=== PATIENT | male | born 1945 | race Caucasian/White ===

== ENCOUNTER 2016-07-21 21:36 | Emergency (ER) | payer MEDICARE, OTHER ==
[2016-07-21 21:46] VITALS: RESP 18; TEMP 97
[2016-07-21] MEDS ORDERED: HYDROmorphone 1 MG/ML 1 ML SYRINGE IVP STA (22:16)
[2016-07-21] MEDS ORDERED: SODIUM CHLORIDE 0.9% 1,000 ML IV STA (22:16)
--- NOTE | 2016-07-21 22:20 | ED ---
General Adult HPI - General Chief complaint: Extremity Problem,Nontraumatic Stated complaint: right foot & calf pain Time Seen by Provider: 07/21/16 22:01 Source: patient, family, RN notes reviewed Mode of arrival: wheelchair Limitations: no limitations - History of Present Illness Initial comments: Patient is a pleasant 70-year-old male presenting to the emergency Department with right leg pain. Patient did have angiogram done today with cleanout of his right leg. Patient has had increased discomfort since that time. No stent was placed. Patient and family state they were able to find a pulse following the procedure. Patient complains that his foot and lower leg feel cold. Patient has discomfort from the mid thigh downward. Patient does have a history of vascular disease in the past. Patient is currently on Plavix. No abdominal or back discomfort. - Related Data Home Medications Medication Instructions Recorded Confirmed Aspirin EC [Ecotrin Low Dose] 81 mg PO DAILY 07/21/16 07/21/16 Atorvastatin [Lipitor] 40 mg PO DAILY 07/21/16 07/21/16 Baclofen [Lioresal] 10 mg PO BID 07/21/16 07/21/16 Citalopram Hydrobromide [CeleXA] 20 mg PO DAILY 07/21/16 07/21/16 Clopidogrel [Plavix] 75 mg PO DAILY 07/21/16 07/21/16 Gabapentin [Neurontin] 300 mg PO HS 07/21/16 07/21/16 Insulin Aspart [NovoLOG Flexpen] See Protocol SQ TID 07/21/16 07/21/16 Insulin Detemir [Levemir Flextouch] See Protocol SQ AC-BID 07/21/16 07/21/16 Lisinopril [Zestril] 5 mg PO DAILY 07/21/16 07/21/16 Metoprolol Succinate (ER) [Toprol 50 mg PO DAILY 07/21/16 07/21/16 Xl] Midodrine [ProAmatine] 5 mg PO BID 07/21/16 07/21/16 Nitroglycerin Sl Tabs [Nitrostat] 0.4 mg SUBLINGUAL Q5M PRN 07/21/16 07/21/16 glipiZIDE XL [Glucotrol Xl] 10 mg PO BID 07/21/16 07/21/16 metFORMIN HCL ER [Glucophage Xr] 500 mg PO DAILY 07/21/16 07/21/16 oxyCODONE-APAP 5-325MG [Percocet 1 tab PO DAILY PRN 07/21/16 07/21/16 5-325 mg] Allergies Allergy/AdvReac Type Severity Reaction Status Date / Time No Known Allergies Allergy Verified 07/21/16 22:10 Review of Systems ROS Statement: Those systems with pertinent positive or pertinent negative responses have been documented in the HPI. ROS Other: All systems not noted in ROS Statement are negative. Constitutional: Denies: fever Eyes: Denies: eye pain ENT: Denies: ear pain Respiratory: Denies: cough Cardiovascular: Denies: chest pain Endocrine: Denies: fatigue Gastrointestinal: Denies: abdominal pain Genitourinary: Denies: dysuria Musculoskeletal: Denies: back pain Skin: Denies: rash Neurological: Denies: weakness Past Medical History Past Medical History: Diabetes Mellitus Additional Past Medical History / Comment(s): cataracts History of Any Multi-Drug Resistant Organisms: None Reported Past Surgical History: Orthopedic Surgery Additional Past Surgical History / Comment(s): right femoral bypass, knee surgery, toe amputations Past Psychological History: No Psychological Hx Reported Smoking Status: Current every day smoker Past Alcohol Use History: Occasional Past Drug Use History: None Reported, Unable to Obtain General Exam Limitations: no limitations General appearance: alert, in no apparent distress Head exam: Present: atraumatic Eye exam: Present: normal appearance, PERRL ENT exam: Present: normal oropharynx Neck exam: Present: normal inspection Respiratory exam: Present: normal lung sounds bilaterally Cardiovascular Exam: Present: regular rate, normal rhythm Expanded Peripheral pulses: 0: Posterior Tibialis (R), Dorsalis Pedis (R), 1+: Posterior Tibialis (L), 2+: Femoral (R), Femoral (L), Dorsalis Pedis (L) GI/Abdominal exam: Present: soft. Absent: distended, tenderness Extremities exam: Present: tenderness (Diffuse right leg tenderness without swelling.), other (No leg swelling. Cap refill 4-5 seconds. Unable to palpate pedal pulses on the right. Pallor is present.) Neurological exam: Present: alert. Absent: motor sensory deficit Psychiatric exam: Present: normal affect, normal mood Skin exam: Present: pallor (Right leg) Course Vital Signs 07/21/16 21:43 Temperature 97.0 F L Pulse Rate 84 Respiratory 18 Rate Blood Pressure 154/68 O2 Sat by Pulse 99 Oximetry - Reevaluation(s) Reevaluation #1: 07/21/16 22:17 Patient and family requests we do not consult the on-call vascular surgeon here , Dr. Young. Page has been placed for patient's surgeon Dr. Gregory Cottrell. 07/21/16 22:40 Case was discussed in detail with Dr. Cottrell who does recommend 5000 units of heparin and transferred to [facility]. Case was then discussed with Dr. Jaspreet Navarrete, who will accept transfer. Patient and family updated. Disposition Clinical Impression: Arterial occlusion Disposition: OTHER INSTITUTION NOT DEFINED Condition: Serious - Out of Hospital Transfer - Req. Specs Out of Hospital Transfer - Requested Specifics: Other Emergency Center
[2016-07-21] MEDS ORDERED: HEPARIN SODIUM,PORCINE 5,000 UNIT/ML 1 ML VIAL IV STA (22:39)
[2016-07-21 22:44] LABS: Anisocytosis Slight; Aty Lym Flag Slight; CH 28.8; CHCM 32.8; HCT 31.8 % (39.0-53.0); HDW 2.84; HGB 10.3 gm/dL (13.0-17.5); MCH 28.4 pg (25.0-35.0); MCHC 32.3 g/dL (31.0-37.0); Mean Platelet Volume 8.4; RBC 3.62 m/uL (4.30-5.90); RDW 17.6 % (11.5-15.5); WBC 4.9 k/uL (3.8-10.6); WBC (Perox) 5.24
[2016-07-21 22:48] VITALS: BP 172/77; PULSE 89
[2016-07-21 22:53] LABS: Calcium 8.9 mg/dL (8.4-10.2); Potassium 4.1 mmol/L (3.5-5.1); Total Bilirubin 0.8 mg/dL (0.2-1.3); Total Protein 6.7 g/dL (6.3-8.2)
[2016-07-21 23:04] LABS: INR 0.9 (<1.1); Prothrombin Time 9.5 sec (9.0-12.0)
[2016-07-21 23:37] LABS: Partial Thromboplastin Time 18.5 sec (22.0-30.0)
[2016-07-21 23:57] LABS: Add Differential Manual Differential
[2016-07-22 00:01] LABS: Nucleated Red Blood Cells 0 /100 WBC (0-0); Polychromasia Present; Total Cells Counted 100
[2016-07-22 00:03] LABS: Large Platelets Present; Manual Review Performed
== END 2016-07-21 23:20 | disposition other institution (70) ==
LOC: EC 21:36
DX: I74.3 Embolism and thrombosis of arteries of the lower extremities (principal); Z98.62 Peripheral vascular angioplasty status; I99.9 Unspecified disorder of circulatory system; Z95.828 Presence of other vascular implants and grafts; E11.9 Type 2 diabetes mellitus without complications; Z79.899 Other long term (current) drug therapy; Z79.02 Long term (current) use of antithrombotics/antiplatelets; Z79.82 Long term (current) use of aspirin; Z79.4 Long term (current) use of insulin; Z79.84 Long term (current) use of oral hypoglycemic drugs; F17.200 Nicotine dependence, unspecified, uncomplicated
CPT/HCPCS: 99284; 96374; 96375; 96361; 36415; 80053; 85025; 85610; 85730; J1644; J1170

== ENCOUNTER → 2016-09-16 | Outpatient (CLI) | payer MEDICARE ==
[2016-09-16 12:39] LABS: Anisocytosis Slight; Appearance,Urine Clear (Clear); Bilirubin,Urine Negative (Negative); CH 28.7; CHCM 32.1; Glucose,Urine (UA) Trace (Negative); HCT 29.2 % (39.0-53.0); HDW 2.75; HGB 9.4 gm/dL (13.0-17.5); Hypochromasia Slight; Ketones,Urine Negative (Negative); Leukocyte Esterase,Urine Negative (Negative); MCH 28.9 pg (25.0-35.0); MCHC 32.2 g/dL (31.0-37.0); MCV 89.6 fL (80.0-100.0); Mean Platelet Volume 8.8; Nitrite,Urine Negative (Negative); Particle Count 749; Protein,Urine Trace (Negative); RBC 3.25 m/uL (4.30-5.90); RBC,Urine 1 /hpf (0-5); UA Billing (MACRO vs. MICRO) MICRO; Urobilinogen,Urine <2.0 mg/dL (<2.0); WBC 4.8 k/uL (3.8-10.6)
[2016-09-16 12:50] LABS: Calcium 9.5 mg/dL (8.4-10.2); Phosphorous 4.2 mg/dL (2.5-4.5); Potassium 4.5 mmol/L (3.5-5.1); Total Bilirubin 0.5 mg/dL (0.2-1.3); Total Protein 7.7 g/dL (6.3-8.2)
== END ==
LOC: LABWHC1 11:55
PROVIDERS: ATTEND Internal Medicine
DX: N18.3 Chronic kidney disease, stage 3 (moderate) (principal)
CPT/HCPCS: 36415; 80053; 81001; 84100; 85027

== ENCOUNTER → 2016-09-23 | Outpatient (CLI) | payer MEDICARE ==
[2016-09-23 17:24] LABS: Bilirubin, Delta 0.3 mg/dL (0.0-0.2); Total Bilirubin 0.4 mg/dL (0.2-1.3); Total Protein 7.1 g/dL (6.3-8.2)
== END ==
LOC: LABWHC1 16:43
PROVIDERS: ATTEND Anesthesiology Pain Medicine
DX: Z79.891 Long term (current) use of opiate analgesic (principal)
CPT/HCPCS: 36415; 80076

== ENCOUNTER → 2016-09-23 | Outpatient (CLI) | payer MEDICARE ==
--- NOTE | 2016-09-24 08:15 | US ---
EXAMINATION TYPE: US kidneys/renal and bladder DATE OF EXAM: 09/23/2016 4:36 PM COMPARISON: on PACS CLINICAL HISTORY: N18.9 CKD Stage 3. Hx of bladder cancer x 2 years ago. Hx of renal cysts. Hx of ph en phen EXAM MEASUREMENTS: Right Kidney: 10.6 x 5.4 x 4.8 cm Left Kidney: 10.0 x 4.8 x 5.0 cm TECHNOLOGIST IMPRESSION: Right Kidney: lateral mid cyst in cortical region= 1.9 x 1.2 x 1.1 cm. Medial anterior mid cyst = 2. 1 x 2.0 x 1.7 cm. Left Kidney: lateral lower pole cyst in cortical region = 1.0 x 1.3 x 1.2 cm Bladder: distended, wnl as visualized Bilateral Jets seen There is no evidence for hydronephrosis at this point in time. No nephrolithiasis is seen. No larissa s are identified. The urinary bladder is anechoic. Bilateral ureteral jets are seen. IMPRESSION: Cystic foci within the right and left kidney have grown slightly in the interval.
== END ==
LOC: RADUSMAIN 16:05
PROVIDERS: ATTEND Internal Medicine
DX: Q61.01 Congenital single renal cyst (principal); N18.3 Chronic kidney disease, stage 3 (moderate)
CPT/HCPCS: 76770

== ENCOUNTER 2016-09-24 22:52 | Emergency (ER) | payer MEDICARE ==
[2016-09-24 23:04] VITALS: BP 122/57; PULSE 80; RESP 18; TEMP 97.6
[2016-09-25 00:33] LABS: Glucose,Whole Blood 126 mg/dL (75-99)
--- NOTE | 2016-09-25 00:37 | ED ---
Recheck HPI - General Chief Complaint: Recheck/Abnormal Lab/Rx Stated Complaint: low blood sugar Time Seen by Provider: 09/24/16 23:59 Source: patient, RN notes reviewed Mode of arrival: ambulatory Limitations: no limitations - History of Present Illness Initial Comments: Patient is a 70-year-old male presents to the emergency room for evaluation of low blood sugar. Patient has a history of type 2 diabetes. Patient states he' s been taking his glucose levels all day and they are a lot lower than usual. Patient states his glucose levels are usually 140-150. Patient states today they have been below 120. Patient states he takes metformin and Glucophage every day. Patient states he ate a few pieces of chocolate with no relief of symptoms. Patient denies feeling shaky. Patient denies headache or dizziness. Patient denies nausea or vomiting. Patient states usually he feels shaky with nausea whenever his sugars are too low. Patient states he doesn't want his sugars to get any lower. Patient denies fevers, chills, chest pain, shortness of breath, abdominal pain. - Related Data Home Medications Medication Instructions Recorded Confirmed Aspirin EC [Ecotrin Low Dose] 81 mg PO DAILY 07/21/16 09/24/16 Atorvastatin [Lipitor] 40 mg PO DAILY 07/21/16 09/24/16 Baclofen [Lioresal] 10 mg PO BID 07/21/16 09/24/16 Citalopram Hydrobromide [CeleXA] 20 mg PO DAILY 07/21/16 09/24/16 Clopidogrel [Plavix] 75 mg PO DAILY 07/21/16 09/24/16 Insulin Aspart [NovoLOG Flexpen] See Protocol SQ TID 07/21/16 09/24/16 Insulin Detemir [Levemir Flextouch] See Protocol SQ AC-BID 07/21/16 09/24/16 Lisinopril [Zestril] 5 mg PO DAILY 07/21/16 09/24/16 Metoprolol Succinate (ER) [Toprol 50 mg PO DAILY 07/21/16 09/24/16 Xl] Midodrine [ProAmatine] 5 mg PO BID 07/21/16 09/24/16 Nitroglycerin Sl Tabs [Nitrostat] 0.4 mg SUBLINGUAL Q5M PRN 07/21/16 09/24/16 glipiZIDE XL [Glucotrol Xl] 10 mg PO BID 07/21/16 09/24/16 oxyCODONE-APAP 5-325MG [Percocet 1 tab PO DAILY PRN 07/21/16 09/24/16 5-325 mg] Pregabalin [Lyrica] 75 mg PO BID 09/24/16 09/24/16 metFORMIN HCL [Glucophage] 500 mg PO DAILY 09/24/16 09/24/16 Allergies Allergy/AdvReac Type Severity Reaction Status Date / Time No Known Allergies Allergy Verified 09/24/16 23:46 Review of Systems ROS Statement: Those systems with pertinent positive or pertinent negative responses have been documented in the HPI. ROS Other: All systems not noted in ROS Statement are negative. Past Medical History Past Medical History: Diabetes Mellitus Additional Past Medical History / Comment(s): cataracts History of Any Multi-Drug Resistant Organisms: None Reported Past Surgical History: Orthopedic Surgery Additional Past Surgical History / Comment(s): right femoral bypass, knee surgery, toe amputations Past Psychological History: No Psychological Hx Reported Smoking Status: Current every day smoker Past Alcohol Use History: Occasional Past Drug Use History: None Reported, Unable to Obtain General Exam - General Exam Comments Initial Comments: Sitting in exam room in no acute distress. Limitations: no limitations General appearance: alert, in no apparent distress Head exam: Present: atraumatic, normocephalic, normal inspection Eye exam: Present: normal appearance ENT exam: Present: normal exam Neck exam: Present: normal inspection Respiratory exam: Present: normal lung sounds bilaterally. Absent: respiratory distress Cardiovascular Exam: Present: regular rate, normal rhythm, normal heart sounds GI/Abdominal exam: Present: soft, normal bowel sounds. Absent: distended, tenderness, guarding, rebound, rigid Extremities exam: Present: normal inspection Back exam: Present: normal inspection Neurological exam: Present: alert, oriented X3, CN II-XII intact, normal gait Psychiatric exam: Present: normal affect, normal mood Skin exam: Present: warm, dry, intact, normal color. Absent: rash Course Vital Signs 09/24/16 23:01 Temperature 97.6 F Pulse Rate 80 Respiratory 18 Rate Blood Pressure 122/57 O2 Sat by Pulse 98 Oximetry Medical Decision Making - Medical Decision Making Patient is a 70-year-old male presents emergency room for evaluation of low blood sugar. Patient's Accu-Chek was 120 arrival. Patient's repeat Accu-Chek was 126. Patient was given orange juice. Advised patient to go home and eat a large peanut butter sandwich before bed. Advised patient discontinue Glucophage tomorrow but to continue metformin. Advised patient to follow-up with his primary care provider for possible adjustment in medications for his diabetes. Advised patient to return for any worsening symptoms. Patient states he understands everything that was discussed with him. Case discussed with Dr. Bower. - Lab Data Lab Results 09/25/16 Range/Units 00:29 POC Glucose (mg/dL) 126 H (75-99) mg/dL POC Glu Missionary Coordinator ID Suzy Lange A Disposition Clinical Impression: Normal blood glucose level Disposition: HOME SELF-CARE Condition: Good Instructions: How to Check Your Blood Sugar (ED), Hypoglycemia in a Person with Diabetes (ED) Additional Instructions: Discontinue Glucophage tomorrow and follow up with primary care provider. Continue taking metformin as directed. If any new symptom arises or symptoms worsen, return to ER as soon as possible. Referrals: Solange Diaz MD [Primary Care Provider] - 1-2 days Time of Disposition: 00:36
[2016-09-25 03:14] LABS: Glucose,Whole Blood 120 mg/dL (75-99)
== END 2016-09-25 00:44 | disposition home or self-care (01) ==
LOC: EC 22:52
DX: E11.9 Type 2 diabetes mellitus without complications (principal); F17.200 Nicotine dependence, unspecified, uncomplicated; Z79.82 Long term (current) use of aspirin; Z79.899 Other long term (current) drug therapy; Z79.4 Long term (current) use of insulin; Z79.02 Long term (current) use of antithrombotics/antiplatelets; Z79.84 Long term (current) use of oral hypoglycemic drugs; Z89.429 Acquired absence of other toe(s), unspecified side
CPT/HCPCS: 36415; 99283

== ENCOUNTER → 2016-10-17 | Outpatient (CLI) | payer MEDICARE ==
[2016-10-17 07:21] LABS: Calcium 9.2 mg/dL (8.4-10.2); Total Bilirubin 0.3 mg/dL (0.2-1.3); Total Protein 7.6 g/dL (6.3-8.2)
[2016-10-17 07:40] LABS: Potassium 5.2 mmol/L (3.5-5.1)
--- NOTE | 2016-10-17 10:14 | MR ---
EXAMINATION TYPE: MR cervical spine wo/w con DATE OF EXAM: 10/17/2016 8:10 AM COMPARISON: NONE HISTORY: Neck pain TECHNIQUE: Multiplanar, multisequence images of the cervical spine were acquired utilizing 15 mL intravenous Mul tiHance gadolinium contrast. Diffusion weighted imaging was performed. C2-C3: There is a tiny left paracentral disc bulge with anterior thecal sac compression. No AP spinal canal stenosis or neural foraminal stenosis present. C3-C4: Mild disc bulge has anterior thecal sac contact. No AP spinal canal stenosis present. Neural f oramen are patent. C4-C5: Disc bulge is present with mild anterior thecal sac compression. This comes in close approxima tion with spinal cord. AP spinal canal stenosis is not present. Mild right foraminal stenosis is pre sent. C5-C6: Central protrusion is present with mild anterior thecal sac compression. No AP spinal canal st enosis present. Neural foramen appear patent C6-C7: Broad-based disc bulge is present with moderate anterior thecal sac compression. This may has subtle greater bulging in the left paracentral canal. Cord contact is evident. Subtle cord deformity is present. An AP spinal canal stenosis is not present, and the AP diameter is 1 cm at this level. Th ere is moderate bilateral foraminal stenosis due to uncovertebral joint and disc bulge. C7-T1: No evidence for degenerative disc disease. No disc bulge/herniation or protrusion. No Canal stenosis. Foramina are patent bilaterally. Cervical segments are intact. There is normal alignment. Cervical spinal cord is of normal signal. Craniovertebral junction relationships are within normal limits. No abnormal enhancement is evident. Anterior fusion C5-C7 is present. IMPRESSION: Disc bulging C6-7 with moderate anterior thecal sac compression. Some left paracentral anterior cord flattening is present from contact. No cysts stenosis is present. 2. Additional disc bulges and mild anterior thecal sac compression without cord contact or deformity. 3. Foraminal stenosis greatest at C6-7 bilaterally.
--- NOTE | 2016-10-17 10:22 | MR ---
EXAMINATION TYPE: MR lumbar spine wo con DATE OF EXAM: 10/17/2016 8:10 AM COMPARISON: NONE HISTORY: Low back pain CONTRAST: 0 mL intravenous MultiHance. TECHNIQUE: Multiplanar, multisequence images of the lumbar spine were acquired. FINDINGS: L5-S1: Mild disc bulge is present with epidural space impingement. No thecal sac contact or exiting n erve root contact is evident. No spinal canal stenosis present. There is disc desiccation and narrowi ng of the disc height. No spinal canal stenosis. No foraminal stenosis. . L4-L5: Broad-based disc bulge is present with anterior thecal sac flattening. Left paracentral disc h erniation is present with posterior displacement of the exiting L5 nerve root. Correlate with radicul ar symptoms. No spinal canal stenosis. Mild left foraminal narrowing is present. Mild right foramin al narrowing may be present from disc bulging. . L3-L4: No significant disc bulge or disc herniation. No spinal canal stenosis. No foraminal stenosi s. . L2-L3: No significant disc bulge or disc herniation. No spinal canal stenosis. No foraminal stenosi s. . L1-L2: No significant disc bulge or disc herniation. No spinal canal stenosis. No foraminal stenosi s. . T12-L1: No significant disc bulge or disc herniation. No spinal canal stenosis. No foraminal stenos is. . IMPRESSION: 1. Disc bulge L4-5. Some more focal bulge into the left paracentral region likely has posterior L5 ne rve root displacement. Correlate with left L5 radicular symptoms. 2. Minimal degenerative disc changes L5-S1 without spinal canal stenosis or nerve root impingement.
== END | disposition home or self-care (01) ==
LOC: RADMRIMAIN 06:55
PROVIDERS: ATTEND Anesthesiology Pain Medicine
DX: M48.02 Spinal stenosis, cervical region (principal); M50.223 Other cervical disc displacement at C6-C7 level; M47.22 Other spondylosis with radiculopathy, cervical region; M51.26 Other intervertebral disc displacement, lumbar region; M47.26 Other spondylosis with radiculopathy, lumbar region; M96.1 Postlaminectomy syndrome, not elsewhere classified
CPT/HCPCS: 80053; 72148; 72156; 36415; A9577

== ENCOUNTER → 2018-07-01 | Outpatient (CLI) | payer MEDICARE ==
--- NOTE | 2018-07-01 10:10 | CT ---
EXAMINATION TYPE: CT lumbar spine wo con DATE OF EXAM: 07/01/2018 COMPARISON: Correlation CT abdomen 11/25/2013 and MRI lumbar spine 10/17/2016 HISTORY: 72-year-old male Chronic back pain TECHNIQUE: Contiguous axial scanning of the lumbar spine without IV contrast. Coronal and sagittal re constructions performed. CT DLP: 497.7 mGycm Automated exposure control for dose reduction was used. FINDINGS: 1.3 cm in slightly high density lesion posterior right kidney. Referring to patient's 10/17/2016 MRI w hich showed a T2 dark and T1 bright lesion here, findings suggest a hemorrhagic cyst. Ectatic infrarenal abdominal aorta 2.8 cm. Stent in the proximal left external iliac artery. Ectatic left common iliac artery measuring up to 1.6 cm. No prevertebral or paravertebral soft tissue swelling seen. There is left L5 hemisacralization with the lateral sacroiliac. Degenerative disc disease at the level above at L4-L5 with disc bulge. Mild superior endplate deformity/sclerosis noted of T11 appears chronic. Facet arthropathy lower lumbar spine. Vertebral body heights otherwise preserved alignment is maintained. Diffuse osteopenia. Scattered mild degenerative disc disease with disc bulging. At T12-L1, no spinal canal or neuroforaminal stenosis. L1-L2, minimal bulging disc without canal or foraminal stenosis. At L2-L3, mild diffuse disc bulge impressing on the ventral thecal sac. No significant spinal canal o r foraminal stenosis. At L3-L4, there is diffuse disc bulge and facet degenerative change. Changes result in mild bilateral neuroforaminal stenosis. No significant spinal canal stenosis. At L4-L5, there is a broad-based diffuse disc protrusion posteriorly. This causes mild spinal canal s tenosis and may abut the bilateral traversing L5 nerve roots. Along with facet arthropathy, there is moderate right greater than left neuroforaminal stenosis. At L5-S1, no spinal canal or foraminal stenosis. IMPRESSION: 1. LEFT L5 HEMISACRALIZATION AND PROBABLE BERTOLOTTI'S SYNDROME CAUSING DEGENERATIVE DISC DISEASE AT THE LEVEL ABOVE (L4-L5) DUE TO ABNORMAL STRESSES. 2. THERE IS BROAD-BASED POSTERIOR DISC PROTRUSION HERE WHICH MAY ABUT THE BILATERAL TRAVERSING L5 NER VE ROOTS. ALONG WITH FACET ARTHROPATHY, THERE IS MODERATE RIGHT GREATER THAN LEFT NEURAL FORAMINAL ST ENOSIS HERE AND MILD OVERALL SPINAL CANAL STENOSIS. A POSTERIOR ANNULAR FISSURE WAS NOTED ON THE [facility]'S 10/17/2016 MRI. 3. ADDITIONAL LEVELS OF MILD DEGENERATIVE DISC DISEASE WITH MILD DISC BULGING. 4. FUSIFORM ECTASIA INFRARENAL ABDOMINAL AORTA AT 2.8 CM AND ECTASIA OF THE LEFT COMMON ILIAC ARTERY AT 1.6 CM.
== END ==
LOC: RADCTMAIN 09:26
PROVIDERS: ATTEND Family Medicine
DX: M48.061 Spinal stenosis, lumbar region without neurogenic claudication (principal); M99.73 Connective tissue and disc stenosis of intervertebral foramina of lumbar region; M51.26 Other intervertebral disc displacement, lumbar region; M51.36 Other intervertebral disc degeneration, lumbar region; M46.96 Unspecified inflammatory spondylopathy, lumbar region
CPT/HCPCS: 72131

== ENCOUNTER → 2019-05-23 | Outpatient (CLI) | payer MEDICARE ==
--- NOTE | 2019-05-25 14:00 | P.ARTDOP ---
Arterial Doppler LOWER EXTREMITY ARTERIAL DOPPLER: DATE OF SERVICE: 05/23/2019 Reason for study: Leg pain with ambulation. Doppler waveforms: Multiphasic at both femorals and below on the left. Atypical on the right below. Pulse volume recording: []. Pressure gradients: Across the knee on the right and less but still across the knee on the left. Ankle-brachial indices: 0.53 on the right and 0.8 on the left. Toe pressures: [] on the right, [] on the left Impression: Moderate right fem-pop disease. Mild left SFA disease..
== END | disposition home or self-care (01) ==
LOC: RADUSWWP 14:21
PROVIDERS: ATTEND Family Medicine
DX: I77.89 Other specified disorders of arteries and arterioles (principal)
CPT/HCPCS: 93923

== ENCOUNTER → 2019-09-19 | Outpatient (CLI) | payer MEDICARE | END | disposition home or self-care (01) | CPT/HCPCS: 80051; 82565; 84520; 85027 ==

== ENCOUNTER 2019-09-21 07:23 | Day surgery (SDC) | payer MEDICARE ==
[2019-09-19 13:02] VITALS: BMI 22.4
[~2019-09-21 07:23] MED LIST: ALPRAZolam 0.25 MG TAB PO PRN; ASPIRIN 325 MG TAB PO STA
[2019-09-21] MEDS ORDERED: SODIUM CHLORIDE 0.9% 1,000 ML in EMPTY BAG 1 BAG IV ONE (07:30)
[2019-09-21 07:47] VITALS: RESP 16
[2019-09-21 07:53] LABS: Glucose,Whole Blood 170 mg/dL (75-99)
[2019-09-21] MEDS ORDERED: MIDAZOLAM 2 MG/2 ML VIAL IVP ONE (10:46)
[2019-09-21] MEDS ORDERED: LIDOCAINE 1% INJ 10MG/ML (20 ML MDV) SQ ONE (11:02)
[2019-09-21] MEDS ORDERED: SODIUM CHLORIDE 0.9% 500 ML 500 ML with niCARdipine 6.25 MG, NITROGLYCERIN-D5W PMX 0.05... IV ONE ×4 (11:02)
[2019-09-21] MEDS: fentaNYL (PF) 50 MCG/ML 2 ML AMP IV ONE ×2 (11:04→11:39)
[2019-09-21] MEDS ORDERED: HEPARIN SODIUM 1,000 UN/ML (10ML VL) IV ONE (11:08)
[2019-09-21] MEDS ORDERED: CLOPIDOGREL 75 MG TAB PO ONE (11:23)
[2019-09-21] MEDS ORDERED: NITROGLYCERIN 1000MCG/10ML SYRINGE INTRAARTER ONE (11:41)
[2019-09-21] MEDS ORDERED: IOPAMIDOL-250 100ML BTL INTRAARTER ONE (11:41)
[2019-09-21] MEDS ORDERED: traMADol 50 MG TAB PO PRN (11:49)
[2019-09-21] MEDS ORDERED: HYDROcodone/APAP 7.5-325MG 1 EACH TAB PO PRN (11:49)
[2019-09-21] MEDS ORDERED: NITROGLYCERIN SL TABS 0.4 MG TAB SUBLINGUAL PRN (11:49)
[2019-09-21] MEDS ORDERED: SODIUM CHLORIDE 0.9% 1,000 ML in EMPTY BAG 1 BAG IV SCH (12:00)
--- NOTE | 2019-09-21 12:16 | P.PCN ---
Operative Findings: PERCUTANEOUS PERIPHERAL INTERVENTION Performing physician Dank Rosales M.D. Procedure performed 1. Selective left anterior tibial, popliteal, and SFA angiogram 2. An atherectomy of the left SFA using the Turbo Hawk device 3. Successful balloon angioplasty of the left SFA using 6.0 x 60 mm DCB with excellent results Indication This is a 73-year-old gentleman with PAD and prior left to right fem-fem bypass was experiencing bilateral lower extremities intermittent claudication when he underwent an angiogram which revealed patent [id number] fem-fem bypass with severe bilateral SFA disease. The patient was brought today to undergo a BOILER BLOWER of the left SFA Approach Left anterior tibial artery Complication None Level of sedation Moderate with a sedation length of 43 minutes Procedure description After obtaining an informed consent the patient was brought to the cardiac catholic priest. The left anterior tibial artery was cannulated using micropuncture technique under ultrasound guidance, the micropuncture wire passed easily then I place 5/6 slender sheath in the left anterior tibial artery. Subsequently continuous IV infusion through the sheath was started using a combination of heparin, verapamil, and nitroglycerin. Beside that they give the patient a total of 6000 of heparin IV. I did selective left anterior tibial artery angiogram as well as selective left popliteal and left SFA angiogram. That revealed severe disease involving the mid left SFA. I did wire the left SFA using hydro-ST wire. After that I did atherectomy using the turbo hawk device with extraction of significant plaque. After that I did balloon angioplasty using 6 x 60 mm drug-coated balloon with the following angiogram showing edge dissection and at that point I did balloon angioplasty again using this time 5 mm x 80 mm chocolate balloon with the following angiogram showing good angiographic results. The procedure was completed without any complication Postprocedure management Dual antiplatelet therapy Risk factors modification Follow-up with the patient
[2019-09-21 12:21] LABS: Glucose,Whole Blood 128 mg/dL (75-99)
--- NOTE | 2019-09-21 13:31 | IR ---
EXAMINATION TYPE: IR ferry captain femoral popliteal DATE OF EXAM: 09/21/2019 CLINICAL HISTORY: Left lower extremity peripheral vascular disease. TECHNIQUE: Fluoroscopy. COMPARISON: None. FINDINGS: Fluoroscopic guidance was provided during lower extremity arterial angiogram and angioplas ty procedure performed by Dr. Rosales. A total of 5.6 minutes of fluoroscopic time was utilized during the procedure and 5 cine runs are acquired. Please refer to procedure note for further details as I w as not present nor performed procedure. IMPRESSION: As Above.
[2019-09-21 16:54] LABS: Glucose,Whole Blood 236 mg/dL (75-99)
[2019-09-21] MEDS: INSULIN ASPART (NovoLOG) 100 UNIT/ML VIAL SQ SCH ×2 (18:14→21:18)
[2019-09-21] MEDS: glipiZIDE 5 MG TAB PO SCH (18:14)
--- NOTE | 2019-09-21 19:29 | CONS ---
CONSULTATION [id number]-old white male who had an atherectomy of the left SFA today and left SFA balloon stent for medical management consult. The patient is sleepy, lethargic post surgery. The patient does say overnight. Home medicines will be reordered. He has a history of, as mentioned, diabetes mellitus, coronary artery disease with stents, dyslipidemia, chronic lumbar pain syndrome, COPD. Home medicines have been reordered. Vital signs stable. Blood pressure 130s to 140s over 60s, oxygen 99% to 100% on room air, temperature 98. Fourteen-point review of systems negative except for mentioned in HPI. Sugars in the mid 100s. CARDIOVASCULAR: S1, S2. LUNGS: Clear. GI: Soft. HEMATOLOGY: Negative Homans. ASSESSMENT: 1. Status post PTCA of the lower PAD arteries, left superficial femoral. 2. Diabetes. 3. Hypertension. 4. Chronic obstructive pulmonary disease. Continue home medications. Medically stable at this time. Thanks for the consult, Dr. Rosales. JOSEF / ARNALDO: [id number] /
[2019-09-21] MEDS ORDERED: ATORVASTATIN 20 MG TAB PO SCH (21:00)
[2019-09-21 21:15] LABS: Glucose,Whole Blood 183 mg/dL (75-99)
[2019-09-21] MEDS: GABAPENTIN 100 MG CAP PO SCH (21:18)
[2019-09-22 06:18] LABS: Glucose,Whole Blood 121 mg/dL (75-99)
[2019-09-22 06:57] LABS: Anisocytosis Slight; HGB 9.3 gm/dL (13.0-17.5); Hypochromasia Moderate; MCH 26.8 pg (25.0-35.0); MCHC 32.2 g/dL (31.0-37.0); MCV 83.3 fL (80.0-100.0); Mean Platelet Volume 8.5; Platelet Count 237 k/uL (150-450); RBC 3.49 m/uL (4.30-5.90); RDW 18.2 % (11.5-15.5); WBC 5.1 k/uL (3.8-10.6)
[2019-09-22 07:05] LABS: Calcium 9.1 mg/dL (8.4-10.2); Potassium 4.4 mmol/L (3.5-5.1)
[2019-09-22] MEDS: glipiZIDE 5 MG TAB PO SCH (07:17)
[2019-09-22] MEDS: INSULIN ASPART (NovoLOG) 100 UNIT/ML VIAL SQ SCH (07:17)
[2019-09-22] MEDS: GABAPENTIN 100 MG CAP PO SCH (08:40)
[2019-09-22 08:49] VITALS: BP 158/80; PULSE 77; TEMP 98
[2019-09-22] MEDS ORDERED: ASPIRIN 81 MG PO SCH (09:00)
[2019-09-22] MEDS ORDERED: MONTELUKAST 10 MG TAB PO SCH (09:00)
[2019-09-22] MEDS ORDERED: CLOPIDOGREL 75 MG TAB PO SCH (09:00)
--- NOTE | 2019-09-22 11:55 | P.DS ---
Providers Date of admission: September 20 2. Attending physician: Dank Rosales Consults: 09/21/19 14:01 Consult Physician Routine Consulting Provider: James Wilson Reason/Comments: anemia, pt known to you Do you want consulting provider notified?: Yes [facility] Course: This is a pleasant 73-year-old gentleman who underwent yesterday successful atherectomy and balloon angioplasty of the left SFA with an excellent angiographic results and without any complications The patient was seen today. Overall he is asymptomatic from a cardiovascular standpoint of view. The procedure was performed from the left anterior tibial artery. The patient is going to be discharged home and I'll follow-up with the patient next week in the office Health Concerns: NEW PLAVIX Plan - Discharge Summary Discharge Rx Participant: Yes New Discharge Prescriptions: New Atorvastatin [Lipitor] 20 mg PO HS #90 tab Clopidogrel [Plavix] 75 mg PO DAILY #90 tab Continue Aspirin EC [Ecotrin Low Dose] 81 mg PO DAILY glipiZIDE XL [Glucotrol XL] 5 mg PO BID Nitroglycerin Sl Tabs [Nitrostat] 0.4 mg SUBLINGUAL Q5M PRN PRN Reason: Chest Pain Gabapentin [Neurontin] 100 mg PO BID HYDROcodone/APAP 7.5-325MG [[place] 7.5-325] 1 tab PO BID PRN PRN Reason: Pain Montelukast [Singulair] 10 mg PO DAILY traMADol HCL [Ultram] 50 mg PO BID PRN PRN Reason: Pain Discharge Medication List Aspirin EC [Ecotrin Low Dose] 81 mg PO DAILY 07/21/16 [History] Nitroglycerin Sl Tabs [Nitrostat] 0.4 mg SUBLINGUAL Q5M PRN 07/21/16 [History] glipiZIDE XL [Glucotrol XL] 5 mg PO BID 07/21/16 [History] Gabapentin [Neurontin] 100 mg PO BID 09/19/19 [History] HYDROcodone/APAP 7.5-325MG [[place] 7.5-325] 1 tab PO BID PRN 09/19/19 [History] Montelukast [Singulair] 10 mg PO DAILY 09/19/19 [History] traMADol HCL [Ultram] 50 mg PO BID PRN 09/19/19 [History] Atorvastatin [Lipitor] 20 mg PO HS #90 tab 09/22/19 [Rx] Clopidogrel [Plavix] 75 mg PO DAILY #90 tab 09/22/19 [Rx] Follow up Appointment(s)/Referral(s): Dank Rosales MD [STAFF PHYSICIAN] - 09/27/19 3:45 pm James Wilson MD [Primary Care Provider] - 09/27/19 1:00 pm Ambulatory/Diagnostic Orders: Basic Metabolic Panel [LAB.AMB] Time Frame: 1 Week, Location: None Selected Patient Instructions/Handouts: How to Stop Smoking (DC), Heart Healthy Diet (DC), Peripheral Vascular Angioplasty (DC) Activity/Diet/Wound Care/Special Instructions: Peripheral vascular angioplasty: 1. Watch for any excessive bruising, active bleeding, a firm knot forming under your skin, extreme tenderness and signs of infection (redness, swelling, fever). 2. Shower daily, do not soak puncture in a tub bath, jacuzzi, pool, arellano etc. for 1 week. This is to prevent risk of infection. 3. Drink plenty of fluids the day of and day after your procedure to flush contrast dye out of your kidneys. 4. Take all medications as directed. Never stop any new medication without your physicians OK. 5. No driving for 2 days after procedure. 6. 10- pound weight lifting restriction for 1 week. 7. Low sodium/low fat diet. 8. Activity limited until follow up appointment with your machine repair person. In case of any problems, please call [facility] [place] @ [phone]. Diet: Consistent carb Discharge Disposition: HOME SELF-CARE
== END 2019-09-22 10:55 | disposition home or self-care (01) ==
LOC: CATHCVL 07:23 → 3SCARD 12:11 → CATHCVL 09-22 10:55
PROVIDERS: ATTEND Internal Medicine Interventional Cardiology
DX: E11.51 Type 2 diabetes mellitus with diabetic peripheral angiopathy without gangrene (principal); I70.212 Atherosclerosis of native arteries of extremities with intermittent claudication, left leg; I10 Essential (primary) hypertension; J44.9 Chronic obstructive pulmonary disease, unspecified; E78.5 Hyperlipidemia, unspecified; F17.210 Nicotine dependence, cigarettes, uncomplicated; Z79.82 Long term (current) use of aspirin; Z79.899 Other long term (current) drug therapy; Z79.84 Long term (current) use of oral hypoglycemic drugs
CPT/HCPCS: 37225; 85347; 80048; 85027; C1894; C1769 ×3; C1714; C2623; C1725; J2250; J1644 ×2; J2001; J3010; Q9966

== ENCOUNTER → 2019-10-12 | Day surgery (SDC) | payer MEDICARE ==
[2019-10-11 08:47] VITALS: BMI 23.0
[~2019-10-12] MED LIST changes: +ALPRAZolam 0.5 MG TAB PO PRN; +ASPIRIN 81 MG PO SCH; +ATORVASTATIN 20 MG TAB PO SCH; +CLOPIDOGREL 75 MG TAB ONE; +CLOPIDOGREL 75 MG TAB PO ONE; +CLOPIDOGREL 75 MG TAB PO SCH; +GABAPENTIN 100 MG CAP PO SCH; +HEPARIN SODIUM 1,000 UN/ML (10ML VL) IV ONE; +HYDROcodone/APAP 7.5-325MG 1 EACH TAB PO PRN; +IOPAMIDOL-250 100ML BTL INTRAARTER ONE; +LIDOCAINE 1% INJ 10MG/ML (20 ML MDV) SQ ONE; +MIDAZOLAM 2 MG/2 ML VIAL IV ONE; +MONTELUKAST 10 MG TAB PO SCH; +NITROGLYCERIN 1000MCG/10ML SYRINGE INTRAARTER ONE; +NITROGLYCERIN SL TABS 0.4 MG TAB SUBLINGUAL PRN; +NON FORMULARY DRUG (Glipizide Xl 5 MG) PO SCH; +SODIUM CHLORIDE 0.9% 1,000 ML IV ONE; +SODIUM CHLORIDE 0.9% 1,000 ML IV SCH; +SODIUM CHLORIDE 0.9% 1,000 ML in EMPTY BAG 1 BAG IV ONE; +SODIUM CHLORIDE 0.9% 1,000 ML in EMPTY BAG 1 BAG IV SCH; +SODIUM CHLORIDE 0.9% 500 ML 500 ML with niCARdipine 6.25 MG, NITROGLYCERIN-D5W PMX 0.05... IV ONE; +niCARdipine Syringe (1,000 mcg/10 mL) INTRAARTER ONE; +traMADol 50 MG TAB PO PRN
[2019-10-12 07:47] LABS: Glucose,Whole Blood 152 mg/dL (75-99)
[2019-10-12 07:48] VITALS: RESP 8; TEMP 97.8
--- NOTE | 2019-10-12 11:02 | P.PCN ---
Date of Procedure: 10/12/19 Operative Findings: PERCUTANEOUS PERIPHERAL ARTERIAL INTERVENTION Performing physician Dank Rosales MD., RPVI Procedure performed 1. Successful atherectomy of the right superficial femoral artery (SFA) using the Turbo Hawk atherectomy device 2. Successful balloon angioplasty of the right SFA using 5.0 x 18 mm Chocolate balloon with an excellent angiographic results 3. Selective right SFA angiogram 4. Selective right anterior tibial artery angiogram Indication This is a 73-year-old gentleman was no peripheral arterial disease and prior lawm-cs-miqtr fem-fem bypass who was experiencing bilateral lower extremities intermittent claudication and underwent an angiogram which revealed severe bilateral SFA disease. He underwent a BROWN STOCK WASHER of the left SFA and was brought today to undergo a BROWN STOCK WASHER of the right SFA Approach Right anterior tibial artery Complication None Level of sedation Moderate with a sedation length of 38 minus Procedure description After obtaining an informed consent the patient was brought to the cardiac laborer tan house. The right anterior tibial artery was cannulated using micropuncture technique under ultrasound guidance, subsequently I placed a 5/6 slender sheath in the right anterior tibial artery. The sheath was flushed and subsequently connected into a cocktail includes heparin, verapamil, and nitroglycerin. Anticoagulation was initiated using heparin and the patient was given a total of 5000 use of heparin IV. Subsequently I did advanced an 014 hydro-ST wire to the right SFA. I advanced over the wire and 035 CXR catheter. I injected contrast through the CXR I were identified tight lesion involving the distal right SFA. At that point I left the hydro-ST wire and and pulled the catheter out. Subsequently I did atherectomy of the right SFA using the dissection atherectomy device, Turbo Hawk, where I was able to extract significant amount of plaque. Subsequently I did balloon angioplasty using 5.0 x 18 mm chocolate balloon were the balloon was inflated slowly up to 6 afsaneh and left inflated for 1 minute. Subsequently the balloon was pulled out. The following angiogram showed an excellent angiographic results without any evidence of flow-limiting dissection. The procedure was completed without any complications Subsequently I pulled the pedal sheath out and replaced manual pressure for about 5-10 minutes before reapplied the TR band. Postprocedure management 1. Dual antiplatelet therapy to be continued 2. Statin to be continued 3. Possible discharge in the next 12 hours
--- NOTE | 2019-10-12 11:09 | IR ---
EXAMINATION TYPE: IR airplane captain femoral popliteal DATE OF EXAM: 10/12/2019 COMPARISON: NONE HISTORY: Fluoroscopy time. Fluoroscopy was provided to the referring clinician.
[2019-10-12 15:26] VITALS: BP 145/67; PULSE 68
== END ==
LOC: CATHCVL 07:20
PROVIDERS: ATTEND Internal Medicine Interventional Cardiology
DX: E11.51 Type 2 diabetes mellitus with diabetic peripheral angiopathy without gangrene (principal); I70.213 Atherosclerosis of native arteries of extremities with intermittent claudication, bilateral legs; I10 Essential (primary) hypertension; E78.5 Hyperlipidemia, unspecified; F17.210 Nicotine dependence, cigarettes, uncomplicated; Z95.820 Peripheral vascular angioplasty status with implants and grafts; Z79.02 Long term (current) use of antithrombotics/antiplatelets; Z79.82 Long term (current) use of aspirin; Z79.84 Long term (current) use of oral hypoglycemic drugs; Z79.899 Other long term (current) drug therapy
CPT/HCPCS: 37225; C1894; C1769 ×3; C1887; C1714; C1725; J2250; J1644 ×2; J2001; Q9966

== ENCOUNTER → 2020-01-16 | Outpatient (CLI) | payer MEDICARE ==
--- NOTE | 2020-01-16 14:17 | XR ---
EXAMINATION TYPE: XR chest 2V DATE OF EXAM: 01/16/2020 COMPARISON: NONE HISTORY: Shortness of breath TECHNIQUE: Frontal and lateral views of the chest are obtained. FINDINGS: Scattered senescent parenchymal changes noted. Hyperinflation compatible with COPD. No evidence for infiltrate. No evidence for atelectasis. Heart size is stable. Mediastinal structures are stable and grossly unremarkable. No evidence for hilar prominence. Degenerative changes dorsal spine. IMPRESSION: 1. No evidence for acute pulmonary disease.
--- NOTE | 2020-01-18 10:20 | P.ARTDOP ---
Arterial Doppler LOWER EXTREMITY ARTERIAL DOPPLER: DATE OF SERVICE: 01/16/2020 Reason for study: Bilateral leg pain. Previous stent left leg. Doppler waveforms: Multiphasic bilaterally throughout. Pulse volume recording: Mild blunting of waveforms. Aberrant reading left thigh. Pressure gradients: Mild gradient above the low low thigh on the right and above the ankle on the left. Ankle-brachial indices: 0.88 on the right and 0.9 on the left. Toe brachial indices: 0.63 on the right on the right, toe absent on the left Impression: Suspect mild bilateral fem-pop disease. Unlikely the right to symptoms. Clinical correlation recommended..
== END | disposition home or self-care (01) ==
LOC: RADUSWWP 13:20
PROVIDERS: ATTEND Family Medicine
DX: I73.9 Peripheral vascular disease, unspecified (principal); J44.9 Chronic obstructive pulmonary disease, unspecified
CPT/HCPCS: 71046; 93923

== ENCOUNTER → 2020-09-27 | Outpatient (CLI) | payer MEDICARE ==
--- NOTE | 2020-09-27 17:33 | CTL ---
EXAMINATION TYPE: CT Low Dose Lung DATE OF EXAM ORDERED: 09/27/2020 HISTORY: Personal history of tobacco use. Lung cancer screening CT DLP: [address] CTDI: 1.76 mGy Automated exposure control for dose reduction was used. SCREENING VISIT: Initial COMPARISON: None TECHNIQUE: Low dose computed tomography scan was performed through the chest at 1 mm thick sections a nd reconstructed images in the coronal plane at [address] DIAGNOSTIC QUALITY: Limited, but interpretable FINDINGS: LUNG NODULES: None. LUNGS: COPD: Severity: None Fibrosis: Severity: None Lymph nodes: None Other findings: None RIGHT PLEURAL SPACE: Effusion: None Calcification: None Thickening: None Pneumothorax: None LEFT PLEURAL SPACE: Effusion: None Calcification: None Thickening: None Pneumothorax: None HEART: Heart Size: Normal Coronary calcification: Minimal Pericardial effusion: None OTHER FINDINGS: Upper abdomen: Normal Bony thorax: Normal Supraclavicular region: Normal Other: Ascending thoracic aorta at the level the main pulmonary artery measures 3.3 cm. The main pul monary artery at the bifurcation measures 2.2 cm. IMPRESSION: No suspicious changes to suggest neoplasm. FOLLOW UP CT CHEST RECOMMENDATION: Follow-up low-dose CT chest one year CT LUNG RAD: 1
== END | disposition home or self-care (01) ==
LOC: RADCTMAIN 11:22
PROVIDERS: ATTEND Family Medicine
DX: Z12.2 Encounter for screening for malignant neoplasm of respiratory organs (principal); Z87.891 Personal history of nicotine dependence
CPT/HCPCS: 71271

== ENCOUNTER 2020-11-17 09:36 | Emergency (ER) | payer MEDICARE ==
[2020-11-17 09:41] VITALS: BP 144/68; PULSE 90; RESP 18; TEMP 98.1
[2020-11-17] MEDS ORDERED: MORPHINE SULFATE 4 MG/ML SYRINGE IM STA (09:50)
--- NOTE | 2020-11-17 09:59 | ED ---
General Adult HPI - General Chief complaint: Extremity Problem,Nontraumatic Stated complaint: rt leg injury Time Seen by Provider: 11/17/20 09:42 Source: patient, RN notes reviewed Mode of arrival: ambulatory Limitations: no limitations - History of Present Illness Initial comments: 74-year-old male with a history of bladder cancer, diabetes mellitus, presents to the emergency room for a chief complaint of right leg pain. Patient states he fell yesterday because he missed his chair when he was sitting down. States he fell on his buttock and his right leg. He did not hit his head. Patient states the only pain he is having today is right lower leg. States it is painful to walk on. Patient is concerned it could be broken.Patient has no other complaints at this time including shortness of breath, chest pain, abdominal pain, nausea or vomiting, headache, or visual changes. - Related Data Home Medications Medication Instructions Recorded Confirmed Aspirin EC [Ecotrin Low Dose] 81 mg PO DAILY 07/21/16 10/12/19 Nitroglycerin Sl Tabs [Nitrostat] 0.4 mg SUBLINGUAL Q5M PRN 07/21/16 10/12/19 glipiZIDE XL [Glucotrol XL] 5 mg PO BID 07/21/16 10/12/19 Gabapentin [Neurontin] 100 mg PO BID 09/19/19 10/12/19 HYDROcodone/APAP 7.5-325MG [[place] 1 tab PO BID PRN 09/19/19 10/12/19 7.5-325] Montelukast [Singulair] 10 mg PO DAILY 09/19/19 10/12/19 traMADol HCL [Ultram] 50 mg PO BID PRN 09/19/19 10/12/19 Previous Rx's Medication Instructions Recorded Atorvastatin [Lipitor] 20 mg PO HS #90 tab 09/22/19 Clopidogrel [Plavix] 75 mg PO DAILY #90 tab 09/22/19 Allergies Allergy/AdvReac Type Severity Reaction Status Date / Time No Known Allergies Allergy Verified 11/17/20 09:40 Review of Systems ROS Statement: Those systems with pertinent positive or pertinent negative responses have been documented in the HPI. ROS Other: All systems not noted in ROS Statement are negative. Past Medical History Past Medical History: Cancer, Diabetes Mellitus, Myocardial Infarction ([place]), Osteoarthritis (OA), Renal Disease, Vascular Disorder Additional Past Medical History / Comment(s): [place] x2. Hx bladder [place] 2015. Neuropathy feet. PAD, pain & numbness in BLE. Last Myocardial Infarction Date:: 2002 History of Any Multi-Drug Resistant Organisms: None Reported Past Surgical History: Heart Catheterization With Stent, Orthopedic Surgery Additional Past Surgical History / Comment(s): Right femoral bypass, Rt knee surgery, Lt foot toe amputations. Cervical surgery, has "cagein neck." Bladder tumor exc. lt ptca 09/20/19 Past Anesthesia/Blood Transfusion Reactions: No Reported Reaction Date of Last Stent Placement:: 09/20/19 Past Psychological History: No Psychological Hx Reported Smoking Status: Current every day smoker Past Alcohol Use History: Rare Past Drug Use History: Marijuana - Past Family History Mother Family Medical History: Cancer General Exam Limitations: no limitations General appearance: alert, in no apparent distress Head exam: Present: atraumatic, normocephalic, normal inspection Eye exam: Present: normal appearance, PERRL, EOMI. Absent: scleral icterus, conjunctival injection, periorbital swelling ENT exam: Present: normal exam, mucous membranes moist Neck exam: Present: normal inspection, full ROM. Absent: tenderness, meningismus, lymphadenopathy Respiratory exam: Present: normal lung sounds bilaterally. Absent: respiratory distress, wheezes Cardiovascular Exam: Present: regular rate, normal rhythm, normal heart sounds. Absent: systolic murmur, diastolic murmur, rubs, gallop, clicks GI/Abdominal exam: Present: soft, normal bowel sounds. Absent: distended, tenderness, guarding, rebound, rigid Extremities exam: Present: full ROM (Patient has full range motion of the right hip however decreased range motion of the knee to 90 secondary to pain), tenderness (Tenderness to the knee joint as well as the proximal tib-fib. No tenderness to the hip or femur), normal capillary refill (Capillary refill less than 2 seconds RLE), other (Sensation intact right lower extremity) Course Vital Signs 11/17/20 09:38 Temperature 98.1 F Pulse Rate 90 Respiratory 18 Rate Blood Pressure 144/68 O2 Sat by Pulse 99 Oximetry Medical Decision Making - Medical Decision Making X-ray of the right tib-fib shows no acute osseous abnormality. X-ray of the right knee shows mild osteoarthritis a small fluid in the suprapatellar bursa. On exam and only minimal edema. At this time patient was placed in a knee immobilizer and referred to orthopedics. Take Tylenol at home for pain. He'll return here for any worsening symptoms. Disposition Clinical Impression: Knee pain, right, Leg pain, Fall Disposition: HOME SELF-CARE Condition: Good Instructions (If sedation given, give patient instructions): Knee Pain (ED) Additional Instructions: Take Tylenol for pain. Wear knee immobilizer. Follow-up with her doctor. Return to the emergency room for any worsening symptoms. Is patient prescribed a controlled substance at d/c from ED?: No Referrals: James Wilson MD [Primary Care Provider] - 1-2 days Ford Kelly DO [Doctor of Osteopathic Medicine] - 1-2 days Time of Disposition: 10:32
--- NOTE | 2020-11-17 10:09 | XR ---
EXAMINATION TYPE: XR knee complete RT DATE OF EXAM: 11/17/2020 COMPARISON: NONE HISTORY: Pain TECHNIQUE: 3 views submitted FINDINGS: Mild narrowing of the medial compartment of the knee joint. No erosive change. No acute fra cture or dislocation. Small amount of fluid in the suprapatellar bursa. IMPRESSION: Mild osteoarthritis with small amount of fluid in the suprapatellar bursa.
--- NOTE | 2020-11-17 10:10 | XR ---
EXAMINATION TYPE: XR tibia fibula RT DATE OF EXAM: 11/17/2020 COMPARISON: NONE HISTORY: Pain TECHNIQUE: Two views are submitted. FINDINGS: The osseous structures are intact. Mild narrowing medial compartment knee joint with diffuse osteopen ia. Mild arthropathy. Small plantar calcaneal spur.. IMPRESSION: 1. No acute osseous abnormality.
== END 2020-11-17 10:49 | disposition home or self-care (01) ==
LOC: EC 09:36
DX: M79.604 Pain in right leg (principal); M25.561 Pain in right knee; E11.40 Type 2 diabetes mellitus with diabetic neuropathy, unspecified; F17.200 Nicotine dependence, unspecified, uncomplicated; I25.2 Old myocardial infarction; F12.90 Cannabis use, unspecified, uncomplicated; M19.90 Unspecified osteoarthritis, unspecified site; Z85.51 Personal history of malignant neoplasm of bladder; Z79.82 Long term (current) use of aspirin; Z79.02 Long term (current) use of antithrombotics/antiplatelets; Z79.84 Long term (current) use of oral hypoglycemic drugs; Z95.5 Presence of coronary angioplasty implant and graft; W19.XXXA Unspecified fall, initial encounter
CPT/HCPCS: 73590; 73562; 99283; 96372; L1830 ×2; J2270

== ENCOUNTER → 2020-11-30 | Outpatient (CLI) | payer MEDICARE ==
--- NOTE | 2020-11-30 13:38 | XR ---
EXAMINATION TYPE: XR lumbar spine 2 or 3V DATE OF EXAM: 11/30/2020 CLINICAL HISTORY: Low back pain, bilateral leg pain TECHNIQUE: Frontal, lateral, and oblique images of the lumbar spine are obtained. COMPARISON: 07/01/2018 CT lumbar spine FINDINGS: The L1 vertebral body is not entirely visualized on the PA view. Repeat technical callback is recommended. The remainder of the vertebral bodies appear within normal limits. There is no significant loss of ve rtebral body height on the lateral view. There is straightening of the normal lumbar lordosis likely due to positioning or muscle spasm. Degenerative changes of the facets. No spondylolisthesis. There is narrowing of the intervertebral disc space at T12-L1. Atherosclerotic aorta. IMPRESSION: 1.The L1 vertebral body is not entirely visualized on the PA view. Repeat technical callback is recom mended. 2. Multilevel degenerative changes of the facet and narrowing of the T12-L1 intervertebral disc space on lateral view.
== END | disposition home or self-care (01) ==
LOC: RADXRMAIN 13:11
PROVIDERS: ATTEND Family Medicine
DX: M47.816 Spondylosis without myelopathy or radiculopathy, lumbar region (principal); M51.35 Other intervertebral disc degeneration, thoracolumbar region
CPT/HCPCS: 72100

== ENCOUNTER → 2021-02-08 | Outpatient (CLI) | payer MEDICARE ==
--- NOTE | 2021-02-10 17:21 | CT ---
EXAMINATION TYPE: CT lumbar spine wo con DATE OF EXAM: 02/08/2021 COMPARISON: 07/01/2018 HISTORY: 75-year-old male chronic low back pain, no injury TECHNIQUE: Contiguous axial scanning of the lumbar spine without IV contrast. Coronal and sagittal re constructions performed. CT DLP: 1006 mGycm Automated exposure control for dose reduction was used. FINDINGS: Redemonstrated. Mild fusiform aneurysm infrarenal abdominal aorta 3.0 cm versus 2.9 cm, previously. 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 Vascular stent within the proximal left ext ernal iliac artery noted. There is also a transitional lumbosacral segment with a left L5 hemisacralization redemonstrated. Vertebral body heights are preserved and alignment is maintained. Degenerative disc disease with bulging discs again noted at L3-L4 and L4-L5. There is some ligamentum flavum thickening also in the lower lumbar spine. Impression 12 the ventral thecal sac at L3-L4 and L4-L5 appears slightly smaller compared to 07/01/2018. No significant spinal canal stenosis. However, at L4-L5, there is a right paracentral component which appears to asymmetrically extend into the right lateral recess, possibly impinging the traversing right L5 nerve root, axial image 58. Facet arthropathy lower lumbar spine. On the left, changes result in mild to moderate neural foramina l narrowing at L4-L5 and mild at L3-L4. On the right, changes of resulting in moderate neuroforaminal narrowing at L4-L5 and mild at L3-L4. No prevertebral paravertebral soft tissue abnormality. IMPRESSION: 1. REDEMONSTRATED LEFT L5 HEMISACRALIZATION. 2. REDEMONSTRATED DEGENERATIVE DISC BULGING AT L3-L4 AND L4-L5. THE OVERALL DEGREE OF BULGING AT L4-L 5 APPEARS SLIGHTLY DECREASED BUT THERE IS A PROMINENT RIGHT PARACENTRAL COMPONENT EXTENDING INTO THE LATERAL RECESS, POSSIBLY IMPINGING THE TRAVERSING RIGHT L5 NERVE ROOT. 3. VARIABLE MILD TO MODERATE NEURAL FORAMINAL STENOSES L3-4 AND L4-5 IS SIMILAR. 4. FUSIFORM INFRARENAL AAA AT 3.0 CM VERSUS 2.9 CM, PREVIOUSLY. STABLE FUSIFORM ANEURYSM PROXIMAL LEF T COMMON ILIAC ARTERY AT 2.1 CM.
== END | disposition home or self-care (01) ==
LOC: RADCTMAIN 13:13
PROVIDERS: ATTEND Family Medicine
DX: M51.26 Other intervertebral disc displacement, lumbar region (principal); M99.73 Connective tissue and disc stenosis of intervertebral foramina of lumbar region; Q76.49 Other congenital malformations of spine, not associated with scoliosis
CPT/HCPCS: 72131

== ENCOUNTER → 2021-08-29 | Outpatient (CLI) | payer MEDICARE ==
--- NOTE | 2021-08-29 16:49 | MR ---
EXAMINATION TYPE: MR lumbar spine wo/w con DATE OF EXAM: 08/29/2021 COMPARISON: CT lumbar spine 02/08/2021 HISTORY: M48.062 spinal stenosis, Chronic low back pain into both legs TECHNIQUE: Multiplanar, multisequence images of the lumbar spine were acquired without and with 7.5 mL intraveno us Gadavist gadolinium contrast. L1-L2: Normal disc appearance without desiccation. No herniation, protrusion or disc bulging. No ca nal stenosis is present. Foramina are patent bilaterally. L2-L3: Normal disc appearance without desiccation. No herniation, protrusion or disc bulging. No ca nal stenosis is present. Foramina are patent bilaterally. L3-L4: Circumferential extension of endplate disc complex encroaches on the inferior aspect of the fo ramina greater on the right, posterior disc bulge effaces the anterior thecal sac. No significant spi nal stenosis. L4-L5: Circumferential extension endplate disc complex encroaches on the inferior neural foramen bila terally. There is some enhancement along the posterior aspect of the disc, increased signal on T2 [place] ghted sequences, possible annular tear. Circumferential posterior broad-based disc bulge effaces the anterior thecal sac. Posterior extension endplate disc complex encroaches on the lateral recess on th e left, axial image #7, correlate for left L5 radiculopathy. Hypertrophy ligamentum flavum causes talia e mass effect posterior lateral aspect on the left. L5-S1: Loss of disc height but likely to be congenital. There is facet arthropathy. No evident forami nal encroachment. No disc herniation. Lumbar segments are intact. No paraspinal masses are identified. Conus medullaris has a normal appe arance. Lumbar vertebral bodies show preserved height and alignment. There is multilevel spondylosis with endplate discogenic marrow signal change. Partial sacralization of L5 is noted. Aortic ectasia a gain seen. No abnormal enhancement following contrast administration. Probable cyst associated with t he posterior cortex of the right kidney is incompletely evaluated and may be proteinaceous, increased signal on T1, low lung T2. Comments of the common bile duct is also noted incidentally, correlate fo r possible postcholecystectomy change IMPRESSION: Degenerative disc disease, facet arthropathy as described. Additional incidental findings described a manuel.
== END | disposition home or self-care (01) ==
LOC: RADMRIMAIN 06:43
PROVIDERS: ATTEND Physical Medicine & Rehabilitation
DX: M47.817 Spondylosis without myelopathy or radiculopathy, lumbosacral region (principal); M51.36 Other intervertebral disc degeneration, lumbar region
CPT/HCPCS: 72158; A9585

== ENCOUNTER → 2021-08-29 | Outpatient (CLI) | payer MEDICARE ==
--- NOTE | 2021-08-29 23:30 | CTL ---
EXAMINATION TYPE: CT Low Dose Lung DATE OF EXAM ORDERED: 08/29/2021 HISTORY: Personal history of tobacco use. Lung cancer screening CT DLP: 97.[address] CTDI: 2.5 mGy Automated exposure control for dose reduction was used. SCREENING VISIT: Follow-up COMPARISON: CT dated 09/27/2020 TECHNIQUE: Low dose computed tomography scan was performed through the chest at 1 mm thick sections a nd reconstructed images in multiple planes at 1 mm and [address] DIAGNOSTIC QUALITY: Satisfactory FINDINGS: LUNG NODULES: Right lung apex solid [address] image 57. This nodule is stable. Right middle lobe solid [address] image 167. This nodule is stable. Right upper lobe faint [address] image #15, stable. Left lower lobe superior segment solid [address] image #142, new. LUNGS: COPD: Severity: Moderate Fibrosis: Severity: Stable thick bilateral apical scarring and mild calcification. Lymph nodes: None Other findings: On RIGHT PLEURAL SPACE: Effusion: None Calcification: None Thickening: None Pneumothorax: None LEFT PLEURAL SPACE: Effusion: None Calcification: None Thickening: None Pneumothorax: None HEART: Heart Size: Normal Coronary Calcification: Mild Pericardial Effusion: None OTHER FINDINGS: Upper abdomen: None Bony thorax: Old healed fractures of the axillary portions of the left third, fourth, sixth and seven th ribs. Supraclavicular region: None Other: Scattered arterial atherosclerotic calcifications. IMPRESSION: Stable right pulmonary nodules measuring up to 6 mm with newly seen 3 mm nodule in the le ft lower lobe as described above. CT LUNG RAD AND CT CHEST RECOMMENDATION: Category 2, benign appearance or behavior, for continuing an nual screening in 12 months S Modifier (other clinically significant findings): None
== END | disposition home or self-care (01) ==
LOC: RADCTMAIN 06:41
PROVIDERS: ATTEND Family Medicine
DX: Z12.2 Encounter for screening for malignant neoplasm of respiratory organs (principal); R91.8 Other nonspecific abnormal finding of lung field; Z87.891 Personal history of nicotine dependence
CPT/HCPCS: 71271

== ENCOUNTER 2021-11-05 14:09 | Inpatient (IN) | payer MEDICARE ==
[2021-11-05] MEDS ORDERED: MORPHINE SULFATE 4 MG/ML SYRINGE IV STA (15:37)
[2021-11-05] MEDS ORDERED: SODIUM CHLORIDE 0.9% 500 ML 500 ML IV STA (15:37)
[2021-11-05] MEDS ORDERED: SODIUM CHLORIDE 0.9% 1,000 ML IV STA ×2 (15:37→17:01)
[2021-11-05 16:16] LABS: Partial Thromboplastin Time 25.4 sec (22.0-30.0); Prothrombin Time 10.6 sec (9.0-12.0)
[2021-11-05 16:23] LABS: Anisocytosis Slight; HCT 25.4 % (39.0-53.0); HGB 7.7 gm/dL (13.0-17.5); Hypochromasia Marked; MCH 25.7 pg (25.0-35.0); MCHC 30.2 g/dL (31.0-37.0); MCV 85.3 fL (80.0-100.0); Mean Platelet Volume 9.5; Platelet Count 420 k/uL (150-450); RBC 2.98 m/uL (4.30-5.90); RDW 18.7 % (11.5-15.5); WBC 8.6 k/uL (3.8-10.6)
[2021-11-05 16:30] LABS: Albumin 3.7 g/dL (3.5-5.0); Calcium 8.9 mg/dL (8.4-10.2); Magnesium 1.9 mg/dL (1.6-2.3); Phosphorus 3.7 mg/dL (2.5-4.5); Potassium 5.3 mmol/L (3.5-5.1); Total Bilirubin 0.9 mg/dL (0.2-1.3)
[2021-11-05 16:42] LABS: C Reactive Protein 16.8 mg/dL (<1.0)
[2021-11-05 16:56] LABS: Band Neutrophils % 1 %; Eosinophils # (M) 0.09 k/uL (0-0.7); Monocytes # (M) 0.26 k/uL (0-1.0); Neutrophils % (M) 88 %; Nucleated Red Blood Cells 0 /100 WBC (0-0); Total Cells Counted 100
[2021-11-05 16:58] LABS: Poikilocytosis (M) Present
[2021-11-05] MEDS ORDERED: INSULIN REGULAR 100 UNIT/ML VIAL (IV) SQ STA (17:00)
--- NOTE | 2021-11-05 17:02 | ED ---
General Adult HPI - General Chief complaint: Wound/Laceration Stated complaint: Cellulitis Left Foot, Open Wound Time Seen by Provider: 11/05/21 15:30 Source: patient Mode of arrival: wheelchair Limitations: no limitations - History of Present Illness Initial comments: This 75-year-old male presents with a complaint of a left foot infection. He relates that he initially cut his left third toenail and thinks that he may have irritated his toe. He then developed redness to his toes and foot. He does relate a history of previous amputation of the left large toe as well as the left fourth toe. He states that this was related to traumatic incident when he was a teenager. He denies any recent trauma. He denies any fevers or chills. He does complain of some moderate pain to his left foot. He has a diabetic and does have diabetic neuropathy as well. No other complaints or modifying factors. The patient denies any blood in his stool or black tarry stools. - Related Data Home Medications Medication Instructions Recorded Confirmed Aspirin EC [Ecotrin Low Dose] 81 mg PO DAILY 07/21/16 10/12/19 Nitroglycerin Sl Tabs [Nitrostat] 0.4 mg SUBLINGUAL Q5M PRN 07/21/16 10/12/19 glipiZIDE XL [Glucotrol XL] 5 mg PO BID 07/21/16 10/12/19 Gabapentin [Neurontin] 100 mg PO BID 09/19/19 10/12/19 HYDROcodone/APAP 7.5-325MG [[place] 1 tab PO BID PRN 09/19/19 10/12/19 7.5-325] Montelukast [Singulair] 10 mg PO DAILY 09/19/19 10/12/19 traMADol HCL [Ultram] 50 mg PO BID PRN 09/19/19 10/12/19 Previous Rx's Medication Instructions Recorded Atorvastatin [Lipitor] 20 mg PO HS #90 tab 09/22/19 Clopidogrel [Plavix] 75 mg PO DAILY #90 tab 09/22/19 Allergies Allergy/AdvReac Type Severity Reaction Status Date / Time No Known Allergies Allergy Verified 11/05/21 14:58 Review of Systems ROS Statement: Those systems with pertinent positive or pertinent negative responses have been documented in the HPI. ROS Other: All systems not noted in ROS Statement are negative. Past Medical History Past Medical History: Cancer, Diabetes Mellitus, Myocardial Infarction (ME), Osteoarthritis (OA), Renal Disease, Vascular Disorder Additional Past Medical History / Comment(s): [place] x2. Hx bladder CA 2015. Neur opathy feet. PAD, pain & numbness in BLE. Last Myocardial Infarction Date:: 2002 History of Any Multi-Drug Resistant Organisms: None Reported Past Surgical History: Heart Catheterization With Stent, Orthopedic Surgery Additional Past Surgical History / Comment(s): Right femoral bypass, Rt knee surgery, Lt foot toe amputations. Cervical surgery, has "cagein neck." Bladder tumor exc. lt ptca 09/20/19 Past Anesthesia/Blood Transfusion Reactions: No Reported Reaction Date of Last Stent Placement:: 09/20/19 Past Psychological History: No Psychological Hx Reported Smoking Status: Current every day smoker Past Alcohol Use History: Rare Past Drug Use History: Marijuana - Past Family History Mother Family Medical History: Cancer General Exam - General Exam Comments Initial Comments: GENERAL: The patient is well nourished and well hydrated. VITAL SIGNS: Heart rate, blood pressure, respiratory rate reviewed as recorded in nurse's notes. EYES: Pupils are round and reactive. Extraocular movements are intact. No conjunctival / lid redness or swelling. ENT: No external evidence of injury, swelling, or ecchymosis. Airway is patent. Throat is clear. NECK: Nontender. No swelling or evidence of injury. No subcutaneous emphysema. Trachea is midline. No thyroid mass. HEART: Regular rate and rhythm. Good peripheral pulses. LUNGS/CHEST: Breath sounds clear and equal bilaterally. No rales, rhonchi, or wheezes. No ecchymosis, subcutaneous emphysema, or tenderness. ABDOMEN: Abdomen soft without tenderness. No palpable masses or organomegaly. No peritoneal signs. No abdominal wall swelling or ecchymosis. EXTREMITIES: No extremity tenderness. Normal muscle tone and function. No thoracolumbar tenderness. NEUROLOGIC: Sensation is grossly intact. Cranial nerve exam reveals face is symmetrical, tongue is midline, speech is clear. SKIN: There is significant diffuse erythema noted to the left foot and toes with associated swelling. There is some necrotic tissue noted near the base of the left large toe medially. There is an open wound noted at the distal aspect of the stump where the left large toe would normally be. There is no current drainage identified. PSYCHIATRIC: Alert and oriented. Appropriate behavior and judgment. Limitations: no limitations Course Vital Signs 11/05/21 11/05/21 14:55 16:03 Temperature 97.5 F L Pulse Rate 85 74 Respiratory 14 18 Rate Blood Pressure 127/73 160/77 O2 Sat by Pulse 100 99 Oximetry Medical Decision Making - Medical Decision Making The patient was seen and examined. All diagnostics are reviewed. EKG shows a normal sinus rhythm at a rate of 73. Is no acute ST-T wave changes noted. The FL intervals 187, QS duration is 106, and the QTC intervals 435. The patient also had an x-ray done of his left foot. This shows sinus suspected osteomyelitis and left foot swelling. The patient also had a laboratory naz sis done which does show evidence of acute kidney injury, anemia, hyponatremia, mild hyperkalemia, and elevation of his CRP. An IV is established and he is hydrated. He also receives insulin as his blood sugar was 492. Unasyn and vancomycin are initiated as well. He receives 4 mg of morphine for pain with significant relief on recheck. It is felt as though he would require admission to the hospital for further treatment. Case is discussed with Dr. Wilson who is agreeable with admission and would like Dr. diaz from internal medicine to consult. The patient is not aware previous anemia. Upon evaluation of laboratory, his last lab draw was in 2017 and his hemoglobin was approxi mately 10 at that time. Hemoccult stools ordered. Patient will be admitted to general medical floor under internal medicine with infectious disease to consult. He likely will need surgical evaluation as well but Dr. Wilson will be seeing patient this evening. - Lab Data Result diagrams: 11/05/21 15:55 11/05/21 15:55 Lab Results 11/05/21 11/05/21 11/05/21 Range/Units 15:55 15:55 15:55 WBC 8.6 (3.8-10.6) k/uL RBC 2.98 L (4.30-5.90) m/uL Hgb 7.7 L (13.0-17.5) gm/dL Hct 25.4 L (39.0-53.0) % MCV 85.3 (80.0-100.0) fL MCH 25.7 (25.0-35.0) pg MCHC 30.2 L (31.0-37.0) g/dL RDW 18.7 H (11.5-15.5) % Plt Count 420 (150-450) k/uL MPV 9.5 Neutrophils % (Manual) 88 % Band Neuts % (Manual) 1 % Lymphocytes % (Manual) 7 % Monocytes % (Manual) 3 % Eosinophils % (Manual) 1 % Neutrophils # (Manual) 7.60 (1.3-7.7) k/uL Lymphocytes # (Manual) 0.60 L (1.0-4.8) k/uL Monocytes # (Manual) 0.26 (0-1.0) k/uL Eosinophils # (Manual) 0.09 (0-0.7) k/uL Nucleated RBCs 0 (0-0) /100 WBC Manual Slide Review Performed Hypochromasia Marked Poikilocytosis (manual Present Anisocytosis Slight PT 10.6 (9.0-12.0) sec INR 1.0 (<1.2) APTT 25.4 (22.0-30.0) sec Sodium 129 L (137-145) mmol/L Potassium 5.3 H (3.5-5.1) mmol/L Chloride 104 (98-107) mmol/L Carbon Dioxide 15 L (22-30) mmol/L Anion Gap 10 mmol/L BUN 60 H (9-20) mg/dL Creatinine 2.74 H (0.66-1.25) mg/dL Est GFR (CKD-EPI)AfAm 25 (>60 ml/min/1.73 sqM) Est GFR (CKD-EPI)NonAf 22 (>60 ml/min/1.73 sqM) Glucose 492 H (74-99) mg/dL Plasma Lactic Acid Tito (0.7-2.0) mmol/L Calcium 8.9 (8.4-10.2) mg/dL Phosphorus 3.7 (2.5-4.5) mg/dL Magnesium 1.9 (1.6-2.3) mg/dL Total Bilirubin 0.9 (0.2-1.3) mg/dL AST 90 H (17-59) U/L ALT 93 H (4-49) U/L Alkaline Phosphatase 144 H (38-126) U/L C-Reactive Protein 16.8 H (<1.0) mg/dL Total Protein 8.0 (6.3-8.2) g/dL Albumin 3.7 (3.5-5.0) g/dL 11/05/21 Range/Units 15:55 WBC (3.8-10.6) k/uL RBC (4.30-5.90) m/uL Hgb (13.0-17.5) gm/dL Hct (39.0-53.0) % MCV (80.0-100.0) fL MCH (25.0-35.0) pg MCHC (31.0-37.0) g/dL RDW (11.5-15.5) % Plt Count (150-450) k/uL MPV Neutrophils % (Manual) % Band Neuts % (Manual) % Lymphocytes % (Manual) % Monocytes % (Manual) % Eosinophils % (Manual) % Neutrophils # (Manual) (1.3-7.7) k/uL Lymphocytes # (Manual) (1.0-4.8) k/uL Monocytes # (Manual) (0-1.0) k/uL Eosinophils # (Manual) (0-0.7) k/uL Nucleated RBCs (0-0) /100 WBC Manual Slide Review Hypochromasia Poikilocytosis (manual Anisocytosis PT (9.0-12.0) sec INR (<1.2) APTT (22.0-30.0) sec Sodium (137-145) mmol/L Potassium (3.5-5.1) mmol/L Chloride (98-107) mmol/L Carbon Dioxide (22-30) mmol/L Anion Gap mmol/L BUN (9-20) mg/dL Creatinine (0.66-1.25) mg/dL Est GFR (CKD-EPI)AfAm (>60 ml/min/1.73 sqM) Est GFR (CKD-EPI)NonAf (>60 ml/min/1.73 sqM) Glucose (74-99) mg/dL Plasma Lactic Acid Tito 1.6 (0.7-2.0) mmol/L Calcium (8.4-10.2) mg/dL Phosphorus (2.5-4.5) mg/dL Magnesium (1.6-2.3) mg/dL Total Bilirubin (0.2-1.3) mg/dL AST (17-59) U/L ALT (4-49) U/L Alkaline Phosphatase (38-126) U/L C-Reactive Protein (<1.0) mg/dL Total Protein (6.3-8.2) g/dL Albumin (3.5-5.0) g/dL Disposition Clinical Impression: Cellulitis of foot, Anemia, Hyperglycemia, Diabetes, Osteomyelitis, MARGY (acute kidney injury), Hyponatremia, Hyperkalemia, Hypertension Disposition: ADMITTED IP TO THIS [facility] Condition: Fair Time of Disposition: 17:30 Decision Date: 11/05/21 Decision Time: 17:30
--- NOTE | 2021-11-05 17:03 | XR ---
EXAMINATION TYPE: XR foot complete LT DATE OF EXAM: 11/05/2021 4:41 PM INDICATION: Patient age:Male; 75 years old; Reason for study: osteomyelitis; . COMPARISON: None TECHNIQUE: The left foot was examined in the AP, oblique, and lateral projections. FINDINGS: There is amputation of the first digit distal and proximal phalanx as well as the fourth digit distal middle and portions of the proximal phalanx. Erosive changes are seen along the first metatarsal hea d. Subcutaneous lucencies are scattered around the first metatarsal. There is no evidence for fractur e. No radiopaque foreign body. IMPRESSION: Osseous erosions of the first metatarsal head suspicious for underlying osteomyelitis with surroundin g soft tissue swelling/likely cellulitis changes.
[2021-11-05] MEDS ORDERED: VANCOMYCIN 1,500 MG in SODIUM CHLORIDE 0.9% 250 ML IVPB STA (17:11)
[2021-11-05] MEDS ORDERED: VANCOMYCIN IV PER PHARMACY 1 EACH MISC MISCELLANE PRN (17:11)
[2021-11-05] MEDS ORDERED: AMPICILLIN-SULBACTAM 3 GM in SODIUM CHLORIDE 0.9% 100 ML IVPB STA (17:12)
[2021-11-05] MEDS ORDERED: ACETAMINOPHEN TAB 325 MG TAB PO PRN (17:13)
[2021-11-05] MEDS ORDERED: ONDANSETRON 4 MG/2 ML VIAL IVP PRN (17:13)
[2021-11-05] MEDS ORDERED: NALOXONE 0.4 MG/ML 1 ML VIAL IV PRN (17:13)
[2021-11-05] MEDS ORDERED: AMPICILLIN-SULBACTAM 3 GM in SODIUM CHLORIDE 0.9% 100 ML IVPB SCH (17:30)
[2021-11-05 17:31] LABS: Erythrocyte Sedimentation Rate >140 mm/hr (0-15)
[2021-11-05 17:32] LABS: Glucose,Whole Blood 452 mg/dL (75-99)
[2021-11-05] MEDS: PANTOPRAZOLE 40 MG/10 ML VIAL IV SCH (17:52)
[2021-11-05] MEDS ORDERED: ENOXAPARIN 40 MG/0.4 ML SYRINGE SQ SCH (18:00)
[2021-11-05] MEDS ORDERED: ENOXAPARIN 30 MG/0.3 ML SYRINGE SQ SCH (18:00)
[2021-11-05] MEDS ORDERED: NITROGLYCERIN SL TABS 0.4 MG TAB SUBLINGUAL PRN (18:07)
[2021-11-05] MEDS: INSULIN ASPART (NovoLOG) 100 UNIT/ML VIAL SQ SCH ×2 (19:01→22:25)
--- NOTE | 2021-11-05 19:32 | HP ---
HISTORY AND PHYSICAL This 75-year-old white male is complaining of left foot infection. He cut his left third toenail and thinks he irritated his toe; redness and hot. Previous amputation of the left large toe as well as the fourth toe. He has severe purulent drainage from this. He has a history of diabetic neuropathy also. Home medicines: See list. ALLERGIES NEGATIVE. Fourteen-point review of systems otherwise negative. PAST MEDICAL HISTORY: Diabetes mellitus, myocardial infarction, osteoarthritis, renal disease, disorder, COPD. PAST SURGICAL HISTORY: Catheterization with stent, orthopedic surgeries. He has in his neck. Current everyday smoker. Rare marijuana. Temperature 97.5, pulse 74 to 85, respiratory rate 14 to 18, blood pressure 120s to 160s over 70s. Cardiovascular S1-S2. Lungs with wheeze x4. GI soft, nontender. Extremities show erythema to the left foot and toes associated with swelling and necrotic tissue in the base of the left large toe medially. ASSESSMENT: 1. Osteomyelitis. 2. Cellulitis of the foot. 3. Uncontrolled diabetes mellitus. 4. Possible alcoholism. 5. Hyponatremia. 6. Hyperkalemia. 7. Possible dehydration. Prognosis extremely guarded. Broad-spectrum antibiotics. Fluids. Accu-Chek protocol. Please see further orders. MMODL / IJN: [id number] /
[2021-11-05 20:43] LABS: Glucose,Whole Blood 234 mg/dL (75-99)
[2021-11-05 22:26] LABS: Glucose,Whole Blood 135 mg/dL (75-99)
[2021-11-05] MEDS: GABAPENTIN 100 MG CAP PO SCH (22:27)
[2021-11-06] MEDS ORDERED: AMPICILLIN-SULBACTAM 3 GM in SODIUM CHLORIDE 0.9% 100 ML IVPB SCH ×2 (02:00→06:00)
[2021-11-06] MEDS: MORPHINE SULFATE 4 MG/ML SYRINGE IV PRN ×3 (05:18→22:36)
[2021-11-06 07:04] LABS: Glucose,Whole Blood 178 mg/dL (75-99)
[2021-11-06] MEDS: PANTOPRAZOLE 40 MG/10 ML VIAL IV SCH (07:54)
[2021-11-06] MEDS: ASPIRIN 81 MG PO SCH (07:55)
[2021-11-06] MEDS: GABAPENTIN 100 MG CAP PO SCH ×2 (07:55→21:15)
[2021-11-06] MEDS: LOSARTAN 25 MG TAB PO SCH (07:55)
[2021-11-06] MEDS: INSULIN ASPART (NovoLOG) 100 UNIT/ML VIAL SQ SCH ×4 (07:55→21:15)
[2021-11-06] MEDS ORDERED: CLOPIDOGREL 75 MG TAB PO SCH (09:00)
[2021-11-06 10:46] LABS: African American GFR (CKD) 33.2 (60.0-200.0); Albumin 3.1 g/dL (3.8-4.9); Albumin/Globulin Ratio 0.91 (1.60-3.17); Anion Gap 13.1 mmol/L (10.00-18.00); BUN/Creat Ratio 20.68 Ratio (12.00-20.00); Blood Urea Nitrogen 45.5 mg/dL (9.0-27.0); Calcium 8.2 mg/dL (8.7-10.3); Carbon Dioxide 12.9 mmol/L (20.0-27.5); Globulin 3.4 g/dL (1.6-3.3); Non-African American GFR(CKD) 28.7 (60.0-200.0); Potassium 4.8 mmol/L (3.5-5.5); Total Bilirubin 0.4 mg/dL (0.30-1.20); Total Protein 6.5 g/dL (6.2-8.2)
[2021-11-06 11:27] LABS: Glucose,Whole Blood 196 mg/dL (75-99)
[2021-11-06 11:28] LABS: MCH 24.6 pg (27.0-32.0); MCHC 29.1 g/dL (32.0-37.0); MCV 84.6 fL (80.0-97.0); Mean Platelet Volume 11.3 fL (9.5-12.2); NRBC Per 100 WBC 0 /100 WBCS (0.0-0.0); Platelet Count 354 X 10*3/uL (140-440); RBC 2.72 X 10*6/uL (4.40-5.60); RDW 19.7 % (11.5-14.5); WBC 5.69 X 10*3/uL (4.50-10.00)
[2021-11-06 11:40] LABS: Basophils # (A) 0 X 10*3/uL (0.00-0.10); Basophils % (A) 0 %; Eosinophils # (A) 0.01 X 10*3/uL (0.04-0.35); Eosinophils % (A) 0.2 %; Immature Grans, Automated 1.1 %; Lymphocytes # (A) 1.15 X 10*3/uL (0.90-5.00); Lymphocytes % (A) 20.2 %; Monocytes # (A) 0.91 X 10*3/uL (0.20-1.00); Neutrophils # (A) 3.56 X 10*3/uL (1.80-7.70); Neutrophils % (A) 62.5 %
[2021-11-06 11:41] LABS: Acanthocytes 2+; Rouleaux PRESENT
[2021-11-06] MEDS ORDERED: LIDOCAINE 1% INJ 10MG/ML (20 ML MDV) SQ ONE (12:12)
[2021-11-06] MEDS: AMPICILLIN-SULBACTAM 3 GM in SODIUM CHLORIDE 0.9% 100 ML IVPB SCH ×2 (12:58→22:52)
[2021-11-06 15:01] VITALS: BMI 23.0
[2021-11-06 15:28] LABS: HGB 6.7 g/dL (13.0-17.0)
--- NOTE | 2021-11-06 15:41 | P.CONS ---
History of Present Illness - Reason for Consult Consult date: 11/06/21 drop in Hgb Requesting physician: James Wilson - Chief Complaint wound, cellulitis of lt toe - History of Present Illness Mr. Bird is a pleasant man we have been asked to evaluate for drop in Hgb. Pt denies Hx of anemia or being told he was anemic, he is on asa and was recently resumed on plavix, he denies cardiac stents, reports he is on for his heart. He denies bleeding, unusual bruising or other hematological disorders. He has a history of bladder cancer in 2014/2015 treated with surgery alone. He states that this infection in his toe started in the last week and has progressively worsened which is why he came in for medical care. He denies history of heavy ETOH, stomach surgery. Review of Systems 10 point ROS is neg except as stated in HPI Past Medical History Past Medical History: Cancer, Diabetes Mellitus, Myocardial Infarction ([place]), Osteoarthritis (OA), Renal Disease, Vascular Disorder Additional Past Medical History / Comment(s): [place] x2. Hx bladder CA 2014. Neuropathy feet. PAD, pain & numbness in BLE. Last Myocardial Infarction Date:: 2002 History of Any Multi-Drug Resistant Organisms: None Reported Past Surgical History: Heart Catheterization With Stent, Orthopedic Surgery Additional Past Surgical History / Comment(s): Right femoral bypass, Rt knee surgery, Lt foot toe amputations. Cervical surgery, has "cagein neck." Bladder tumor exc. lt ptca 09/20/19 Past Anesthesia/Blood Transfusion Reactions: No Reported Reaction Date of Last Stent Placement:: 09/20/19 Past Psychological History: No Psychological Hx Reported Smoking Status: Current every day smoker Past Alcohol Use History: Rare Additional Past Alcohol Use History / Comment(s): Smoking since 1959, up to 1 ppd, now 1/2 ppd Past Drug Use History: Marijuana Additional Drug Use History / Comment(s): occ use - Past Family History Mother Family Medical History: Cancer Medications and Allergies Home Medications Medication Instructions Recorded Confirmed Type Aspirin EC [Ecotrin Low Dose] 81 mg PO DAILY 07/21/16 11/05/21 History Nitroglycerin Sl Tabs [Nitrostat] 0.4 mg SUBLINGUAL Q5M PRN 07/21/16 11/05/21 History Gabapentin [Neurontin] 100 mg PO BID 09/19/19 11/05/21 History HYDROcodone/APAP 7.5-325MG [[place] 1 tab PO BID PRN 09/19/19 11/05/21 History 7.5-325] Clopidogrel [Plavix] 75 mg PO DAILY #90 tab 09/22/19 11/05/21 Rx Losartan [Cozaar] 25 mg PO DAILY 11/05/21 11/05/21 History Sildenafil Citrate [Viagra] 100 mg PO DAILY PRN 11/05/21 11/05/21 History glipiZIDE [Glucotrol] 10 mg PO BID 11/05/21 11/05/21 History Allergies Allergy/AdvReac Type Severity Reaction Status Date / Time No Known Allergies Allergy Verified 11/05/21 17:47 Physical Exam Vitals: Vital Signs Temp Pulse Pulse Resp BP BP Pulse Ox 11/06/21 05:00 98.2 F 83 16 128/63 99 11/05/21 22:16 97.5 F L 83 16 132/66 100 11/05/21 21:24 80 18 134/54 99 11/05/21 17:43 66 18 155/73 99 11/05/21 16:03 74 18 160/77 99 11/05/21 14:55 97.5 F L 85 14 127/73 100 Intake and Output 11/05/21 11/06/21 11/06/21 22:59 06:59 14:59 Intake Total 1230 Output Total 700 Balance 530 Intake: Intake, IV Titration 100 Amount Ampicillin-Sulbactam 3 gm 100 In Sodium Chloride 0.9% 100 ml @ 200 mls/hr IVPB Q8H [facility] Rx#:[id number] Oral 1130 Output: Urine 700 Other: Voiding Method Urinal # Voids 2 Weight 77.111 kg - Constitutional General appearance: average body habitus, cooperative, no acute distress - EENT Eyes: anicteric sclerae, EOMI ENT: hearing grossly normal, normal oropharynx - Neck Neck: no lymphadenopathy - Respiratory Respiratory: bilateral: CTA - Cardiovascular Rhythm: regular Heart sounds: normal: S1, S2 Abnormal Heart Sounds: no systolic murmur, no diastolic murmur, no rub, no S3 Gallop, no S4 Gallop, no click, no other leg Peripheral Edema: bilateral: None - Gastrointestinal General gastrointestinal: no absent bowel sounds, no decreased bowel sounds, no distended, no hepatomegaly, no hyperactive bowel sounds, normal bowel sounds, no organomegaly, no rigid, no scaphoid, soft, no splenomegaly, no tenderness, no umbilical hernia, no ventral hernia - Integumentary lt great toe if bandaged, in a sock, there is blood on the sock, sheets - Neurologic Neurologic: CNII-XII intact - Musculoskeletal Musculoskeletal: strength equal bilaterally - Psychiatric Psychiatric: A&O x's 3, appropriate affect, intact judgment & insight Results CBC & Chem 7: 11/06/21 06:54 11/06/21 06:54 Labs: Abnormal Lab Results - Last 24 Hours (Table) 11/05/21 11/05/21 11/05/21 Range/Units 15:55 15:55 17:31 RBC 2.98 L (4.30-5.90) m/uL Hgb 7.7 L (13.0-17.5) gm/dL Hct 25.4 L (39.0-53.0) % MCH (27.0-32.0) pg MCHC 30.2 L (31.0-37.0) g/dL RDW 18.7 H (11.5-15.5) % Immature Gran # (0.00-0.04) X 10*3/uL Lymphocytes # (Manual) 0.60 L (1.0-4.8) k/uL Eosinophils # (0.04-0.35) X 10*3/uL ESR >140 H (0-15) mm/hr Sodium 129 L (137-145) mmol/L Potassium 5.3 H (3.5-5.1) mmol/L Chloride (96-109) mmol/L Carbon Dioxide 15 L (22-30) mmol/L BUN 60 H (9-20) mg/dL Creatinine 2.74 H (0.66-1.25) mg/dL Est GFR (CKD-EPI)AfAm (60.0-200.0) Est GFR (CKD-EPI)NonAf (60.0-200.0) BUN/Creatinine Ratio (12.00-20.00) Ratio Glucose 492 H (74-99) mg/dL POC Glucose (mg/dL) 452 H (75-99) mg/dL Calcium (8.7-10.3) mg/dL AST 90 H (17-59) U/L ALT 93 H (4-49) U/L Alkaline Phosphatase 144 H (38-126) U/L C-Reactive Protein 16.8 H (<1.0) mg/dL Albumin (3.8-4.9) g/dL Globulin (1.6-3.3) g/dL Albumin/Globulin Ratio (1.60-3.17) g/dL 11/05/21 11/05/21 11/06/21 Range/Units 20:41 22:24 06:54 RBC 2.72 L (4.30-5.90) m/uL Hgb 6.7 L* (13.0-17.5) gm/dL Hct 23.0 L (39.0-53.0) % MCH 24.6 L (27.0-32.0) pg MCHC 29.1 L (31.0-37.0) g/dL RDW 19.7 H (11.5-15.5) % Immature Gran # 0.06 H (0.00-0.04) X 10*3/uL Lymphocytes # (Manual) (1.0-4.8) k/uL Eosinophils # 0.01 L (0.04-0.35) X 10*3/uL ESR (0-15) mm/hr Sodium (137-145) mmol/L Potassium (3.5-5.1) mmol/L Chloride (96-109) mmol/L Carbon Dioxide (22-30) mmol/L BUN (9-20) mg/dL Creatinine (0.66-1.25) mg/dL Est GFR (CKD-EPI)AfAm (60.0-200.0) Est GFR (CKD-EPI)NonAf (60.0-200.0) BUN/Creatinine Ratio (12.00-20.00) Ratio Glucose (74-99) mg/dL POC Glucose (mg/dL) 234 H 135 H (75-99) mg/dL Calcium (8.7-10.3) mg/dL AST (17-59) U/L ALT (4-49) U/L Alkaline Phosphatase (38-126) U/L C-Reactive Protein (<1.0) mg/dL Albumin (3.8-4.9) g/dL Globulin (1.6-3.3) g/dL Albumin/Globulin Ratio (1.60-3.17) g/dL 11/06/21 11/06/21 11/06/21 Range/Units 06:54 07:02 11:25 RBC (4.30-5.90) m/uL Hgb (13.0-17.5) gm/dL Hct (39.0-53.0) % MCH (27.0-32.0) pg MCHC (31.0-37.0) g/dL RDW (11.5-15.5) % Immature Gran # (0.00-0.04) X 10*3/uL Lymphocytes # (Manual) (1.0-4.8) k/uL Eosinophils # (0.04-0.35) X 10*3/uL ESR (0-15) mm/hr Sodium (137-145) mmol/L Potassium (3.5-5.1) mmol/L Chloride 110 H (96-109) mmol/L Carbon Dioxide 12.9 L (22-30) mmol/L BUN 45.5 H (9-20) mg/dL Creatinine 2.2 H (0.66-1.25) mg/dL Est GFR (CKD-EPI)AfAm 33.2 L (60.0-200.0) Est GFR (CKD-EPI)NonAf 28.7 L (60.0-200.0) BUN/Creatinine Ratio 20.68 H (12.00-20.00) Ratio Glucose 158 H (74-99) mg/dL POC Glucose (mg/dL) 178 H 196 H (75-99) mg/dL Calcium 8.2 L (8.7-10.3) mg/dL AST 55 H (17-59) U/L ALT 74 H (4-49) U/L Alkaline Phosphatase (38-126) U/L C-Reactive Protein (<1.0) mg/dL Albumin 3.1 L (3.8-4.9) g/dL Globulin 3.4 H (1.6-3.3) g/dL Albumin/Globulin Ratio 0.91 L (1.60-3.17) g/dL Comments: foot xray report reviewed-osteomylitis and cellulitis Assessment and Plan (1) Anemia Current Visit: Yes Status: Chronic Priority: High Code(s): D64.9 - ANEMIA, UNSPECIFIED SNOMED Code(s): 207540186 Plan: Chart review shows anemia since 2017. Pt is noted to have elevated creatinine for several years as well. He is on asa and plavix chronically (resumed plavix recently after being off for some time. Reports never having endoscopy. Plan at this time is lab work up ordered for nutritional deficiencies, inflammatory labs and iron studies. Transfuse for Hgb <7 Further recommendations to follow.
[2021-11-06] MEDS: VANCOMYCIN 1,500 MG in SODIUM CHLORIDE 0.9% 250 ML IVPB SCH (15:56)
--- NOTE | 2021-11-06 16:02 | PN ---
PROGRESS NOTE This 75-year-old white male was admitted with significant osteomyelitis and cellulitis of the foot with open wounds. We are waiting for Infectious Disease and Vascular to see him again. We are going to have to hold his Plavix, as he probably needs debridement, has significant drainage and redness to his lower extremities. Hemoglobin is down to 6.7. Will have to give him a unit of blood and transfusion and consult Hematology. BUN is 45, creatinine is 2.2. His white count is 5.69. Sugars are mid 100s to 200s. Cardiovascular S1, S2. Lungs clear. Temperature 98.4. Blood pressure 131/62. O2 99 on room air, pulse 75, respiratory rate 18. Integument: Significant redness, swelling and open wound to the distal foot. He has two toes missing already. The biggest wound is at the base of his big toe has been removed prior. It is an open wound, about an inch by an inch by half inch. ASSESSMENT: 1. Osteomyelitis, cellulitis, peripheral arterial disease, all of the right foot, significant. Have to hold his Plavix, as he probably needs debridement. Wait for Infectious Disease and Vascular Surgery to see him. Prognosis extremely guarded. 2. Severe anemia. Will get Hematology involved and give him a pack unit of blood today. Will try to find out where he is losing blood from, etc. MMODL / IJN: [id number] /
--- NOTE | 2021-11-06 16:10 | P.GSCN ---
History of Present Illness History of present illness: 75-year-old diabetic male patient is known to me from the past this gentleman had a left foot big toe and fourth toe amputation amputation in the past he was discharged in satisfactory condition. Patient came with the following order wound on the left foot plantar aspect base of the big toe with necrotic and some drainage noted. This necrotic wound he has about for the last 10 days there is also a open wound on the dorsum was aspect of the left foot some redness noted patient also has history of coronary artery disease post coronary artery stent and also has a history of bladder cancer in the past Neck examination neck is supple no bruit appreciated Chest is clear first and second sound normal good entry both lungs Abdomen is soft nontender Vascular femorals are 1+ bilateral left foot necrotic on the plantar aspect of the left foot ulcer noted to have some abscess formation with drainage of pus Plan is debridement of the wound and deep culture and patient is an IV anti biotic under care of infectious disease Past Medical History Past Medical History: Cancer, Diabetes Mellitus, Myocardial Infarction ([place]), Osteoarthritis ([place]), Renal Disease, Vascular Disorder Additional Past Medical History / Comment(s): [place] x2. Hx bladder [place] 2015. Neuropathy feet. PAD, pain & numbness in BLE. Last Myocardial Infarction Date:: 2002 History of Any Multi-Drug Resistant Organisms: None Reported Past Surgical History: Heart Catheterization With Stent, Orthopedic Surgery Additional Past Surgical History / Comment(s): Right femoral bypass, Rt knee surgery, Lt foot toe amputations. Cervical surgery, has "cagein neck." Bladder tumor exc. lt ptca 09/20/19 Past Anesthesia/Blood Transfusion Reactions: No Reported Reaction Date of Last Stent Placement:: 09/20/19 Past Psychological History: No Psychological Hx Reported Smoking Status: Current every day smoker Past Alcohol Use History: Rare Additional Past Alcohol Use History / Comment(s): Smoking since 1959, up to 1 ppd, now 1/2 ppd Past Drug Use History: Marijuana Additional Drug Use History / Comment(s): occ use - Past Family History Mother Family Medical History: Cancer Medications and Allergies Home Medications Medication Instructions Recorded Confirmed Type Aspirin EC [Ecotrin Low Dose] 81 mg PO DAILY 07/21/16 11/05/21 History Nitroglycerin Sl Tabs [Nitrostat] 0.4 mg SUBLINGUAL Q5M PRN 07/21/16 11/05/21 History Gabapentin [Neurontin] 100 mg PO BID 09/19/19 11/05/21 History HYDROcodone/APAP 7.5-325MG [[place] 1 tab PO BID PRN 09/19/19 11/05/21 History 7.5-325] Clopidogrel [Plavix] 75 mg PO DAILY #90 tab 09/22/19 11/05/21 Rx Losartan [Cozaar] 25 mg PO DAILY 11/05/21 11/05/21 History Sildenafil Citrate [Viagra] 100 mg PO DAILY PRN 11/05/21 11/05/21 History glipiZIDE [Glucotrol] 10 mg PO BID 11/05/21 11/05/21 History Allergies Allergy/AdvReac Type Severity Reaction Status Date / Time No Known Allergies Allergy Verified 11/05/21 17:47 Surgical - Exam Vital Signs Temp Pulse Resp BP Pulse Ox 97.5 F L 85 14 127/73 100 11/05/21 14:55 11/05/21 14:55 11/05/21 14:55 11/05/21 14:55 11/05/21 14:55 Results - Labs 11/06/21 06:54 11/06/21 06:54 Abnormal Lab Results - Last 24 Hours (Table) 11/05/21 11/05/21 11/05/21 Range/Units 15:55 15:55 17:31 RBC 2.98 L (4.30-5.90) m/uL Hgb 7.7 L (13.0-17.5) gm/dL Hct 25.4 L (39.0-53.0) % MCH (27.0-32.0) pg MCHC 30.2 L (31.0-37.0) g/dL RDW 18.7 H (11.5-15.5) % Immature Gran # (0.00-0.04) X 10*3/uL Lymphocytes # (Manual) 0.60 L (1.0-4.8) k/uL Eosinophils # (0.04-0.35) X 10*3/uL ESR >140 H (0-15) mm/hr Sodium 129 L (137-145) mmol/L Potassium 5.3 H (3.5-5.1) mmol/L Chloride (96-109) mmol/L Carbon Dioxide 15 L (22-30) mmol/L BUN 60 H (9-20) mg/dL Creatinine 2.74 H (0.66-1.25) mg/dL Est GFR (CKD-EPI)AfAm (60.0-200.0) Est GFR (CKD-EPI)NonAf (60.0-200.0) BUN/Creatinine Ratio (12.00-20.00) Ratio Glucose 492 H (74-99) mg/dL POC Glucose (mg/dL) 452 H (75-99) mg/dL Calcium (8.7-10.3) mg/dL AST 90 H (17-59) U/L ALT 93 H (4-49) U/L Alkaline Phosphatase 144 H (38-126) U/L C-Reactive Protein 16.8 H (<1.0) mg/dL Albumin (3.8-4.9) g/dL Globulin (1.6-3.3) g/dL Albumin/Globulin Ratio (1.60-3.17) g/dL Crossmatch 11/05/21 11/05/21 11/06/21 Range/Units 20:41 22:24 06:54 RBC 2.72 L (4.30-5.90) m/uL Hgb 6.7 L* (13.0-17.5) gm/dL Hct 23.0 L (39.0-53.0) % MCH 24.6 L (27.0-32.0) pg MCHC 29.1 L (31.0-37.0) g/dL RDW 19.7 H (11.5-15.5) % Immature Gran # 0.06 H (0.00-0.04) X 10*3/uL Lymphocytes # (Manual) (1.0-4.8) k/uL Eosinophils # 0.01 L (0.04-0.35) X 10*3/uL ESR (0-15) mm/hr Sodium (137-145) mmol/L Potassium (3.5-5.1) mmol/L Chloride (96-109) mmol/L Carbon Dioxide (22-30) mmol/L BUN (9-20) mg/dL Creatinine (0.66-1.25) mg/dL Est GFR (CKD-EPI)AfAm (60.0-200.0) Est GFR (CKD-EPI)NonAf (60.0-200.0) BUN/Creatinine Ratio (12.00-20.00) Ratio Glucose (74-99) mg/dL POC Glucose (mg/dL) 234 H 135 H (75-99) mg/dL Calcium (8.7-10.3) mg/dL AST (17-59) U/L ALT (4-49) U/L Alkaline Phosphatase (38-126) U/L C-Reactive Protein (<1.0) mg/dL Albumin (3.8-4.9) g/dL Globulin (1.6-3.3) g/dL Albumin/Globulin Ratio (1.60-3.17) g/dL Crossmatch 11/06/21 11/06/21 11/06/21 Range/Units 06:54 07:02 11:25 RBC (4.30-5.90) m/uL Hgb (13.0-17.5) gm/dL Hct (39.0-53.0) % MCH (27.0-32.0) pg MCHC (31.0-37.0) g/dL RDW (11.5-15.5) % Immature Gran # (0.00-0.04) X 10*3/uL Lymphocytes # (Manual) (1.0-4.8) k/uL Eosinophils # (0.04-0.35) X 10*3/uL ESR (0-15) mm/hr Sodium (137-145) mmol/L Potassium (3.5-5.1) mmol/L Chloride 110 H (96-109) mmol/L Carbon Dioxide 12.9 L (22-30) mmol/L BUN 45.5 H (9-20) mg/dL Creatinine 2.2 H (0.66-1.25) mg/dL Est GFR (CKD-EPI)AfAm 33.2 L (60.0-200.0) Est GFR (CKD-EPI)NonAf 28.7 L (60.0-200.0) BUN/Creatinine Ratio 20.68 H (12.00-20.00) Ratio Glucose 158 H (74-99) mg/dL POC Glucose (mg/dL) 178 H 196 H (75-99) mg/dL Calcium 8.2 L (8.7-10.3) mg/dL AST 55 H (17-59) U/L ALT 74 H (4-49) U/L Alkaline Phosphatase (38-126) U/L C-Reactive Protein (<1.0) mg/dL Albumin 3.1 L (3.8-4.9) g/dL Globulin 3.4 H (1.6-3.3) g/dL Albumin/Globulin Ratio 0.91 L (1.60-3.17) g/dL Crossmatch 11/06/21 Range/Units 12:51 RBC (4.30-5.90) m/uL Hgb (13.0-17.5) gm/dL Hct (39.0-53.0) % MCH (27.0-32.0) pg MCHC (31.0-37.0) g/dL RDW (11.5-15.5) % Immature Gran # (0.00-0.04) X 10*3/uL Lymphocytes # (Manual) (1.0-4.8) k/uL Eosinophils # (0.04-0.35) X 10*3/uL ESR (0-15) mm/hr Sodium (137-145) mmol/L Potassium (3.5-5.1) mmol/L Chloride (96-109) mmol/L Carbon Dioxide (22-30) mmol/L BUN (9-20) mg/dL Creatinine (0.66-1.25) mg/dL Est GFR (CKD-EPI)AfAm (60.0-200.0) Est GFR (CKD-EPI)NonAf (60.0-200.0) BUN/Creatinine Ratio (12.00-20.00) Ratio Glucose (74-99) mg/dL POC Glucose (mg/dL) (75-99) mg/dL Calcium (8.7-10.3) mg/dL AST (17-59) U/L ALT (4-49) U/L Alkaline Phosphatase (38-126) U/L C-Reactive Protein (<1.0) mg/dL Albumin (3.8-4.9) g/dL Globulin (1.6-3.3) g/dL Albumin/Globulin Ratio (1.60-3.17) g/dL Crossmatch See Detail Diabetes panel 11/05/21 11/06/21 Range/Units 15:55 06:54 Sodium 129 L 136 (137-145) mmol/L Potassium 5.3 H 4.8 (3.5-5.1) mmol/L Chloride 104 110 H (98-107) mmol/L Carbon Dioxide 15 L 12.9 L (22-30) mmol/L BUN 60 H 45.5 H (9-20) mg/dL Creatinine 2.74 H 2.2 H (0.66-1.25) mg/dL Glucose 492 H 158 H (74-99) mg/dL Calcium 8.9 8.2 L (8.4-10.2) mg/dL AST 90 H 55 H (17-59) U/L ALT 93 H 74 H (4-49) U/L Alkaline Phosphatase 144 H 103 (38-126) U/L Total Protein 8.0 6.5 (6.3-8.2) g/dL Albumin 3.7 3.1 L (3.5-5.0) g/dL Calcium panel 11/05/21 11/06/21 Range/Units 15:55 06:54 Calcium 8.9 8.2 L (8.4-10.2) mg/dL Phosphorus 3.7 (2.5-4.5) mg/dL Albumin 3.7 3.1 L (3.5-5.0) g/dL Pituitary panel 11/05/21 11/06/21 Range/Units 15:55 06:54 Sodium 129 L 136 (137-145) mmol/L Potassium 5.3 H 4.8 (3.5-5.1) mmol/L Chloride 104 110 H (98-107) mmol/L Carbon Dioxide 15 L 12.9 L (22-30) mmol/L BUN 60 H 45.5 H (9-20) mg/dL Creatinine 2.74 H 2.2 H (0.66-1.25) mg/dL Glucose 492 H 158 H (74-99) mg/dL Calcium 8.9 8.2 L (8.4-10.2) mg/dL Adrenal panel 11/05/21 11/06/21 Range/Units 15:55 06:54 Sodium 129 L 136 (137-145) mmol/L Potassium 5.3 H 4.8 (3.5-5.1) mmol/L Chloride 104 110 H (98-107) mmol/L Carbon Dioxide 15 L 12.9 L (22-30) mmol/L BUN 60 H 45.5 H (9-20) mg/dL Creatinine 2.74 H 2.2 H (0.66-1.25) mg/dL Glucose 492 H 158 H (74-99) mg/dL Calcium 8.9 8.2 L (8.4-10.2) mg/dL Total Bilirubin 0.9 0.40 (0.2-1.3) mg/dL AST 90 H 55 H (17-59) U/L ALT 93 H 74 H (4-49) U/L Alkaline Phosphatase 144 H 103 (38-126) U/L Total Protein 8.0 6.5 (6.3-8.2) g/dL Albumin 3.7 3.1 L (3.5-5.0) g/dL
[2021-11-06 17:31] LABS: Glucose,Whole Blood 305 mg/dL (75-99)
[2021-11-06] MEDS: ENOXAPARIN 40 MG/0.4 ML SYRINGE SQ SCH (18:15)
[2021-11-06 20:02] LABS: Glucose,Whole Blood 219 mg/dL (75-99)
--- NOTE | 2021-11-06 20:20 | OP ---
OPERATIVE REPORT PREOPERATIVE DIAGNOSIS: Infected wound, left foot plantar aspect. Measurement is 5 x 3 cm. POSTOPERATIVE DIAGNOSIS: Infected wound, left foot plantar aspect. Measurement is 5 x 3 cm. OPERATION: Incision and drainage and debridement of the necrotic wound down to subcutaneous tissue and the bone. This patient has a history of left big toe amputation in the past. The patient has had this necrotic wound for the last 10 days. PROCEDURE DESCRIPTION: The left foot was prepped and drapes were applied in the usual sterile manner; 1% lidocaine was infiltrated. Using a sharp knife, we did the debridement down to the first metatarsal bone, which was exposed. All the devitalized tissue was excised, which was sent for deep culture. No active bleeding was noted. Wound was irrigated with saline and Aquacel Silver was packed into the wound. Patient also has a superficial wound on the dorsal aspect of the foot, which was also irrigated. We placed Aquacel Silver. Pressure dressing was applied. Will reevaluate the wound tomorrow. Prognosis is guarded. Pressure dressing was applied. Patient tolerated the procedure well. MMODL / IJN: [id number] /
[2021-11-06 21:56] LABS: Iron 11 ug/dL (65-175); Rheumatoid Factor, Qnt <10 IU/mL (0-15)
[2021-11-07 04:24] LABS: Free Kappa Lt Chain Qnt, Serum 13.26 mg/dL (0.33-1.94); Free Lambda Lt Chain Qnt, Seru 8.71 mg/dL (0.57-2.63)
[2021-11-07] MEDS: AMPICILLIN-SULBACTAM 3 GM in SODIUM CHLORIDE 0.9% 100 ML IVPB SCH ×3 (05:18→20:36)
[2021-11-07 07:18] LABS: Glucose,Whole Blood 182 mg/dL (75-99)
--- NOTE | 2021-11-07 08:00 | P.CONS ---
History of Present Illness - Reason for Consult Consult date: 11/06/21 Osteomyelitis Requesting physician: James Wilson - Chief Complaint left foot infection x days - History of Present Illness Patient is a 75-year-old male with a past medical history significant for diabetes mellitus in this patient who did have a history of left big toe amputation from a diabetic foot infection many years ago patient presenting to the [facility] ER last evening for evaluation of left foot infection patient did complain to the ER physician and may have started with a third toenail rubbing against his toe leading to redness of his toes and some discoloration patient been complaining of pain to the left foot to be throbbing almost 7-8 out of 10 and no radiation did have associated swelling redness some discoloration and foul-smelling drainage with the symptom the patient was evaluated by the ER physician on arrival to the ER patient was afebrile no fever have been recorded subsequently patient did have normal white count. Was mildly elevated liver enzymes are elevated patient did have blood cultures drawn which are currently pending patient did have x-ray of the foot or she has erosion of the fourth metatarsal head suspicious for underlying osteomyelitis patient was started on vancomycin and Unasyn has been admitted to the hospital infectious disease was consulted for further management of antibiotic therapy vascular surgery has been consulted Review of Systems Positive point has been mentioned in the HPI rest of the systems are negative Past Medical History Past Medical History: Cancer, Diabetes Mellitus, Myocardial Infarction ([place]), Osteoarthritis (OA), Renal Disease, Vascular Disorder Additional Past Medical History / Comment(s): [place] x2. Hx bladder [place] 2015. Neuropathy feet. PAD, pain & numbness in BLE. Last Myocardial Infarction Date:: 2002 History of Any Multi-Drug Resistant Organisms: None Reported Past Surgical History: Heart Catheterization With Stent, Orthopedic Surgery Additional Past Surgical History / Comment(s): Right femoral bypass, Rt knee surgery, Lt foot toe amputations. Cervical surgery, has "cagein neck." Bladder tumor exc. lt ptca 09/20/19 Past Anesthesia/Blood Transfusion Reactions: No Reported Reaction Date of Last Stent Placement:: 09/20/19 Past Psychological History: No Psychological Hx Reported Smoking Status: Current every day smoker Past Alcohol Use History: Rare Additional Past Alcohol Use History / Comment(s): Smoking since 1959, up to 1 ppd, now 1/2 ppd Past Drug Use History: Marijuana Additional Drug Use History / Comment(s): occ use - Past Family History Mother Family Medical History: Cancer Medications and Allergies Home Medications Medication Instructions Recorded Confirmed Type Aspirin EC [Ecotrin Low Dose] 81 mg PO DAILY 07/21/16 11/05/21 History Nitroglycerin Sl Tabs [Nitrostat] 0.4 mg SUBLINGUAL Q5M PRN 07/21/16 11/05/21 History Gabapentin [Neurontin] 100 mg PO BID 09/19/19 11/05/21 History HYDROcodone/APAP 7.5-325MG [[place] 1 tab PO BID PRN 09/19/19 11/05/21 History 7.5-325] Clopidogrel [Plavix] 75 mg PO DAILY #90 tab 09/22/19 11/05/21 Rx Losartan [Cozaar] 25 mg PO DAILY 11/05/21 11/05/21 History Sildenafil Citrate [Viagra] 100 mg PO DAILY PRN 11/05/21 11/05/21 History glipiZIDE [Glucotrol] 10 mg PO BID 11/05/21 11/05/21 History Allergies Allergy/AdvReac Type Severity Reaction Status Date / Time No Known Allergies Allergy Verified 11/05/21 17:47 Physical Exam Vitals: Vital Signs Temp Pulse Pulse Resp BP BP Pulse Ox 11/06/21 05:00 98.2 F 83 16 128/63 99 11/05/21 22:16 97.5 F L 83 16 132/66 100 11/05/21 21:24 80 18 134/54 99 11/05/21 17:43 66 18 155/73 99 11/05/21 16:03 74 18 160/77 99 11/05/21 14:55 97.5 F L 85 14 127/73 100 Intake and Output 11/05/21 11/06/21 11/06/21 22:59 06:59 14:59 Intake Total 1230 Output Total 700 Balance 530 Intake: Intake, IV Titration 100 Amount Ampicillin-Sulbactam 3 gm 100 In Sodium Chloride 0.9% 100 ml @ 200 mls/hr IVPB Q8H [facility] Rx#:[id number] Oral 1130 Output: Urine 700 Other: Voiding Method Urinal # Voids 2 Weight 77.111 kg GENERAL DESCRIPTION: An elderly male lying in bed, no distress. No tachypnea or accessory muscle of respiration use. HEENT: Shows Pallor , no scleral icterus. Oral mucous membrane is dry. No pharyngeal erythema or thrush NECK: Trachea central, no thyromegaly. LUNGS: Unlabored breathing. Clear to auscultation anteriorly. No wheeze or crackle. HEART: S1, S2, regular rate and rhythm. No loud murmur ABDOMEN: Soft, no tenderness , guarding or rigidity, no organomegaly EXTREMITIES: Left foot medial border did have a necrotic tissue. There is fluctuant and some foul-smelling drainage. SKIN: No rash, no masses palpable. NEUROLOGICAL: The patient is awake, alert, oriented x3, mood and affect normal. Results CBC & Chem 7: 11/06/21 06:54 11/06/21 06:54 Labs: Abnormal Lab Results - Last 24 Hours (Table) 11/05/21 11/05/21 11/05/21 Range/Units 15:55 15:55 17:31 RBC 2.98 L (4.30-5.90) m/uL Hgb 7.7 L (13.0-17.5) gm/dL Hct 25.4 L (39.0-53.0) % MCHC 30.2 L (31.0-37.0) g/dL RDW 18.7 H (11.5-15.5) % Lymphocytes # (Manual) 0.60 L (1.0-4.8) k/uL ESR >140 H (0-15) mm/hr Sodium 129 L (137-145) mmol/L Potassium 5.3 H (3.5-5.1) mmol/L Carbon Dioxide 15 L (22-30) mmol/L BUN 60 H (9-20) mg/dL Creatinine 2.74 H (0.66-1.25) mg/dL Glucose 492 H (74-99) mg/dL POC Glucose (mg/dL) 452 H (75-99) mg/dL AST 90 H (17-59) U/L ALT 93 H (4-49) U/L Alkaline Phosphatase 144 H (38-126) U/L C-Reactive Protein 16.8 H (<1.0) mg/dL 11/05/21 11/05/21 11/06/21 Range/Units 20:41 22:24 07:02 RBC (4.30-5.90) m/uL Hgb (13.0-17.5) gm/dL Hct (39.0-53.0) % MCHC (31.0-37.0) g/dL RDW (11.5-15.5) % Lymphocytes # (Manual) (1.0-4.8) k/uL ESR (0-15) mm/hr Sodium (137-145) mmol/L Potassium (3.5-5.1) mmol/L Carbon Dioxide (22-30) mmol/L BUN (9-20) mg/dL Creatinine (0.66-1.25) mg/dL Glucose (74-99) mg/dL POC Glucose (mg/dL) 234 H 135 H 178 H (75-99) mg/dL AST (17-59) U/L ALT (4-49) U/L Alkaline Phosphatase (38-126) U/L C-Reactive Protein (<1.0) mg/dL Assessment and Plan (1) Cellulitis of foot Current Visit: Yes Status: Acute Code(s): L03.119 - CELLULITIS OF UNSPECIFIED PART OF LIMB SNOMED Code(s): 410690117 (2) Osteomyelitis Current Visit: Yes Status: Acute Code(s): M86.9 - OSTEOMYELITIS, UNSPECIFIED SNOMED Code(s): 37624021 Plan: 1patient presented to hospital with extensive left diabetic foot infection in this patient who did have a area of fluctuance and gangrene to the left big toe amputation site, will need to cover for the polymicrobial darinel usually associated with diabetic foot infection. 2patient with renal insufficiency and high risk of nephrotoxicity kidney function will need to be monitored closely. 3waiting for the vascular surgery evaluation for surgical debridement and deep cultures. 3vancomycin pharmacy to dose target trough of 15 while watching kidney function and vancomycin trough closely and Unasyn should provide adequate em piric antibiotic coverage. We will follow on clinical condition and cultures to further adjust medication if needed Thank you for this consultation will follow this patient along with you Time with Patient: Less than 30
[2021-11-07] MEDS: PANTOPRAZOLE 40 MG TABLET PO SCH (08:12)
[2021-11-07] MEDS: LOSARTAN 25 MG TAB PO SCH (08:12)
[2021-11-07] MEDS: INSULIN ASPART (NovoLOG) 100 UNIT/ML VIAL SQ SCH ×4 (08:12→20:36)
[2021-11-07] MEDS: GABAPENTIN 100 MG CAP PO SCH ×2 (08:12→20:35)
[2021-11-07] MEDS: ASPIRIN 81 MG PO SCH (08:12)
[2021-11-07] MEDS ORDERED: VANCOMYCIN 1,500 MG in SODIUM CHLORIDE 0.9% 250 ML IVPB SCH (09:00)
[2021-11-07 09:30] LABS: Basophils # (A) 0 X 10*3/uL (0.00-0.10); Basophils % (A) 0 %; Eosinophils # (A) 0 X 10*3/uL (0.04-0.35); Eosinophils % (A) 0 %; HCT 24.7 % (39.6-50.0); HGB 7.3 g/dL (13.0-17.0); Immature Grans, Automated 1.1 %; MCH 25.4 pg (27.0-32.0); MCHC 29.6 g/dL (32.0-37.0); MCV 86.1 fL (80.0-97.0); Mean Platelet Volume 11.3 fL (9.5-12.2); Monocytes # (A) 1.22 X 10*3/uL (0.20-1.00); Monocytes % (A) 22.3 %; NRBC Per 100 WBC 0 /100 WBCS (0.0-0.0); Neutrophils % (A) 45.6 %; Platelet Count 317 X 10*3/uL (140-440); RBC 2.87 X 10*6/uL (4.40-5.60); RDW 19.2 % (11.5-14.5); WBC 5.48 X 10*3/uL (4.50-10.00)
[2021-11-07 10:01] LABS: African American GFR (CKD) 45.4 (60.0-200.0); Albumin 3.1 g/dL (3.8-4.9); Albumin/Globulin Ratio 0.91 (1.60-3.17); Anion Gap 10.5 mmol/L (10.00-18.00); BUN/Creat Ratio 18.94 Ratio (12.00-20.00); Blood Urea Nitrogen 32.2 mg/dL (9.0-27.0); Calcium 8.2 mg/dL (8.7-10.3); Carbon Dioxide 14.5 mmol/L (20.0-27.5); Globulin 3.4 g/dL (1.6-3.3); Non-African American GFR(CKD) 39.1 (60.0-200.0); Potassium 4.8 mmol/L (3.5-5.5); Total Bilirubin 0.7 mg/dL (0.30-1.20); Total Protein 6.5 g/dL (6.2-8.2)
[2021-11-07 10:14] LABS: Protein, Total 6.6 g/dL (6.2-8.2)
[2021-11-07] MEDS: MORPHINE SULFATE 4 MG/ML SYRINGE IV PRN ×3 (11:13→20:41)
[2021-11-07 11:52] LABS: Glucose,Whole Blood 177 mg/dL (75-99)
--- NOTE | 2021-11-07 15:16 | PN ---
PROGRESS NOTE This is a 75-year-old white male with severe cellulitis and gangrene to his foot, diabetic wound infection. He says his sugars were running just fine until just recently, when his foot got infected; unclear etiology. He had some toes cut off 20 years ago. His sugar has been under great control until just recently. He has degenerative disk disease with neuropathy history. Dr. Young did debridement yesterday. Today his hemoglobin is 7.3, white count 5.48, platelets 317, BUN 32, creatinine 1.7, sodium 134. Sugars have been mid 100s up to 300s. ASSESSMENT: Diabetic wound infection, status post debridement. Will wait for further recommendations on this patient on blood thinners. Plavix is on hold until further debridements are done. Continue with broad-spectrum antibiotics. Wait for Dr. Bower's recommendations. MMODL / IJN: [id number] /
[2021-11-07 15:21] LABS: Albumin 2.98 g/dL (3.80-4.90); Gamma Globulin 1.43 g/dL (0.70-1.50)
[2021-11-07] MEDS: VANCOMYCIN 1,500 MG in SODIUM CHLORIDE 0.9% 250 ML IVPB SCH (15:59)
--- NOTE | 2021-11-07 16:34 | PN ---
PROGRESS NOTE This 75-year-old gentleman who was admitted with infected abscess with necrotic tissue on the left foot plantar aspect. The patient had extensive debridement. We took the deep culture. The culture is pending. Patient under care of Infectious Disease for IV antibiotic. Today we have changed the dressing. We packed the wound with the Aquacel silver. The left foot metatarsal bone is exposed. Prognosis is guarded. We will continue with IV antibiotic. The patient may need a major amputation. The dressing will be changed on Thursday. MMODL / IJN: [id number] /
[2021-11-07 17:17] LABS: Glucose,Whole Blood 302 mg/dL (75-99)
[2021-11-07] MEDS: ENOXAPARIN 40 MG/0.4 ML SYRINGE SQ SCH (17:23)
--- NOTE | 2021-11-07 17:39 | P.PN ---
Subjective Progress Note Date: 11/07/21 Principal diagnosis: anemia In f/u today pt had his lt foot wound debrided. No new c/o. Objective - Vital Signs Vital signs: Vital Signs Temp 98.3 F 11/07/21 11:51 Pulse 79 11/07/21 11:51 Resp 18 11/07/21 11:51 BP 147/51 11/07/21 11:51 Pulse Ox 100 11/07/21 11:51 Intake & Output 11/06/21 11/07/21 11/07/21 18:59 06:59 18:59 Intake Total 350 681 Output Total 350 Balance 350 681 -350 Weight 77.111 kg Intake: Intake, IV Titration 350 Amount Ampicillin-Sulbactam 3 gm 100 In Sodium Chloride 0.9% 100 ml @ 200 mls/hr IVPB Q8H [facility] Rx#:[id number] Vancomycin 1,500 mg In 250 Sodium Chloride 0.9% 250 ml @ 125 mls/hr IVPB Q24H [facility] Rx#:[id number] Oral 400 Blood Product 281 Rc Pheresis 2 As3 Unit 281 [id number] Output: Urine 350 Other: Voiding Method Toilet Toilet Urinal Urinal # Voids 1 - Constitutional General appearance: Present: average body habitus, cooperative, no acute dist ress - EENT Eyes: Present: anicteric sclerae, EOMI ENT: Present: hearing grossly normal - Respiratory Details: resp even and unlabored - Neurologic Neurologic: Present: CNII-XII intact - Musculoskeletal Musculoskeletal: Present: strength equal bilaterally - Psychiatric Psychiatric: Present: A&O x's 3, appropriate affect, intact judgment & insight - Labs CBC & Chem 7: 11/07/21 05:35 11/07/21 05:35 Labs: Abnormal Lab Results - Last 24 Hours (Table) 11/06/21 11/06/21 11/06/21 Range/Units 12:51 12:51 12:51 RBC (4.40-5.60) X 10*6/uL Hgb (13.0-17.0) g/dL Hct (39.6-50.0) % MCH (27.0-32.0) pg MCHC (32.0-37.0) g/dL RDW (11.5-14.5) % Immature Gran # (0.00-0.04) X 10*3/uL Monocytes # (0.20-1.00) X 10*3/uL Eosinophils # (0.04-0.35) X 10*3/uL Sodium (135-145) mmol/L Carbon Dioxide (20.0-27.5) mmol/L BUN (9.0-27.0) mg/dL Creatinine (0.6-1.5) mg/dL Est GFR (CKD-EPI)AfAm (60.0-200.0) Est GFR (CKD-EPI)NonAf (60.0-200.0) Glucose (70-110) mg/dL POC Glucose (mg/dL) (75-99) mg/dL Calcium (8.7-10.3) mg/dL Iron 11 L (65-175) ug/dL Transferrin 180.0 L (204.0-354.0) mg/dL AST (14-35) U/L ALT (10-49) U/L Albumin (3.8-4.9) g/dL Albumin (PEP) 2.98 L (3.80-4.90) g/dL Globulin (1.6-3.3) g/dL Albumin/Globulin Ratio (1.60-3.17) g/dL Abnhv-9-Faoskmzfl 0.51 H (0.10-0.40) g/dL Vitamin B12 1087.0 H (200.0-944.0) pg/mL Free Celada LC, Quant 13.26 H (0.33-1.94) mg/dL Free Lambda LC, Quant 8.71 H (0.57-2.63) mg/dL Crossmatch See Detail 11/06/21 11/06/21 11/07/21 Range/Units 17:29 19:51 05:35 RBC 2.87 L (4.40-5.60) X 10*6/uL Hgb 7.3 L (13.0-17.0) g/dL Hct 24.7 L (39.6-50.0) % MCH 25.4 L (27.0-32.0) pg MCHC 29.6 L (32.0-37.0) g/dL RDW 19.2 H (11.5-14.5) % Immature Gran # 0.06 H (0.00-0.04) X 10*3/uL Monocytes # 1.22 H (0.20-1.00) X 10*3/uL Eosinophils # 0 L (0.04-0.35) X 10*3/uL Sodium (135-145) mmol/L Carbon Dioxide (20.0-27.5) mmol/L BUN (9.0-27.0) mg/dL Creatinine (0.6-1.5) mg/dL Est GFR (CKD-EPI)AfAm (60.0-200.0) Est GFR (CKD-EPI)NonAf (60.0-200.0) Glucose (70-110) mg/dL POC Glucose (mg/dL) 305 H 219 H (75-99) mg/dL Calcium (8.7-10.3) mg/dL Iron (65-175) ug/dL Transferrin (204.0-354.0) mg/dL AST (14-35) U/L ALT (10-49) U/L Albumin (3.8-4.9) g/dL Albumin (PEP) (3.80-4.90) g/dL Globulin (1.6-3.3) g/dL Albumin/Globulin Ratio (1.60-3.17) g/dL Wxvqm-1-Cmwqrumfu (0.10-0.40) g/dL Vitamin B12 (200.0-944.0) pg/mL Free Celada LC, Quant (0.33-1.94) mg/dL Free Lambda LC, Quant (0.57-2.63) mg/dL Crossmatch 11/07/21 11/07/21 11/07/21 Range/Units 05:35 07:16 11:51 RBC (4.40-5.60) X 10*6/uL Hgb (13.0-17.0) g/dL Hct (39.6-50.0) % MCH (27.0-32.0) pg MCHC (32.0-37.0) g/dL RDW (11.5-14.5) % Immature Gran # (0.00-0.04) X 10*3/uL Monocytes # (0.20-1.00) X 10*3/uL Eosinophils # (0.04-0.35) X 10*3/uL Sodium 134 L (135-145) mmol/L Carbon Dioxide 14.5 L (20.0-27.5) mmol/L BUN 32.2 H (9.0-27.0) mg/dL Creatinine 1.7 H (0.6-1.5) mg/dL Est GFR (CKD-EPI)AfAm 45.4 L (60.0-200.0) Est GFR (CKD-EPI)NonAf 39.1 L (60.0-200.0) Glucose 150 H (70-110) mg/dL POC Glucose (mg/dL) 182 H 177 H (75-99) mg/dL Calcium 8.2 L (8.7-10.3) mg/dL Iron (65-175) ug/dL Transferrin (204.0-354.0) mg/dL AST 47 H (14-35) U/L ALT 63 H (10-49) U/L Albumin 3.1 L (3.8-4.9) g/dL Albumin (PEP) (3.80-4.90) g/dL Globulin 3.4 H (1.6-3.3) g/dL Albumin/Globulin Ratio 0.91 L (1.60-3.17) g/dL Tokav-7-Ntafxqxzn (0.10-0.40) g/dL Vitamin B12 (200.0-944.0) pg/mL Free Celada LC, Quant (0.33-1.94) mg/dL Free Lambda LC, Quant (0.57-2.63) mg/dL Crossmatch 11/07/21 Range/Units 17:16 RBC (4.40-5.60) X 10*6/uL Hgb (13.0-17.0) g/dL Hct (39.6-50.0) % MCH (27.0-32.0) pg MCHC (32.0-37.0) g/dL RDW (11.5-14.5) % Immature Gran # (0.00-0.04) X 10*3/uL Monocytes # (0.20-1.00) X 10*3/uL Eosinophils # (0.04-0.35) X 10*3/uL Sodium (135-145) mmol/L Carbon Dioxide (20.0-27.5) mmol/L BUN (9.0-27.0) mg/dL Creatinine (0.6-1.5) mg/dL Est GFR (CKD-EPI)AfAm (60.0-200.0) Est GFR (CKD-EPI)NonAf (60.0-200.0) Glucose (70-110) mg/dL POC Glucose (mg/dL) 302 H (75-99) mg/dL Calcium (8.7-10.3) mg/dL Iron (65-175) ug/dL Transferrin (204.0-354.0) mg/dL AST (14-35) U/L ALT (10-49) U/L Albumin (3.8-4.9) g/dL Albumin (PEP) (3.80-4.90) g/dL Globulin (1.6-3.3) g/dL Albumin/Globulin Ratio (1.60-3.17) g/dL Pqsfv-6-Qxqjkbvld (0.10-0.40) g/dL Vitamin B12 (200.0-944.0) pg/mL Free Celada LC, Quant (0.33-1.94) mg/dL Free Lambda LC, Quant (0.57-2.63) mg/dL Crossmatch Microbiology - Last 24 Hours (Table) 11/06/21 16:00 Gram Stain - Preliminary Foot - Left Tissue Culture - Preliminary 11/06/21 16:00 Anaerobic Culture - Preliminary Foot - Left 11/05/21 15:55 Blood Culture - Preliminary Blood No Growth after 24 hours 11/05/21 15:55 Blood Culture - Preliminary Blood No Growth after 24 hours Assessment and Plan (1) Anemia Current Visit: Yes Status: Chronic Priority: High Code(s): D64.9 - ANEMIA, UNSPECIFIED SNOMED Code(s): 570325581 Plan: Chart review shows anemia since 2017. Pt is noted to have elevated creatinine for several years as well. He is on asa and plavix chronically (resumed plavix recently after being off for some time.) Reports never having endoscopy. Inflammatory labs are all elevated. Epo increased. TIBC and iron% unable to be assessed-due to low transferrin? Elevated kappa and lambda light chains, ratio favoring kappa. With all the inflammation K/L and AMAN can be falsely positive. Consult Nephrology who will assess for possible epo supplementation. Transfuse for Hgb <7 Will need to repeat AMAN and K/L once pt recovering from current situation. Attests:I have seen and examined pt, performed H&P, developed impression and plan of care. Discussed with dictator. Agree with dictation, documented as a scribe.
[2021-11-07] MEDS ORDERED: SODIUM BICARB 8.4% 50 ML SYR (1 MEQ/ML) IV STA (20:13)
[2021-11-07 20:22] LABS: Glucose,Whole Blood 266 mg/dL (75-99)
[2021-11-07] MEDS: SODIUM BICARBONATE TAB 650 MG TAB PO SCH (20:35)
--- NOTE | 2021-11-07 22:13 | P.PN ---
Subjective Progress Note Date: 11/07/21 Principal diagnosis: Left diabetic foot infection Patient is a 75-year-old male with a past medical history significant for diabetes mellitus status post left big toe amputation presented to hospital with infected wound to the left foot. This patient who is status post I&D and debridement of necrotic wound to the subcutaneous tissue and bone with the cultures currently pending. On today's evaluation that is 11/07/2021, the patient denies having any fever or chills, the patient is breathing comfortably denies any chest pain shortness of breath or cough no abdominal pain to the left foot is currently controlled Objective - Vital Signs Vital signs: Vital Signs Temp 98.4 F 11/07/21 05:00 Pulse 76 11/07/21 05:00 Resp 18 11/07/21 05:00 BP 144/67 11/07/21 05:00 Pulse Ox 99 11/07/21 05:00 Intake & Output 11/06/21 11/07/21 11/07/21 18:59 06:59 18:59 Intake Total 350 681 Output Total 350 Balance 350 681 -350 Weight 77.111 kg Intake: Intake, IV Titration 350 Amount Ampicillin-Sulbactam 3 gm 100 In Sodium Chloride 0.9% 100 ml @ 200 mls/hr IVPB Q8H [facility] Rx#:[id number] Vancomycin 1,500 mg In 250 Sodium Chloride 0.9% 250 ml @ 125 mls/hr IVPB Q24H [facility] Rx#:[id number] Oral 400 Blood Product 281 Rc Pheresis 2 As3 Unit 281 [id number] Output: Urine 350 Other: Voiding Method Toilet Toilet Urinal Urinal # Voids 1 - Exam GENERAL DESCRIPTION: An elderly male lying in bed in no distress RESPIRATORY SYSTEM: Unlabored breathing , decreased breath sounds at bases HEART: S1 S2 regular rate and rhythm , ABDOMEN: Soft , no tenderness EXTREMITIES: Left foot is currently dressed no drainage on the dressing - Labs CBC & Chem 7: 11/07/21 05:35 11/07/21 05:35 Labs: Abnormal Lab Results - Last 24 Hours (Table) 11/06/21 11/06/21 11/06/21 Range/Units 06:54 12:51 12:51 RBC (4.40-5.60) X 10*6/uL Hgb 6.7 L* (13.0-17.0) g/dL Hct (39.6-50.0) % MCH (27.0-32.0) pg MCHC (32.0-37.0) g/dL RDW (11.5-14.5) % Immature Gran # (0.00-0.04) X 10*3/uL Monocytes # (0.20-1.00) X 10*3/uL Eosinophils # (0.04-0.35) X 10*3/uL Sodium (135-145) mmol/L Carbon Dioxide (20.0-27.5) mmol/L BUN (9.0-27.0) mg/dL Creatinine (0.6-1.5) mg/dL Est GFR (CKD-EPI)AfAm (60.0-200.0) Est GFR (CKD-EPI)NonAf (60.0-200.0) Glucose (70-110) mg/dL POC Glucose (mg/dL) (75-99) mg/dL Calcium (8.7-10.3) mg/dL Iron 11 L (65-175) ug/dL Transferrin 180.0 L (204.0-354.0) mg/dL AST (14-35) U/L ALT (10-49) U/L Albumin (3.8-4.9) g/dL Globulin (1.6-3.3) g/dL Albumin/Globulin Ratio (1.60-3.17) g/dL Vitamin B12 1087.0 H (200.0-944.0) pg/mL Free Rifle LC, Quant (0.33-1.94) mg/dL Free Lambda LC, Quant (0.57-2.63) mg/dL Crossmatch See Detail 11/06/21 11/06/21 11/06/21 Range/Units 12:51 17:29 19:51 RBC (4.40-5.60) X 10*6/uL Hgb (13.0-17.0) g/dL Hct (39.6-50.0) % MCH (27.0-32.0) pg MCHC (32.0-37.0) g/dL RDW (11.5-14.5) % Immature Gran # (0.00-0.04) X 10*3/uL Monocytes # (0.20-1.00) X 10*3/uL Eosinophils # (0.04-0.35) X 10*3/uL Sodium (135-145) mmol/L Carbon Dioxide (20.0-27.5) mmol/L BUN (9.0-27.0) mg/dL Creatinine (0.6-1.5) mg/dL Est GFR (CKD-EPI)AfAm (60.0-200.0) Est GFR (CKD-EPI)NonAf (60.0-200.0) Glucose (70-110) mg/dL POC Glucose (mg/dL) 305 H 219 H (75-99) mg/dL Calcium (8.7-10.3) mg/dL Iron (65-175) ug/dL Transferrin (204.0-354.0) mg/dL AST (14-35) U/L ALT (10-49) U/L Albumin (3.8-4.9) g/dL Globulin (1.6-3.3) g/dL Albumin/Globulin Ratio (1.60-3.17) g/dL Vitamin B12 (200.0-944.0) pg/mL Free Rifle LC, Quant 13.26 H (0.33-1.94) mg/dL Free Lambda LC, Quant 8.71 H (0.57-2.63) mg/dL Crossmatch 11/07/21 11/07/21 11/07/21 Range/Units 05:35 05:35 07:16 RBC 2.87 L (4.40-5.60) X 10*6/uL Hgb 7.3 L (13.0-17.0) g/dL Hct 24.7 L (39.6-50.0) % MCH 25.4 L (27.0-32.0) pg MCHC 29.6 L (32.0-37.0) g/dL RDW 19.2 H (11.5-14.5) % Immature Gran # 0.06 H (0.00-0.04) X 10*3/uL Monocytes # 1.22 H (0.20-1.00) X 10*3/uL Eosinophils # 0 L (0.04-0.35) X 10*3/uL Sodium 134 L (135-145) mmol/L Carbon Dioxide 14.5 L (20.0-27.5) mmol/L BUN 32.2 H (9.0-27.0) mg/dL Creatinine 1.7 H (0.6-1.5) mg/dL Est GFR (CKD-EPI)AfAm 45.4 L (60.0-200.0) Est GFR (CKD-EPI)NonAf 39.1 L (60.0-200.0) Glucose 150 H (70-110) mg/dL POC Glucose (mg/dL) 182 H (75-99) mg/dL Calcium 8.2 L (8.7-10.3) mg/dL Iron (65-175) ug/dL Transferrin (204.0-354.0) mg/dL AST 47 H (14-35) U/L ALT 63 H (10-49) U/L Albumin 3.1 L (3.8-4.9) g/dL Globulin 3.4 H (1.6-3.3) g/dL Albumin/Globulin Ratio 0.91 L (1.60-3.17) g/dL Vitamin B12 (200.0-944.0) pg/mL Free Rifle LC, Quant (0.33-1.94) mg/dL Free Lambda LC, Quant (0.57-2.63) mg/dL Crossmatch 11/07/21 Range/Units 11:51 RBC (4.40-5.60) X 10*6/uL Hgb (13.0-17.0) g/dL Hct (39.6-50.0) % MCH (27.0-32.0) pg MCHC (32.0-37.0) g/dL RDW (11.5-14.5) % Immature Gran # (0.00-0.04) X 10*3/uL Monocytes # (0.20-1.00) X 10*3/uL Eosinophils # (0.04-0.35) X 10*3/uL Sodium (135-145) mmol/L Carbon Dioxide (20.0-27.5) mmol/L BUN (9.0-27.0) mg/dL Creatinine (0.6-1.5) mg/dL Est GFR (CKD-EPI)AfAm (60.0-200.0) Est GFR (CKD-EPI)NonAf (60.0-200.0) Glucose (70-110) mg/dL POC Glucose (mg/dL) 177 H (75-99) mg/dL Calcium (8.7-10.3) mg/dL Iron (65-175) ug/dL Transferrin (204.0-354.0) mg/dL AST (14-35) U/L ALT (10-49) U/L Albumin (3.8-4.9) g/dL Globulin (1.6-3.3) g/dL Albumin/Globulin Ratio (1.60-3.17) g/dL Vitamin B12 (200.0-944.0) pg/mL Free Rifle LC, Quant (0.33-1.94) mg/dL Free Lambda LC, Quant (0.57-2.63) mg/dL Crossmatch Microbiology - Last 24 Hours (Table) 11/06/21 16:00 Gram Stain - Preliminary Foot - Left Tissue Culture - Preliminary 11/06/21 16:00 Anaerobic Culture - Preliminary Foot - Left 11/05/21 15:55 Blood Culture - Preliminary Blood No Growth after 24 hours 11/05/21 15:55 Blood Culture - Preliminary Blood No Growth after 24 hours Assessment and Plan (1) Cellulitis of foot Current Visit: Yes Status: Acute Code(s): L03.119 - CELLULITIS OF UNSPECIFIED PART OF LIMB SNOMED Code(s): 456496871 (2) Osteomyelitis Current Visit: Yes Status: Acute Code(s): M86.9 - OSTEOMYELITIS, UNSPECIFIED SNOMED Code(s): 06849013 Plan: 1patient presented to hospital with extensive left diabetic foot infection in this patient who did have a area of fluctuance and gangrene to the left big toe amputation site, will need to cover for the polymicrobial darinel usually associated with diabetic foot infection. 2patient with renal insufficiency and high risk of nephrotoxicity kidney function will need to be monitored closely and actually had shown improvement. 3patient is status post vascular surgery evaluation and surgical debridement and deep cultures which are currently pending. 4patient to continue with vancomycin pharmacy to dose target trough of 15 while watching kidney function and vancomycin trough closely and Unasyn while waiting for the cultures to finalize Time with Patient: Less than 30
[2021-11-08] MEDS: AMPICILLIN-SULBACTAM 3 GM in SODIUM CHLORIDE 0.9% 100 ML IVPB SCH ×3 (06:20→22:08)
[2021-11-08 07:13] LABS: Glucose,Whole Blood 191 mg/dL (75-99)
[2021-11-08] MEDS: INSULIN ASPART (NovoLOG) 100 UNIT/ML VIAL SQ SCH ×4 (07:19→22:07)
[2021-11-08] MEDS: ASPIRIN 81 MG PO SCH (07:20)
[2021-11-08] MEDS: LOSARTAN 25 MG TAB PO SCH (07:20)
[2021-11-08] MEDS: SODIUM BICARBONATE TAB 650 MG TAB PO SCH ×3 (07:20→22:08)
[2021-11-08] MEDS: GABAPENTIN 100 MG CAP PO SCH ×2 (07:20→22:07)
[2021-11-08] MEDS: HYDROcodone/APAP 7.5-325MG 1 EACH TAB PO PRN ×2 (07:20→22:08)
[2021-11-08] MEDS: PANTOPRAZOLE 40 MG TABLET PO SCH (07:20)
[2021-11-08 07:48] LABS: Methylmalonic Acid 0.5 umol/L (<0.40)
--- NOTE | 2021-11-08 09:25 | P.NPCON ---
History of Present Illness - Reason for Consult acute renal failure, chronic renal failure - History of Present Illness Reason for consultation: Acute kidney injury on chronic kidney disease History of present illness: Patient is a 75-year-old male seen in consultation for acute kidney injury on chronic kidney disease. Patient has chronic kidney disease stage IIIB with baseline creatinine in the range of 1.7-1.8 secondary to diabetic kidney disease. Patient presented to the hospital on 11/05/2021 due to left foot infection. He developed redness on the left foot and was concerned about infection. He does have history of left large fourth toe amputation. He was noted to have ostial myelitis of the left foot and underwent debridement by vascular surgery. He is also on IV antibiotics by infectious disease. Patient states he has long standing history of diabetes. He does not follow the [facility] hrologist outpatient. Denies chest pain or shortness of breath. Denies edema. Oral intake has been good. Denies vomiting or diarrhea. Denies chest pain or shortness of breath. Denies use of nonsteroidals. He did receive blood transfusion this admission. He denies any active bleeding. Creatinine was 2.74 on admission and was down to 1.7 yesterday. Vital signs are stable. General: Awake and alert. No acute distress. HEENT: Head exam is unremarkable. LUNGS: Breath sounds decreased. HEART: Rate and Rhythm are regular. ABDOMEN: Soft, no distention. EXTREMITITES: No edema. Left foot wrapped. Past Medical History Past Medical History: Cancer, Diabetes Mellitus, Myocardial Infarction ([place]), Osteoarthritis (OA), Renal Disease, Vascular Disorder Additional Past Medical History / Comment(s): [place] x2. Hx bladder CA 2014. Ne uropathy feet. PAD, pain & numbness in BLE. Last Myocardial Infarction Date:: 2002 History of Any Multi-Drug Resistant Organisms: None Reported Past Surgical History: Heart Catheterization With Stent, Orthopedic Surgery Additional Past Surgical History / Comment(s): Right femoral bypass, Rt knee pavon rgery, Lt foot toe amputations. Cervical surgery, has "cagein neck." Bladder tumor exc. lt ptca 09/20/19 Past Anesthesia/Blood Transfusion Reactions: No Reported Reaction Date of Last Stent Placement:: 09/20/19 Past Psychological History: No Psychological Hx Reported Smoking Status: Current every day smoker Past Alcohol Use History: Rare Additional Past Alcohol Use History / Comment(s): Smoking since 1959, up to 1 ppd, now 1/2 ppd Past Drug Use History: Marijuana Additional Drug Use History / Comment(s): occ use - Past Family History Mother Family Medical History: Cancer Medications and Allergies Home Medications Medication Instructions Recorded Confirmed Type Aspirin EC [Ecotrin Low Dose] 81 mg PO DAILY 07/21/16 11/05/21 History Nitroglycerin Sl Tabs [Nitrostat] 0.4 mg SUBLINGUAL Q5M PRN 07/21/16 11/05/21 History Gabapentin [Neurontin] 100 mg PO BID 09/19/19 11/05/21 History HYDROcodone/APAP 7.5-325MG [[place] 1 tab PO BID PRN 09/19/19 11/05/21 History 7.5-325] Clopidogrel [Plavix] 75 mg PO DAILY #90 tab 09/22/19 11/05/21 Rx Losartan [Cozaar] 25 mg PO DAILY 11/05/21 11/05/21 History Sildenafil Citrate [Viagra] 100 mg PO DAILY PRN 11/05/21 11/05/21 History glipiZIDE [Glucotrol] 10 mg PO BID 11/05/21 11/05/21 History Allergies Allergy/AdvReac Type Severity Reaction Status Date / Time No Known Allergies Allergy Verified 11/05/21 17:47 Physical Exam Vitals: Vital Signs Temp Pulse Resp BP Pulse Ox 11/08/21 05:00 98.2 F 79 16 152/62 98 11/07/21 20:51 98.0 F 89 16 153/63 100 11/07/21 11:51 98.3 F 79 18 147/51 100 Intake and Output 11/07/21 11/08/21 11/08/21 22:59 06:59 14:59 Intake Total 240 Balance 240 Intake: Oral 240 Other: Voiding Method Toilet Urinal # Voids 2 Results - Lab Results Most recent lab results Calcium 8.2 mg/dL (8.7-10.3) L 11/07/21 05:35 Phosphorus 3.7 mg/dL (2.5-4.5) 11/05/21 15:55 Magnesium 1.9 mg/dL (1.6-2.3) 11/05/21 15:55 11/07/21 05:35 11/07/21 05:35 Assessment and Plan Plan: Assessment: 1. Acute kidney injury mostly prerenal secondary to anemia and infection. Creatinine was 2.7 on admission and was on the 1.7 yesterday. 2. Chronic kidney disease stage IIIB secondary to diabetic kidney disease with baseline creatinine 1.7-1.8 in September 2019. 3. Left foot osteomyelitis status post debridement. On IV antibiotics. 4. Anemia of chronic kidney disease with component of acute blood loss anemia. Received a unit of blood. Iron deficiency noted. 5. Diabetes mellitus. 6. Hypertension with chronic kidney disease. 7. Metabolic acidosis secondary to acute kidney injury. Plan: Encouraged oral intake. Not on any IV fluids or diuretics at this time. Maintain oral bicarb. Check renal ultrasound. Check UA. Monitor vancomycin levels. Dose to be adjusted for renal function. Add IV iron. Add Aranesp after iron replete. Continue to monitor renal function and urine output. Patient advised to follow up outpatient to establish CKD care. Thank you for the consultation. I will continue to follow the patient with you during his hospital stay.
[2021-11-08 09:33] LABS: African American GFR (CKD) 48.8 (60.0-200.0); Albumin/Globulin Ratio 0.89 (1.60-3.17); Anion Gap 10.5 mmol/L (10.00-18.00); BUN/Creat Ratio 14.56 Ratio (12.00-20.00); Blood Urea Nitrogen 23.3 mg/dL (9.0-27.0); Calcium 8.1 mg/dL (8.7-10.3); Carbon Dioxide 19.4 mmol/L (20.0-27.5); Globulin 3.4 g/dL (1.6-3.3); Non-African American GFR(CKD) 42.1 (60.0-200.0); Potassium 4.4 mmol/L (3.5-5.5); Total Bilirubin 0.5 mg/dL (0.30-1.20); Total Protein 6.3 g/dL (6.2-8.2)
[2021-11-08 10:20] LABS: Basophils # (A) 0.01 X 10*3/uL (0.00-0.10); Basophils % (A) 0.2 %; Eosinophils # (A) 0 X 10*3/uL (0.04-0.35); Eosinophils % (A) 0 %; HCT 22.6 % (39.6-50.0); HGB 6.8 g/dL (13.0-17.0); Lymphocytes # (A) 1.63 X 10*3/uL (0.90-5.00); Lymphocytes % (A) 31.2 %; MCH 24.8 pg (27.0-32.0); MCHC 30.1 g/dL (32.0-37.0); MCV 82.5 fL (80.0-97.0); Mean Platelet Volume 10.8 fL (9.5-12.2); Monocytes # (A) 0.87 X 10*3/uL (0.20-1.00); Monocytes % (A) 16.7 %; NRBC Per 100 WBC 0 /100 WBCS (0.0-0.0); Neutrophils # (A) 2.66 X 10*3/uL (1.80-7.70); Neutrophils % (A) 50.9 %; Platelet Count 279 X 10*3/uL (140-440); RBC 2.74 X 10*6/uL (4.40-5.60); RDW 19.5 % (11.5-14.5); WBC 5.22 X 10*3/uL (4.50-10.00)
[2021-11-08] MEDS: SODIUM FERRIC GLUCONAT-SUCROSE 125 MG in SODIUM CHLORIDE 0.9% 100 ML IVPB SCH (10:40)
--- NOTE | 2021-11-08 11:36 | US ---
EXAMINATION TYPE: US kidneys/renal and bladder DATE OF EXAM: 11/08/2021 COMPARISON: 09/23/2016 CLINICAL HISTORY: [email or web address]. MARGY EXAM MEASUREMENTS: Right Kidney: 10.9 x 5.3 x 4.2 cm Left Kidney: 11.1 x 5.3 x 4.9 cm Right Kidney: cystic areas noted, largest = 2.0 x 1.5 x 1.9cm. mixed area mid = 1.5 x 1.3 x 1.5cm Left Kidney: cystic areas noted, largest = 1.5 x 1.2 x 1.6cm Bladder: not fully distended Bilateral Jets seen: no There is no evidence for hydronephrosis at this point in time. No nephrolithiasis is seen. No solid masses are identified. The urinary bladder is anechoic. Bilateral ureteral jets are seen. IMPRESSION: Stable cystic renal lesions.
[2021-11-08 12:32] LABS: Glucose,Whole Blood 186 mg/dL (75-99)
[2021-11-08] MEDS ORDERED: VANCOMYCIN TROUGH DUE 1 EACH MISC MISCELLANE ONE (14:00)
[2021-11-08] MEDS: VANCOMYCIN 1,500 MG in SODIUM CHLORIDE 0.9% 250 ML IVPB SCH (16:04)
--- NOTE | 2021-11-08 16:20 | P.PN ---
Subjective Progress Note Date: 11/08/21 Principal diagnosis: Left diabetic foot infection Patient is a 75-year-old male with a past medical history significant for diabetes mellitus status post left big toe amputation presented to hospital with infected wound to the left foot. This patient who is status post I&D and debridement of necrotic wound to the subcutaneous tissue and bone with the cultures currently pending. On today's evaluation that is 11/08/2021, the patient remains to be afebrile, the patient is breathing comfortably on room air, the patient denies any chest pain shortness of breath or cough no abdominal pain to the left foot is currently controlled Objective - Vital Signs Vital signs: Vital Signs Temp 98 F 11/08/21 12:19 Pulse 67 11/08/21 12:29 Resp 18 11/08/21 12:29 BP 157/67 11/08/21 12:29 Pulse Ox 99 11/08/21 12:29 Intake & Output 11/07/21 11/08/21 11/08/21 18:59 06:59 18:59 Intake Total 240 0 Output Total 350 450 Balance -350 240 -450 Intake: Oral 240 Blood Product 0 Rc As-1 Unit 0 [id number] Output: Urine 350 450 Other: Voiding Method Toilet Toilet Toilet Urinal Urinal Urinal # Voids 2 - Exam GENERAL DESCRIPTION: An elderly male lying in bed in no distress RESPIRATORY SYSTEM: Unlabored breathing , decreased breath sounds at bases HEART: S1 S2 regular rate and rhythm , ABDOMEN: Soft , no tenderness EXTREMITIES: Left foot is currently dressed no drainage on the dressing - Labs CBC & Chem 7: 11/08/21 05:59 11/08/21 05:59 Labs: Abnormal Lab Results - Last 24 Hours (Table) 11/06/21 11/06/21 11/06/21 Range/Units 12:51 12:51 12:51 RBC (4.40-5.60) X 10*6/uL Hgb (13.0-17.0) g/dL Hct (39.6-50.0) % MCH (27.0-32.0) pg MCHC (32.0-37.0) g/dL RDW (11.5-14.5) % Immature Gran # (0.00-0.04) X 10*3/uL Eosinophils # (0.04-0.35) X 10*3/uL Carbon Dioxide (20.0-27.5) mmol/L Creatinine (0.6-1.5) mg/dL Est GFR (CKD-EPI)AfAm (60.0-200.0) Est GFR (CKD-EPI)NonAf (60.0-200.0) Glucose (70-110) mg/dL POC Glucose (mg/dL) (75-99) mg/dL Calcium (8.7-10.3) mg/dL AST (14-35) U/L ALT (10-49) U/L Albumin (3.8-4.9) g/dL Albumin (PEP) 2.98 L (3.80-4.90) g/dL Globulin (1.6-3.3) g/dL Albumin/Globulin Ratio (1.60-3.17) g/dL Yykvt-2-Yxxzjswrd 0.51 H (0.10-0.40) g/dL Methylmalonic Acid 0.50 H (<0.40) umol/L Crossmatch See Detail 11/07/21 11/07/21 11/08/21 Range/Units 17:16 20:20 05:59 RBC 2.74 L (4.40-5.60) X 10*6/uL Hgb 6.8 L* (13.0-17.0) g/dL Hct 22.6 L (39.6-50.0) % MCH 24.8 L (27.0-32.0) pg MCHC 30.1 L (32.0-37.0) g/dL RDW 19.5 H (11.5-14.5) % Immature Gran # 0.05 H (0.00-0.04) X 10*3/uL Eosinophils # 0 L (0.04-0.35) X 10*3/uL Carbon Dioxide (20.0-27.5) mmol/L Creatinine (0.6-1.5) mg/dL Est GFR (CKD-EPI)AfAm (60.0-200.0) Est GFR (CKD-EPI)NonAf (60.0-200.0) Glucose (70-110) mg/dL POC Glucose (mg/dL) 302 H 266 H (75-99) mg/dL Calcium (8.7-10.3) mg/dL AST (14-35) U/L ALT (10-49) U/L Albumin (3.8-4.9) g/dL Albumin (PEP) (3.80-4.90) g/dL Globulin (1.6-3.3) g/dL Albumin/Globulin Ratio (1.60-3.17) g/dL Vwvhn-5-Qzktczdgr (0.10-0.40) g/dL Methylmalonic Acid (<0.40) umol/L Crossmatch 11/08/21 11/08/21 11/08/21 Range/Units 05:59 07:12 12:31 RBC (4.40-5.60) X 10*6/uL Hgb (13.0-17.0) g/dL Hct (39.6-50.0) % MCH (27.0-32.0) pg MCHC (32.0-37.0) g/dL RDW (11.5-14.5) % Immature Gran # (0.00-0.04) X 10*3/uL Eosinophils # (0.04-0.35) X 10*3/uL Carbon Dioxide 19.4 L (20.0-27.5) mmol/L Creatinine 1.6 H (0.6-1.5) mg/dL Est GFR (CKD-EPI)AfAm 48.8 L (60.0-200.0) Est GFR (CKD-EPI)NonAf 42.1 L (60.0-200.0) Glucose 184 H (70-110) mg/dL POC Glucose (mg/dL) 191 H 186 H (75-99) mg/dL Calcium 8.1 L (8.7-10.3) mg/dL AST 41 H (14-35) U/L ALT 51 H (10-49) U/L Albumin 3.0 L (3.8-4.9) g/dL Albumin (PEP) (3.80-4.90) g/dL Globulin 3.4 H (1.6-3.3) g/dL Albumin/Globulin Ratio 0.89 L (1.60-3.17) g/dL Ygjdn-5-Yejoigvix (0.10-0.40) g/dL Methylmalonic Acid (<0.40) umol/L Crossmatch Microbiology - Last 24 Hours (Table) 11/05/21 15:55 Blood Culture - Preliminary Blood No Growth after 48 hours 11/05/21 15:55 Blood Culture - Preliminary Blood No Growth after 48 hours Assessment and Plan (1) Cellulitis of foot Current Visit: Yes Status: Acute Code(s): L03.119 - CELLULITIS OF UNSPECIFIED PART OF LIMB SNOMED Code(s): 695638624 (2) Osteomyelitis Current Visit: Yes Status: Acute Code(s): M86.9 - OSTEOMYELITIS, UNSPECIFIED SNOMED Code(s): 25934090 Plan: 1patient presented to hospital with extensive left diabetic foot infection in this patient who did have a area of fluctuance and gangrene to the left big toe amputation site, will need to cover for the polymicrobial darinel usually associated with diabetic foot infection. 2patient with renal insufficiency and high risk of nephrotoxicity kidney function will need to be monitored closely and actually had shown improvement. 3patient is status post vascular surgery evaluation and surgical debridement and deep cultures which are currently pending. 4patient has show some clinical improvement and the patient will continue with vancomycin pharmacy to dose target trough of 15 while watching kidney function and vancomycin trough closely and Unasyn while waiting for the cultures to fin inez. Time with Patient: Less than 30
[2021-11-08 17:17] LABS: Appearance,Urine Clear (Clear); Bilirubin,Urine Negative (Negative); Blood,Urine Moderate (Negative); Color,Urine Yellow; Glucose,Urine (UA) 1+ (Negative); Ketones,Urine Negative (Negative); Leukocyte Esterase,Urine Negative (Negative); Mucus,Urine Rare /hpf; Nitrite,Urine Negative (Negative); PH, Urine 5.5 (5.0-8.0); Protein,Urine 1+ (Negative); RBC,Urine 3 /hpf (0-5); Specific Gravity,Urine 1.014 (1.001-1.035); Squamous Epithelial Cell,Urine <1 /hpf (0-4); Urobilinogen,Urine <2.0 mg/dL (<2.0); WBC,Urine 1 /hpf (0-5)
[2021-11-08 17:27] LABS: Glucose,Whole Blood 106 mg/dL (75-99)
[2021-11-08] MEDS: ENOXAPARIN 40 MG/0.4 ML SYRINGE SQ SCH (18:10)
--- NOTE | 2021-11-08 19:10 | P.PN ---
Progress Note - Text Progress Note Date: 11/08/21 Hospital course: I'm rounding for Dr. James Wilson. Admitted with infected wound to the left foot. Status post I&D and debridement of necrotic wound to the subcu and his tissue by Dr. Wright. November 08: Laying in bed. Getting dialysis. Appetite good. No nausea vomiting. Pain control. Has not had a BM for last 4 days. Declines any laxative. Active Medications Acetaminophen (Acetaminophen Tab 325 Mg Tab) 650 mg PO Q6HR PRN PRN Reason: Mild Pain or Fever > 100.5 Hydrocodone Bitart/Acetaminophen (Hydrocodone/Apap 7.5-325mg 1 Each Tab) 1 each PO BID PRN PRN Reason: Pain Last Admin: 11/08/21 07:20 Dose: 1 each Documented by: Aspirin (Aspirin 81 Mg) 81 mg PO DAILY [facility] Last Admin: 11/08/21 07:20 Dose: 81 mg Documented by: Enoxaparin Sodium (Enoxaparin 40 Mg/0.4 Ml Syringe) 40 mg SQ DAILY@1800 [facility] Last Admin: 11/08/21 18:10 Dose: 40 mg Documented by: Gabapentin (Gabapentin 100 Mg Cap) 100 mg PO BID [facility] Last Admin: 11/08/21 07:20 Dose: 100 mg Documented by: Ampicillin Sodium/Sulbactam (Sodium 3 gm/ Sodium Chloride) 100 mls @ 200 mls/hr IVPB Q8H [facility]; Protocol Last Admin: 11/08/21 15:03 Dose: 200 mls/hr Documented by: Vancomycin HCl 1,500 mg/ (Sodium Chloride) 250 mls @ 125 mls/hr IVPB Q24H [facility]; Protocol Last Admin: 11/08/21 16:04 Dose: 125 mls/hr Documented by: Ferric Sodium Gluconate 125 mg (/ Sodium Chloride) 110 mls @ 100 mls/hr IVPB DAILY [facility] Stop: 11/11/21 10:05 Last Admin: 11/08/21 10:40 Dose: 100 mls/hr Documented by: Insulin Aspart (Insulin Aspart (Novolog) 100 Unit/Ml Vial) 0 unit SQ ACHS [facility]; Protocol Last Admin: 11/08/21 17:30 Dose: Not Given Documented by: Losartan Potassium (Losartan 25 Mg Tab) 25 mg PO DAILY [facility] Last Admin: 11/08/21 07:20 Dose: 25 mg Documented by: Morphine Sulfate (Morphine Sulfate 4 Mg/Ml Syringe) 4 mg IV Q4HR PRN PRN Reason: Severe Pain Last Admin: 11/07/21 20:41 Dose: 4 mg Documented by: Naloxone HCl (Naloxone 0.4 Mg/Ml 1 Ml Vial) 0.2 mg IV Q2M PRN PRN Reason: Opioid Reversal Nitroglycerin (Nitroglycerin Sl Tabs 0.4 Mg Tab) 0.4 mg SUBLINGUAL Q5M PRN PRN Reason: Chest Pain Ondansetron HCl (Ondansetron 4 Mg/2 Ml Vial) 4 mg IVP Q8HR PRN PRN Reason: Nausea And Vomiting Pantoprazole Sodium (Pantoprazole 40 Mg Tablet) 40 mg PO AC-BRKFST [facility] Last Admin: 11/08/21 07:20 Dose: 40 mg Documented by: Sodium Bicarbonate (Sodium Bicarbonate Tab 650 Mg Tab) 650 mg PO TID [facility] Last Admin: 11/08/21 15:03 Dose: 650 mg Documented by: On examination: VITAL SIGNS: [98, 64, 18, 164/65, 99% room air] GENERAL APPEARANCE: . Lying in bed, not in distress. HEENT: Normal external appearance of nose and ear. Oral cavity normal EYES: Pupils equal. Conjunctiva normal. NECK: JVD not raised. Mass not palpable. RESPIRATORY: Respiratory effort normal. Decreased breath sounds. CARDIOVASCULAR: First and second sounds normal. No edema. ABDOMEN: Soft. Liver and spleen not palpable. No tenderness. No mass palpable. EXTREMITIES: Left foot and a dressing PSYCHIATRY: Alert and oriented x3. Mood and affect normal. INVESTIGATIONS, reviewed in the clinical context: White count 5.2 hemoglobin 6.8 platelets 279 potassium 4.4 BUN 23.3 creatinine 1.6 Left foot wound cultures: Pending Assessment and plan: -Severe left foot diabetic infection, with acute osteomyelitis status post I&D.: Slow to respond Cultures pending. IV vancomycin. IV Unasyn. -Acute kidney injury possibly ATN/prerenal secondary to anemia and infection. Creatinine 2.7 on admission currently 1.7 -Chronic kidney disease stage III be secondary to diabetic kidney disease and baseline creatinine of 1.7. -Left foot osteomyelitis acute Status post debridement. Antibiotics -Anemia of chronic kidney disease/iron deficiency noted Received 1 unit of blood. -Metabolic acidosis secondary to kidney injury Oral sodium bicarbonate -Diabetes mellitus type 2, chronically on oral hypoglycemic Start Levemir 10 units at night. 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 -Peripheral arterial disease with prior intervention Aspirin. Add Lipitor. 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 IV vancomycin and IV Unasyn. Cultures pending. Add Lipitor. Check lipid profile. Nicotine patch. Add Levemir 10 units at night. Discussed with patient. -
[2021-11-08 20:09] LABS: Glucose,Whole Blood 139 mg/dL (75-99)
--- NOTE | 2021-11-08 20:50 | P.PN ---
Subjective Progress Note Date: 11/08/21 Hemoglobin 6.8 today, PRBC ordered Objective - Vital Signs Vital signs: Vital Signs Temp 98 F 11/08/21 12:19 Pulse 64 11/08/21 12:59 Resp 16 11/08/21 12:59 BP 164/65 11/08/21 12:59 Pulse Ox 99 11/08/21 12:29 Intake & Output 11/07/21 11/08/21 11/08/21 18:59 06:59 18:59 Intake Total 240 0 Output Total 350 450 Balance -350 240 -450 Intake: Oral 240 Blood Product 0 Rc As-1 Unit 0 [id number] Output: Urine 350 450 Other: Voiding Method Toilet Toilet Toilet Urinal Urinal Urinal # Voids 2 - Exam - Constitutional General appearance: Present: average body habitus, cooperative, no acute distress - EENT Eyes: Present: anicteric sclerae, EOMI ENT: Present: hearing grossly normal - Respiratory Details: resp even and unlabored - Neurologic Neurologic: Present: CNII-XII intact - Musculoskeletal Musculoskeletal: Present: strength equal bilaterally - Psychiatric Psychiatric: Present: A&O x's 3, appropriate affect, intact judgment & insight - Labs CBC & Chem 7: 11/08/21 05:59 11/08/21 05:59 Labs: Abnormal Lab Results - Last 24 Hours (Table) 11/06/21 11/06/21 11/06/21 Range/Units 12:51 12:51 12:51 RBC (4.40-5.60) X 10*6/uL Hgb (13.0-17.0) g/dL Hct (39.6-50.0) % MCH (27.0-32.0) pg MCHC (32.0-37.0) g/dL RDW (11.5-14.5) % Immature Gran # (0.00-0.04) X 10*3/uL Eosinophils # (0.04-0.35) X 10*3/uL Carbon Dioxide (20.0-27.5) mmol/L Creatinine (0.6-1.5) mg/dL Est GFR (CKD-EPI)AfAm (60.0-200.0) Est GFR (CKD-EPI)NonAf (60.0-200.0) Glucose (70-110) mg/dL POC Glucose (mg/dL) (75-99) mg/dL Calcium (8.7-10.3) mg/dL AST (14-35) U/L ALT (10-49) U/L Albumin (3.8-4.9) g/dL Albumin (PEP) 2.98 L (3.80-4.90) g/dL Globulin (1.6-3.3) g/dL Albumin/Globulin Ratio (1.60-3.17) g/dL Cqjwl-6-Lvnixqdby 0.51 H (0.10-0.40) g/dL Methylmalonic Acid 0.50 H (<0.40) umol/L Crossmatch See Detail 11/07/21 11/07/21 11/08/21 Range/Units 17:16 20:20 05:59 RBC 2.74 L (4.40-5.60) X 10*6/uL Hgb 6.8 L* (13.0-17.0) g/dL Hct 22.6 L (39.6-50.0) % MCH 24.8 L (27.0-32.0) pg MCHC 30.1 L (32.0-37.0) g/dL RDW 19.5 H (11.5-14.5) % Immature Gran # 0.05 H (0.00-0.04) X 10*3/uL Eosinophils # 0 L (0.04-0.35) X 10*3/uL Carbon Dioxide (20.0-27.5) mmol/L Creatinine (0.6-1.5) mg/dL Est GFR (CKD-EPI)AfAm (60.0-200.0) Est GFR (CKD-EPI)NonAf (60.0-200.0) Glucose (70-110) mg/dL POC Glucose (mg/dL) 302 H 266 H (75-99) mg/dL Calcium (8.7-10.3) mg/dL AST (14-35) U/L ALT (10-49) U/L Albumin (3.8-4.9) g/dL Albumin (PEP) (3.80-4.90) g/dL Globulin (1.6-3.3) g/dL Albumin/Globulin Ratio (1.60-3.17) g/dL Htmmh-5-Cqqxmaiop (0.10-0.40) g/dL Methylmalonic Acid (<0.40) umol/L Crossmatch 11/08/21 11/08/21 11/08/21 Range/Units 05:59 07:12 12:31 RBC (4.40-5.60) X 10*6/uL Hgb (13.0-17.0) g/dL Hct (39.6-50.0) % MCH (27.0-32.0) pg MCHC (32.0-37.0) g/dL RDW (11.5-14.5) % Immature Gran # (0.00-0.04) X 10*3/uL Eosinophils # (0.04-0.35) X 10*3/uL Carbon Dioxide 19.4 L (20.0-27.5) mmol/L Creatinine 1.6 H (0.6-1.5) mg/dL Est GFR (CKD-EPI)AfAm 48.8 L (60.0-200.0) Est GFR (CKD-EPI)NonAf 42.1 L (60.0-200.0) Glucose 184 H (70-110) mg/dL POC Glucose (mg/dL) 191 H 186 H (75-99) mg/dL Calcium 8.1 L (8.7-10.3) mg/dL AST 41 H (14-35) U/L ALT 51 H (10-49) U/L Albumin 3.0 L (3.8-4.9) g/dL Albumin (PEP) (3.80-4.90) g/dL Globulin 3.4 H (1.6-3.3) g/dL Albumin/Globulin Ratio 0.89 L (1.60-3.17) g/dL Kdbje-3-Licbudper (0.10-0.40) g/dL Methylmalonic Acid (<0.40) umol/L Crossmatch Microbiology - Last 24 Hours (Table) 11/05/21 15:55 Blood Culture - Preliminary Blood No Growth after 48 hours 11/05/21 15:55 Blood Culture - Preliminary Blood No Growth after 48 hours Assessment and Plan Plan: Assessment and Plan (1) Anemia Current Visit: Yes Status: Chronic Priority: High Code(s): D64.9 - ANEMIA, UNSPECIFIED SNOMED Code(s): 741960080 Plan: Endoscopy resonable Inflammatory labs are all elevated. Epo Continued Repeat Elevated kappa and lambda light chains, ratio favoring kappa. With all the inflammation K/L and AMAN can be falsely positive. Consult Nephrology who will assess for possible epo supplementation. Transfuse for Hgb <7 Transfuse today hg 6.8 CBC daily please COnsult placed for nphrology Attests:I have seen and examined pt, performed H&P, developed impression and plan of care. Discussed with dictator. Agree with dictation, documented as a scribe.
[2021-11-08] MEDS: NICOTINE 14MG/24HR PATCH TRANSDERM SCH (22:07)
[2021-11-08] MEDS: INSULIN DETEMIR (LEVEMIR) 100 UNIT/ML SYR SQ SCH (22:07)
[2021-11-08] MEDS: ATORVASTATIN 40 MG TAB PO SCH (22:07)
[2021-11-09] MEDS: AMPICILLIN-SULBACTAM 3 GM in SODIUM CHLORIDE 0.9% 100 ML IVPB SCH ×2 (05:40→12:53)
[2021-11-09] MEDS: MORPHINE SULFATE 4 MG/ML SYRINGE IV PRN ×4 (05:41→21:56)
[2021-11-09 07:23] LABS: Glucose,Whole Blood 142 mg/dL (75-99)
[2021-11-09 07:37] LABS: African American GFR (CKD) 53 (>60 ml/min/1.73 sqM); Anion Gap 6 mmol/L; Blood Urea Nitrogen 18 mg/dL (9-20); Carbon Dioxide 22 mmol/L (22-30); Chloride 110 mmol/L (98-107); Glucose 108 mg/dL (74-99); Magnesium 1.5 mg/dL (1.6-2.3); Non-African American GFR(CKD) 46 (>60 ml/min/1.73 sqM); Potassium 4.4 mmol/L (3.5-5.1); Sodium 138 mmol/L (137-145)
[2021-11-09] MEDS: SODIUM BICARBONATE TAB 650 MG TAB PO SCH ×3 (09:15→21:56)
[2021-11-09] MEDS: PANTOPRAZOLE 40 MG TABLET PO SCH (09:15)
[2021-11-09] MEDS: INSULIN ASPART (NovoLOG) 100 UNIT/ML VIAL SQ SCH ×4 (09:15→21:55)
[2021-11-09] MEDS: NICOTINE 14MG/24HR PATCH TRANSDERM SCH ×2 (09:15→21:56)
[2021-11-09] MEDS: LOSARTAN 25 MG TAB PO SCH (09:15)
[2021-11-09] MEDS: ASPIRIN 81 MG PO SCH (09:15)
[2021-11-09] MEDS: GABAPENTIN 100 MG CAP PO SCH ×2 (09:15→21:55)
[2021-11-09] MEDS: SODIUM FERRIC GLUCONAT-SUCROSE 125 MG in SODIUM CHLORIDE 0.9% 100 ML IVPB SCH (10:41)
[2021-11-09 11:39] LABS: Chol/HDL Ratio 6.04 Ratio; LDL Cholesterol,Calculated 75.9 mg/dL (0.0-131.0)
--- NOTE | 2021-11-09 12:20 | P.PN ---
Progress Note - Text Progress Note Date: 11/09/21 Hospital course: I'm rounding for Dr. James Wilson. Admitted with infected wound to the left foot. Status post I&D and debridement of necrotic wound to the subcu and his tissue by Dr. Wright. November 08: Laying in bed. Getting dialysis. Appetite good. No nausea vomiting. Pain control. Has not had a BM for last 4 days. Declines any laxative. November 09: No BM. Patient does not want any laxative right now. Eating well. Getting antibiotics. IV Unasyn, IV vancomycin. Pain controlled Active Medications Acetaminophen (Acetaminophen Tab 325 Mg Tab) 650 mg PO Q6HR PRN PRN Reason: Mild Pain or Fever > 100.5 Hydrocodone Bitart/Acetaminophen (Hydrocodone/Apap 7.5-325mg 1 Each Tab) 1 each PO BID PRN PRN Reason: Pain Last Admin: 11/08/21 22:08 Dose: 1 each Documented by: Aspirin (Aspirin 81 Mg) 81 mg PO DAILY [facility] Last Admin: 11/09/21 09:15 Dose: 81 mg Documented by: Atorvastatin Calcium (Atorvastatin 40 Mg Tab) 40 mg PO HS [facility] Last Admin: 11/08/21 22:07 Dose: 40 mg Documented by: Enoxaparin Sodium (Enoxaparin 40 Mg/0.4 Ml Syringe) 40 mg SQ DAILY@1800 [facility] Last Admin: 11/08/21 18:10 Dose: 40 mg Documented by: Gabapentin (Gabapentin 100 Mg Cap) 100 mg PO BID [facility] Last Admin: 11/09/21 09:15 Dose: 100 mg Documented by: Ampicillin Sodium/Sulbactam (Sodium 3 gm/ Sodium Chloride) 100 mls @ 200 mls/hr IVPB Q8H [facility]; Protocol Last Admin: 11/09/21 05:40 Dose: 200 mls/hr Documented by: Vancomycin HCl 1,500 mg/ (Sodium Chloride) 250 mls @ 125 mls/hr IVPB Q24H [facility]; Protocol Last Admin: 11/08/21 16:04 Dose: 125 mls/hr Documented by: Ferric Sodium Gluconate 125 mg (/ Sodium Chloride) 110 mls @ 100 mls/hr IVPB DAILY [facility] Stop: 11/11/21 10:05 Last Admin: 11/09/21 10:41 Dose: 100 mls/hr Documented by: Insulin Aspart (Insulin Aspart (Novolog) 100 Unit/Ml Vial) 0 unit SQ [facility]; Protocol Last Admin: 11/09/21 09:15 Dose: 1 unit Documented by: Insulin Detemir (Insulin Detemir (Levemir) 100 Unit/Ml Syr) 10 unit SQ HS [facility] Last Admin: 11/08/21 22:07 Dose: 10 unit Documented by: Losartan Potassium (Losartan 25 Mg Tab) 25 mg PO DAILY [facility] Last Admin: 11/09/21 09:15 Dose: 25 mg Documented by: Morphine Sulfate (Morphine Sulfate 4 Mg/Ml Syringe) 4 mg IV Q4HR PRN PRN Reason: Severe Pain Last Admin: 11/09/21 10:41 Dose: 4 mg Documented by: Naloxone HCl (Naloxone 0.4 Mg/Ml 1 Ml Vial) 0.2 mg IV Q2M PRN PRN Reason: Opioid Reversal Nicotine (Nicotine 14mg/24hr Patch) 1 patch TRANSDERM DAILY [facility] Last Admin: 11/09/21 09:15 Dose: 1 patch Documented by: Nitroglycerin (Nitroglycerin Sl Tabs 0.4 Mg Tab) 0.4 mg SUBLINGUAL Q5M PRN PRN Reason: Chest Pain Ondansetron HCl (Ondansetron 4 Mg/2 Ml Vial) 4 mg IVP Q8HR PRN PRN Reason: Nausea And Vomiting Pantoprazole Sodium (Pantoprazole 40 Mg Tablet) 40 mg PO AC-BRKFST [facility] Last Admin: 11/09/21 09:15 Dose: 40 mg Documented by: Sodium Bicarbonate (Sodium Bicarbonate Tab 650 Mg Tab) 650 mg PO TID [facility] Last Admin: 11/09/21 09:15 Dose: 650 mg Documented by: On examination: VITAL SIGNS: 98.5, 64, 18, 133/70, 98% room air GENERAL APPEARANCE: . Lying in bed, comfortable HEENT: Normal external appearance of nose and ear. Oral cavity normal EYES: Pupils equal. Conjunctiva normal. NECK: JVD not raised. Mass not palpable. RESPIRATORY: Respiratory effort normal. Decreased breath sounds. CARDIOVASCULAR: First and second sounds normal. No edema. ABDOMEN: Soft. Liver and spleen not palpable. No tenderness. No mass palpable. EXTREMITIES: Left foot with a dressing PSYCHIATRY: Alert and oriented x3. Mood and affect normal. INVESTIGATIONS, reviewed in the clinical context: November 09: Potassium 4.4 creatinine 1.5. LDL 75 White count 5.2 hemoglobin 6.8 platelets 279 potassium 4.4 BUN 23.3 creatinine 1.6 Left foot wound cultures: Pending Assessment and plan: -Severe left foot diabetic infection, with acute osteomyelitis status post I&D.: Slow to respond Cultures pending. IV vancomycin. IV Unasyn. -Acute kidney injury possibly ATN/prerenal secondary to anemia and infection. Creatinine 2.7 on admission currently 1.7 -Chronic kidney disease stage III be secondary to diabetic kidney disease and baseline creatinine of 1.7. -Left foot osteomyelitis acute Status post debridement. Antibiotics -Anemia of chronic kidney disease/iron deficiency noted Received 1 unit of blood. -Metabolic acidosis secondary to kidney injury Oral sodium bicarbonate -Diabetes mellitus type 2, chronically on oral hypoglycemic Start Levemir 10 units at night. 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 Lipitor 40 mg daily at bedtime -Peripheral arterial disease with prior intervention Aspirin. Lipitor. 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 IV vancomycin and IV Unasyn. Cultures pending. Patient has declined laxative. -
[2021-11-09 12:26] LABS: Glucose,Whole Blood 215 mg/dL (75-99)
--- NOTE | 2021-11-09 12:32 | P.PN ---
Subjective Progress Note Date: 11/09/21 Principal diagnosis: This is a 75-year-old male seen in consultation because of acute kidney injury and chronic kidney disease he has diabetic nephropathy creatinine off 1.7 as andrea srivastava. Came in because of infected left fourth toe, had surgery and debridement and is currently on IV antibiotics. Creatinine is down from 2.74-1.5 this morning. Ultrasound shows 10.9 and 11.1 cm kidneys. No hydronephrosis He feels fine and denies any complaints no fevers chills cough shortness of breath nausea vomiting dizziness good appetite. No dysuria frequency Vital signs are stable blood pressure somewhat high in the 133-180 range. Heart rate and while signs otherwise unremarkable afebrile 24-hour intake is documented at 15 75 mL Objective - Vital Signs Vital signs: Vital Signs Temp 98.5 F 11/09/21 05:00 Pulse 64 11/09/21 05:00 Resp 18 11/09/21 05:00 BP 133/70 11/09/21 05:00 Pulse Ox 98 11/09/21 05:00 Intake & Output 11/08/21 11/09/21 11/09/21 18:59 06:59 18:59 Intake Total 310 200 Output Total 1275 300 Balance -965 -100 Intake: Intake, IV Titration 200 Amount Ampicillin-Sulbactam 3 gm 200 In Sodium Chloride 0.9% 100 ml @ 200 mls/hr IVPB Q8H [facility] Rx#:[id number] Blood Product 310 Rc As-1 Unit 310 [id number] Output: Urine 1275 300 Other: Voiding Method Toilet Toilet Toilet Urinal Urinal Urinal On examination awake alert oriented comfortable No JVP neck is supple no facial asymmetry Lungs clear to auscultation good air entry bilaterally Heart sounds unremarkable no murmur rub gallop Abdomen soft nontender Extremity exam was no edema Left foot is dressed Neurologically awake alert oriented - Labs CBC & Chem 7: 11/08/21 05:59 11/09/21 06:41 Labs: Abnormal Lab Results - Last 24 Hours (Table) 11/06/21 11/08/21 11/08/21 Range/Units 12:51 12:31 16:51 Chloride (98-107) mmol/L Creatinine (0.66-1.25) mg/dL Glucose (74-99) mg/dL POC Glucose (mg/dL) 186 H (75-99) mg/dL Calcium (8.4-10.2) mg/dL Magnesium (1.6-2.3) mg/dL HDL Cholesterol (40.00-60.00) mg/dL Urine Protein 1+ H (Negative) Urine Glucose (UA) 1+ H (Negative) Urine Blood Moderate H (Negative) Urine Mucus Rare H (None) /hpf Crossmatch See Detail 11/08/21 11/08/21 11/09/21 Range/Units 17:11 20:08 06:41 Chloride 110 H (98-107) mmol/L Creatinine 1.50 H (0.66-1.25) mg/dL Glucose 108 H (74-99) mg/dL POC Glucose (mg/dL) 106 H 139 H (75-99) mg/dL Calcium 8.0 L (8.4-10.2) mg/dL Magnesium 1.5 L (1.6-2.3) mg/dL HDL Cholesterol 19.70 L (40.00-60.00) mg/dL Urine Protein (Negative) Urine Glucose (UA) (Negative) Urine Blood (Negative) Urine Mucus (None) /hpf Crossmatch 11/09/21 11/09/21 Range/Units 07:21 12:21 Chloride (98-107) mmol/L Creatinine (0.66-1.25) mg/dL Glucose (74-99) mg/dL POC Glucose (mg/dL) 142 H 215 H (75-99) mg/dL Calcium (8.4-10.2) mg/dL Magnesium (1.6-2.3) mg/dL HDL Cholesterol (40.00-60.00) mg/dL Urine Protein (Negative) Urine Glucose (UA) (Negative) Urine Blood (Negative) Urine Mucus (None) /hpf Crossmatch Microbiology - Last 24 Hours (Table) 11/06/21 16:00 Gram Stain - Preliminary Foot - Left Tissue Culture - Preliminary Gram Neg Bacilli Non Hemolytic Strep Diphtheroid species 11/05/21 15:55 Blood Culture - Preliminary Blood No Growth after 72 hours 11/05/21 15:55 Blood Culture - Preliminary Blood No Growth after 72 hours Assessment and Plan Assessment: Impression 1 acute kidney injury secondary to infection osteomyelitis of the left foot. Creatinine improved to 1.5, from a peak of 2.74. 2. Chronic kidney disease stage III disease diabetic nephropathy, possibly. Urinalysis shows 1+ proteinuria not quantified. 3. Metabolic acidosis from chronic kidney disease and acute kidney injury 4. Anemia with iron deficiency currently on IV Ferrlecit. I and level is 11 mcg/dL TIBC not available percent saturation not available transferrin is 180 ferritin is 242 5. Blood pressure slightly higher than target Recommendation 1. Maintain current medications. We'll continue to watch. Patient can be discharged home from a nephrological perspective
[2021-11-09] MEDS: HYDROcodone/APAP 7.5-325MG 1 EACH TAB PO PRN (12:52)
[2021-11-09] MEDS: PIPERACILLIN-TAZOBACTAM 3.375 GM in SODIUM CHLORIDE 0.9% 100 ML IVPB SCH ×2 (16:35→23:06)
[2021-11-09 17:03] LABS: Glucose,Whole Blood 107 mg/dL (75-99)
[2021-11-09] MEDS: ENOXAPARIN 40 MG/0.4 ML SYRINGE SQ SCH (18:35)
[2021-11-09 20:38] LABS: Glucose,Whole Blood 210 mg/dL (75-99)
[2021-11-09] MEDS: INSULIN DETEMIR (LEVEMIR) 100 UNIT/ML SYR SQ SCH (21:55)
[2021-11-09] MEDS: ATORVASTATIN 40 MG TAB PO SCH (21:55)
--- NOTE | 2021-11-10 00:33 | P.PN ---
Subjective Progress Note Date: 11/09/21 Principal diagnosis: Left diabetic foot infection Patient is a 75-year-old male with a past medical history significant for diabetes mellitus status post left big toe amputation presented to hospital with infected wound to the left foot. This patient who is status post I&D and debridement of necrotic wound to the subcutaneous tissue and bone with the cultures currently pending. On today's evaluation that is 11/09/2021, the patient denies any fever or chills, the patient is breathing comfortably on room air, the patient denies any chest pain shortness of breath or cough , the patient denies abdominal pain to the left foot is currently controlled Objective - Vital Signs Vital signs: Vital Signs Temp 98.2 F 11/09/21 13:13 Pulse 74 11/09/21 13:13 Resp 19 11/09/21 13:13 BP 164/75 11/09/21 13:13 Pulse Ox 92 L 11/09/21 13:13 Intake & Output 11/08/21 11/09/21 11/09/21 18:59 06:59 18:59 Intake Total 310 200 Output Total 1275 300 Balance -965 -100 Intake: Intake, IV Titration 200 Amount Ampicillin-Sulbactam 3 gm 200 In Sodium Chloride 0.9% 100 ml @ 200 mls/hr IVPB Q8H [facility] Rx#:[id number] Blood Product 310 Rc As-1 Unit 310 [id number] Output: Urine 1275 300 Other: Voiding Method Toilet Toilet Toilet Urinal Urinal Urinal - Exam GENERAL DESCRIPTION: An elderly male lying in bed in no distress RESPIRATORY SYSTEM: Unlabored breathing , decreased breath sounds at bases HEART: S1 S2 regular rate and rhythm , ABDOMEN: Soft , no tenderness EXTREMITIES: Left foot medial border still has significant amount of necrotic tissue and foul-smelling drainage - Labs CBC & Chem 7: 11/08/21 05:59 11/09/21 06:41 Labs: Abnormal Lab Results - Last 24 Hours (Table) 11/08/21 11/08/21 11/08/21 Range/Units 16:51 17:11 20:08 Chloride (98-107) mmol/L Creatinine (0.66-1.25) mg/dL Glucose (74-99) mg/dL POC Glucose (mg/dL) 106 H 139 H (75-99) mg/dL Calcium (8.4-10.2) mg/dL Magnesium (1.6-2.3) mg/dL HDL Cholesterol (40.00-60.00) mg/dL Urine Protein 1+ H (Negative) Urine Glucose (UA) 1+ H (Negative) Urine Blood Moderate H (Negative) Urine Mucus Rare H (None) /hpf 11/09/21 11/09/21 11/09/21 Range/Units 06:41 07:21 12:21 Chloride 110 H (98-107) mmol/L Creatinine 1.50 H (0.66-1.25) mg/dL Glucose 108 H (74-99) mg/dL POC Glucose (mg/dL) 142 H 215 H (75-99) mg/dL Calcium 8.0 L (8.4-10.2) mg/dL Magnesium 1.5 L (1.6-2.3) mg/dL HDL Cholesterol 19.70 L (40.00-60.00) mg/dL Urine Protein (Negative) Urine Glucose (UA) (Negative) Urine Blood (Negative) Urine Mucus (None) /hpf Microbiology - Last 24 Hours (Table) 11/06/21 16:00 Gram Stain - Preliminary Foot - Left Tissue Culture - Preliminary Gram Neg Bacilli Non Hemolytic Strep Diphtheroid species 11/05/21 15:55 Blood Culture - Preliminary Blood No Growth after 72 hours 11/05/21 15:55 Blood Culture - Preliminary Blood No Growth after 72 hours Assessment and Plan (1) Cellulitis of foot Current Visit: Yes Status: Acute Code(s): L03.119 - CELLULITIS OF UNSPECIFIED PART OF LIMB SNOMED Code(s): 324742584 (2) Osteomyelitis Current Visit: Yes Status: Acute Code(s): M86.9 - OSTEOMYELITIS, UNSPECIFIED SNOMED Code(s): 21507659 Plan: 1patient presented to hospital with extensive left diabetic foot infection in this patient who did have a area of fluctuance and gangrene to the left big toe amputation site, will need to cover for the polymicrobial darinel usually associated with diabetic foot infection. 2patient with renal insufficiency and high risk of nephrotoxicity kidney function will need to be monitored closely and actually had shown improvement. 3patient is status post vascular surgery evaluation and surgical debridement and deep cultures which are growing a strep gram-negative and anaerobes 4patient will need further surgical debridement daily, with his cultures res ults, antibiotic was switched over to Zosyn and discontinue vancomycin Time with Patient: Less than 30
[2021-11-10] MEDS: HYDROcodone/APAP 7.5-325MG 1 EACH TAB PO PRN (01:11)
[2021-11-10 07:24] LABS: Glucose,Whole Blood 88 mg/dL (75-99)
[2021-11-10] MEDS: INSULIN ASPART (NovoLOG) 100 UNIT/ML VIAL SQ SCH ×4 (08:51→20:30)
[2021-11-10] MEDS: SODIUM BICARBONATE TAB 650 MG TAB PO SCH ×3 (08:52→20:30)
[2021-11-10] MEDS: PANTOPRAZOLE 40 MG TABLET PO SCH (08:52)
[2021-11-10] MEDS: GABAPENTIN 100 MG CAP PO SCH ×2 (08:52→20:30)
[2021-11-10] MEDS: ASPIRIN 81 MG PO SCH (08:52)
[2021-11-10] MEDS: LOSARTAN 25 MG TAB PO SCH (08:52)
[2021-11-10] MEDS: SODIUM FERRIC GLUCONAT-SUCROSE 125 MG in SODIUM CHLORIDE 0.9% 100 ML IVPB SCH (08:53)
[2021-11-10] MEDS: PIPERACILLIN-TAZOBACTAM 3.375 GM in SODIUM CHLORIDE 0.9% 100 ML IVPB SCH ×2 (11:23→17:40)
--- NOTE | 2021-11-10 12:03 | P.PN ---
Subjective Principal diagnosis: This is a 75-year-old male seen in consultation because of acute kidney injury secondary to osteomyelitis and chronic kidney disease he has diabetic nephropathy creatinine off 1.7 as baseline. Came in because of infected left fourth toe, had surgery and debridement and is currently on IV antibiotics. Creatinine is down from 2.74-1.5 this morning. Ultrasound shows 10.9 and 11.1 cm kidneys. No hydronephrosis He feels fine and denies any complaints no fevers chills cough shortness of breath nausea vomiting dizziness good appetite. No dysuria frequency Vital signs are stable blood pressure somewhat high in the 133-160 range, but then yesterday. Heart rate and while signs otherwise unremarkable afebrile 24-hour intake is documented at 750 mL Creatinine is improved from 2.2, 1.7, 1.6, 1.5 Objective - Vital Signs Vital signs: Vital Signs Temp 97.8 F 11/10/21 05:00 Pulse 100 11/10/21 08:59 Resp 16 11/10/21 05:00 BP 173/75 11/10/21 08:59 Pulse Ox 99 11/10/21 05:00 Intake & Output 11/09/21 11/10/21 11/10/21 18:59 06:59 18:59 Intake Total 200 Output Total 500 250 Balance -500 -50 Intake: Intake, IV Titration 200 Amount Ampicillin-Sulbactam 3 gm 100 In Sodium Chloride 0.9% 100 ml @ 200 mls/hr IVPB Q8H [facility] Rx#:[id number] Piperacillin-Tazobactam 3 100 .375 gm In Sodium Chloride 0.9% 100 ml @ 25 mls/hr IVPB Q8HR [facility] Rx# :[id number] Output: Urine 500 250 Other: Voiding Method Toilet Toilet Urinal Urinal # Voids 3 On examination awake alert oriented comfortable HEENT exam no JVP neck is supple no facial asymmetry Lungs clear to auscultation good air entry bilaterally Heart sounds unremarkable for any murmur rub gallop. Abdomen soft nontender Extremity exam was no edema Neurologically awake alert oriented - Labs CBC & Chem 7: 11/08/21 05:59 11/09/21 06:41 Labs: Abnormal Lab Results - Last 24 Hours (Table) 11/09/21 11/09/21 11/09/21 Range/Units 12:21 17:02 20:37 POC Glucose (mg/dL) 215 H 107 H 210 H (75-99) mg/dL Microbiology - Last 24 Hours (Table) 11/05/21 15:55 Blood Culture - Preliminary Blood No Growth after 96 hours 11/05/21 15:55 Blood Culture - Preliminary Blood No Growth after 96 hours 11/06/21 16:00 Anaerobic Culture - Final Foot - Left Anaerobic Gm Negative Bacilli Assessment and Plan Assessment: Impression 1. acute kidney injury secondary to infection osteomyelitis of the left foot. Creatinine improved to 1.5, from a peak of 2.74. Today's labs are 2. Chronic kidney disease stage III disease diabetic nephropathy, possibly. Urinalysis shows 1+ proteinuria not quantified. 3. Metabolic acidosis from chronic kidney disease and acute kidney injury, bicarb is 22 4. Anemia with iron deficiency currently on IV Ferrlecit. iron level is 11 mcg/dL TIBC not available percent saturation not available transferrin is 180 ferritin is 242 5. Blood pressure slightly higher than target Recommendation 1. Maintain current medications. We'll continue to watch. Patient can be discharged home from a nephrological perspective
[2021-11-10 12:07] LABS: Glucose,Whole Blood 136 mg/dL (75-99)
[2021-11-10] MEDS: ENOXAPARIN 40 MG/0.4 ML SYRINGE SQ SCH (17:40)
[2021-11-10 17:53] LABS: Glucose,Whole Blood 124 mg/dL (75-99)
--- NOTE | 2021-11-10 19:46 | P.PN ---
Progress Note - Text Progress Note Date: 11/10/21 Hospital course: I'm rounding for Dr. James Wilson. Admitted with infected wound to the left foot. Status post I&D and debridement of necrotic wound to the subcu and his tissue by Dr. Wright. November 08: Laying in bed. Getting dialysis. Appetite good. No nausea vomiting. Pain control. Has not had a BM for last 4 days. Declines any laxative. November 09: No BM. Patient does not want any laxative right now. Eating well. Getting antibiotics. IV Unasyn, IV vancomycin. Pain controlled November 10: No new issues. Getting antibiotics. Oral intake fair. Vancomycin discontinued. Active Medications Acetaminophen (Acetaminophen Tab 325 Mg Tab) 650 mg PO Q6HR PRN PRN Reason: Mild Pain or Fever > 100.5 Hydrocodone Bitart/Acetaminophen (Hydrocodone/Apap 7.5-325mg 1 Each Tab) 1 each PO BID PRN PRN Reason: Pain Last Admin: 11/10/21 01:11 Dose: 1 each Documented by: Aspirin (Aspirin 81 Mg) 81 mg PO DAILY [facility] Last Admin: 11/10/21 08:52 Dose: 81 mg Documented by: Atorvastatin Calcium (Atorvastatin 40 Mg Tab) 40 mg PO HS [facility] Last Admin: 11/09/21 21:55 Dose: 40 mg Documented by: Enoxaparin Sodium (Enoxaparin 40 Mg/0.4 Ml Syringe) 40 mg SQ DAILY@1800 [facility] Last Admin: 11/10/21 17:40 Dose: 40 mg Documented by: Gabapentin (Gabapentin 100 Mg Cap) 100 mg PO BID [facility] Last Admin: 11/10/21 08:52 Dose: 100 mg Documented by: Ferric Sodium Gluconate 125 mg (/ Sodium Chloride) 110 mls @ 100 mls/hr IVPB DAILY [facility] Stop: 11/11/21 10:05 Last Admin: 11/10/21 08:53 Dose: 100 mls/hr Documented by: Piperacillin Sod/Tazobactam (Sod 3.375 gm/ Sodium Chloride) 100 mls @ 25 mls/hr IVPB Q8HR [facility]; Protocol Last Admin: 11/10/21 17:40 Dose: 25 mls/hr Documented by: Insulin Aspart (Insulin Aspart (Novolog) 100 Unit/Ml Vial) 0 unit SQ ACHS [facility]; Protocol Last Admin: 11/10/21 18:12 Dose: Not Given Documented by: Insulin Detemir (Insulin Detemir (Levemir) 100 Unit/Ml Syr) 10 unit SQ HS [facility] Last Admin: 11/09/21 21:55 Dose: 10 unit Documented by: Losartan Potassium (Losartan 25 Mg Tab) 25 mg PO DAILY [facility] Last Admin: 11/10/21 08:52 Dose: 25 mg Documented by: Morphine Sulfate (Morphine Sulfate 4 Mg/Ml Syringe) 4 mg IV Q4HR PRN PRN Reason: Severe Pain Last Admin: 11/09/21 21:56 Dose: 4 mg Documented by: Naloxone HCl (Naloxone 0.4 Mg/Ml 1 Ml Vial) 0.2 mg IV Q2M PRN PRN Reason: Opioid Reversal Nicotine (Nicotine 14mg/24hr Patch) 1 patch TRANSDERM DAILY [facility] Last Admin: 11/09/21 21:56 Dose: 1 patch Documented by: Nitroglycerin (Nitroglycerin Sl Tabs 0.4 Mg Tab) 0.4 mg SUBLINGUAL Q5M PRN PRN Reason: Chest Pain Ondansetron HCl (Ondansetron 4 Mg/2 Ml Vial) 4 mg IVP Q8HR PRN PRN Reason: Nausea And Vomiting Pantoprazole Sodium (Pantoprazole 40 Mg Tablet) 40 mg PO AC-BRKFST [facility] Last Admin: 11/10/21 08:52 Dose: 40 mg Documented by: Sodium Bicarbonate (Sodium Bicarbonate Tab 650 Mg Tab) 650 mg PO TID [facility] Last Admin: 11/10/21 17:40 Dose: 650 mg Documented by: On examination: VITAL SIGNS: 98.5, 71, 18, 169 T 54, 99% room air GENERAL APPEARANCE: . Lying in bed, comfortable HEENT: Normal external appearance of nose and ear. Oral cavity normal EYES: Pupils equal. Conjunctiva normal. NECK: JVD not raised. Mass not palpable. RESPIRATORY: Respiratory effort normal. Decreased breath sounds. CARDIOVASCULAR: First and second sounds normal. No edema. ABDOMEN: Soft. Liver and spleen not palpable. No tenderness. No mass palpable. EXTREMITIES: Left foot with a dressing PSYCHIATRY: Alert and oriented x3. Mood and affect normal. INVESTIGATIONS, reviewed in the clinical context: November 09: Potassium 4.4 creatinine 1.5. LDL 75 White count 5.2 hemoglobin 6.8 platelets 279 potassium 4.4 BUN 23.3 creatinine 1.6 Left foot wound cultures: Pending Assessment and plan: -Severe left foot diabetic infection, with acute osteomyelitis status post I&D.: Slow to respond Cultures pending. IV vancomycin. IV Unasyn. -Acute kidney injury possibly ATN/prerenal secondary to anemia and infection. Creatinine 2.7 on admission currently 1.7 -Chronic kidney disease stage III be secondary to diabetic kidney disease and baseline creatinine of 1.7. -Left foot osteomyelitis acute Status post debridement. Antibiotics -Anemia of chronic kidney disease/iron deficiency noted Received 1 unit of blood. -Metabolic acidosis secondary to kidney injury Oral sodium bicarbonate -Diabetes mellitus type 2, chronically on oral hypoglycemic Start Levemir 10 units at night. 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 Lipitor 40 mg daily at bedtime -Peripheral arterial disease with prior intervention Aspirin. Lipitor. 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 Per ID patient need further debr idement. Other medications to continue -
[2021-11-10 20:04] LABS: Glucose,Whole Blood 201 mg/dL (75-99)
[2021-11-10] MEDS: INSULIN DETEMIR (LEVEMIR) 100 UNIT/ML SYR SQ SCH (20:30)
[2021-11-10] MEDS: ATORVASTATIN 40 MG TAB PO SCH (20:30)
[2021-11-11] MEDS: PIPERACILLIN-TAZOBACTAM 3.375 GM in SODIUM CHLORIDE 0.9% 100 ML IVPB SCH ×3 (00:08→17:37)
[2021-11-11] MEDS: HYDROcodone/APAP 7.5-325MG 1 EACH TAB PO PRN (05:09)
[2021-11-11 06:59] LABS: Glucose,Whole Blood 136 mg/dL (75-99)
--- NOTE | 2021-11-11 07:31 | P.PN ---
Subjective Progress Note Date: 11/10/21 Principal diagnosis: Left diabetic foot infection Patient is a 75-year-old male with a past medical history significant for diabetes mellitus status post left big toe amputation presented to hospital with infected wound to the left foot. This patient who is status post I&D and debridement of necrotic wound to the subcutaneous tissue and bone with the cultures currently pending. On today's evaluation that is 11/10/2021, the patient remains to be afebrile, the patient is breathing comfortably on room air, the patient denies chest pain shortness of breath or cough , the patient denies abdominal pain and no diarrhea, the patient pain to the left foot is currently controlled Objective - Vital Signs Vital signs: Vital Signs Temp 97.8 F 11/10/21 05:00 Pulse 100 11/10/21 08:59 Resp 16 11/10/21 05:00 BP 173/75 11/10/21 08:59 Pulse Ox 99 11/10/21 05:00 Intake & Output 11/09/21 11/10/21 11/10/21 18:59 06:59 18:59 Intake Total 200 Output Total 500 250 Balance -500 -50 Intake: Intake, IV Titration 200 Amount Ampicillin-Sulbactam 3 gm 100 In Sodium Chloride 0.9% 100 ml @ 200 mls/hr IVPB Q8H [facility] Rx#:[id number] Piperacillin-Tazobactam 3 100 .375 gm In Sodium Chloride 0.9% 100 ml @ 25 mls/hr IVPB Q8HR [facility] Rx# :[id number] Output: Urine 500 250 Other: Voiding Method Toilet Toilet Urinal Urinal # Voids 3 - Exam GENERAL DESCRIPTION: An elderly male lying in bed in no distress RESPIRATORY SYSTEM: Unlabored breathing , decreased breath sounds at bases HEART: S1 S2 regular rate and rhythm , ABDOMEN: Soft , no tenderness EXTREMITIES: Left foot medial border still has significant amount of necrotic tissue and foul-smelling drainage - Labs CBC & Chem 7: 11/08/21 05:59 11/09/21 06:41 Labs: Abnormal Lab Results - Last 24 Hours (Table) 11/09/21 11/09/21 11/10/21 Range/Units 17:02 20:37 12:06 POC Glucose (mg/dL) 107 H 210 H 136 H (75-99) mg/dL Microbiology - Last 24 Hours (Table) 11/05/21 15:55 Blood Culture - Preliminary Blood No Growth after 96 hours 11/05/21 15:55 Blood Culture - Preliminary Blood No Growth after 96 hours 11/06/21 16:00 Anaerobic Culture - Final Foot - Left Anaerobic Gm Negative Bacilli Assessment and Plan (1) Cellulitis of foot Current Visit: Yes Status: Acute Code(s): L03.119 - CELLULITIS OF UNSPECIFIED PART OF LIMB SNOMED Code(s): 323915713 (2) Osteomyelitis Current Visit: Yes Status: Acute Code(s): M86.9 - OSTEOMYELITIS, UNSPECIFIED SNOMED Code(s): 18991335 Plan: 1patient presented to hospital with extensive left diabetic foot infection in this patient who did have a area of fluctuance and gangrene to the left big toe amputation site, will need to cover for the polymicrobial darinel usually associated with diabetic foot infection. 2patient with renal insufficiency and high risk of nephrotoxicity kidney function will need to be monitored closely and actually had shown improvement. 3patient is status post vascular surgery evaluation and surgical debridement and deep cultures which are growing a strep gram-negative and anaerobes 4patient will need further surgical debridement for removal of the necrotic tissue possibly this admission, cultures have been predominantly gram-negative and the patient is covered with Zosyn continue supportive care
[2021-11-11] MEDS: ASPIRIN 81 MG PO SCH (08:29)
[2021-11-11] MEDS: PANTOPRAZOLE 40 MG TABLET PO SCH (08:29)
[2021-11-11] MEDS: INSULIN ASPART (NovoLOG) 100 UNIT/ML VIAL SQ SCH ×5 (08:29→20:15)
[2021-11-11] MEDS: SODIUM FERRIC GLUCONAT-SUCROSE 125 MG in SODIUM CHLORIDE 0.9% 100 ML IVPB SCH (08:29)
[2021-11-11] MEDS: SODIUM BICARBONATE TAB 650 MG TAB PO SCH ×3 (08:29→20:15)
[2021-11-11] MEDS: NICOTINE 14MG/24HR PATCH TRANSDERM SCH (08:29)
[2021-11-11] MEDS: LOSARTAN 25 MG TAB PO SCH (08:29)
[2021-11-11] MEDS: GABAPENTIN 100 MG CAP PO SCH ×2 (08:29→20:15)
--- NOTE | 2021-11-11 08:32 | P.PN ---
Subjective Patient is seen in follow-up for acute kidney injury on chronic kidney disease. Oral intake is good. No vomiting or diarrhea. Has been voiding. No active complaints. Vital signs are stable. General: The patient appeared well nourished and normally developed. HEENT: Head exam is unremarkable. LUNGS: Breath sounds decreased. HEART: Rate and Rhythm are regular. ABDOMEN: Soft, no distention. EXTREMITITES: No edema. Left foot wrapped. No drainage noted. Objective - Vital Signs Vital signs: Vital Signs Temp 97.9 F 11/11/21 05:00 Pulse 62 11/11/21 05:00 Resp 16 11/11/21 05:00 BP 150/72 11/11/21 05:00 Pulse Ox 99 11/11/21 05:00 Intake & Output 11/10/21 11/11/21 11/11/21 18:59 06:59 18:59 Intake Total 200 340 Output Total 400 Balance 200 -60 Intake: Intake, IV Titration 200 100 Amount Piperacillin-Tazobactam 3 100 100 .375 gm In Sodium Chloride 0.9% 100 ml @ 25 mls/hr IVPB Q8HR [facility] Rx# :[id number] Sodium Ferric Gluconat- 100 Sucrose 125 mg In Sodium Chloride 0.9% 100 ml @ 100 mls/hr IVPB DAILY [facility] Rx#:[id number] Oral 240 Output: Urine 400 Other: Voiding Method Toilet Urinal # Voids 3 - Labs CBC & Chem 7: 11/08/21 05:59 11/09/21 06:41 Labs: Abnormal Lab Results - Last 24 Hours (Table) 11/10/21 11/10/21 11/10/21 Range/Units 12:06 17:43 20:02 POC Glucose (mg/dL) 136 H 124 H 201 H (75-99) mg/dL 11/11/21 Range/Units 06:57 POC Glucose (mg/dL) 136 H (75-99) mg/dL Microbiology - Last 24 Hours (Table) 11/06/21 16:00 Gram Stain - Final Foot - Left Tissue Culture - Final Klebsiella pneumoniae Non Hemolytic Strep Diphtheroid species Alcaligen. faecalis 11/05/21 15:55 Blood Culture - Preliminary Blood No Growth after 120 hours 11/05/21 15:55 Blood Culture - Preliminary Blood No Growth after 120 hours Assessment and Plan Plan: Assessment: 1. Acute kidney injury mostly prerenal secondary to anemia and infection. Creatinine was 2.7 on admission - 1.5 on 11/09/2021. No hydronephrosis noted on kidney ultrasound. 2. Chronic kidney disease stage IIIB secondary to diabetic kidney disease with baseline creatinine 1.7-1.8 in September 2019. 3. Left foot osteomyelitis status post debridement. On IV antibiotics. 4. Anemia of chronic kidney disease with component of acute blood loss anemia. Received a unit of blood. Iron deficiency noted. 5. Diabetes mellitus. 6. Hypertension with chronic kidney disease. 7. Metabolic acidosis secondary to acute kidney injury. On oral bicarb. Better. Plan: Encouraged oral intake. Not on any IV fluids or diuretics at this time. Maintain IV iron. Add Aranesp. Increase losartan to 50 mg daily. Continue to monitor renal function and urine output. Patient advised to follow up outpatient to establish CKD care.
[2021-11-11] MEDS ORDERED: LOSARTAN 25 MG TAB PO ONE (08:45)
[2021-11-11] MEDS ORDERED: DARBEPOETIN ALFA 40 MCG/0.4 ML SYRINGE SQ SCH (12:00)
[2021-11-11 12:09] LABS: Glucose,Whole Blood 135 mg/dL (75-99)
[2021-11-11 14:37] LABS: HCT 27.7 % (39.6-50.0); HGB 8.3 g/dL (13.0-17.0); MCH 25.7 pg (27.0-32.0); MCV 85.8 fL (80.0-97.0); Mean Platelet Volume 10.9 fL (9.5-12.2); NRBC Per 100 WBC 0 /100 WBCS (0.0-0.0); Platelet Count 200 X 10*3/uL (140-440); RBC 3.23 X 10*6/uL (4.40-5.60); RDW 19.5 % (11.5-14.5); WBC 3.69 X 10*3/uL (4.50-10.00)
[2021-11-11] MEDS: MORPHINE SULFATE 4 MG/ML SYRINGE IV PRN (16:38)
[2021-11-11 17:26] LABS: Glucose,Whole Blood 165 mg/dL (75-99)
[2021-11-11] MEDS: ENOXAPARIN 40 MG/0.4 ML SYRINGE SQ SCH (17:37)
--- NOTE | 2021-11-11 18:13 | PN ---
PROGRESS NOTE This patient is a 75-year-old gentleman, a diabetic who has infected wound, left foot. This patient had left big toe amputation in the past. He developed infection and chronic wound. The patient had debridement done. Today we changed the dressing and metatarsal bone is exposed with more devitalized tissue. The patient is scheduled to have debridement of the wound and excision of the metatarsal bone. Posterior tibial, dorsal pedis by the Doppler. Keep the patient n.p.o. after midnight. JOSEF / JEIMYN: [id number] /
[2021-11-11 20:03] LABS: Glucose,Whole Blood 261 mg/dL (75-99)
[2021-11-11] MEDS: ATORVASTATIN 40 MG TAB PO SCH (20:15)
[2021-11-11] MEDS: INSULIN DETEMIR (LEVEMIR) 100 UNIT/ML SYR SQ SCH (20:16)
--- NOTE | 2021-11-11 20:45 | P.PN ---
Subjective Progress Note Date: 11/11/21 Principal diagnosis: Left diabetic foot infection Patient is a 75-year-old male with a past medical history significant for diabetes mellitus status post left big toe amputation presented to hospital with infected wound to the left foot. This patient who is status post I&D and debridement of necrotic wound to the subcutaneous tissue and bone with the cultures currently pending. On today's evaluation that is 11/11/2021, the patient continues to be afebrile, the patient is breathing comfortably on room air, the patient denies chest pain shortness of breath or cough , the patient denies abdominal pain and no diarrhea, the patient pain to the left foot is currently controlled , no new symptoms Objective - Vital Signs Vital signs: Vital Signs Temp 97.9 F 11/11/21 05:00 Pulse 62 11/11/21 05:00 Resp 16 11/11/21 05:00 BP 150/72 11/11/21 05:00 Pulse Ox 99 11/11/21 05:00 Intake & Output 11/10/21 11/11/21 11/11/21 18:59 06:59 18:59 Intake Total 200 340 Output Total 400 Balance 200 -60 Intake: Intake, IV Titration 200 100 Amount Piperacillin-Tazobactam 3 100 100 .375 gm In Sodium Chloride 0.9% 100 ml @ 25 mls/hr IVPB Q8HR [facility] Rx# :[id number] Sodium Ferric Gluconat- 100 Sucrose 125 mg In Sodium Chloride 0.9% 100 ml @ 100 mls/hr IVPB DAILY [facility] Rx#:[id number] Oral 240 Output: Urine 400 Other: Voiding Method Toilet Urinal # Voids 3 - Exam GENERAL DESCRIPTION: An elderly male lying in bed in no distress RESPIRATORY SYSTEM: Unlabored breathing , decreased breath sounds at bases HEART: S1 S2 regular rate and rhythm , ABDOMEN: Soft , no tenderness EXTREMITIES: Left foot wound is currently dressed no drainage on the dressing - Labs CBC & Chem 7: 11/11/21 10:58 11/09/21 06:41 Labs: Abnormal Lab Results - Last 24 Hours (Table) 11/10/21 11/10/21 11/10/21 Range/Units 12:06 17:43 20:02 POC Glucose (mg/dL) 136 H 124 H 201 H (75-99) mg/dL 11/11/21 Range/Units 06:57 POC Glucose (mg/dL) 136 H (75-99) mg/dL Microbiology - Last 24 Hours (Table) 11/06/21 16:00 Gram Stain - Final Foot - Left Tissue Culture - Final Klebsiella pneumoniae Non Hemolytic Strep Diphtheroid species Alcaligen. faecalis 11/05/21 15:55 Blood Culture - Preliminary Blood No Growth after 120 hours 11/05/21 15:55 Blood Culture - Preliminary Blood No Growth after 120 hours Assessment and Plan (1) Cellulitis of foot Current Visit: Yes Status: Acute Code(s): L03.119 - CELLULITIS OF UNSPECIFIED PART OF LIMB SNOMED Code(s): 362726765 (2) Osteomyelitis Current Visit: Yes Status: Acute Code(s): M86.9 - OSTEOMYELITIS, UNSPECIFIED SNOMED Code(s): 52303081 Plan: 1patient presented to hospital with extensive left diabetic foot infection in this patient who did have a area of fluctuance and gangrene to the left big toe amputation site, will need to cover for the polymicrobial darinel usually associated with diabetic foot infection. 2patient with renal insufficiency and high risk of nephrotoxicity kidney function will need to be monitored closely and actually had shown improvement. 3patient is status post vascular surgery evaluation and surgical debridement and deep cultures which are growing a strep gram-negative and anaerobes 4patient is waiting for further surgical debridement for removal of the necrotic tissue , patient will likely need a PICC line for outpatient IV antibiotics continue with the Zosyn for now Time with Patient: Less than 30
[2021-11-12] MEDS: PIPERACILLIN-TAZOBACTAM 3.375 GM in SODIUM CHLORIDE 0.9% 100 ML IVPB SCH ×4 (00:03→23:54)
[2021-11-12 05:59] LABS: Anisocytosis Slight; HCT 28.5 % (39.0-53.0); HGB 8.9 gm/dL (13.0-17.5); Hypochromasia Slight; MCH 26.8 pg (25.0-35.0); MCHC 31.3 g/dL (31.0-37.0); MCV 85.7 fL (80.0-100.0); Mean Platelet Volume 9.2; Platelet Count 190 k/uL (150-450); RBC 3.32 m/uL (4.30-5.90); RDW 18.3 % (11.5-15.5); WBC 3.4 k/uL (3.8-10.6)
[2021-11-12] MEDS: INSULIN ASPART (NovoLOG) 100 UNIT/ML VIAL SQ SCH ×4 (07:34→22:18)
[2021-11-12 07:37] LABS: Glucose,Whole Blood 151 mg/dL (75-99)
[2021-11-12] MEDS: GABAPENTIN 100 MG CAP PO SCH ×2 (08:20→20:10)
[2021-11-12] MEDS: ASPIRIN 81 MG PO SCH (08:20)
[2021-11-12] MEDS: LOSARTAN 50 MG TAB PO SCH (08:20)
[2021-11-12] MEDS: PANTOPRAZOLE 40 MG TABLET PO SCH (08:20)
[2021-11-12] MEDS: NICOTINE 14MG/24HR PATCH TRANSDERM SCH (08:20)
[2021-11-12] MEDS: SODIUM BICARBONATE TAB 650 MG TAB PO SCH ×3 (08:20→20:11)
--- NOTE | 2021-11-12 08:31 | P.PN ---
Subjective Patient is seen in follow-up for acute kidney injury on chronic kidney disease. Creatinine 1.5 dated 11/09/2021. Oral intake is good. No vomiting or diarrhea. Has been voiding. No active complaints. Vital signs are stable. General: The patient appeared well nourished and normally developed. HEENT: Head exam is unremarkable. LUNGS: Breath sounds decreased. HEART: Rate and Rhythm are regular. ABDOMEN: Soft, no distention. EXTREMITITES: No edema. Left foot wrapped. No drainage noted. Objective - Vital Signs Vital signs: Vital Signs Temp 98.5 F 11/12/21 04:47 Pulse 66 11/12/21 04:47 Resp 16 11/12/21 04:47 BP 138/63 11/12/21 04:47 Pulse Ox 100 11/12/21 04:47 Intake & Output 11/11/21 11/12/21 11/12/21 18:59 06:59 18:59 Intake Total 300 580 Output Total 250 Balance 300 330 Weight 77.111 kg Intake: Intake, IV Titration 300 100 Amount Piperacillin-Tazobactam 3 200 100 .375 gm In Sodium Chloride 0.9% 100 ml @ 25 mls/hr IVPB Q8HR [facility] Rx# :[id number] Sodium Ferric Gluconat- 100 Sucrose 125 mg In Sodium Chloride 0.9% 100 ml @ 100 mls/hr IVPB DAILY [facility] Rx#:[id number] Oral 480 Output: Urine 250 Other: Voiding Method Toilet Urinal - Labs CBC & Chem 7: 11/12/21 05:27 11/09/21 06:41 Labs: Abnormal Lab Results - Last 24 Hours (Table) 11/11/21 11/11/21 11/11/21 Range/Units 10:58 12:07 17:25 WBC 3.69 L (4.50-10.00) X 10*3/uL RBC 3.23 L (4.40-5.60) X 10*6/uL Hgb 8.3 L (13.0-17.0) g/dL Hct 27.7 L (39.6-50.0) % MCH 25.7 L (27.0-32.0) pg MCHC 30.0 L (32.0-37.0) g/dL RDW 19.5 H (11.5-14.5) % POC Glucose (mg/dL) 135 H 165 H (75-99) mg/dL 11/11/21 11/12/21 11/12/21 Range/Units 20:01 05:27 07:36 WBC 3.4 L (4.50-10.00) X 10*3/uL RBC 3.32 L (4.40-5.60) X 10*6/uL Hgb 8.9 L (13.0-17.0) g/dL Hct 28.5 L (39.6-50.0) % MCH (27.0-32.0) pg MCHC (32.0-37.0) g/dL RDW 18.3 H (11.5-14.5) % POC Glucose (mg/dL) 261 H 151 H (75-99) mg/dL Microbiology - Last 24 Hours (Table) 11/05/21 15:55 Blood Culture - Final Blood No Growth after 144 hours 11/05/21 15:55 Blood Culture - Final Blood No Growth after 144 hours Assessment and Plan Plan: Assessment: 1. Acute kidney injury mostly prerenal secondary to anemia and infection. Creatinine was 2.7 on admission - 1.5 on 11/09/2021. No hydronephrosis noted on kidney ultrasound. 2. Chronic kidney disease stage IIIB secondary to diabetic kidney disease with baseline creatinine 1.7-1.8 in September 2019. 3. Left foot osteomyelitis status post debridement. On IV antibiotics. 4. Anemia of chronic kidney disease with component of acute blood loss anemia. Received a unit of blood. Iron deficiency noted - s/p IV iron completed 11/11/21. On Aranesp. 5. Diabetes mellitus. 6. Hypertension with chronic kidney disease. 7. Metabolic acidosis secondary to acute kidney injury. On oral bicarb. Better. Plan: Encouraged oral intake. Not on any IV fluids or diuretics at this time. Scheduled to undergo further debridement today. Continue to monitor renal function and urine output. Patient advised to follow up outpatient to establish CKD care.
[2021-11-12 09:47] LABS: African American GFR (CKD) 39.7 (60.0-200.0); Anion Gap 9.5 mmol/L (10.00-18.00); BUN/Creat Ratio 8.26 Ratio (12.00-20.00); Blood Urea Nitrogen 15.7 mg/dL (9.0-27.0); Carbon Dioxide 22.5 mmol/L (20.0-27.5); Magnesium 1.7 mg/dL (1.5-2.4); Non-African American GFR(CKD) 34.2 (60.0-200.0); Potassium 4.1 mmol/L (3.5-5.5)
[2021-11-12 11:23] LABS: Glucose,Whole Blood 152 mg/dL (75-99)
[2021-11-12] MEDS ORDERED: IV FLUID CONTINUATION 125 ML IV ONE (11:23)
--- NOTE | 2021-11-12 11:39 | P.PN ---
Subjective Progress Note Date: 11/12/21 Principal diagnosis: Left diabetic foot infection Patient is a 75-year-old male with a past medical history significant for diabetes mellitus status post left big toe amputation presented to hospital with infected wound to the left foot. This patient who is status post I&D and debridement of necrotic wound to the subcutaneous tissue and bone with the cultures currently pending. On today's evaluation that is 11/12/2021, the patient denies any fever or chills, the patient is breathing comfortably on room air, the patient denies chest pain shortness of breath or cough , the patient denies abdominal pain and no diarrhea, the patient denies any worsening pain to the left foot , scheduled for further debridement of the left foot this afternoon Objective - Vital Signs Vital signs: Vital Signs Temp 98.8 F 11/12/21 11:12 Pulse 69 11/12/21 11:12 Resp 20 11/12/21 11:12 BP 186/75 11/12/21 11:24 Pulse Ox 100 11/12/21 04:47 Intake & Output 11/11/21 11/12/21 11/12/21 18:59 06:59 18:59 Intake Total 300 580 Output Total 250 350 Balance 300 330 -350 Weight 77.111 kg Intake: Intake, IV Titration 300 100 Amount Piperacillin-Tazobactam 3 200 100 .375 gm In Sodium Chloride 0.9% 100 ml @ 25 mls/hr IVPB Q8HR [facility] Rx# :[id number] Sodium Ferric Gluconat- 100 Sucrose 125 mg In Sodium Chloride 0.9% 100 ml @ 100 mls/hr IVPB DAILY [facility] Rx#:[id number] Oral 480 Output: Urine 250 350 Other: Voiding Method Toilet Urinal - Exam GENERAL DESCRIPTION: An elderly male lying in bed in no distress RESPIRATORY SYSTEM: Unlabored breathing , decreased breath sounds at bases HEART: S1 S2 regular rate and rhythm , ABDOMEN: Soft , no tenderness EXTREMITIES: Left foot wound is currently dressed no drainage on the dressing - Labs CBC & Chem 7: 11/12/21 05:27 11/12/21 05:27 Labs: Abnormal Lab Results - Last 24 Hours (Table) 11/11/21 11/11/21 11/11/21 Range/Units 10:58 12:07 17:25 WBC 3.69 L (4.50-10.00) X 10*3/uL RBC 3.23 L (4.40-5.60) X 10*6/uL Hgb 8.3 L (13.0-17.0) g/dL Hct 27.7 L (39.6-50.0) % MCH 25.7 L (27.0-32.0) pg MCHC 30.0 L (32.0-37.0) g/dL RDW 19.5 H (11.5-14.5) % Anion Gap (10.00-18.00) mmol/L Creatinine (0.6-1.5) mg/dL Est GFR (CKD-EPI)AfAm (60.0-200.0) Est GFR (CKD-EPI)NonAf (60.0-200.0) BUN/Creatinine Ratio (12.00-20.00) Ratio Glucose (70-110) mg/dL POC Glucose (mg/dL) 135 H 165 H (75-99) mg/dL Calcium (8.7-10.3) mg/dL 11/11/21 11/12/21 11/12/21 Range/Units 20:01 05:27 05:27 WBC 3.4 L (4.50-10.00) X 10*3/uL RBC 3.32 L (4.40-5.60) X 10*6/uL Hgb 8.9 L (13.0-17.0) g/dL Hct 28.5 L (39.6-50.0) % MCH (27.0-32.0) pg MCHC (32.0-37.0) g/dL RDW 18.3 H (11.5-14.5) % Anion Gap 9.50 L (10.00-18.00) mmol/L Creatinine 1.9 H (0.6-1.5) mg/dL Est GFR (CKD-EPI)AfAm 39.7 L (60.0-200.0) Est GFR (CKD-EPI)NonAf 34.2 L (60.0-200.0) BUN/Creatinine Ratio 8.26 L (12.00-20.00) Ratio Glucose 158 H (70-110) mg/dL POC Glucose (mg/dL) 261 H (75-99) mg/dL Calcium 8.0 L (8.7-10.3) mg/dL 11/12/21 11/12/21 Range/Units 07:36 11:21 WBC (4.50-10.00) X 10*3/uL RBC (4.40-5.60) X 10*6/uL Hgb (13.0-17.0) g/dL Hct (39.6-50.0) % MCH (27.0-32.0) pg MCHC (32.0-37.0) g/dL RDW (11.5-14.5) % Anion Gap (10.00-18.00) mmol/L Creatinine (0.6-1.5) mg/dL Est GFR (CKD-EPI)AfAm (60.0-200.0) Est GFR (CKD-EPI)NonAf (60.0-200.0) BUN/Creatinine Ratio (12.00-20.00) Ratio Glucose (70-110) mg/dL POC Glucose (mg/dL) 151 H 152 H (75-99) mg/dL Calcium (8.7-10.3) mg/dL Microbiology - Last 24 Hours (Table) 11/05/21 15:55 Blood Culture - Final Blood No Growth after 144 hours 11/05/21 15:55 Blood Culture - Final Blood No Growth after 144 hours Assessment and Plan (1) Cellulitis of foot Current Visit: Yes Status: Acute Code(s): L03.119 - CELLULITIS OF UNSPECIFIED PART OF LIMB SNOMED Code(s): 370222377 (2) Osteomyelitis Current Visit: Yes Status: Acute Code(s): M86.9 - OSTEOMYELITIS, UNSPECIFIED SNOMED Code(s): 47000111 Plan: 1patient presented to hospital with extensive left diabetic foot infection in this patient who did have a area of fluctuance and gangrene to the left big toe amputation site, will need to cover for the polymicrobial darinel usually associated with diabetic foot infection. 2 patient is status post vascular surgery evaluation and surgical debridement and deep cultures which are growing a strep Klebsiella and anaerobes 3patient is waiting for further surgical debridement for removal of the necrotic tissue , patient to continue with the [facility] local wound care per surgery and monitor clinical course closely Time with Patient: Less than 30
[2021-11-12] MEDS ORDERED: fentaNYL (PF) 50 MCG/ML 2 ML AMP ONE (11:56)
[2021-11-12] MEDS ORDERED: PROPOFOL 10 MG/ML 20 ML VIAL IV ONE (11:56)
[2021-11-12] MEDS ORDERED: KETAMINE 10 MG/ML 20 ML VIAL ONE (11:56)
[2021-11-12] MEDS ORDERED: MIDAZOLAM 2 MG/2 ML VIAL ONE (11:56)
[2021-11-12] MEDS ORDERED: BUPIVACAINE (PF) 0.25% 30 ML VIAL SQ ONE ×2 (12:23)
[2021-11-12] MEDS ORDERED: LACTATED RINGERS 1,000 ML IV ONE (12:23)
[2021-11-12] MEDS: MORPHINE SULFATE 4 MG/ML SYRINGE IV PRN ×2 (12:59→20:13)
[2021-11-12] MEDS: HYDROcodone/APAP 7.5-325MG 1 EACH TAB PO PRN (13:56)
[2021-11-12] MEDS ORDERED: MORPHINE SULFATE 4 MG/ML SYRINGE IVP STA (14:15)
--- NOTE | 2021-11-12 14:52 | P.PN ---
Subjective Progress Note Date: 11/12/21 Principal diagnosis: anemia In f/u today pt had his lt foot wound debrided again. He is experiencing some pain. He denies any bleeding. Objective - Vital Signs Vital signs: Vital Signs Temp 97 F L 11/12/21 12:47 Pulse 67 11/12/21 13:16 Resp 16 11/12/21 13:16 BP 135/82 11/12/21 13:16 Pulse Ox 100 11/12/21 13:16 Intake & Output 11/11/21 11/12/21 11/12/21 18:59 06:59 18:59 Intake Total 300 580 505 Output Total 250 450 Balance 300 330 55 Weight 77.111 kg Intake: IV 505 Intake, IV Titration 300 100 Amount Piperacillin-Tazobactam 3 200 100 .375 gm In Sodium Chloride 0.9% 100 ml @ 25 mls/hr IVPB Q8HR [facility] Rx# :[id number] Sodium Ferric Gluconat- 100 Sucrose 125 mg In Sodium Chloride 0.9% 100 ml @ 100 mls/hr IVPB DAILY [facility] Rx#:[id number] Oral 480 Output: Urine 250 350 Estimated Blood Loss 100 Other: Voiding Method Toilet Urinal - Constitutional General appearance: Present: average body habitus, cooperative, no acute distress - EENT Eyes: Present: anicteric sclerae, EOMI ENT: Present: hearing grossly normal - Respiratory Details: Respirations even and unlabored at rest - Neurologic Neurologic: Present: CNII-XII intact - Musculoskeletal Musculoskeletal: Present: strength equal bilaterally - Psychiatric Psychiatric: Present: A&O x's 3, appropriate affect, intact judgment & insight - Labs CBC & Chem 7: 11/12/21 05:27 11/12/21 05:27 Labs: Abnormal Lab Results - Last 24 Hours (Table) 11/11/21 11/11/21 11/12/21 Range/Units 17:25 20:01 05:27 WBC 3.4 L (3.8-10.6) k/uL RBC 3.32 L (4.30-5.90) m/uL Hgb 8.9 L (13.0-17.5) gm/dL Hct 28.5 L (39.0-53.0) % RDW 18.3 H (11.5-15.5) % Anion Gap (10.00-18.00) mmol/L Creatinine (0.6-1.5) mg/dL Est GFR (CKD-EPI)AfAm (60.0-200.0) Est GFR (CKD-EPI)NonAf (60.0-200.0) BUN/Creatinine Ratio (12.00-20.00) Ratio Glucose (70-110) mg/dL POC Glucose (mg/dL) 165 H 261 H (75-99) mg/dL Calcium (8.7-10.3) mg/dL 11/12/21 11/12/21 11/12/21 Range/Units 05:27 07:36 11:21 WBC (3.8-10.6) k/uL RBC (4.30-5.90) m/uL Hgb (13.0-17.5) gm/dL Hct (39.0-53.0) % RDW (11.5-15.5) % Anion Gap 9.50 L (10.00-18.00) mmol/L Creatinine 1.9 H (0.6-1.5) mg/dL Est GFR (CKD-EPI)AfAm 39.7 L (60.0-200.0) Est GFR (CKD-EPI)NonAf 34.2 L (60.0-200.0) BUN/Creatinine Ratio 8.26 L (12.00-20.00) Ratio Glucose 158 H (70-110) mg/dL POC Glucose (mg/dL) 151 H 152 H (75-99) mg/dL Calcium 8.0 L (8.7-10.3) mg/dL Microbiology - Last 24 Hours (Table) 11/05/21 15:55 Blood Culture - Final Blood No Growth after 144 hours 11/05/21 15:55 Blood Culture - Final Blood No Growth after 144 hours Assessment and Plan (1) Anemia Current Visit: Yes Status: Chronic Priority: High Code(s): D64.9 - ANEMIA, UNSPECIFIED SNOMED Code(s): 933785795 Plan: Anemia since 2017. Workup reveals what is felt to be multifactorial including chronic kidney disease and chronic antiplatelet therapy. He has been started on epo and is being followed by Nephrology. Patient states never having endoscopy. It is recommended that patient follow up and had EGD and colonoscopy baseline in the near future. He did verbalize understanding Will need to repeat AMAN and K/L once pt recovering from current situation.
--- NOTE | 2021-11-12 14:56 | OP ---
OPERATIVE REPORT PREOPERATIVE DIAGNOSIS: Chronic wound, left foot. Measurement is 5 x 3 x 0.5. POSTOPERATIVE DIAGNOSIS: Measurement 5 x 3 x 2 cm. PROCEDURE: Wound debridement down to subcutaneous fat and fascia and excision of the mid first metatarsal bone. This patient has a history of chronic wound to the left foot big toe. He had amputation of big toe on left foot in the past. The patient came in with a chronic wound. PROCEDURE DESCRIPTION: The patient was brought to the operating room and foot was prepped. Drapes were applied in a sterile manner. Under IV sedation and local, 1% lidocaine was infiltrated. Using a sharp knife, we did the debridement down to subcutaneous tissue. Fat and fascia was excised with a sharp knife until we reached the metatarsal bone. The periosteum elevator was used to elevate the periosteum from the metatarsal bone and then using an electric saw we divided the metatarsal bone mid foot. There were some bleeding points which were electrocoagulated. The wound was copiously irrigated with saline. Hemostasis was well controlled. Wound was kept open, Aquacel Silver rope was packed into the wound, and pressure dressing was applied. We did send the deep tissue for culture. MMODL / IJN: [id number] /
[2021-11-12 17:17] LABS: Glucose,Whole Blood 210 mg/dL (75-99)
[2021-11-12] MEDS: ENOXAPARIN 40 MG/0.4 ML SYRINGE SQ SCH (17:34)
--- NOTE | 2021-11-12 19:26 | PN ---
PROGRESS NOTE This 75-year-old white male is status post another debridement today by Dr. Young on his left foot diabetic wound infection, severe PAD, smoking history. He had wound debridement down to subcutaneous fat and fascia and excision of the mid first metatarsal bone. He remains on broad-spectrum antibiotics, wound care. His hemoglobin is still 8.9, white count 3.4. Sodium 136, potassium 4.1, BUN is 15.7, creatinine 1.9, GFR 34 to 39, sugar 150s to 200s. Continue with broad-spectrum antibiotics. Wait for Dr. Young's recommendations. Dr. Bower is figuring out his antibiotics for long- term. ASSESSMENT: 1. Acute on chronic anemia, multifactorial. 2. Chronic kidney disease. 3. Chronic antiplatelets. Started on Epogen, being followed by Nephrology. He is supposed to get an EGD and colonoscopy in the near future. Prognosis guarded. MMODL / IJN: [id number] /
[2021-11-12] MEDS: ATORVASTATIN 40 MG TAB PO SCH (20:10)
[2021-11-12 22:01] LABS: Glucose,Whole Blood 99 mg/dL (75-99)
[2021-11-12] MEDS: INSULIN DETEMIR (LEVEMIR) 100 UNIT/ML SYR SQ SCH (22:18)
[2021-11-13 06:58] LABS: Glucose,Whole Blood 187 mg/dL (75-99)
[2021-11-13] MEDS: NICOTINE 14MG/24HR PATCH TRANSDERM SCH (08:32)
[2021-11-13] MEDS: INSULIN ASPART (NovoLOG) 100 UNIT/ML VIAL SQ SCH ×4 (08:33→21:35)
[2021-11-13] MEDS: PIPERACILLIN-TAZOBACTAM 3.375 GM in SODIUM CHLORIDE 0.9% 100 ML IVPB SCH ×2 (08:33→17:06)
[2021-11-13] MEDS: LOSARTAN 50 MG TAB PO SCH (08:34)
[2021-11-13] MEDS: ASPIRIN 81 MG PO SCH (08:34)
[2021-11-13] MEDS: GABAPENTIN 100 MG CAP PO SCH ×2 (08:34→20:26)
[2021-11-13] MEDS: SODIUM BICARBONATE TAB 650 MG TAB PO SCH ×3 (08:34→20:26)
[2021-11-13] MEDS: PANTOPRAZOLE 40 MG TABLET PO SCH (08:34)
[2021-11-13] MEDS: MORPHINE SULFATE 4 MG/ML SYRINGE IV PRN ×2 (08:40→20:26)
--- NOTE | 2021-11-13 09:43 | P.PN ---
Subjective Patient is seen in follow-up for acute kidney injury on chronic kidney disease. Creatinine 1.9 yesterday. Oral intake is good. No vomiting or diarrhea. Has been voiding. Wants to go home. No active complaints. Vital signs are stable. General: The patient appeared well nourished and normally developed. HEENT: Head exam is unremarkable. LUNGS: Breath sounds decreased. HEART: Rate and Rhythm are regular. ABDOMEN: Soft, no distention. EXTREMITITES: No edema. Left foot wrapped. No drainage noted. Objective - Vital Signs Vital signs: Vital Signs Temp 99.8 F H 11/13/21 04:55 Pulse 78 11/13/21 04:55 Resp 18 11/13/21 04:55 BP 147/64 11/13/21 04:55 Pulse Ox 99 11/13/21 04:55 Intake & Output 11/12/21 11/13/21 11/13/21 18:59 06:59 18:59 Intake Total 505 Output Total 450 1100 Balance 55 -1100 Intake: IV 505 Output: Urine 350 1100 Estimated Blood Loss 100 - Labs CBC & Chem 7: 11/12/21 05:27 11/12/21 05:27 Labs: Abnormal Lab Results - Last 24 Hours (Table) 11/12/21 11/12/21 11/12/21 Range/Units 05:27 11:21 17:15 Anion Gap 9.50 L (10.00-18.00) mmol/L Creatinine 1.9 H (0.6-1.5) mg/dL Est GFR (CKD-EPI)AfAm 39.7 L (60.0-200.0) Est GFR (CKD-EPI)NonAf 34.2 L (60.0-200.0) BUN/Creatinine Ratio 8.26 L (12.00-20.00) Ratio Glucose 158 H (70-110) mg/dL POC Glucose (mg/dL) 152 H 210 H (75-99) mg/dL Calcium 8.0 L (8.7-10.3) mg/dL 11/13/21 Range/Units 06:56 Anion Gap (10.00-18.00) mmol/L Creatinine (0.6-1.5) mg/dL Est GFR (CKD-EPI)AfAm (60.0-200.0) Est GFR (CKD-EPI)NonAf (60.0-200.0) BUN/Creatinine Ratio (12.00-20.00) Ratio Glucose (70-110) mg/dL POC Glucose (mg/dL) 187 H (75-99) mg/dL Calcium (8.7-10.3) mg/dL Microbiology - Last 24 Hours (Table) 11/12/21 12:30 Gram Stain - Preliminary Foot - Left Tissue Culture - Preliminary 11/12/21 12:30 Anaerobic Culture - Preliminary Foot - Left Assessment and Plan Plan: Assessment: 1. Acute kidney injury mostly prerenal secondary to anemia and infection. Creatinine was 2.7 on admission - 1.5 on 11/09/2021 - 1.9 yesterday. No hydronephrosis noted on kidney ultrasound. 2. Chronic kidney disease stage IIIB secondary to diabetic kidney disease with baseline creatinine 1.7-1.8 in September 2019. 3. Left foot osteomyelitis status post debridement. On IV antibiotics. Under went further debridement with mid first metatarsal bone excision yesterday. 4. Anemia of chronic kidney disease with component of acute blood loss anemia. Status post blood transfusion this admission. Iron deficiency noted - s/p IV iron completed 11/11/21. On Aranesp. 5. Diabetes mellitus 6. Hypertension with chronic kidney disease. stable. 7. Metabolic acidosis secondary to acute kidney injury. On oral bicarb. Improved. Plan: Encouraged oral intake. Not on any IV fluids or diuretics at this time. Continue to monitor renal function and urine output. Patient advised to follow up outpatient to establish CKD care.
[2021-11-13 12:31] LABS: Glucose,Whole Blood 174 mg/dL (75-99)
[2021-11-13] MEDS: HYDROcodone/APAP 7.5-325MG 1 EACH TAB PO PRN (13:18)
--- NOTE | 2021-11-13 15:25 | PN ---
PROGRESS NOTE Discussed case with Dr. Young and Dr. Bower, Infectious Disease and Vascular. We are going to put a PICC line. Will get IV antibiotics at home set up and possibly discharge home tomorrow. He has had two debridements of his leg. He wants to get out of the hospital. He is saturating 100% on room air. Temperature 98.5, pulse 80, respiratory rate 16 to 18, blood pressure 156/62. Cardiovascular S1, S2. Lungs clear. Left foot is wrapped in dressing. He had metatarsal amputated yesterday of the left great toe. Sugar is in the mid 100s to 200s, greatly improved. PICC line will be placed today and he will be possibly discharged home in the next 24 to 48 hours, as he is greatly improved. Acute on chronic anemia, which is improved. He will follow up as an outpatient. MMHORACIOL / ARNALDO: [id number] /
[2021-11-13] MEDS: ENOXAPARIN 40 MG/0.4 ML SYRINGE SQ SCH (17:09)
[2021-11-13 17:24] LABS: Glucose,Whole Blood 114 mg/dL (75-99)
[2021-11-13 20:19] LABS: Glucose,Whole Blood 139 mg/dL (75-99)
[2021-11-13] MEDS: ATORVASTATIN 40 MG TAB PO SCH (20:26)
[2021-11-13] MEDS: INSULIN DETEMIR (LEVEMIR) 100 UNIT/ML SYR SQ SCH (21:35)
[2021-11-14] MEDS: PIPERACILLIN-TAZOBACTAM 3.375 GM in SODIUM CHLORIDE 0.9% 100 ML IVPB SCH ×2 (00:09→07:57)
[2021-11-14] MEDS: MORPHINE SULFATE 4 MG/ML SYRINGE IV PRN ×2 (05:19→13:05)
--- NOTE | 2021-11-14 06:49 | P.PN ---
Subjective Progress Note Date: 11/13/21 Principal diagnosis: Left diabetic foot infection Patient is a 75-year-old male with a past medical history significant for diabetes mellitus status post left big toe amputation presented to hospital with infected wound to the left foot. This patient who is status post I&D and debridement of necrotic wound to the subcutaneous tissue and bone with the cultures currently pending. On today's evaluation that is 11/13/2021, the patient denies any fever or any chills, the patient is breathing comfortably on room air, the patient denies chest pain shortness of breath or cough , the patient denies abdominal pain and no diarrhea, the patient pain to his left foot wound is currently controlled Objective - Vital Signs Vital signs: Vital Signs Temp 98.5 F 11/13/21 12:35 Pulse 80 11/13/21 12:35 Resp 16 11/13/21 12:35 BP 156/62 11/13/21 12:35 Pulse Ox 100 11/13/21 12:35 Intake & Output 11/12/21 11/13/21 11/13/21 18:59 06:59 18:59 Intake Total 505 Output Total 450 1100 Balance 55 -1100 Intake: IV 505 Output: Urine 350 1100 Estimated Blood Loss 100 - Exam GENERAL DESCRIPTION: An elderly male lying in bed in no distress RESPIRATORY SYSTEM: Unlabored breathing , decreased breath sounds at bases HEART: S1 S2 regular rate and rhythm , ABDOMEN: Soft , no tenderness EXTREMITIES: Left foot wound is currently dressed no drainage on the dressing - Labs CBC & Chem 7: 11/12/21 05:27 11/12/21 05:27 Labs: Abnormal Lab Results - Last 24 Hours (Table) 11/12/21 11/13/21 11/13/21 Range/Units 17:15 06:56 12:29 POC Glucose (mg/dL) 210 H 187 H 174 H (75-99) mg/dL Microbiology - Last 24 Hours (Table) 11/12/21 12:30 Gram Stain - Preliminary Foot - Left Tissue Culture - Preliminary 11/12/21 12:30 Anaerobic Culture - Preliminary Foot - Left Assessment and Plan (1) Cellulitis of foot Current Visit: Yes Status: Acute Code(s): L03.119 - CELLULITIS OF UNSPECIFIED PART OF LIMB SNOMED Code(s): 076661961 (2) Osteomyelitis Current Visit: Yes Status: Acute Code(s): M86.9 - OSTEOMYELITIS, UNSPECIFIED SNOMED Code(s): 81493852 Plan: 1patient presented to hospital with extensive left diabetic foot infection in this patient who did have a area of fluctuance and gangrene to the left big toe amputation site, will need to cover for the polymicrobial darinel usually associated with diabetic foot infection. 2 patient is status post vascular surgery evaluation and surgical debridement and deep cultures which are growing a strep Klebsiella and anaerobes 3patient is status post surgical debridement for removal of the necrotic tissue with extension down to the bone concerning for osteomyelitis, , patient to continue with the [facility] local wound care per surgery and patient will get a PICC line for outpatient IV antibiotic therapy depending upon deep cultures Time with Patient: Less than 30
[2021-11-14 07:04] LABS: Glucose,Whole Blood 139 mg/dL (75-99)
[2021-11-14] MEDS: INSULIN ASPART (NovoLOG) 100 UNIT/ML VIAL SQ SCH ×2 (07:51→12:39)
[2021-11-14] MEDS: HYDROcodone/APAP 7.5-325MG 1 EACH TAB PO PRN (07:56)
[2021-11-14] MEDS: ASPIRIN 81 MG PO SCH (07:57)
[2021-11-14] MEDS: SODIUM BICARBONATE TAB 650 MG TAB PO SCH ×2 (07:58→15:04)
[2021-11-14] MEDS: GABAPENTIN 100 MG CAP PO SCH (07:58)
[2021-11-14] MEDS: PANTOPRAZOLE 40 MG TABLET PO SCH (07:58)
[2021-11-14] MEDS: LOSARTAN 50 MG TAB PO SCH (07:58)
[2021-11-14] MEDS: NICOTINE 14MG/24HR PATCH TRANSDERM SCH (07:58)
[2021-11-14 09:45] LABS: Basophils # (A) 0.01 X 10*3/uL (0.00-0.10); Basophils % (A) 0.3 %; Eosinophils # (A) 0 X 10*3/uL (0.04-0.35); Eosinophils % (A) 0 %; HCT 22.2 % (39.6-50.0); HGB 6.7 g/dL (13.0-17.0); Immature Grans, Automated 0.8 %; Lymphocytes # (A) 1.62 X 10*3/uL (0.90-5.00); Lymphocytes % (A) 41.9 %; MCH 26.1 pg (27.0-32.0); MCHC 30.2 g/dL (32.0-37.0); MCV 86.4 fL (80.0-97.0); Mean Platelet Volume 10.9 fL (9.5-12.2); Monocytes # (A) 0.67 X 10*3/uL (0.20-1.00); Monocytes % (A) 17.3 %; NRBC Per 100 WBC 0 /100 WBCS (0.0-0.0); Neutrophils # (A) 1.54 X 10*3/uL (1.80-7.70); Neutrophils % (A) 39.7 %; Platelet Count 157 X 10*3/uL (140-440); RBC 2.57 X 10*6/uL (4.40-5.60); RDW 19.3 % (11.5-14.5); WBC 3.87 X 10*3/uL (4.50-10.00)
[2021-11-14 09:47] LABS: African American GFR (CKD) 37.3 (60.0-200.0); Albumin 3.1 g/dL (3.8-4.9); Anion Gap 11.5 mmol/L (10.00-18.00); BUN/Creat Ratio 6.8 Ratio (12.00-20.00); Blood Urea Nitrogen 13.6 mg/dL (9.0-27.0); Calcium 8.2 mg/dL (8.7-10.3); Carbon Dioxide 22.5 mmol/L (20.0-27.5); Globulin 3.1 g/dL (1.6-3.3); Magnesium 1.7 mg/dL (1.5-2.4); Non-African American GFR(CKD) 32.2 (60.0-200.0); Total Bilirubin 0.6 mg/dL (0.30-1.20); Total Protein 6.2 g/dL (6.2-8.2)
--- NOTE | 2021-11-14 09:47 | PN ---
PROGRESS NOTE 75-year-old gentleman who had wet gangrene of the left foot big toe. The patient went for wound debridement and removal of first metatarsal bone which was exposed. The patient had a debridement done prior to amputation. The patient is on IV antibiotic under care of Infectious Disease. PLAN: Patient going for PICC line today for IV antibiotic under care of Infectious Disease. The dressing should be changed every 48 hours. Patient will come to my office on Thursday. JOSEF / ARNALDO: [id number] /
[2021-11-14 11:40] LABS: Glucose,Whole Blood 143 mg/dL (75-99)
[2021-11-14] MEDS ORDERED: LIDOCAINE 1% PF 10 MG/ML (5 ML AMP) SQ ONE (13:50)
--- NOTE | 2021-11-14 15:09 | IR ---
PICC LINE PLACEMENT: HISTORY: TPN therapy PROCEDURE: Ultrasound and fluoroscopic guidance of PICC line placement. COMPLICATIONS: None ANESTHESIA: 1. 1% Lidocaine locally. FINDINGS/TECHNIQUE: The procedure was explained to the patient. The risks, complications, benefits and alternatives were discussed and any questions were answered. Informed consent was obtained. The patient was placed supine on the fluoroscopic table and prepped and draped in the usual sterile fas ion. Utilizing a 21 gauge needle and sonographic and fluoroscopic guidance, access in the vein was achieved and there is placement of a 0.018 guidewire. The vein is patent. A 5-Fr sheath was placed over the guidewire. The guidewire and dilator were removed and a 5-F. Double lumen PICC line was pl aced through the sheath with the tip at the level of the SVC. The sheath was removed, the catheter w as flushed and sutured into position. The patient was stable throughout the procedure and remained s table upon discharge from the Department of Radiology. The vein puncture was patent under ultrasound. A ren scale image was obtained to document patency of the vein punctured. All elements of the maximal barrier technique were utilized. FLUOROSCOPY TIME: 0.3 minutes, one image. IMPRESSION: Successful PICC double lumen line placement under ultrasound and fluoroscopic guidance.
[2021-11-14 16:07] VITALS: RESP 16
[2021-11-14 16:09] VITALS: BP 128/70; PULSE 90; TEMP 97.5
--- NOTE | 2021-11-14 16:13 | P.PN ---
Subjective Patient is seen for follow-up for acute kidney injury and top of chronic kidney disease. He is currently doing fairly well. Serum creatinine has been slowly increasing over the last 3 days. It is up to 2.0 today. Patient is currently maintained on Cozaar. He is not on any diuretics. His hemoglobin was low at 6.7. He has had fair urine output with 24 hour urine output documented at about 1.4 L. Patient needs to have a PICC line placed for continued antibiotics. Currently being treated for osteomyelitis with left diabetic foot infection and gangrene status post surgical debridement. Objective - Vital Signs Vital signs: Vital Signs Temp 95.5 F L 11/14/21 14:00 Pulse 82 11/14/21 14:00 Resp 14 11/14/21 14:00 BP 166/69 11/14/21 14:00 Pulse Ox 98 11/14/21 05:00 Intake & Output 11/13/21 11/14/21 11/14/21 18:59 06:59 18:59 Intake Total 200 0 Output Total 1000 Balance 200 -1000 0 Intake: Intake, IV Titration 200 Amount Piperacillin-Tazobactam 3 200 .375 gm In Sodium Chloride 0.9% 100 ml @ 25 mls/hr IVPB Q8HR [facility] Rx# :[id number] Blood Product 0 Rc Pheresis 2 As3 Unit 0 [id number] Output: Urine 1000 - Exam Awake, comfortable, not in any acute distress Examination of the heart S1 and S2 Examination lungs bilateral breath sounds are heard Abdomen is soft nontender Examination lower extremities shows left foot wound currently dressed no significant edema noted PANEL GLUER exam grossly intact - Labs CBC & Chem 7: 11/14/21 06:14 11/14/21 06:14 Labs: Abnormal Lab Results - Last 24 Hours (Table) 11/13/21 11/13/21 11/14/21 Range/Units 17:22 20:17 06:14 WBC 3.87 L (4.50-10.00) X 10*3/uL RBC 2.57 L (4.40-5.60) X 10*6/uL Hgb 6.7 L* (13.0-17.0) g/dL Hct 22.2 L (39.6-50.0) % MCH 26.1 L (27.0-32.0) pg MCHC 30.2 L (32.0-37.0) g/dL RDW 19.3 H (11.5-14.5) % Neutrophils # 1.54 L (1.80-7.70) X 10*3/uL Eosinophils # 0 L (0.04-0.35) X 10*3/uL Creatinine (0.6-1.5) mg/dL Est GFR (CKD-EPI)AfAm (60.0-200.0) Est GFR (CKD-EPI)NonAf (60.0-200.0) BUN/Creatinine Ratio (12.00-20.00) Ratio Glucose (70-110) mg/dL POC Glucose (mg/dL) 114 H 139 H (75-99) mg/dL Calcium (8.7-10.3) mg/dL Albumin (3.8-4.9) g/dL Albumin/Globulin Ratio (1.60-3.17) g/dL Crossmatch 11/14/21 11/14/21 11/14/21 Range/Units 06:14 07:02 10:41 WBC (4.50-10.00) X 10*3/uL RBC (4.40-5.60) X 10*6/uL Hgb (13.0-17.0) g/dL Hct (39.6-50.0) % MCH (27.0-32.0) pg MCHC (32.0-37.0) g/dL RDW (11.5-14.5) % Neutrophils # (1.80-7.70) X 10*3/uL Eosinophils # (0.04-0.35) X 10*3/uL Creatinine 2.0 H (0.6-1.5) mg/dL Est GFR (CKD-EPI)AfAm 37.3 L (60.0-200.0) Est GFR (CKD-EPI)NonAf 32.2 L (60.0-200.0) BUN/Creatinine Ratio 6.80 L (12.00-20.00) Ratio Glucose 121 H (70-110) mg/dL POC Glucose (mg/dL) 139 H (75-99) mg/dL Calcium 8.2 L (8.7-10.3) mg/dL Albumin 3.1 L (3.8-4.9) g/dL Albumin/Globulin Ratio 1.00 L (1.60-3.17) g/dL Crossmatch See Detail 11/14/21 Range/Units 11:38 WBC (4.50-10.00) X 10*3/uL RBC (4.40-5.60) X 10*6/uL Hgb (13.0-17.0) g/dL Hct (39.6-50.0) % MCH (27.0-32.0) pg MCHC (32.0-37.0) g/dL RDW (11.5-14.5) % Neutrophils # (1.80-7.70) X 10*3/uL Eosinophils # (0.04-0.35) X 10*3/uL Creatinine (0.6-1.5) mg/dL Est GFR (CKD-EPI)AfAm (60.0-200.0) Est GFR (CKD-EPI)NonAf (60.0-200.0) BUN/Creatinine Ratio (12.00-20.00) Ratio Glucose (70-110) mg/dL POC Glucose (mg/dL) 143 H (75-99) mg/dL Calcium (8.7-10.3) mg/dL Albumin (3.8-4.9) g/dL Albumin/Globulin Ratio (1.60-3.17) g/dL Crossmatch Assessment and Plan Assessment: 1. Acute kidney injury mostly associated with underlying infection and anemia. Serum creatinine recently increased most likely from significant anemia. Currently maintained on Cozaar. No diuretics on board. No evidence of obstruction on ultrasound. 2. Chronic kidney disease stage IIIB secondary to diabetic kidney disease with baseline creatinine 1.7-1.8 mg/dL 3. Left foot osteomyelitis status post debridement maintained on antibiotics. 4. Anemia of chronic disease with component of acute blood loss and anemia, status post packed RBCs transfusion. Iron deficiency noted, status post IV iron Edis at also maintained on Aranesp 5. Type 2 diabetes 6. Metabolic acidosis associated with acute kidney injury currently maintained on oral sodium bicarb Plan: Continue oral sodium bicarb follow-up as outpatient for CK D May continue with the Cozaar.
--- NOTE | 2021-11-21 08:59 | CDI ---
Documentation Clarification Form Date: 11/20/2021 09:24:00 AM From: Cindy Moralez RN, CCDS Admit Date: 11/05/2021 05:13:00 PM Patient Name: Junior Bird Visit Number: [id number] Discharge Date: 11/14/2021 05:43:00 PM ATTENTION: The Clinical Documentation Specialists (CDI) and [facility] Coding Staff appreciate your assistance in clarifying documentation. Please respond to the clarification below the line at the bottom and electronically sign. The CDI & [facility] Coding staff will review the response and follow-up if needed. Please note: Queries are made part of the Legal Health Record. If you have any questions, please contact the author of this message via ITS. Dr. Yoandy Young There is documentation of debridement down to subcutaneous tissue, fat and fascia was excised with a sharp knife until we reached the metatarsal bone. The periosteum elevator was used to elevate the periosteum from the metatarsal bone and then using an electric saw we divided the metatarsal bone mid foot. Additional clarification is requested to accurate capture the procedure. History/Risk Factors: Diabetes Mellitus, Renal disease, Osteoarthritis, Clinical Indicators: 75- year old male with history of left big toe amputation from a diabetic foot infection many years age per ID. He present to ER for evaluation of left foot infection. 11/05 X-ray of the left foot has erosion of the first metatarsal head suspicious for underlying osteomyelitis with surround soft tissue swelling/likely cellulitis changes. Treatment: Wound Debridement down to subcutaneous fat and fascia and excision of the mid first metatarsal bone. Unasyn 3 GM IVPB Q 8 HRS 11/05-11/09 Zosyn 3.375 GM IVPB Q 8HRS 11/09-11/14 Vancomycin 1,500 MG IVPB (PTD) 11/06-11/08 Rocephin 2 GM IVPB Q 24 HRS 11/14 # 42, Flagyl 500 MG TID # 90 Tab Can you please further clarify procedure? [ ] Incision and drainage and excisional debridement of necrotic wound down to subcutaneous tissue and the bone and excision of the mid first metatarsal bone. [ ] Incision and drainage and excisional debridement of necrotic wound down to subcutaneous tissue and the bone and amputation of the metatarsal bone mid foot [ ] Other, please specify [ ] Unable to determine (Template Last Revised: September 2020) MTDD
--- NOTE | 2021-11-21 20:02 | P.PN ---
Subjective Progress Note Date: 11/14/21 Principal diagnosis: Left diabetic foot infection Patient is a 75-year-old male with a past medical history significant for diabetes mellitus status post left big toe amputation presented to hospital with infected wound to the left foot. This patient who is status post I&D and debridement of necrotic wound to the subcutaneous tissue and bone with the cultures currently pending. On today's evaluation that is 11/14/2021, the patient , remains to be afebrile the patient is breathing comfortably on room air, the patient denies chest pain shortness of breath or cough , the patient denies abdominal pain and no diarrhea, the patient pain to his left foot wound is currently controlled, no new symptoms Objective - Vital Signs Vital signs: Vital Signs Temp 97.9 F 11/14/21 13:34 Pulse 94 11/14/21 13:34 Resp 18 11/14/21 13:34 BP 112/63 11/14/21 13:34 Pulse Ox 98 11/14/21 05:00 Intake & Output 11/13/21 11/14/21 11/14/21 18:59 06:59 18:59 Intake Total 200 0 Output Total 1000 Balance 200 -1000 0 Intake: Intake, IV Titration 200 Amount Piperacillin-Tazobactam 3 200 .375 gm In Sodium Chloride 0.9% 100 ml @ 25 mls/hr IVPB Q8HR [facility] Rx# :[id number] Blood Product 0 Rc Pheresis 2 As3 Unit 0 [id number] Output: Urine 1000 - Exam GENERAL DESCRIPTION: An elderly male lying in bed in no distress RESPIRATORY SYSTEM: Unlabored breathing , decreased breath sounds at bases HEART: S1 S2 regular rate and rhythm , ABDOMEN: Soft , no tenderness EXTREMITIES: Left foot wound is currently dressed no drainage on the dressing - Labs CBC & Chem 7: 11/14/21 06:14 11/14/21 06:14 Labs: Abnormal Lab Results - Last 24 Hours (Table) 11/13/21 11/13/21 11/14/21 Range/Units 17:22 20:17 06:14 WBC 3.87 L (4.50-10.00) X 10*3/uL RBC 2.57 L (4.40-5.60) X 10*6/uL Hgb 6.7 L* (13.0-17.0) g/dL Hct 22.2 L (39.6-50.0) % MCH 26.1 L (27.0-32.0) pg MCHC 30.2 L (32.0-37.0) g/dL RDW 19.3 H (11.5-14.5) % Neutrophils # 1.54 L (1.80-7.70) X 10*3/uL Eosinophils # 0 L (0.04-0.35) X 10*3/uL Creatinine (0.6-1.5) mg/dL Est GFR (CKD-EPI)AfAm (60.0-200.0) Est GFR (CKD-EPI)NonAf (60.0-200.0) BUN/Creatinine Ratio (12.00-20.00) Ratio Glucose (70-110) mg/dL POC Glucose (mg/dL) 114 H 139 H (75-99) mg/dL Calcium (8.7-10.3) mg/dL Albumin (3.8-4.9) g/dL Albumin/Globulin Ratio (1.60-3.17) g/dL Crossmatch 11/14/21 11/14/21 11/14/21 Range/Units 06:14 07:02 10:41 WBC (4.50-10.00) X 10*3/uL RBC (4.40-5.60) X 10*6/uL Hgb (13.0-17.0) g/dL Hct (39.6-50.0) % MCH (27.0-32.0) pg MCHC (32.0-37.0) g/dL RDW (11.5-14.5) % Neutrophils # (1.80-7.70) X 10*3/uL Eosinophils # (0.04-0.35) X 10*3/uL Creatinine 2.0 H (0.6-1.5) mg/dL Est GFR (CKD-EPI)AfAm 37.3 L (60.0-200.0) Est GFR (CKD-EPI)NonAf 32.2 L (60.0-200.0) BUN/Creatinine Ratio 6.80 L (12.00-20.00) Ratio Glucose 121 H (70-110) mg/dL POC Glucose (mg/dL) 139 H (75-99) mg/dL Calcium 8.2 L (8.7-10.3) mg/dL Albumin 3.1 L (3.8-4.9) g/dL Albumin/Globulin Ratio 1.00 L (1.60-3.17) g/dL Crossmatch See Detail 11/14/21 Range/Units 11:38 WBC (4.50-10.00) X 10*3/uL RBC (4.40-5.60) X 10*6/uL Hgb (13.0-17.0) g/dL Hct (39.6-50.0) % MCH (27.0-32.0) pg MCHC (32.0-37.0) g/dL RDW (11.5-14.5) % Neutrophils # (1.80-7.70) X 10*3/uL Eosinophils # (0.04-0.35) X 10*3/uL Creatinine (0.6-1.5) mg/dL Est GFR (CKD-EPI)AfAm (60.0-200.0) Est GFR (CKD-EPI)NonAf (60.0-200.0) BUN/Creatinine Ratio (12.00-20.00) Ratio Glucose (70-110) mg/dL POC Glucose (mg/dL) 143 H (75-99) mg/dL Calcium (8.7-10.3) mg/dL Albumin (3.8-4.9) g/dL Albumin/Globulin Ratio (1.60-3.17) g/dL Crossmatch Assessment and Plan (1) Cellulitis of foot Status: Acute Code(s): L03.119 - CELLULITIS OF UNSPECIFIED PART OF LIMB SNOMED Code(s): 730750663 (2) Osteomyelitis Status: Acute Code(s): M86.9 - OSTEOMYELITIS, UNSPECIFIED SNOMED Code(s): 43196106 Plan: 1patient presented to hospital with extensive left diabetic foot infection in this patient who did have a area of fluctuance and gangrene to the left big toe amputation site, will need to cover for the polymicrobial darinel usually associated with diabetic foot infection. 2 patient is status post vascular surgery evaluation and surgical debridement and deep cultures which are growing a strep Klebsiella and anaerobes 3patient is status post surgical debridement for removal of the necrotic tissue with extension down to the bone concerning for osteomyelitis, , patient cultures have been finalized with Klebsiella alpha hemolytic strep of consciousness species and anaerobes antibiotic switched over to Rocephin 2 g daily along with oral Flagyl 6 weeks along with weekly monitoring of CRP and a sed rate and elli se out Patient follow-up Time with Patient: Less than 30
== END 2021-11-14 17:43 | disposition home health service (06) | DRG 617 ==
LOC: EC 14:09 → 5NMEDONC 17:13
PROVIDERS: ADMIT Family Medicine; ATTEND Family Medicine
DX: E11.69 Type 2 diabetes mellitus with other specified complication (principal); E11.52 Type 2 diabetes mellitus with diabetic peripheral angiopathy with gangrene; D62 Acute posthemorrhagic anemia; E87.1 Hypo-osmolality and hyponatremia; E87.2 Acidosis; L03.116 Cellulitis of left lower limb; M86.172 Other acute osteomyelitis, left ankle and foot; N17.9 Acute kidney failure, unspecified; E11.621 Type 2 diabetes mellitus with foot ulcer; E11.628 Type 2 diabetes mellitus with other skin complications; E11.65 Type 2 diabetes mellitus with hyperglycemia; D50.9 Iron deficiency anemia, unspecified; D63.1 Anemia in chronic kidney disease; E11.22 Type 2 diabetes mellitus with diabetic chronic kidney disease; E11.42 Type 2 diabetes mellitus with diabetic polyneuropathy; E87.5 Hyperkalemia; F17.210 Nicotine dependence, cigarettes, uncomplicated; I12.9 Hypertensive chronic kidney disease with stage 1 through stage 4 chronic kidney disease, or unspecified chronic kidney disease; I25.10 Atherosclerotic heart disease of native coronary artery without angina pectoris; I25.2 Old myocardial infarction; J44.9 Chronic obstructive pulmonary disease, unspecified; L03.032 Cellulitis of left toe; L97.529 Non-pressure chronic ulcer of other part of left foot with unspecified severity; N18.32 Chronic kidney disease, stage 3b; Z79.02 Long term (current) use of antithrombotics/antiplatelets; Z79.4 Long term (current) use of insulin; Z79.82 Long term (current) use of aspirin; Z79.84 Long term (current) use of oral hypoglycemic drugs; Z79.899 Other long term (current) drug therapy; Z85.51 Personal history of malignant neoplasm of bladder; Z89.412 Acquired absence of left great toe; Z89.429 Acquired absence of other toe(s), unspecified side; Z95.5 Presence of coronary angioplasty implant and graft; Z98.890 Other specified postprocedural states; Z28.310 Unvaccinated for COVID-19
CPT/HCPCS: 36415; 36573; 76770; 80048; 80053; 80061; 80202; 81001; 82607; 82668; 82728; 82747; 83540; 83550; 83605; 83735; 83883; 83921; 84100; 84165; 85025; 85027; 85610; 85652; 85730; 86038; 86140; 86334; 86431; 86850; 86900; 86901; 86920; 87040; 87070; 87075; 87077; 87186; 87205; 93005; 96361; 96365; 96368; 96372; 96375; 99285

== ENCOUNTER → 2023-04-10 | Outpatient (CLI) | payer MEDICARE ==
--- NOTE | 2023-04-10 18:19 | CTL ---
EXAMINATION TYPE: CT Low Dose Lung DATE OF EXAM ORDERED: 04/10/2023 HISTORY: 77-year-old male former smoker with 40 pack-year history. Z87.891, F17.210. Lung cancer scre ening CT DLP: 72.[address] CTDI: 1.9 mGy Automated exposure control for dose reduction was used. SCREENING VISIT: Annual follow-up COMPARISON: 08/29/2021 TECHNIQUE: Low dose computed tomography scan was performed through the chest with coronal and sagitta l reconstructions. CT DIAGNOSTIC QUALITY: Satisfactory FINDINGS: The heart is normal size with trace pericardial fluid. Aorta normal caliber with conventional vessel branching anatomy. No thoracic lymphadenopathy by CT size criteria. Mild dependent atelectasis. Moderate upper lung predominant centrilobular emphysema with biapical ple ural-parenchymal scarring. No consolidation or pleural effusion. 4 mm posterior right upper lobe pulmonary nodule is unchanged. 6 mm subpleural pulmonary nodule anterior right upper lobe, axial image 148 is unchanged. There is a new cavitary lesion with some internal soft tissue within the posterior right upper lobe m easuring 2.4 cm. No additional suspicious pulmonary nodule is seen. Visualized upper abdomen shows no gross abnormality. Bones: No osseous destructive process. IMPRESSION: 1. Lung RADS Category 4B (very suspicious, >15% chance of malignancy); a new cavitary 2.4 cm lesion p osterior right upper lobe with prominent internal soft tissue. Neoplasm needs to be excluded. Alterna tive differential consideration includes atypical mycobacterial or fungal infection and associated my cetoma. 2. COPD with moderate emphysema. A couple additional pulmonary nodules remain unchanged. CT LUNG RAD AND CT CHEST RECOMMENDATION: Lung-Rad 4B or 4X Very Suspicious: Follow-up Chest CT with o r without contrast or PET/CT and/or tissue sampling. PET/CT may be used when there is a > 8 mm solid component. S Modifier (other clinically significant findings): None
== END | disposition home or self-care (01) ==
LOC: RADCTMAIN 13:38
PROVIDERS: ATTEND Family Medicine
DX: Z12.2 Encounter for screening for malignant neoplasm of respiratory organs (principal); F17.210 Nicotine dependence, cigarettes, uncomplicated; J43.2 Centrilobular emphysema; R91.8 Other nonspecific abnormal finding of lung field
CPT/HCPCS: 71271

== ENCOUNTER → 2023-06-04 | Outpatient (CLI) | payer MEDICARE ==
--- NOTE | 2023-06-09 14:01 | PE ---
EXAMINATION TYPE: PET CT fusion skull to thigh DATE OF EXAM: 06/04/2023 COMPARISON: None Prior PET/CT: None HISTORY: Solitary pulmonary nodule TECHNIQUE: Following the intravenous administration of 8.9 mCi of F-18 FDG, whole body images are pe rformed from the skull base to the midthigh. Images are reviewed on the computer in the coronal, axi al, and sagittal planes. Reconstructed rotating images are created on independent workstation and re viewed on the computer. A localization and attenuation correction CT is performed in conjunction wi th the PET scan. DLP: 252.00 mGycm SCAN: Initial Blood glucose: 137 mg/dL Average Mediastinum SUV: 1.65 Average Liver SUV: 2.19 FINDINGS: NECK: There is some uptake in the right vocal cord level. This area may be subtly asymmetric. Direct visualization is recommended. THORAX: There is a ring-enhancing lesion within the posterior right upper lung field. This has SUV 3. 69. Example image 82. There is increased signal through the esophagus. Correlate for esophagitis. Thickening is not identif ied. Esophageal cancer however should be excluded. ABDOMEN: No abnormal uptake PELVIS: There is focal uptake lateral to the femoral neck. This is outside the femoral neck osseous s tructures exhibit SUV of 4.25. OSSEOUS STRUCTURES: No abnormal uptake LOCALIZATION CT: No suspicious acute changes. COMPARISON: None IMPRESSION: 1. Abnormal uptake within the cavitary lesion right upper lobe. 2. Diffuse increased uptake through the esophagus. Correlate for esophagitis. Consider direct visuali zation to exclude esophageal neoplasm. 3. Asymmetric focal uptake within the right anterior vocal cord. Direct visualization recommended. 4. There is a focal area of abnormal uptake superior to the right femoral neck within the soft tissue s of uncertain etiology.
== END | disposition home or self-care (01) ==
LOC: RADPETMAIN 11:42
PROVIDERS: ATTEND Family Medicine
DX: J98.4 Other disorders of lung (principal); R93.3 Abnormal findings on diagnostic imaging of other parts of digestive tract; R91.1 Solitary pulmonary nodule
CPT/HCPCS: 78815; A9552

== ENCOUNTER 2023-08-10 15:30 | Inpatient (IN) | payer MEDICARE ==
--- NOTE | 2023-08-10 16:05 | ED ---
General Adult HPI - General Source: patient, family Mode of arrival: wheelchair <Shabnam Francis - Last Filed: 08/10/23 16:03> <Justin Mishra - Last Filed: 08/10/23 19:17> - General Stated complaint: Weakness Time Seen by Provider: 08/10/23 16:03 - History of Present Illness Initial comments: 77-year-old male presenting with chief complaint of weakness. Sent by Dr. Wilson. Admits to black stool and abdominal pain. No blood thinners (Shabnam Francis) This is a 77-year-old male who presents to the emergency department complaining of feeling terribly weak and fatigued over the last 3 weeks. Patient denies any fever chills or cough. Patient denies chest pain or difficulty breathing or shortness of breath. Patient states he has some upper abdominal pain. Patient states he has had some black stools. Patient denies any vomiting or diarrhea. Patient denies any back pain. Patient denies any headache patient denies numbness or focal weakness. (Justin Mishra) - Related Data Home Medications Medication Instructions Recorded Confirmed HYDROcodone/APAP 7.5-325MG [[place] 1 tab PO TID 09/19/19 08/10/23 7.5-325] Sildenafil Citrate [Viagra] 100 mg PO DAILY PRN 11/05/21 08/10/23 glipiZIDE [Glucotrol] 10 mg PO BID 11/05/21 08/10/23 Atorvastatin [Lipitor] 40 mg PO DAILY 08/02/23 08/10/23 Dapagliflozin Propanediol [Farxiga] 5 mg PO DAILY 08/02/23 08/10/23 Ipratropium-Albuterol Nebulize 3 ml INHALATION RT-QID PRN 08/02/23 08/10/23 [Duoneb 0.5 mg-3 mg/3 ml Soln] Losartan [Cozaar] 50 mg PO DAILY 08/02/23 08/10/23 Omeprazole 40 mg PO BID 08/02/23 08/10/23 Allergies Allergy/AdvReac Type Severity Reaction Status Date / Time No Known Allergies Allergy Verified 08/10/23 16:05 Review of Systems ROS Other: All systems not noted in ROS Statement are negative. <Shabnam Francis - Last Filed: 08/10/23 16:03> ROS Other: All systems not noted in ROS Statement are negative. <Justin Mishra - Last Filed: 08/10/23 19:17> ROS Statement: Those systems with pertinent positive or pertinent negative responses have been documented in the HPI. Past Medical History Past Medical History: Cancer, Diabetes Mellitus, Myocardial Infarction (MA), Osteoarthritis (OA), Renal Disease, Vascular Disorder Additional Past Medical History / Comment(s): [place] x2. Hx bladder CA 2015. Neuropathy feet. PAD, pain & numbness in BLE. Last Myocardial Infarction Date:: 2002 History of Any Multi-Drug Resistant Organisms: None Reported Past Surgical History: Heart Catheterization With Stent, Orthopedic Surgery Additional Past Surgical History / Comment(s): Right femoral bypass, Rt knee surgery, Lt foot toe amputations. Cervical surgery, has "cagein neck." Bladder tumor exc. lt ptca 09/20/19 Past Anesthesia/Blood Transfusion Reactions: No Reported Reaction Date of Last Stent Placement:: 09/20/19 Past Psychological History: No Psychological Hx Reported Smoking Status: Current every day smoker Past Alcohol Use History: Rare Past Drug Use History: Marijuana - Past Family History Mother Family Medical History: Cancer <Shabnam Francis - Last Filed: 08/10/23 16:03> General Exam <Shabnam Francis - Last Filed: 08/10/23 16:03> <Justin Mishra - Last Filed: 08/10/23 19:17> - General Exam Comments Initial Comments: Visual Physical Exam Vital signs reviewed General: Appears fatigued and pale Head: Normocephalic, atraumatic Eyes: PERRLA, EOMI ENT: Airway patent Chest: Nonlabored breathing Skin: No visual rash, normal skin tone Neuro: Alert and oriented 3 Musculoskeletal: No gross abnormalities (Shabnam Francis) GENERAL: Patient is well-developed and well-nourished. Patient is nontoxic and well- hydrated and is in mild distress. ENT: Neck is soft and supple. No significant lymphadenopathy is noted. Oropharynx is clear. Moist mucous membranes. Neck has full range of motion without eliciting any pain. EYES: The sclera were anicteric and conjunctiva were pink and moist. Extraocular mov ements were intact and pupils were equal round and reactive to light. Eyelids were unremarkable. PULMONARY: Unlabored respirations. Good breath sounds bilaterally. No audible rales rhonchi or wheezing was noted. CARDIOVASCULAR: There is a regular rate and rhythm without any murmurs gallops or rubs. ABDOMEN: Slight epigastric abdominal pain. SKIN: Skin is clear with no lesions or rashes and otherwise unremarkable. NEUROLOGIC: Patient is alert and oriented x3. Cranial nerves II through XII are grossly intact. Motor and sensory are also intact. Normal speech, volume and content. Symmetrical smile. MUSCULOSKELETAL: Normal extremities with adequate strength and full range of motion. LYMPHATICS: No significant lymphadenopathy is noted PSYCHIATRIC: Normal psychiatric evaluation. (Justin Mishra) Course Vital Signs 08/10/23 08/10/23 08/10/23 16:00 17:03 18:26 Temperature 97.4 F L Pulse Rate 92 81 82 Respiratory 18 18 18 Rate Blood Pressure 98/51 135/82 153/77 O2 Sat by Pulse 100 100 100 Oximetry Medical Decision Making <Shabnam Francis - Last Filed: 08/10/23 16:03> - Lab Data Result diagrams: 08/10/23 16:12 08/10/23 16:12 <Justin Mishra - Last Filed: 08/10/23 19:17> - Medical Decision Making I performed the quick note portion of this visit, electronically signed Shabnam Francis PA-C (Shabnam Francis) EKG shows a sinus rhythm at 94 bpm KS is 168 QRS is 96 QT interval 360 QTc is 412. Patient's EKG shows some ST segment depression in inferior leads. Was pt. sent in by a medical professional or institution ([facility], [facility], urgent care, hospital, or skilled nursing...) When possible be specific @ -Dr. Wilson sent the patient into the emergency department Did you speak to anyone other than the patient for history (EMS, parent, family, police, friend...)? What history was obtained from this source @ -No Did you review nursing and triage notes (agree or disagree)? Why? @ -I reviewed and agree with nursing and triage notes Were old charts reviewed (outside hosp., previous admission, EMS record, old EKG, old radiological studies, urgent care reports/EKG's, skilled nursing records)? Report findings @ -I have reviewed prior charts and prior lab work on this patient Differential Diagnosis (chest pain, altered mental status, abdominal pain women, abdominal pain men, vaginal bleeding, weakness, fever, dyspnea, syncope, headache, dizziness, GI bleed, back pain, seizure, CVA, palpatations, mental hea lth, musculoskeletal)? @ -Differential Abdominal Pain Men: Appendicitis, cholecystitis, diverticulosis, ischemic bowel, pancreatitis, hepatitis, UTI, gastroenteritis, AAA, incarcerated hernia, bowel obstruction, constipation, inflammatory bowel, hepatitis, peptic ulcer disease, splenic infarction, perforated viscus, testicular torsion, this is not meant to be an all-inclusive list EKG interpreted by me (3pts min.). @ -As above X-rays interpreted by me (1pt min.). @ -Chest x-ray shows no acute normality CT interpreted by me (1pt min.). @ -None done U/S interpreted by me (1pt. min.). @ -None done What testing was considered but not performed or refused? (CT, X-rays, U/S, labs)? Why? @ -None What meds were considered but not given or refused? Why? @ -None Did you discuss the management of the patient with other professionals (professionals i.e. , PA, MACHINE LACER, lab, RT, psych nurse, professor of social work, shoe stitcher, teacher, national insurance officer, caser in)? Give summary @ -I spoke with Dr. Wilson he agreed admit the patient to the patient recommending orders Was smoking cessation discussed for >3mins.? @ -No Was critical care preformed (if so, how long)? @ -No Were there social determinants of health that impacted care today? How? (Homelessness, low income, unemployed, alcoholism, drug addiction, transportation, low edu. Level, literacy, decrease access to med. care, halfway, rehab)? @ -No Was there de-escalation of care discussed even if they declined (Discuss DNR or withdrawal of care, Hospice)? DNR status @ -No What co-morbidities impacted this encounter? (DM, HTN, Smoking, COPD, CAD, Canc er, CVA, ARF, Chemo, Hep., AIDS, mental health diagnosis, sleep apnea, morbid obesity)? @ -None Was patient admitted / discharged? Hospital course, mention meds given and route, prescriptions, significant lab abnormalities, going to OR and other pertinent info. @ -Patient's lipase was elevated. The patient had pancreatitis. Patient's hemoglobin was low but has been "low for quite a while I will monitor when I admit the patient. I spoke with Dr. Roberts he agreed admit the patient admit the patient recommending orders Undiagnosed new problem with uncertain prognosis? @ -No Drug Therapy requiring intensive monitoring for toxicity (Heparin, Nitro, Insulin, Cardizem)? @ -No Were any procedures done? @ -No Diagnosis/symptom? @ -Pancreatitis Acute, or Chronic, or Acute on Chronic? @ -Acute Uncomplicated (without systemic symptoms) or Complicated (systemic symptoms)? @ -Complicated Side effects of treatment? @ -No Exacerbation, Progression, or Severe Exacerbation? @ -No Poses a threat to life or bodily function? How? (Chest pain, [place], MA, pneumonia, PE, COPD, DKA, ARF, appy, cholecystitis, CVA, Diverticulitis, Homicidal, Suicidal, threat to staff... and all critical care pts) @ -No Diagnosis/symptom? @ -Anemia Acute, or Chronic, or Acute on Chronic? @ -Chronic Uncomplicated (without systemic symptoms) or Complicated (systemic symptoms)? @ -Uncomplicated Side effects of treatment? @ -None Exacerbation, Progression, or Severe Exacerbation] @ -No Poses a threat to life or bodily function? @ -No (Justin Mishra) - Lab Data Lab Results 08/10/23 08/10/23 08/10/23 Range/Units 16:12 16:12 16:12 WBC 4.0 (3.8-10.6) k/uL RBC 2.88 L (4.30-5.90) m/uL Hgb 7.7 L (13.0-17.5) gm/dL Hct 24.6 L (39.0-53.0) % MCV 85.5 (80.0-100.0) fL MCH 26.9 (25.0-35.0) pg MCHC 31.5 (31.0-37.0) g/dL RDW 18.1 H (11.5-15.5) % Plt Count 125 L (150-450) k/uL MPV 10.3 Neutrophils % (Manual) 57 % Lymphocytes % (Manual) 37 % Monocytes % (Manual) 6 % Neutrophils # (Manual) 2.28 (1.3-7.7) k/uL Lymphocytes # (Manual) 1.48 (1.0-4.8) k/uL Monocytes # (Manual) 0.24 (0-1.0) k/uL Nucleated RBCs 2 H (0-0) /100 WBC Manual Slide Review Performed Hypochromasia Marked Anisocytosis Slight PT 10.7 (10.0-12.5) sec INR 1.0 (<1.2) APTT 25.0 (22.0-30.0) sec Sodium 140 (137-145) mmol/L Potassium 3.2 L (3.5-5.1) mmol/L Chloride 117 H (98-107) mmol/L Carbon Dioxide 10 L (22-30) mmol/L Anion Gap 13 mmol/L BUN 48 H (9-20) mg/dL Creatinine 2.30 H (0.66-1.25) mg/dL Est GFR (CKD-EPI)AfAm 31 (>60 ml/min/1.73 sqM) Est GFR (CKD-EPI)NonAf 27 (>60 ml/min/1.73 sqM) Glucose 225 H (74-99) mg/dL Plasma Lactic Acid Tito (0.7-2.0) mmol/L Calcium 9.4 (8.4-10.2) mg/dL Magnesium 2.2 (1.6-2.3) mg/dL Total Bilirubin 1.0 (0.2-1.3) mg/dL AST 23 (17-59) U/L ALT 19 (4-49) U/L Alkaline Phosphatase 96 (38-126) U/L Troponin I (0.000-0.034) ng/mL Total Protein 8.1 (6.3-8.2) g/dL Albumin 4.2 (3.5-5.0) g/dL Lipase 3619 H (23-300) U/L Stool Occult Blood (Negative) Blood Type Blood Type Recheck Bld Type Recheck Status Antibody Screen Spec Expiration Date 08/10/23 08/10/23 08/10/23 Range/Units 16:12 16:12 16:30 WBC (3.8-10.6) k/uL RBC (4.30-5.90) m/uL Hgb (13.0-17.5) gm/dL Hct (39.0-53.0) % MCV (80.0-100.0) fL MCH (25.0-35.0) pg MCHC (31.0-37.0) g/dL RDW (11.5-15.5) % Plt Count (150-450) k/uL MPV Neutrophils % (Manual) % Lymphocytes % (Manual) % Monocytes % (Manual) % Neutrophils # (Manual) (1.3-7.7) k/uL Lymphocytes # (Manual) (1.0-4.8) k/uL Monocytes # (Manual) (0-1.0) k/uL Nucleated RBCs (0-0) /100 WBC Manual Slide Review Hypochromasia Anisocytosis PT (10.0-12.5) sec INR (<1.2) APTT (22.0-30.0) sec Sodium (137-145) mmol/L Potassium (3.5-5.1) mmol/L Chloride (98-107) mmol/L Carbon Dioxide (22-30) mmol/L Anion Gap mmol/L BUN (9-20) mg/dL Creatinine (0.66-1.25) mg/dL Est GFR (CKD-EPI)AfAm (>60 ml/min/1.73 sqM) Est GFR (CKD-EPI)NonAf (>60 ml/min/1.73 sqM) Glucose (74-99) mg/dL Plasma Lactic Acid Tito 1.2 (0.7-2.0) mmol/L Calcium (8.4-10.2) mg/dL Magnesium (1.6-2.3) mg/dL Total Bilirubin (0.2-1.3) mg/dL AST (17-59) U/L ALT (4-49) U/L Alkaline Phosphatase (38-126) U/L Troponin I 0.030 (0.000-0.034) ng/mL Total Protein (6.3-8.2) g/dL Albumin (3.5-5.0) g/dL Lipase (23-300) U/L Stool Occult Blood (Negative) Blood Type O Positive Blood Type Recheck O Pos Bld Type Recheck Status No Antibody Screen NEGATIVE Spec Expiration Date 08/13/2023 - 232908/10/23 Range/Units 17:55 WBC (3.8-10.6) k/uL RBC (4.30-5.90) m/uL Hgb (13.0-17.5) gm/dL Hct (39.0-53.0) % MCV (80.0-100.0) fL MCH (25.0-35.0) pg MCHC (31.0-37.0) g/dL RDW (11.5-15.5) % Plt Count (150-450) k/uL MPV Neutrophils % (Manual) % Lymphocytes % (Manual) % Monocytes % (Manual) % Neutrophils # (Manual) (1.3-7.7) k/uL Lymphocytes # (Manual) (1.0-4.8) k/uL Monocytes # (Manual) (0-1.0) k/uL Nucleated RBCs (0-0) /100 WBC Manual Slide Review Hypochromasia Anisocytosis PT (10.0-12.5) sec INR (<1.2) APTT (22.0-30.0) sec Sodium (137-145) mmol/L Potassium (3.5-5.1) mmol/L Chloride (98-107) mmol/L Carbon Dioxide (22-30) mmol/L Anion Gap mmol/L BUN (9-20) mg/dL Creatinine (0.66-1.25) mg/dL Est GFR (CKD-EPI)AfAm (>60 ml/min/1.73 sqM) Est GFR (CKD-EPI)NonAf (>60 ml/min/1.73 sqM) Glucose (74-99) mg/dL Plasma Lactic Acid Tito (0.7-2.0) mmol/L Calcium (8.4-10.2) mg/dL Magnesium (1.6-2.3) mg/dL Total Bilirubin (0.2-1.3) mg/dL AST (17-59) U/L ALT (4-49) U/L Alkaline Phosphatase (38-126) U/L Troponin I (0.000-0.034) ng/mL Total Protein (6.3-8.2) g/dL Albumin (3.5-5.0) g/dL Lipase (23-300) U/L Stool Occult Blood Positive (Negative) Blood Type Blood Type Recheck Bld Type Recheck Status Antibody Screen Spec Expiration Date Disposition <Shabnam Francis - Last Filed: 08/10/23 16:03> Time of Disposition: 18:20 <Justin Mishra - Last Filed: 08/10/23 19:17> Clinical Impression: Anemia, Pancreatitis Disposition: ADMITTED IP TO THIS HOSP
[2023-08-10 16:55] LABS: Anisocytosis Slight; HCT 24.6 % (39.0-53.0); HGB 7.7 gm/dL (13.0-17.5); Hypochromasia Marked; MCH 26.9 pg (25.0-35.0); MCHC 31.5 g/dL (31.0-37.0); MCV 85.5 fL (80.0-100.0); Mean Platelet Volume 10.3; Platelet Count 125 k/uL (150-450); RBC 2.88 m/uL (4.30-5.90); RDW 18.1 % (11.5-15.5)
[2023-08-10 17:05] LABS: Prothrombin Time 10.7 sec (10.0-12.5)
[2023-08-10 17:06] LABS: ALT 19 U/L (4-49); AST 23 U/L (17-59); African American GFR (CKD) 31 (>60 ml/min/1.73 sqM); Albumin 4.2 g/dL (3.5-5.0); Alkaline Phosphatase 96 U/L (38-126); Anion Gap 13 mmol/L; Blood Urea Nitrogen 48 mg/dL (9-20); Calcium 9.4 mg/dL (8.4-10.2); Carbon Dioxide 10 mmol/L (22-30); Chloride 117 mmol/L (98-107); Glucose 225 mg/dL (74-99); Magnesium 2.2 mg/dL (1.6-2.3); Non-African American GFR(CKD) 27 (>60 ml/min/1.73 sqM); Potassium 3.2 mmol/L (3.5-5.1); Sodium 140 mmol/L (137-145); Total Protein 8.1 g/dL (6.3-8.2)
[2023-08-10] MEDS: SODIUM CHLORIDE 0.9% 1,000 ML IV ONE ×2 (17:10→18:57)
[2023-08-10 17:11] LABS: Neutrophils % (M) 57 %; Nucleated Red Blood Cells 2 /100 WBC (0-0); Total Cells Counted 100
[2023-08-10 17:12] LABS: Lymphocytes # (M) 1.48 k/uL (1.0-4.8); Monocytes # (M) 0.24 k/uL (0-1.0); Neutrophils # (M) 2.28 k/uL (1.3-7.7)
[2023-08-10 17:44] LABS: Lipase 3619 U/L (23-300)
--- NOTE | 2023-08-10 17:46 | XR ---
EXAMINATION TYPE: XR chest 2V DATE OF EXAM: 08/10/2023 5:21 PM CLINICAL INDICATION:Male, 77 years old with history of pain; COMPARISON: Chest radiographs from 08/02/2023 TECHNIQUE: XR chest 2V Frontal and lateral views of the chest. FINDINGS: Lungs/Pleura: There is flattening of the diaphragm with increased lucency of the lungs. No evidence o f pneumothorax, pleural effusion or focal consolidation. Pulmonary vascularity: Unremarkable. Heart/mediastinum: Cardiomediastinal silhouette is unremarkable. Musculoskeletal: No acute osseous pathology. Remote left-sided rib fractures. IMPRESSION: 1. No acute cardiopulmonary disease process. 2. COPD changes.
[2023-08-10] MEDS: IPRATROPIUM-ALBUTEROL 3 ML NEB INHALATION STA (18:55)
[2023-08-10 22:07] LABS: Anisocytosis Slight; HCT 24.1 % (39.0-53.0); HGB 7.5 gm/dL (13.0-17.5); Hypochromasia Marked; Mean Platelet Volume 10.1; Platelet Count 101 k/uL (150-450); RBC 2.78 m/uL (4.30-5.90); RDW 18.1 % (11.5-15.5)
[2023-08-10 22:41] LABS: Band Neutrophils % 2 %; Lymphocytes # (M) 0.66 k/uL (1.0-4.8); Monocytes # (M) 1.03 k/uL (0-1.0); Neutrophils % (M) 57 %; Nucleated Red Blood Cells 3 /100 WBC (0-0); Total Cells Counted 200; WBC 4.1 k/uL (3.8-10.6)
[2023-08-10] MEDS ORDERED: IPRATROPIUM-ALBUTEROL 3 ML NEB INHALATION PRN (23:08)
[2023-08-10] MEDS: HYDROmorphone 0.5 MG/0.5 ML SYRINGE IVP PRN (23:48)
[2023-08-10] MEDS: glipiZIDE 10 MG TAB PO SCH (23:50)
[2023-08-10] MEDS: ATORVASTATIN 40 MG TAB PO SCH (23:51)
[2023-08-11] MEDS: SODIUM CHLORIDE 0.9% 1,000 ML IV SCH (00:35)
[2023-08-11] MEDS: PANTOPRAZOLE 40 MG TABLET PO SCH (00:36)
[2023-08-11] MEDS: HYDROcodone/APAP 7.5-325MG 1 EACH TAB PO SCH (01:37)
--- NOTE | 2023-08-11 01:57 | HP ---
HISTORY AND PHYSICAL HISTORY OF PRESENT ILLNESS: This is a 77-year-old white male who came to the hospital for black tarry stool, abdominal pain, chief complaint of weakness, severely anemic with a hemoglobin of 7.5. Positive Hemoccult stool. He has been short of breath. Abnormal PET scan and lung CAT scan. Any further workup or biopsy of this may be why he is in the hospital here. This was requested. Consult Pulmonary for possible biopsy or bronchoscopy. HOME MEDICINES: , [place], glucotrol, Lipitor, Farxiga, DuoNeb, Cozaar, omeprazole. He was found to have elevated lipase for pancreatitis. We are going to hold off on Farxiga because of this. ALLERGIES: Negative. REVIEW OF SYSTEMS: A 14-point review of systems as mentioned above. PAST MEDICAL HISTORY: Cancer, diabetes mellitus, myocardial infarction, osteoarthritis, renal disease, vascular disorder, [place] x2, history of bladder cancer , PAD, lower extremity numbness. PAST SURGICAL HISTORY: Heart catheterization with stent, orthopedic surgery, right femoral bypass, right knee surgery, left foot toe amputation, cervical surgery. SOCIAL HISTORY: Current everyday smoker as well as marijuana. FAMILY HISTORY: Mother with cancer. PHYSICAL EXAMINATION: GENERAL: He is thin, cachectic, looks older than the stated age. INTEGUMENT: Dry skin, turgor. Dry mucous membranes. LUNGS: Scattered rhonchi and wheeze. CARDIOVASCULAR: S1, S2. HEMATOLOGY: Negative for Hom[place]. PSYCH: Fair mood and affect. NEUROLOGIC: Alert and oriented x3. VITAL SIGNS: Temp 97.4, pulse 90s, respiratory rate 16 to 18, blood pressure is 98/51 up to 150/77, and O2 sats 100. LABS: . BUN is 48, creatinine 2.3, platelets 225, potassium 3.2, sodium 143. EKG, sinus rhythm, ST depression, lipase is over 2000. Acute on chronic pancreatitis. Start Farxiga. Hemoccult-positive stool. GI bleed with severe anemia, hemoglobin 7.7. Transfuse 1 unit for hemoglobin under 7. , will get Hematology involved with low platelets also, n.p.o., clear liquids, maybe if his pancreatitis enzymes improving in the morning, anemia. Get GI consult, surgery consult for possible endoscopy and lung mass with resultant cancer. We will get biopsies and consult this. Prognosis guarded. MMODL / IJN: [id number] /
[2023-08-11 02:33] LABS: Anisocytosis Slight; HCT 22.9 % (39.0-53.0); HGB 7.2 gm/dL (13.0-17.5); Hypochromasia Marked; MCH 26.9 pg (25.0-35.0); MCHC 31.4 g/dL (31.0-37.0); MCV 85.8 fL (80.0-100.0); Platelet Count 112 k/uL (150-450); RBC 2.67 m/uL (4.30-5.90); RDW 18.1 % (11.5-15.5); WBC 3.7 k/uL (3.8-10.6)
[2023-08-11 02:55] LABS: Lipase 2323 U/L (23-300)
[2023-08-11 04:08] LABS: Lymphocytes # (M) 1.15 k/uL (1.0-4.8); Monocytes # (M) 0.26 k/uL (0-1.0); Neutrophils # (M) 2.29 k/uL (1.3-7.7); Neutrophils % (M) 62 %; Nucleated Red Blood Cells 0 /100 WBC (0-0); Total Cells Counted 100
[2023-08-11 04:10] LABS: Poikilocytosis (M) Present
--- NOTE | 2023-08-11 07:20 | P.CNPUL ---
History of Present Illness Consult date: 08/11/23 Requesting physician: James Wilson Reason for consult: lung mass Chief complaint: Abdominal pain History of present illness: I am seeing this patient in new consultation today 08/11/2023 as the patient has a concerning right upper lobe cavitating pulmonary nodule. Patient was actually admitted yesterday for acute pancreatitis. This is a 77-year-old white male with past medical history significant for hypertension, hyperlipidemia, diabetes mellitus, chronic kidney disease, GERD, and long-term tobacco smoker. He states that he recently quit smoking cigarettes approximately 3 weeks ago. Prior to this, he smoked 0.5 packs/day for most of his life. He is unsure if he has ever been diagnosed with COPD. He uses nebulized breathing treatments at home. Denies any previous serious lung infections. Denies any shortness of breath, fevers, cough, hemoptysis, chest pain. Patient had a low-dose lung CT back on 04/10/2023 which identified a new 2.4 cm cavitary lesion in the posterior right upper lobe concerning for possible neoplasm. A follow-up PET scan done 06/04/2023 showed abnormal uptake within the cavitary lesion of the right upper lobe. SUV 3.69. There was asymmetric uptake within the right anterior vocal cord. There was diffuse increased uptake through the esophagus concerning for possible esophagitis, however, direct visualization was recommended to exclude esophageal neoplasm. He has history of GERD. He does admit some pain with swallowing. Denies dysphagia or choking. He takes omeprazole and Tums as needed outpatient. 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 His primary care provider is Dr. James Wilson. Patient recently had a ER visit back on August 02, however, left AMA. Patient states that he left because he did not want to be in the hospital, and rather be at home. He tells me that this was a "stupid decision". Patient had a follow-up office visit with Dr. Wilson yesterday, and was directed back to the emergency room. Patient is currently lying in bed, on room air, in no acute distress. Endorses abdominal pain for approximately 1 week. It is localized to the epigastric area. Nonradiating. Currently rated 4 out of 10. Denies any nausea and vomiting. Denies any hematemesis. Has had reduced appetite. He has lost approximately 20 pounds over the last 2 weeks. States that he has had dark formed stools. Fecal occult was positive. His lipase level was 3619. Denies any previous history of pancreatitis. Denies any history of alcoholism. States that he does not drink alcohol. Denies history of gallstones. CBC on arrival: WBC count of 4.1, hemoglobin 7.5, hematocrit 24.1, platelets 101. BMP on arrival: Sodium 140, potassium 3.2, chloride 117, serum bicarb 10, BUN 48, creatinine 2.3, glucose 225. LFTs are not elevated. Total bilirubin not elevated. Troponin 0.03. Normal saline is currently infusing at 100 MLS per hour. Vital signs are stable. Review of Systems REVIEW OF SYSTEMS: CONSTITUTIONAL: Admits recent weight loss of approximately 20 pounds over the last 2 weeks. Admits generalized malaise and fatigue. Denies fevers. EYES: Denies change in vision. EARS, NOSE, MOUTH, THROAT: Denies headaches, denies sore throat. CARDIOVASCULAR: Denies chest pain, palpitations or syncopal episodes. RESPIRATORY: Denies shortness of breath, cough, congestion or hemoptysis. GASTROINTESTINAL: See HPI GENITOURINARY: Denies hematuria, denies infections. MUSKULOSKELETAL: Denies pain, denies swelling. INTEGUMENTARY: Denies rash, denies eczema. NEUROLOGICAL: Denies recent memory loss, no recent seizure activity. PSYCHIATRIC: Denies anxiety, denies depression. HEMATOLOGIC/LYMPHATIC: Admits anemia, denies enlarged lymph node Past Medical History Past Medical History: Cancer, Diabetes Mellitus, Myocardial Infarction ([place]), Osteoarthritis (OA), Renal Disease, Vascular Disorder Additional Past Medical History / Comment(s): [place] x2. Hx bladder [place] 2015. Neuropathy feet. PAD, pain & numbness in BLE. Last Myocardial Infarction Date:: 2002 History of Any Multi-Drug Resistant Organisms: None Reported Past Surgical History: Heart Catheterization With Stent, Orthopedic Surgery Additional Past Surgical History / Comment(s): Right femoral bypass, Rt knee surgery, Lt foot toe amputations. Cervical surgery, has "cagein neck." Bladder tumor exc. lt ptca 09/20/19 Past Anesthesia/Blood Transfusion Reactions: No Reported Reaction Date of Last Stent Placement:: 09/20/19 Past Psychological History: No Psychological Hx Reported Smoking Status: Current every day smoker Past Alcohol Use History: Rare Additional Past Alcohol Use History / Comment(s): Smoking since 1959, recently quit - Past Family History Mother Family Medical History: Cancer Medications and Allergies Home Medications Medication Instructions Recorded Confirmed Type HYDROcodone/APAP 7.5-325MG [[place] 1 tab PO TID 09/19/19 08/10/23 History 7.5-325] Sildenafil Citrate [Viagra] 100 mg PO DAILY PRN 11/05/21 08/10/23 History glipiZIDE [Glucotrol] 10 mg PO BID 11/05/21 08/10/23 History Atorvastatin [Lipitor] 40 mg PO DAILY 08/02/23 08/10/23 History Dapagliflozin Propanediol [Farxiga] 5 mg PO DAILY 08/02/23 08/10/23 History Ipratropium-Albuterol Nebulize 3 ml INHALATION RT-QID PRN 08/02/23 08/10/23 History [Duoneb 0.5 mg-3 mg/3 ml Soln] Losartan [Cozaar] 50 mg PO DAILY 08/02/23 08/10/23 History Omeprazole 40 mg PO BID 08/02/23 08/10/23 History Allergies Allergy/AdvReac Type Severity Reaction Status Date / Time No Known Allergies Allergy Verified 08/10/23 16:05 Physical Exam Vitals: Vital Signs Temp Pulse Pulse Resp BP BP Pulse Ox 08/10/23 23:01 96.2 F L 76 18 131/61 99 08/10/23 21:30 64 18 168/72 100 08/10/23 19:27 98.5 F 68 16 148/75 100 08/10/23 18:26 82 18 153/77 100 08/10/23 17:03 81 18 135/82 100 08/10/23 16:00 97.4 F L 92 18 98/51 100 Intake and Output 08/10/23 08/10/23 08/11/23 14:59 22:59 06:59 Other: Weight 68.039 kg GENERAL EXAM: Alert, 77-year-old white male, frail, comfortable in no apparent distress. HEAD: Normocephalic and atraumatic EYES: Normal reaction of pupils, equal size. Nonicteric sclera NOSE: Clear with pink turbinates. THROAT: No erythema or exudates. Dry mucous membranes NECK: No masses, no JVD. CHEST: No chest wall deformity. LUNGS: Equal air entry with no crackles, wheeze, rhonchi or dullness. On room air. No conversational dyspnea or accessory muscle use.. CVS: S1 and S2 normal with no audible murmur, regular rhythm. No extra heart sounds ABDOMEN: No hepatosplenomegaly, active bowel sounds, no guarding or rigidity. No abnormal periumbilical or flank bruising SPINE: No scoliosis or deformity SKIN: No rashes CENTRAL NERVOUS SYSTEM: No focal deficits, tone is normal in all 4 extremities. EXTREMITIES: There is no peripheral edema, clubbing, or cyanosis. Peripheral pulses are intact. 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 Results - Laboratory Findings CBC and BMP: 08/11/23 02:03 08/10/23 16:12 PT/INR, D-dimer PT 10.7 sec (10.0-12.5) 08/10/23 16:12 INR 1.0 (<1.2) 08/10/23 16:12 Abnormal lab findings: Abnormal Labs 08/10/23 08/10/23 08/10/23 16:12 16:12 20:09 RBC 2.88 L 2.78 L Hgb 7.7 L 7.5 L Hct 24.6 L 24.1 L RDW 18.1 H 18.1 H Plt Count 125 L 101 L Lymphocytes # (Manual) 0.66 L Monocytes # (Manual) 1.03 H Nucleated RBCs 2 H 3 H Potassium 3.2 L Chloride 117 H Carbon Dioxide 10 L BUN 48 H Creatinine 2.30 H Glucose 225 H Lipase 3619 H - Diagnostic Findings Chest x-ray: image reviewed Assessment and Plan Assessment: Posterior right upper lobe cavitating lung nodule, measuring 2.4 cm on low-dose CT taken back on 04/10/2023. Follow-up PET scan done 06/04/2023 showed abnormal uptake within the cavitary lesion of the right upper lobe concerning for possible neoplasm. Alternative differentials include atypical mycobacterial infection or fungal infection. There is asymmetric uptake within the right ante rior vocal cord. There was diffuse increased uptake through the esophagus concerning for possible esophagitis, however, direct visualization was recommended to exclude esophageal neoplasm. There is also a focal area of abnormal uptake superior to the right femoral neck within the soft tissue of unc ertain etiology. Lifelong tobacco dependence, with [id number] history, recently quit 3 weeks ago. Acute pancreatitis, lipase 3619. LFTs not elevated. Total bilirubin 1. Denies history of alcoholism. Non-anion gap metabolic acidosis, likely secondary to above Recent unintentional weight loss, approximately 20 pounds over the last 2 weeks Hypertension Hyperlipidemia Coronary artery disease, with history of previous PCI/stent Diabetes mellitus History of diabetic foot ulcers and osteomyelitis History of peripheral arterial disease Chronic kidney disease stage IV Anemia of chronic disease GERD, with possible esophagitis History of bladder cancer Plan: Patient's medications, labs, imaging reviewed. Findings were discussed with the patient at length. Would recommend diagnostic bronchoscopy with biopsies, and this will be discussed with Dr. Mooney later this morning. PET scan findings are concerning for possible malignancy. Alternative differential includes atypical mycobacterial infection or fungal infection. On room air. Not on any anticoagulation. Pancreatitis is being managed by admitting. Patient is currently n.p.o. except for ice chips. Normal saline infusing at 100 MLS per hour. Pain is reportedly well-controlled with current analgesics. CT of the abdomen without contrast is ordered We will continue to follow, and further recommendations are forthcoming. I have personally seen and examined the patient, performed the documentation and the assessment and plan as written. Number of minutes spent on the visit: 20 Time with Patient: Greater than 30
[2023-08-11 07:22] LABS: Glucose,Whole Blood 178 mg/dL (70-110)
--- NOTE | 2023-08-11 07:56 | CT ---
EXAMINATION TYPE: CT abdomen wo con CT DLP: 265 mGycm, Automated exposure control for dose reduction was used. DATE OF EXAM: 08/11/2023 7:27 AM COMPARISON: 06/04/2023 CLINICAL INDICATION:Male, 77 years old with history of pancreatitis; TECHNIQUE: Axial CT abdomen wo con;Sagittal and coronal reformats were created on a separate worksta tion. Contrast used: mL of , (none if empty) Oral contrast used: (none if empty) FINDINGS: LOWER CHEST: Unremarkable ABDOMEN LIVER: Unremarkable GALLBLADDER AND BILE DUCTS: Unremarkable. PANCREAS: No evidence for ductal dilation or adjacent fat stranding suggest pancreatitis. SPLEEN: Unremarkable. ADRENAL GLANDS: Unremarkable. KIDNEYS AND URETERS: No evidence of hydronephrosis or renal calculus. The ureters are unremarkable. Calcifications in the renal sinus is thought to be secondary to vascular calcification. Bilateral chacorta al probable cysts. STOMACH AND BOWEL: No evidence of bowel obstruction. The appendix is normal. PERITONEUM/RETROPERITONEUM: No evidence of pneumoperitoneum or free fluid. VASCULATURE: No evidence of aortic aneurysm. Left and external iliac stent graft. Dilation of the inf rarenal abdominal aorta measuring up to 2.4 cm. MUSCULOSKELETAL: No acute osseous abnormalities. Mild disc degeneration changes are present throughou t the thoracolumbar spine. LYMPH NODES: No gross evidence for lymphadenopathy. SOFT TISSUE/ABDOMINAL WALL: Unremarkable IMPRESSION: 1. No definitive evidence for pancreatitis. 2. Gallbladder wall thickening with dilation of the extrahepatic biliary system similar prior. Corre late for right upper quadrant pain possible in setting of chronic cholecystitis.. Not significantly c hanged from 06/04/2023
[2023-08-11] MEDS: LOSARTAN 50 MG TAB PO SCH (08:44)
[2023-08-11] MEDS ORDERED: DAPAGLIFLOZIN PROPANEDIOL 5 MG TABLET PO SCH (09:00)
--- NOTE | 2023-08-11 10:16 | P.CRDCN ---
History of Present Illness Consult date: 08/11/23 Reason for Consult (text): ABNORMAL EKG History of present illness: History of present illness: This is 77-year-old male patient of Dr. Rosales with H PAD s/p angioplasty of the left leg done out of town, history of diabetes, hypertension, dyslipidemia, chronic kidney disease, gastroesophageal reflux disease, tobacco use and dependence. We have been asked to evaluate the patient for abnormal EKG. Patient states that he presented to the hospital because he does not feel well. He has abdominal pain. No nausea or vomiting. He states he also had some chest pain yesterday only. Chest pain is not worse with activity and not worse with d eep breathing. He states he has a little shortness of breath. No dizziness no palpitations no syncopal episodes. He states he has some lower extremity edema. No cough no fever. No blood in his stool or urine. He denies history of CVA or seizures. Patient does admit to s claudication. Patient is a smoker of half a pack per day and quit 3 weeks ago. He denies any alcohol use and no caffeine use. He also states he has had some weight loss but has a good appetite. Patient had a PET scan done on 06/04/2023 which revealed abnormal uptake within the cavitary lesion right upper lobe. Diffuse increased uptake through the esophagus correlate for esophagitis. Asymmetric focal uptake within the right anterior vocal cord. Focal area of abnormal uptake superior to the right femoral neck within the soft tissues of unclear etiology. Patient had presented to the emergency center on August 02 for generalized weakness with diagnosis of metabolic acidosis, hypocalcemia and acute kidney injury but patient signed out AGAINST MEDICAL ADVICE. EKG sinus rhythm with nonspecific ST changes Chest x-ray: No acute finding. COPD. CT of the abdomen without contrast revealed no definite evidence of pancreatitis. Gallbladder wall thickening with dilation of the extrahepatic biliary system similar to prior. Correlate for right upper quadrant pain possible in setting of chronic cholecystitis. No significant change from 06/04/2023. WBC 3.7, hemoglobin 7.2, platelet count 112. Sodium 140, potassium 3.2, chloride 117, CO2 10, BUN 48 creatinine 2.3. Blood sugar 225. Lactic acid 1.2. Magnesium 2.2. Liver function test are normal. Troponin negative x 1. Lipase 3619 and repeat 2323. TSH normal at 1.49. Stool for occult blood positive. Home cardiac medications: Atorvastatin 40 mg daily, losartan 50 mg daily, patient is also on Farxiga 5 mg daily. Review Of Systems: At the time of my exam: CONSTITUTIONAL: Denies fever or chills. HEENT: Denies blurred vision, vision changes, or eye pain. Denies hemoptysis CARDIOVASCULAR: Denies chest pain. Denies orthopnea. Denies PND. Denies p alpitations RESPIRATORY: Denies shortness of breath. GASTROINTESTINAL: Reports abdominal pain. Denies nausea or vomiting. Reports weight loss. HEMATOLOGIC: Denies bleeding disorders. GENITOURINARY: Denies any blood in urine. SKIN: Denies pruitis. Denies rash. Physical examination: Gen: This is a thin 77-year-old male, in no acute distress VS: reviewed HEENT: Head is atraumatic, normocephalic. Pupils equal, round. Sclerae is anicteric. NECK: Supple. No JVD. Right carotid bruit LUNGS: Decreased air movement. No intercostal retractions. HEART: Regular rate and rhythm. Systolic murmur. ABDOMEN: Soft No tenderness. EXTREMITIES: No pedal edema. 1+ dorsalis pedis/posterior tibial bilateral, no calf tenderness. NEUROLOGICAL: Patient is awake, alert and oriented x3. Assessment: Abnormal EKG: sinus rhythm with nonspecific ST changes of no clear significance Right upper lobe cavitating lung nodule Pancytopenia Hypokalemia Acute kidney injury Pancreatitis Possible GI bleed with positive stool occult blood, scheduled for EGD 08/13 PAD with previous angioplasty of the left leg Diabetes Hypertension Dyslipidemia Tobacco use and dependence Weight loss, unintentional Plan: Continue patient's home cardiac medications Obtain 2-D echocardiogram and Doppler study to assess cardiac structure and function Further recommendations to follow based upon clinical course Thank you kindly for this consultation. Nurse practitioner note has been reviewed, I agree with documented findings and plan of care. Patient was seen and examined. Past Medical History Past Medical History: Cancer, Diabetes Mellitus, Myocardial Infarction ([place]), Osteoarthritis (OA), Renal Disease, Vascular Disorder Additional Past Medical History / Comment(s): [place] x2. Hx bladder [place] 2015. Neuropathy feet. PAD, pain & numbness in BLE. Last Myocardial Infarction Date:: 2002 History of Any Multi-Drug Resistant Organisms: None Reported Past Surgical History: Heart Catheterization With Stent, Orthopedic Surgery Additional Past Surgical History / Comment(s): Right femoral bypass, Rt knee surgery, Lt foot toe amputations. Cervical surgery, has "cagein neck." Bladder tumor exc. lt ptca 09/20/19 Past Anesthesia/Blood Transfusion Reactions: No Reported Reaction Date of Last Stent Placement:: 09/20/19 Past Psychological History: No Psychological Hx Reported Smoking Status: Current every day smoker Past Alcohol Use History: Rare Additional Past Alcohol Use History / Comment(s): Smoking since 1959, recently quit - Past Family History Mother Family Medical History: Cancer Medications and Allergies Home Medications Medication Instructions Recorded Confirmed Type HYDROcodone/APAP 7.5-325MG [[place] 1 tab PO TID 09/19/19 08/10/23 History 7.5-325] Sildenafil Citrate [Viagra] 100 mg PO DAILY PRN 11/05/21 08/10/23 History glipiZIDE [Glucotrol] 10 mg PO BID 11/05/21 08/10/23 History Atorvastatin [Lipitor] 40 mg PO DAILY 08/02/23 08/10/23 History Dapagliflozin Propanediol [Farxiga] 5 mg PO DAILY 08/02/23 08/10/23 History Ipratropium-Albuterol Nebulize 3 ml INHALATION RT-QID PRN 08/02/23 08/10/23 History [Duoneb 0.5 mg-3 mg/3 ml Soln] Losartan [Cozaar] 50 mg PO DAILY 08/02/23 08/10/23 History Omeprazole 40 mg PO BID 08/02/23 08/10/23 History Allergies Allergy/AdvReac Type Severity Reaction Status Date / Time No Known Allergies Allergy Verified 08/10/23 16:05 Physical Exam Vitals: Vital Signs Temp Pulse Pulse Resp BP BP Pulse Ox 08/11/23 08:00 97.5 F L 71 18 173/67 100 08/11/23 01:40 97.5 F L 72 15 137/55 100 08/10/23 23:01 96.2 F L 76 18 131/61 99 08/10/23 23:00 15 08/10/23 21:30 64 18 168/72 100 08/10/23 19:27 98.5 F 68 16 148/75 100 08/10/23 18:26 82 18 153/77 100 08/10/23 17:03 81 18 135/82 100 08/10/23 16:00 97.4 F L 92 18 98/51 100 Intake and Output 08/10/23 08/11/23 08/11/23 22:59 06:59 14:59 Intake Total 550 Balance 550 Intake: Intake, IV Titration 500 Amount Sodium Chloride 0.9% 1, 500 000 ml @ 100 mls/hr IV . Q10H [facility] Rx#:[id number] Oral 50 Other: Voiding Method Toilet Weight 68.039 kg Results 08/11/23 02:03 08/10/23 16:12 Cardiac Enzymes 08/10/23 08/10/23 Range/Units 16:12 16:12 AST 23 (17-59) U/L Troponin I 0.030 (0.000-0.034) ng/mL Coagulation 08/10/23 Range/Units 16:12 PT 10.7 (10.0-12.5) sec APTT 25.0 (22.0-30.0) sec CBC 08/10/23 08/10/23 08/11/23 Range/Units 16:12 20:09 02:03 WBC 4.0 4.1 3.7 L (3.8-10.6) k/uL RBC 2.88 L 2.78 L 2.67 L (4.30-5.90) m/uL Hgb 7.7 L 7.5 L 7.2 L (13.0-17.5) gm/dL Hct 24.6 L 24.1 L 22.9 L (39.0-53.0) % Plt Count 125 L 101 L 112 L (150-450) k/uL Comprehensive Metabolic Panel 08/10/23 Range/Units 16:12 Sodium 140 (137-145) mmol/L Potassium 3.2 L (3.5-5.1) mmol/L Chloride 117 H (98-107) mmol/L Carbon Dioxide 10 L (22-30) mmol/L BUN 48 H (9-20) mg/dL Creatinine 2.30 H (0.66-1.25) mg/dL Glucose 225 H (74-99) mg/dL Calcium 9.4 (8.4-10.2) mg/dL AST 23 (17-59) U/L ALT 19 (4-49) U/L Alkaline Phosphatase 96 (38-126) U/L Total Protein 8.1 (6.3-8.2) g/dL Albumin 4.2 (3.5-5.0) g/dL Current Medications Generic Name Dose Route Start Last Admin Trade Name Freq PRN Reason Stop Dose Admin Hydrocodone Bitart/Acetaminophen 1 each 08/11/23 00:17 Hydrocodone/Apap 7.5-325mg 1 Each Tab PO TID PRN Pain Albuterol/Ipratropium 3 ml 08/10/23 23:08 Ipratropium-Albuterol 3 Ml Neb INHALATION RT-QID PRN Shortness Of Breath Atorvastatin Calcium 40 mg 08/10/23 23:15 08/10/23 23:51 Atorvastatin 40 Mg Tab PO Not Given DAILY [facility] Glipizide 10 mg 08/10/23 23:15 08/10/23 23:50 Glipizide 10 Mg Tab PO Not Given BID [facility] Hydromorphone HCl 0.5 mg 08/10/23 23:12 08/10/23 23:48 Hydromorphone 0.5 Mg/0.5 Ml Syringe IVP 0.5 mg Q4HR PRN Administration Pain Sodium Chloride 1,000 mls @ 100 mls/hr 08/11/23 00:15 08/11/23 00:35 Saline 0.9% IV 100 mls/hr .Q10H [facility] Administration Losartan Potassium 50 mg 08/11/23 09:00 Losartan 50 Mg Tab PO DAILY [facility] Pantoprazole Sodium 40 mg 08/10/23 23:15 08/11/23 00:36 Pantoprazole 40 Mg Tablet PO Not Given AC-BID [facility] Intake and Output 08/10/23 08/11/23 08/11/23 22:59 06:59 14:59 Intake Total 550 Balance 550 Intake: Intake, IV Titration 500 Amount Sodium Chloride 0.9% 1, 500 000 ml @ 100 mls/hr IV . Q10H [facility] Rx#:[id number] Oral 50 Other: Voiding Method Toilet Weight 68.039 kg 08/11/23 02:03 08/10/23 16:12
--- NOTE | 2023-08-11 11:01 | US ---
EXAMINATION TYPE: US gallbladder DATE OF EXAM: 08/11/2023 COMPARISON: CT CLINICAL INDICATION: Male, 77 years old with history of abdominal pain, pancreatitis; Pain. Pancreati tis. Gallbladder wall thickening seen on CT. TECHNIQUE: Multiple sonographic images of the right upper quadrant are obtained. FINDINGS: EXAM MEASUREMENTS: Liver Length: 12.6 cm Gallbladder Wall: Gallbladder was obscured CBD: Obscured Right Kidney: 10.2 x 5.0 x 5.5 cm CARDIOLOGY TECH NOTES: Exam is very limited due to gas. Pancreas: Limited visibility of tail. Liver: Appears coarse in echotexture. Gallbladder: Obscured by great amount of bowel gas. Evidence for sonographic Porras's sign: No CBD: Obscured Right Kidney: Renal pelvis appears dilated. -Complex area seen lower pole: 1.9 x 1.6 x 1.4 cm. *Hyperechoic focus seen at mid: 0.5 x 0.5 x 0.4 cm. -Anechoic area seen medially: 1.6 x 1.7 x 1.6 cm. IMPRESSION: Limited exam due to gas. 1. Evaluation of the gallbladder is obscured by bowel gas. 2. Coarse echotexture to the liver suggestive of hepatocellular disease. 3. Multiple right renal lesions likely representing complex and simple renal cysts.
[2023-08-11 11:16] LABS: ALT 15 U/L (10-49); AST 24 U/L (14-35); Albumin 3.8 g/dL (3.8-4.9); Albumin/Globulin Ratio 1.12 Ratio (1.60-3.17); Alkaline Phosphatase 83 U/L (41-126); Blood Urea Nitrogen 43.2 mg/dL (9.0-27.0); Calcium 8.7 mg/dL (8.7-10.3); Carbon Dioxide 10.9 mmol/L (21.6-31.8); Chloride 114 mmol/L (96-109); Globulin 3.4 g/dL (1.6-3.3); Glucose 138 mg/dL (70-110); Potassium 3.6 mmol/L (3.5-5.5); Sodium 143 mmol/L (135-145); Total Bilirubin 0.5 mg/dL (0.3-1.2); Total Protein 7.2 g/dL (6.2-8.2)
--- NOTE | 2023-08-11 11:45 | P.CNPUL ---
History of Present Illness Consult date: 08/11/23 Reason for consult: lung mass History of present illness: 77-year-old male patient with known history of COPD and chronic smoker who quit smoking approximately a month ago. He is known to have extensive number of comorbid conditions including diabetes mellitus type 2, chronic kidney disease, hypertension, hyperlipidemia and coronary artery disease in addition to peripheral vascular disease. The patient is nonalcoholic. He presented to the hospital because of generalized weakness, abdominal pain, dysphagia and a was also having questionable black tarry stools. The patient was recently in the emergency department on 08/02/2023. He left AMA. He went back to see his primary care physician and he was directed to the emergency department. In the ED, the patient was diagnosed having acute pancreatitis. His lipase level was 3619. Denies having any previous history of alcoholism, gallbladder disease and denies having any previous episodes of pancreatitis. Note that his blood work showed normal LFTs, bilirubin was 0.5, alkaline phosphatase of 83 and the AST and ALT were both within normal limits. He had occult positive stool. Hemoglobin was at 7.2. White cell count was at 3.7 and a platelet count of 112 and the patient is not taking Any form of anticoagulation at this point in time. As part of further investigation, a CAT scan of the abdomen was done that showed no evidence of any acute pancreatitis. Gallbladder wall was thickened with some dilatation of the extra hepatic biliary system similar to prior evaluation. Overall CAT scan findings were unchanged compared to 06/04/2023. The patient was found to have no evidence of any aortic aneurysm. There was a left iliac external iliac stent graft and some dilatation of the infrarenal abdominal aortic structure measuring up to 2.4 cm in size. He had extensive vascular calcification. No evidence of any hydronephrosis. On a separate note, the patient is a smoker and he was undergoing serial low-dose CAT scan of the chest for lung cancer screening. The most recent low-dose CAT scan of the chest that was done on 04/10/2023 showed a cavitating right upper lobe lesion measuring around 2.4 cm in size. The patient also had another 4 mm right upper lobe pulm onary nodule that was unchanged and a 6 mm subpleural pulmonary nodule in the right upper lobe that was also unchanged. Based on this finding, there was a consideration of lung cancer although other fungal elements cannot be completely ruled out. Based on that, the patient was given a PET/CT on 06/09/2023 and the PET/CT showed some mild abnormal uptake in the right upper lobe cavitating lesion with an SUV of 3.69. There was also increased signal throughout the esophagus consistent with esophagitis. There was also some focal uptake lateral to the femoral neck this was probably outside the femoral neck osseous structure with an SUV of 4.25. Otherwise no other abnormal uptake involving the osseous structures. Based on this cavitating right upper lobe lesion, pulmonary consultation was requested. Note that the patient has no history of aspiration, no history of any tuberculosis. No hemoptysis. No recent pneumonias. He has no respiratory distress at this point in time. He is a long-term smoker and he quit smoking proximately a month ago. He does have a remote history of bladder cancer that was diagnosed in 2014. The patient underwent resection of a bladder tumor Review of Systems CONSTITUTIONAL: Admits recent weight loss of approximately 20 pounds over the last 2 weeks. Admits generalized malaise and fatigue. Denies fevers. EYES: Denies change in vision. EARS, NOSE, MOUTH, THROAT: Denies headaches, denies sore throat. CARDIOVASCULAR: Denies chest pain, palpitations or syncopal episodes. RESPIRATORY: Denies shortness of breath, cough, congestion or hemoptysis. GASTROINTESTINAL: See HPI GENITOURINARY: Denies hematuria, denies infections. MUSKULOSKELETAL: Denies pain, denies swelling. INTEGUMENTARY: Denies rash, denies eczema. NEUROLOGICAL: Denies recent memory loss, no recent seizure activity. PSYCHIATRIC: Denies anxiety, denies depression. HEMATOLOGIC/LYMPHATIC: Admits anemia, denies enlarged lymph node Past Medical History Past Medical History: Coronary Artery Disease (CAD), Cancer (Bladder cancer), COPD, Diabetes Mellitus, Hypertension, Myocardial Infarction ([place]), Osteoarthritis (OA), Renal Disease (Chronic kidney disease stage III-IV), Vascular Disorder Additional Past Medical History / Comment(s): [place] x2. Hx bladder [place] 2014. Neuropathy feet. PAD, pain & numbness in BLE. Last Myocardial Infarction Date:: 2002 History of Any Multi-Drug Resistant Organisms: None Reported Past Surgical History: Heart Catheterization With Stent, Orthopedic Surgery Additional Past Surgical History / Comment(s): Right femoral bypass, Rt knee surgery, Lt foot toe amputations. Cervical surgery, has "cagein neck." Bladder tumor exc. lt ptca 09/20/19 Past Anesthesia/Blood Transfusion Reactions: No Reported Reaction Date of Last Stent Placement:: 09/20/19 Past Psychological History: No Psychological Hx Reported Smoking Status: Current every day smoker Past Alcohol Use History: Rare Additional Past Alcohol Use History / Comment(s): Smoking since 1959, recently quit - Past Family History Mother Family Medical History: Cancer Medications and Allergies Home Medications Medication Instructions Recorded Confirmed Type HYDROcodone/APAP 7.5-325MG [[place] 1 tab PO TID 09/19/19 08/10/23 History 7.5-325] Sildenafil Citrate [Viagra] 100 mg PO DAILY PRN 11/05/21 08/10/23 History glipiZIDE [Glucotrol] 10 mg PO BID 11/05/21 08/10/23 History Atorvastatin [Lipitor] 40 mg PO DAILY 08/02/23 08/10/23 History Dapagliflozin Propanediol [Farxiga] 5 mg PO DAILY 08/02/23 08/10/23 History Ipratropium-Albuterol Nebulize 3 ml INHALATION RT-QID PRN 08/02/23 08/10/23 History [Duoneb 0.5 mg-3 mg/3 ml Soln] Losartan [Cozaar] 50 mg PO DAILY 08/02/23 08/10/23 History Omeprazole 40 mg PO BID 08/02/23 08/10/23 History Allergies Allergy/AdvReac Type Severity Reaction Status Date / Time No Known Allergies Allergy Verified 08/10/23 16:05 Physical Exam Vitals: Vital Signs Temp Pulse Pulse Resp BP BP Pulse Ox 08/11/23 08:53 58 L 17 08/11/23 08:00 97.5 F L 71 18 173/67 100 08/11/23 01:40 97.5 F L 72 15 137/55 100 08/10/23 23:01 96.2 F L 76 18 131/61 99 08/10/23 23:00 15 08/10/23 21:30 64 18 168/72 100 08/10/23 19:27 98.5 F 68 16 148/75 100 08/10/23 18:26 82 18 153/77 100 08/10/23 17:03 81 18 135/82 100 08/10/23 16:00 97.4 F L 92 18 98/51 100 Intake and Output 08/10/23 08/11/23 08/11/23 22:59 06:59 14:59 Intake Total 550 Balance 550 Intake: Intake, IV Titration 500 Amount Sodium Chloride 0.9% 1, 500 000 ml @ 100 mls/hr IV . Q10H HUGH Rx#:[id number] Oral 50 Other: Voiding Method Toilet Weight 68.039 kg GENERAL EXAM: Alert, 77-year-old white male, frail, comfortable in no apparent distress. The patient is calm comfortable on room air oxygen. HEAD: Normocephalic and atraumatic EYES: Normal reaction of pupils, equal size. Nonicteric sclera NOSE: Clear with pink turbinates. THROAT: No erythema or exudates. Dry mucous membranes NECK: No masses, no JVD. CHEST: No chest wall deformity. LUNGS: Equal air entry with no crackles, wheeze, rhonchi or dullness. On room air. No conversational dyspnea or accessory muscle use.. CVS: S1 and S2 normal with no audible murmur, regular rhythm. No extra heart sounds ABDOMEN: No hepatosplenomegaly, active bowel sounds, no guarding or rigidity. No abnormal periumbilical or flank bruising SPINE: No scoliosis or deformity SKIN: No rashes CENTRAL NERVOUS SYSTEM: No focal deficits, tone is normal in all 4 extremities. EXTREMITIES: There is no peripheral edema, clubbing, or cyanosis. Peripheral pulses are intact. 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 Results - Laboratory Findings CBC and BMP: 08/11/23 02:03 08/11/23 06:16 PT/INR, D-dimer PT 10.7 sec (10.0-12.5) 08/10/23 16:12 INR 1.0 (<1.2) 08/10/23 16:12 Abnormal lab findings: Abnormal Labs 08/10/23 08/10/23 08/10/23 16:12 16:12 20:09 WBC RBC 2.88 L 2.78 L Hgb 7.7 L 7.5 L Hct 24.6 L 24.1 L RDW 18.1 H 18.1 H Plt Count 125 L 101 L Lymphocytes # (Manual) 0.66 L Monocytes # (Manual) 1.03 H Nucleated RBCs 2 H 3 H Potassium 3.2 L Chloride 117 H Carbon Dioxide 10 L BUN 48 H Creatinine 2.30 H Glucose 225 H POC Glucose (mg/dL) Hemoglobin A1c Lipase 3619 H 08/11/23 08/11/23 08/11/23 02:03 02:03 02:03 WBC 3.7 L RBC 2.67 L Hgb 7.2 L Hct 22.9 L RDW 18.1 H Plt Count 112 L Lymphocytes # (Manual) Monocytes # (Manual) Nucleated RBCs Potassium Chloride Carbon Dioxide BUN Creatinine Glucose POC Glucose (mg/dL) Hemoglobin A1c 6.6 H Lipase 2323 H 08/11/23 07:21 WBC RBC Hgb Hct RDW Plt Count Lymphocytes # (Manual) Monocytes # (Manual) Nucleated RBCs Potassium Chloride Carbon Dioxide BUN Creatinine Glucose POC Glucose (mg/dL) 178 H Hemoglobin A1c Lipase - Diagnostic Findings Chest x-ray: image reviewed CT scan - chest: image reviewed Assessment and Plan Plan: Right upper lobe cavitating lesion measuring around 2.4 cm in size identified initially on low-dose CAT scan of the chest that was done on 04/10/2023 and subsequent PET/CT that was done on 06/04/2023 showed some mild metabolic activity in the right upper lobe cavitating lesion with an SUV of 3.6. 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 An infected bolus cannot be completely ruled out. Fungus ball cannot be completely ruled out. COPD with upper lobe predominance as the patient has long-term smoking history Acute pancreatitis. CAT scan of the abdomen showed no evidence of any pancreatic inflammation. There is some gallbladder wall thickening with dilatation of the extrahepatic biliary system similar to the prior evidence evaluation that was done on 06/04/2023. Otherwise, the gallbladder was unremarkable. LFTs abnormal. The patient does not have any significant abd ominal pain at this point in time. Coronary artery disease with previous PCI/stenting Diabetes mellitus type 2 Diabetic foot ulcers and previous history of osteomyelitis Peripheral vascular disease with previous stenting of the external iliac on the left Chronic stage IV kidney disease Non-anion gap metabolic acidosis likely secondary to renal failure Anemia of chronic disease Questionable GI bleed as the patient has occult positive blood in the stool Esophagitis as evident on the PET/CT with diffuse uptake involving the esophagus and the patient has acid reflux Weight loss Remote history of bladder cancer postresection back in 2014 Hypertension Hyperlipidemia Unintentional weight loss Plan The patient will be kept n.p.o. pending surgical consultation regarding the pancreatitis and the gallbladder May benefit from EGD and colonoscopy of concern is the evaluation of the es ophagus to make sure there is no esophageal cancer and at the same time workup for possibility of GI bleed Regarding the right upper lobe pulmonary nodule, this is a cavitating lesion. Could be fungus ball. 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 The patient will need a robotic bronchoscopy and biopsy and lavage of the right upper lobe at the later stage. I may even do it during this current hospitalization once the patient is more stable and cleared from other consultants. IV fluids with normal sinus rate at 100 cc an hour Monitor lipase Will continue to follow
[2023-08-11 11:46] LABS: Basophils # (A) 0 X 10*3/uL (0.00-0.10); Basophils % (A) 0 %; Eosinophils # (A) 0 X 10*3/uL (0.04-0.35); Eosinophils % (A) 0 %; HCT 21.7 % (39.6-50.0); HGB 6.5 g/dL (13.0-17.0); Lymphocytes # (A) 1.31 X 10*3/uL (0.90-5.00); Lymphocytes % (A) 33.3 %; MCH 25.7 pg (27.0-32.0); MCV 85.8 FL (80.0-97.0); Mean Platelet Volume 11.5 FL (9.5-12.2); Monocytes # (A) 0.68 X 10*3/uL (0.20-1.00); Monocytes % (A) 17.3 %; NRBC Per 100 WBC 0.02 X 10*3/uL (0.00-0.01); Neutrophils # (A) 1.91 X 10*3/uL (1.80-7.70); Neutrophils % (A) 48.6 %; Platelet Count 125 X 10*3/uL (140-440); RBC 2.53 X 10*6/uL (4.40-5.60); RDW 18.6 % (11.5-14.5); WBC 3.93 X 10*3/uL (4.50-10.00)
[2023-08-11] MEDS: PANTOPRAZOLE 40 MG/10 ML VIAL IVP SCH (11:57)
[2023-08-11 12:01] LABS: Glucose,Whole Blood 146 mg/dL (70-110)
--- NOTE | 2023-08-11 12:19 | CA ---
Transthoracic Echo Report Name: Junior Bird Age: 77 Gender: M : 1945 Exam Date: 08/11/2023 09:23 Exam Location: [facility] Ht (in): 61 Wt (lb): 150 Ordering Physician: James Wilson MD Attending/Referring Phys: Statement Services Representative Cuong Mcintosh RDCS Procedure CPT: Indications: CAD Cardiac Hx: Technical Quality: Fair Contrast 1: Total Dose (mL): Contrast 2: Total Dose (mL): MEASUREMENTS (Male / Female) Normal Values 2D ECHO LV Diastolic Diameter PLAX 4.6 cm 4.2 - 5.9 / 3.9 - 5.3 cm LV Systolic Diameter PLAX 3.3 cm IVS Diastolic Thickness 1.4 cm 0.6 - 1.0 / 0.6 - 0.9 cm LVPW Diastolic Thickness 0.7 cm 0.6 - 1.0 / 0.6 - 0.9 cm LV Relative Wall Thickness 0.5 Aortic Root Diameter 3.5 cm LA Systolic Diameter LX 3.0 cm 3.0 - 4.0 / 2.7 - 3.8 cm DOPPLER AV Peak Velocity 118.9 cm/s AV Peak Gradient 5.7 mmHg LVOT Peak Velocity 88.0 cm/s LVOT Peak Gradient 3.1 mmHg Mitral E Point Velocity 102.2 cm/s Mitral A Point Velocity 129.2 cm/s Mitral E to A Ratio 0.8 MV Deceleration Time 257.1 ms MV E' Velocity 7.1 cm/s Mitral E to MV E' Ratio 14.3 PV Peak Velocity 86.7 cm/s PV Peak Gradient 3.0 mmHg FINDINGS Left Ventricle Left ventricular ejection fraction is estimated at 55-60 %.normal left ventricular wall motion. Left ventricular cavity size normal. Mild septal hypertrophy Right Ventricle Normal right ventricular size and function. Right Atrium Right atrium not well visualized. Left Atrium Normal left atrial size. Mitral Valve Mitral annular calcification. Mild mitral regurgitation. Aortic Valve Aortic valve sclerosis. No aortic valve stenosis or regurgitation. Tricuspid Valve Structurally normal tricuspid valve. Pulmonic Valve Pulmonic valve not well visualized. Pericardium No pericardial effusion. Aorta Normal size aortic root and proximal ascending aorta. CONCLUSIONS 1. Normal left ventricular size and systolic function 2. Limited Doppler study with mild mitral regurgitation Previewed by: Dr. Meli Fallon MD (Electronically Signed) Final Date: 11 August 2023 12:19
--- NOTE | 2023-08-11 14:10 | P.GSCN ---
History of Present Illness Consult date: 08/11/23 History of present illness: CHIEF COMPLAINT: Weakness and black stools HISTORY OF PRESENT ILLNESS: This is a 77-year-old male. He is a poor historian. History mostly obtained from chart. Patient presented to the hospital with fatigue x 3 weeks. He also had been having black stools. Stool for occult blood is positive. Hemoglobin on admission 7.7 down to 6.5. Patient does have a history of a lung mass that is under investigation. He is followed by pulmonary service. Prior history of bladder cancer and he has a known history of chronic anemia. He is a smoker. Patient denies any abdominal pain. Denies any nausea or vomiting. He did have elevated lipase level CTA of the abdomen showed no evidence of pancreatitis but did report gallbladder wall thickening with dilation in the extrahepatic biliary system and concerns for chronic cholecystitis which have not changed since May 2023. Patient did have an outpatient PET scan due to his long mass that did also reveal some abnormalities in the esophagus. It reported esophagitis and recommended direct visualization to rule out mass. Patient denies any prior history of pancreatitis. PAST MEDICAL HISTORY: Diabetes Mellitus, Myocardial Infarction ([place]), Osteoarthritis ([place]), Renal Disease, Vascular Disorder,[place] x2. Hx bladder [place] 2015. Neuropathy feet. PAD, pain & numbness in BLE. Coronary disease with stent PAST SURGICAL HISTORY: Heart Catheterization With Stent, Orthopedic Surgery,Right femoral bypass, Rt knee surgery, Lt foot toe amputations. Cervical surgery MEDICATIONS: See below ALLERGIES: See below SOCIAL HISTORY: No illicit drug use. Nicotine dependence REVIEW OF SYSTEMS: CONSTITUTIONAL: Denies fever or chills. HEENT: Denies blurred vision, vision changes, or eye pain. Denies hemoptysis CARDIOVASCULAR: Denies chest pain or pressure. RESPIRATORY: No shortness of breath. GASTROINTESTINAL: See HPI for pertinent findings HEMATOLOGIC: Denies bleeding disorders. GENITOURINARY: Denies any blood in urine or increased urinary frequency. SKIN: Denies pruitis. Denies rash. PHYSICAL EXAM: VITAL SIGNS: Reviewed GENERAL: no acute distress. HEENT: No sclera icterus. Extraocular movements grossly intact. Moist buccal mucosa. Head is atraumatic, normocephalic. No nasal drainage. ABDOMEN: Soft. Nondistended. Nontender NEUROLOGIC: Awake and alert LABORATORY DATA: WBC 3.93 HGB 7.7 on admission down to 6.5 platelets 125 Sodium 143 potassium 3.6 creatinine 1.8 A1c 6.6 LFTs normal Lipase 3619 down to 2323 Stool for occult blood positive IMAGING: CT scan abdomen pelvis no definitive evidence of pancreatitis. Gallbladder wall thickening with dilation of the extrahepatic biliary system similar to prior. Correlate for right upper quadrant pain possible in the setting of chronic cholecystitis. Not significantly changed from 06/04/2023. Abdominal ultrasound evaluation of gallbladder is obscured by bowel gas. Coarse echotexture of the liver suggestive of hepatocellular disease. Multiple right renal lesions likely representing complex and simple renal cysts ASSESSMENT: 1. GI bleed with melanotic stools 2. Increased uptake through the esophagus. Possible esophagitis on PET scan. Also recommended direct visualization to exclude esophageal neoplasm 3. Acute on chronic anemia 4. Gallbladder thickening with dilation of the extrahepatic biliary system noted on CT scan 5. Pancreatitis with elevated lipase 6. Lung mass. Followed by pulmonary service PLAN: -Agree with blood transfusion -EGD scheduled for , 08/13/[address] Mohan -Continue to monitor hemoglobin -Continue monitor for any signs or symptoms of bleeding -Continue IV Protonix -Continue IV fluids -Okay for clear liquids Thank you for this consultation Physician Claims Service Representative note has been reviewed by physician. Signing provider agrees with the documented findings, assessment, and plan of care. Past Medical History Past Medical History: Cancer, Diabetes Mellitus, Myocardial Infarction ([place]), Osteoarthritis (OA), Renal Disease, Vascular Disorder Additional Past Medical History / Comment(s): [place] x2. Hx bladder [place] 2014. Neuropathy feet. PAD, pain & numbness in BLE. Last Myocardial Infarction Date:: 2002 History of Any Multi-Drug Resistant Organisms: None Reported Past Surgical History: Heart Catheterization With Stent, Orthopedic Surgery Additional Past Surgical History / Comment(s): Right femoral bypass, Rt knee surgery, Lt foot toe amputations. Cervical surgery, has "cagein neck." Bladder tumor exc. lt ptca 09/20/19 Past Anesthesia/Blood Transfusion Reactions: No Reported Reaction Date of Last Stent Placement:: 09/20/19 Past Psychological History: No Psychological Hx Reported Smoking Status: Current every day smoker Past Alcohol Use History: Rare Additional Past Alcohol Use History / Comment(s): Smoking since 1959, recently quit - Past Family History Mother Family Medical History: Cancer Medications and Allergies Home Medications Medication Instructions Recorded Confirmed Type HYDROcodone/APAP 7.5-325MG [[place] 1 tab PO TID 09/19/19 08/10/23 History 7.5-325] Sildenafil Citrate [Viagra] 100 mg PO DAILY PRN 11/05/21 08/10/23 History glipiZIDE [Glucotrol] 10 mg PO BID 11/05/21 08/10/23 History Atorvastatin [Lipitor] 40 mg PO DAILY 08/02/23 08/10/23 History Dapagliflozin Propanediol [Farxiga] 5 mg PO DAILY 08/02/23 08/10/23 History Ipratropium-Albuterol Nebulize 3 ml INHALATION RT-QID PRN 08/02/23 08/10/23 History [Duoneb 0.5 mg-3 mg/3 ml Soln] Losartan [Cozaar] 50 mg PO DAILY 08/02/23 08/10/23 History Omeprazole 40 mg PO BID 08/02/23 08/10/23 History Allergies Allergy/AdvReac Type Severity Reaction Status Date / Time No Known Allergies Allergy Verified 08/10/23 16:05 Surgical - Exam Vital Signs Temp Pulse Resp BP Pulse Ox 97.4 F L 92 18 98/51 100 08/10/23 16:00 08/10/23 16:00 08/10/23 16:00 08/10/23 16:00 08/10/23 16:00 Results - Labs 08/11/23 06:16 08/11/23 06:16 Abnormal Lab Results - Last 24 Hours (Table) 08/10/23 08/10/23 08/10/23 Range/Units 16:12 16:12 20:09 WBC (3.8-10.6) k/uL RBC 2.88 L 2.78 L (4.30-5.90) m/uL Hgb 7.7 L 7.5 L (13.0-17.5) gm/dL Hct 24.6 L 24.1 L (39.0-53.0) % RDW 18.1 H 18.1 H (11.5-15.5) % Plt Count 125 L 101 L (150-450) k/uL Lymphocytes # (Manual) 0.66 L (1.0-4.8) k/uL Monocytes # (Manual) 1.03 H (0-1.0) k/uL Nucleated RBCs 2 H 3 H (0-0) /100 WBC Potassium 3.2 L (3.5-5.1) mmol/L Chloride 117 H (98-107) mmol/L Carbon Dioxide 10 L (22-30) mmol/L BUN 48 H (9-20) mg/dL Creatinine 2.30 H (0.66-1.25) mg/dL Glucose 225 H (74-99) mg/dL POC Glucose (mg/dL) (70-110) mg/dL Hemoglobin A1c (<=6.0) % Lipase 3619 H (23-300) U/L 08/11/23 08/11/23 08/11/23 Range/Units 02:03 02:03 02:03 WBC 3.7 L (3.8-10.6) k/uL RBC 2.67 L (4.30-5.90) m/uL Hgb 7.2 L (13.0-17.5) gm/dL Hct 22.9 L (39.0-53.0) % RDW 18.1 H (11.5-15.5) % Plt Count 112 L (150-450) k/uL Lymphocytes # (Manual) (1.0-4.8) k/uL Monocytes # (Manual) (0-1.0) k/uL Nucleated RBCs (0-0) /100 WBC Potassium (3.5-5.1) mmol/L Chloride (98-107) mmol/L Carbon Dioxide (22-30) mmol/L BUN (9-20) mg/dL Creatinine (0.66-1.25) mg/dL Glucose (74-99) mg/dL POC Glucose (mg/dL) (70-110) mg/dL Hemoglobin A1c 6.6 H (<=6.0) % Lipase 2323 H (23-300) U/L 08/11/23 Range/Units 07:21 WBC (3.8-10.6) k/uL RBC (4.30-5.90) m/uL Hgb (13.0-17.5) gm/dL Hct (39.0-53.0) % RDW (11.5-15.5) % Plt Count (150-450) k/uL Lymphocytes # (Manual) (1.0-4.8) k/uL Monocytes # (Manual) (0-1.0) k/uL Nucleated RBCs (0-0) /100 WBC Potassium (3.5-5.1) mmol/L Chloride (98-107) mmol/L Carbon Dioxide (22-30) mmol/L BUN (9-20) mg/dL Creatinine (0.66-1.25) mg/dL Glucose (74-99) mg/dL POC Glucose (mg/dL) 178 H (70-110) mg/dL Hemoglobin A1c (<=6.0) % Lipase (23-300) U/L Diabetes panel 08/10/23 08/11/23 Range/Units 16:12 02:03 Sodium 140 (137-145) mmol/L Potassium 3.2 L (3.5-5.1) mmol/L Chloride 117 H (98-107) mmol/L Carbon Dioxide 10 L (22-30) mmol/L BUN 48 H (9-20) mg/dL Creatinine 2.30 H (0.66-1.25) mg/dL Glucose 225 H (74-99) mg/dL Hemoglobin A1c 6.6 H (<=6.0) % Calcium 9.4 (8.4-10.2) mg/dL AST 23 (17-59) U/L ALT 19 (4-49) U/L Alkaline Phosphatase 96 (38-126) U/L Total Protein 8.1 (6.3-8.2) g/dL Albumin 4.2 (3.5-5.0) g/dL Thyroid panel 08/11/23 Range/Units 02:03 TSH 1.490 (0.465-4.680) mIU/L Calcium panel 08/10/23 Range/Units 16:12 Calcium 9.4 (8.4-10.2) mg/dL Albumin 4.2 (3.5-5.0) g/dL Pituitary panel 08/10/23 08/11/23 Range/Units 16:12 02:03 Sodium 140 (137-145) mmol/L Potassium 3.2 L (3.5-5.1) mmol/L Chloride 117 H (98-107) mmol/L Carbon Dioxide 10 L (22-30) mmol/L BUN 48 H (9-20) mg/dL Creatinine 2.30 H (0.66-1.25) mg/dL Glucose 225 H (74-99) mg/dL Calcium 9.4 (8.4-10.2) mg/dL TSH 1.490 (0.465-4.680) mIU/L Adrenal panel 08/10/23 Range/Units 16:12 Sodium 140 (137-145) mmol/L Potassium 3.2 L (3.5-5.1) mmol/L Chloride 117 H (98-107) mmol/L Carbon Dioxide 10 L (22-30) mmol/L BUN 48 H (9-20) mg/dL Creatinine 2.30 H (0.66-1.25) mg/dL Glucose 225 H (74-99) mg/dL Calcium 9.4 (8.4-10.2) mg/dL Total Bilirubin 1.0 (0.2-1.3) mg/dL AST 23 (17-59) U/L ALT 19 (4-49) U/L Alkaline Phosphatase 96 (38-126) U/L Total Protein 8.1 (6.3-8.2) g/dL Albumin 4.2 (3.5-5.0) g/dL
[2023-08-11] MEDS: HYDROcodone/APAP 7.5-325MG 1 EACH TAB PO PRN (15:14)
[2023-08-11 16:53] LABS: Glucose,Whole Blood 108 mg/dL (70-110)
[2023-08-11 20:42] LABS: Glucose,Whole Blood 128 mg/dL (70-110)
[2023-08-11 21:14] LABS: Albumin 3.9 g/dL (3.8-4.9); Protein, Total 7.4 g/dL (6.2-8.2)
--- NOTE | 2023-08-11 22:31 | PN ---
PROGRESS NOTE SUBJECTIVE: This is a 77-year-old white male. He had a midline PICC line placed today apparently, had a gallbladder ultrasound ordered. He cannot tell anything about it. As far as the gallbladder goes, is obscured by bowel gas. Surgery evaluated him for acute pancreatitis and anemia. Assessment from GI surgery was GI bleed with melenic stools, increased uptake through the esophagus, possible esophagitis on a PET scan, and he needs to have a scope to check out esophageal neoplasm, acute on chronic anemia, gallbladder thickening with dilation of the biliary tract, pancreatitis, elevated lipase, lung mass, blood transfusion. EGD scheduled for . Monitor hemoglobin, IV Protonix, IV fluids. Pulmonary saw him also for this lung mass. Their recommendation for the cavitary lesion was suspicious for non-small cell lung cancer, squamous cell type, infective cause cannot be completely ruled out, fungus ball cannot be ruled out, COPD, upper lobe predominance, acute pancreatitis, coronary artery disease status post stenting, type 2 diabetes mellitus, diabetic foot ulcers, peripheral vascular disease, chronic stage 4 kidney disease non-anion gap, metabolic acidosis, anemia of chronic disease. Get the EGD tomorrow. Pancreatitis is being worked up. EGD and colonoscopy will be done for GI bleeding. Cavitating lesion in the right upper lung nodule could be a fungus ball, fairly underlying lung cancer, squamous cell type possibly about a bronchoscopy and biopsy lavage in the right upper lobe at a later stage. We can do it after consultation with pancreatitis was ruled out. We will possibly do it in the hospital. Please see further orders. MMODL / IJN: [id number] /
[2023-08-11 23:06] LABS: % Iron Saturation 8.16 (15.00-50.00)
[2023-08-12 07:19] LABS: Glucose,Whole Blood 134 mg/dL (70-110)
--- NOTE | 2023-08-12 08:30 | P.CONS ---
History of Present Illness - Reason for Consult Consult date: 08/11/23 pancytopenia Requesting physician: James Wilson - Chief Complaint weakness - History of Present Illness Mr. Bird is a 77 year old male who we were consulted to evaluate pancytopenia. Patient presented to emergency room with complains of progressing fatigue and generalized weakness over the last 3 weeks. He also reports intermittent upper abdominal discomfort and has noticed some black tarry stools. Also reporting persisting dry non productive cough and diminished appetite with approx 20 lb weight loss. Patient was seen on consult for anemia in 11/2021, having to recive multiple blood transfusions. He was on ASA and plavix at that time. Myeloma workup during admission, revealed elevated K/L LCs, but normal ratio at 1.5, SPEP and immunofixation normal. Ferritin normal, iron 11, iron saturation was unable to be calculated. Anemia has been noted since 2017. He has never underwent endoscopic evaluation in the past. Upon admission, CBC revealed normocytic, normochromic anemia, hemoglobin 7.2. WBC 3.7, platelets 112,000. Today hemoglobin noted at 6.5, 1 unit PRBCs have been ordered. Patient does have history of CKD, creatinine 2.3, GFR 27. Lipase elevated at 3619. Bilirubin and LFTs normal. Stool occult positive. CT abdomen without contrast revealed no definitive evidence for pancreatitis. Bladder wall thickening with dilation of the extra hepatic biliary system similar prior study. Ultrasound gallbladder obtained, showing the gallbladder is obscured by gas. Course echotexture to the liver. Multiple right renal lesions likely represent complex and simple renal cysts. Patient has also been being worked up outpt due to right upper lobe lesion. He underwent PET/CT on 06/04/23 which showed abnormal uptake within the cavitary lesion in the right upper lobe. Diffuse increased uptake through the esophagus, thought to be esophagitis. Asymmetric focal uptake within the right anterior vocal cord. Focal area of abnormal uptake superior to the right femoral neck within the soft tissue, uncertain etiology. Pulm following, and is considering bronchoscopy to biopsy RUL lesion. He has a history of bladder cancer in 2014/2015 treated with surgery alone. Review of Systems 10 point ROS is negative except as stated in HPI Past Medical History Past Medical History: Cancer, Diabetes Mellitus, Myocardial Infarction ([place]), Osteoarthritis (OA), Renal Disease, Vascular Disorder Additional Past Medical History / Comment(s): [place] x2. Hx bladder CA 2015. Neuropathy feet. PAD, pain & numbness in BLE. Last Myocardial Infarction Date:: 2002 History of Any Multi-Drug Resistant Organisms: None Reported Past Surgical History: Heart Catheterization With Stent, Orthopedic Surgery Additional Past Surgical History / Comment(s): Right femoral bypass, Rt knee surgery, Lt foot toe amputations. Cervical surgery, has "cagein neck." Bladder tumor exc. lt ptca 09/20/19 Past Anesthesia/Blood Transfusion Reactions: No Reported Reaction Date of Last Stent Placement:: 09/20/19 Past Psychological History: No Psychological Hx Reported Smoking Status: Current every day smoker Past Alcohol Use History: Rare Additional Past Alcohol Use History / Comment(s): Smoking since 1959, recently quit - Past Family History Mother Family Medical History: Cancer Medications and Allergies Home Medications Medication Instructions Recorded Confirmed Type HYDROcodone/APAP 7.5-325MG [[place] 1 tab PO TID 09/19/19 08/10/23 History 7.5-325] Sildenafil Citrate [Viagra] 100 mg PO DAILY PRN 11/05/21 08/10/23 History glipiZIDE [Glucotrol] 10 mg PO BID 11/05/21 08/10/23 History Atorvastatin [Lipitor] 40 mg PO DAILY 08/02/23 08/10/23 History Dapagliflozin Propanediol [Farxiga] 5 mg PO DAILY 08/02/23 08/10/23 History Ipratropium-Albuterol Nebulize 3 ml INHALATION RT-QID PRN 08/02/23 08/10/23 History [Duoneb 0.5 mg-3 mg/3 ml Soln] Losartan [Cozaar] 50 mg PO DAILY 08/02/23 08/10/23 History Omeprazole 40 mg PO BID 08/02/23 08/10/23 History Allergies Allergy/AdvReac Type Severity Reaction Status Date / Time No Known Allergies Allergy Verified 08/10/23 16:05 Physical Exam Vitals: Vital Signs Temp Pulse Pulse Resp BP BP Pulse Ox 08/11/23 08:53 58 L 17 08/11/23 08:00 97.5 F L 71 18 173/67 100 08/11/23 01:40 97.5 F L 72 15 137/55 100 08/10/23 23:01 96.2 F L 76 18 131/61 99 08/10/23 23:00 15 08/10/23 21:30 64 18 168/72 100 08/10/23 19:27 98.5 F 68 16 148/75 100 08/10/23 18:26 82 18 153/77 100 08/10/23 17:03 81 18 135/82 100 08/10/23 16:00 97.4 F L 92 18 98/51 100 Intake and Output 08/10/23 08/11/23 08/11/23 22:59 06:59 14:59 Intake Total 550 Balance 550 Intake: Intake, IV Titration 500 Amount Sodium Chloride 0.9% 1, 500 000 ml @ 100 mls/hr IV . Q10H [facility] Rx#:[id number] Oral 50 Other: Voiding Method Toilet Weight 68.039 kg - Constitutional General appearance: no acute distress - EENT Eyes: anicteric sclerae, EOMI ENT: hearing grossly normal - Respiratory Respiratory: bilateral: CTA - Cardiovascular Rhythm: regular Heart sounds: normal: S1, S2 - Gastrointestinal General gastrointestinal: soft, no tenderness - Integumentary Integumentary: no cyanotic, pale - Musculoskeletal Musculoskeletal: generalized weakness - Psychiatric Psychiatric: A&O x's 3 Results CBC & Chem 7: 08/11/23 06:16 08/11/23 06:16 Labs: Abnormal Lab Results - Last 24 Hours (Table) 08/10/23 08/10/23 08/10/23 Range/Units 16:12 16:12 20:09 WBC (3.8-10.6) k/uL RBC 2.88 L 2.78 L (4.30-5.90) m/uL Hgb 7.7 L 7.5 L (13.0-17.5) gm/dL Hct 24.6 L 24.1 L (39.0-53.0) % RDW 18.1 H 18.1 H (11.5-15.5) % Plt Count 125 L 101 L (150-450) k/uL Lymphocytes # (Manual) 0.66 L (1.0-4.8) k/uL Monocytes # (Manual) 1.03 H (0-1.0) k/uL Nucleated RBCs 2 H 3 H (0-0) /100 WBC Potassium 3.2 L (3.5-5.1) mmol/L Chloride 117 H (98-107) mmol/L Carbon Dioxide 10 L (22-30) mmol/L BUN 48 H (9-20) mg/dL Creatinine 2.30 H (0.66-1.25) mg/dL Glucose 225 H (74-99) mg/dL POC Glucose (mg/dL) (70-110) mg/dL Hemoglobin A1c (<=6.0) % Lipase 3619 H (23-300) U/L 08/11/23 08/11/23 08/11/23 Range/Units 02:03 02:03 02:03 WBC 3.7 L (3.8-10.6) k/uL RBC 2.67 L (4.30-5.90) m/uL Hgb 7.2 L (13.0-17.5) gm/dL Hct 22.9 L (39.0-53.0) % RDW 18.1 H (11.5-15.5) % Plt Count 112 L (150-450) k/uL Lymphocytes # (Manual) (1.0-4.8) k/uL Monocytes # (Manual) (0-1.0) k/uL Nucleated RBCs (0-0) /100 WBC Potassium (3.5-5.1) mmol/L Chloride (98-107) mmol/L Carbon Dioxide (22-30) mmol/L BUN (9-20) mg/dL Creatinine (0.66-1.25) mg/dL Glucose (74-99) mg/dL POC Glucose (mg/dL) (70-110) mg/dL Hemoglobin A1c 6.6 H (<=6.0) % Lipase 2323 H (23-300) U/L 08/11/23 Range/Units 07:21 WBC (3.8-10.6) k/uL RBC (4.30-5.90) m/uL Hgb (13.0-17.5) gm/dL Hct (39.0-53.0) % RDW (11.5-15.5) % Plt Count (150-450) k/uL Lymphocytes # (Manual) (1.0-4.8) k/uL Monocytes # (Manual) (0-1.0) k/uL Nucleated RBCs (0-0) /100 WBC Potassium (3.5-5.1) mmol/L Chloride (98-107) mmol/L Carbon Dioxide (22-30) mmol/L BUN (9-20) mg/dL Creatinine (0.66-1.25) mg/dL Glucose (74-99) mg/dL POC Glucose (mg/dL) 178 H (70-110) mg/dL Hemoglobin A1c (<=6.0) % Lipase (23-300) U/L Comments: PET/CT reviewed CT scan - abdomen: report reviewed US - abdomen: report reviewed Assessment and Plan (1) Pancytopenia Current Visit: Yes Status: Acute Priority: High Code(s): D61.818 - OTHER PANCYTOPENIA SNOMED Code(s): 714010444 (2) Pancreatitis Current Visit: Yes Status: Acute Priority: High Code(s): K85.90 - ACUTE PANCREATITIS WITHOUT NECROSIS OR INFECTION, UNSP SNOMED Code(s): 04819669 (3) Lesion of lung Current Visit: Yes Status: Acute Priority: Medium Code(s): R91.1 - SOLITARY PULMONARY NODULE SNOMED Code(s): 411703158 Plan: Pancytopenia: -Patient presented to emergency room with complains of progressing fatigue and generalized weakness over the last 3 weeks. He also reports intermittent upper abdominal discomfort and has noticed some black tarry stools. Patient was seen on consult for anemia in 11/2021, having to receive multiple blood transfusions. He was on ASA and plavix at that time. Myeloma workup during admission, revealed elevated K/L LCs, but normal ratio at 1.5, SPEP and immunofixation normal. Ferritin normal, iron 11, iron saturation was unable to be calculated. Anemia has been noted since 2017. He has never underwent endoscopic evaluation in the past. -Upon admission, CBC revealed normocytic, normochromic anemia, hemoglobin 7.2. WBC 3.7, platelets 112,000. Today hemoglobin noted at 6.5, 1 unit PRBCs have been ordered. Patient does have history of CKD, creatinine 2.3, GFR 27. Lipase elevated at 3619. Bilirubin and LFTs normal. Stool occult positive. CT abdomen without contrast revealed no definitive evidence for pancreatitis. Bladder wall thickening with dilation of the extra hepatic biliary system s imilar prior study. -Surgery consulted with plans for EGD on 08/13. -Pancytopenia is likely reactive, and worsening anemia r/t to GI bleed and poor nutrition -Will order anemia and pancytopenia workup -Please transfuse for hgb less than 7 or if symptomatic Lung lesion: -Patient has also been being worked up outpt due to right upper lobe lesion. He underwent PET/CT on 06/04/23 which showed abnormal uptake within the cavitary lesion in the right upper lobe. Diffuse increased uptake through the esophagus, thought to be esophagitis. Asymmetric focal uptake within the right anterior vocal cord. Focal area of abnormal uptake superior to the right femoral neck within the soft tissue, uncertain etiology. Pulm following, and is considering bronchoscopy to biopsy RUL lesion. He has a history of bladder cancer in treated with surgery alone. -Reporting diminished appetite and 20 lb weight loss -Will f/u on biopsy once obtained Attests: I have seen and examined pt, performed H&P, developed impression and plan of care. Discussed with dictator. Agree with documentation, dictated as a scribe.
[2023-08-12] MEDS: SODIUM FERRIC GLUCONAT-SUCROSE 125 MG in SODIUM CHLORIDE 0.9% 100 ML IVPB SCH (10:16)
[2023-08-12 11:05] LABS: Basophils # (A) 0 X 10*3/uL (0.00-0.10); Basophils % (A) 0 %; Eosinophils # (A) 0 X 10*3/uL (0.04-0.35); Eosinophils % (A) 0 %; HCT 26.4 % (39.6-50.0); HGB 7.9 g/dL (13.0-17.0); Lymphocytes # (A) 0.78 X 10*3/uL (0.90-5.00); Lymphocytes % (A) 22.2 %; MCH 25.7 pg (27.0-32.0); MCHC 29.9 g/dL (32.0-37.0); Mean Platelet Volume 11.1 FL (9.5-12.2); Monocytes # (A) 0.59 X 10*3/uL (0.20-1.00); Monocytes % (A) 16.8 %; NRBC Per 100 WBC 0.02 X 10*3/uL (0.00-0.01); Neutrophils % (A) 59.9 %; Platelet Count 131 X 10*3/uL (140-440); RBC 3.07 X 10*6/uL (4.40-5.60); RDW 18.6 % (11.5-14.5); WBC 3.51 X 10*3/uL (4.50-10.00)
[2023-08-12 11:30] LABS: ALT 14 U/L (10-49); AST 19 U/L (14-35); Albumin 3.7 g/dL (3.8-4.9); Albumin/Globulin Ratio 1.09 Ratio (1.60-3.17); Alkaline Phosphatase 91 U/L (41-126); BUN/Creat Ratio 19.94 Ratio (12.00-20.00); Blood Urea Nitrogen 31.9 mg/dL (9.0-27.0); Calcium 8.4 mg/dL (8.7-10.3); Carbon Dioxide 14.1 mmol/L (21.6-31.8); Chloride 116 mmol/L (96-109); Globulin 3.4 g/dL (1.6-3.3); Glucose 129 mg/dL (70-110); Potassium 3.3 mmol/L (3.5-5.5); Sodium 142 mmol/L (135-145); Total Bilirubin 0.8 mg/dL (0.3-1.2); Total Protein 7.1 g/dL (6.2-8.2)
[2023-08-12 11:45] LABS: Glucose,Whole Blood 163 mg/dL (70-110)
--- NOTE | 2023-08-12 12:33 | P.PN ---
Subjective Progress Note Date: 08/12/23 ABNORMAL EKG History of present illness: History of present illness: This is 77-year-old male patient of Dr. Rosales with PMH PAD s/p angioplasty of the left leg done out of town, history of diabetes, hypertension, dyslipidemia, chronic kidney disease, gastroesophageal reflux disease, tobacco use and dependence. We have been asked to evaluate the patient for abnormal EKG. Mary Beth medley states that he presented to the hospital because he does not feel well. He has abdominal pain. No nausea or vomiting. He states he also had some chest pain yesterday only. Chest pain is not worse with activity and not worse with deep breathing. He states he has a little shortness of breath. No dizziness no palpitations no syncopal episodes. He states he has some lower extremity edema. No cough no fever. No blood in his stool or urine. He denies history of CVA or seizures. Patient does admit to s claudication. Patient is a smoker of half a pack per day and quit 3 weeks ago. He denies any alcohol use and no caffeine use. He also states he has had some weight loss but has a good appetite. Patient had a PET scan done on 06/04/2023 which revealed abnormal uptake within the cavitary lesion right upper lobe. Diffuse increased uptake through the esophagus correlate for esophagitis. Asymmetric focal uptake within the right anterior vocal cord. Focal area of abnormal uptake superior to the right femoral neck within the soft tissues of unclear etiology. Patient had presented to the emergency center on August 02 for generalized weakness with diagnosis of metabolic acidosis, hypocalcemia and acute kidney injury but patient signed out AGAINST MEDICAL ADVICE. EKG sinus rhythm with nonspecific ST changes Chest x-ray: No acute finding. COPD. CT of the abdomen without contrast revealed no definite evidence of pancreatitis. Gallbladder wall thickening with dilation of the extrahepatic biliary system similar to prior. Correlate for right upper quadrant pain possible in setting of chronic cholecystitis. No significant change from 06/04/2023. WBC 3.7, hemoglobin 7.2, platelet count 112. Sodium 140, potassium 3.2, chloride 117, CO2 10, BUN 48 creatinine 2.3. Blood sugar 225. Lactic acid 1.2. Magnesium 2.2. Liver function test are normal. Troponin negative x 1. Lipase 3619 and repeat 2323. TSH normal at 1.49. Stool for occult blood positive. Home cardiac medications: Atorvastatin 40 mg daily, losartan 50 mg daily, patient is also on Farxiga 5 mg daily. 08/12 Patient is seen today in follow-up. Echocardiogram reveals normal left ventricular size and systolic function. Limited Doppler study with mild mitral regurgitation. Results reviewed with the patient. He states he has less cough today. He is planning on endoscopy. Repeat blood work reveals WBC 20, hemoglobin blood count 131. Potassium 3 3, BUN 31 creatinine 1 6. Physical examination: Gen: This is a thin 77-year-old male, in no acute distress VS: reviewed HEENT: Head is atraumatic, normocephalic. Pupils equal, round. Sclerae is anicteric. NECK: Supple. No JVD. Right carotid bruit LUNGS: Decreased air movement. No intercostal retractions. HEART: Regular rate and rhythm. Systolic murmur. ABDOMEN: Soft No tenderness. EXTREMITIES: No pedal edema. 1+ dorsalis pedis/posterior tibial bilateral, no calf tenderness. NEUROLOGICAL: Patient is awake, alert and oriented x3. Assessment: Abnormal EKG: sinus rhythm with nonspecific ST changes of no clear significance Right upper lobe cavitating lung nodule Pancytopenia Hypokalemia Acute kidney injury Pancreatitis Possible GI bleed with positive stool occult blood, scheduled for EGD 08/13 PAD with previous angioplasty of the left leg Diabetes Hypertension Dyslipidemia Tobacco use and dependence Weight loss, unintentional Plan: Continue patient's home cardiac medications Replace potassium Cardiology will sign off this case and follow on an as-needed basis. Please reconsult for any new concerns. Patient may follow-up in the office in one to 2 weeks. Nurse practitioner note has been reviewed, I agree with documented findings and plan of care. Patient was seen and examined. Objective - Vital Signs Vital signs: Vital Signs Temp 97.7 F 08/12/23 08:00 Pulse 68 08/12/23 08:00 Resp 16 08/12/23 08:00 BP 177/77 08/12/23 08:00 Pulse Ox 96 08/12/23 08:00 FiO2 Intake & Output 08/11/23 08/12/23 08/12/23 18:59 06:59 18:59 Intake Total 1200 271 Balance 1200 271 Intake: Intake, IV Titration 1200 Amount Sodium Chloride 0.9% 1, 1200 000 ml @ 100 mls/hr IV . Q10H [facility] Rx#:[id number] Blood Product 0 271 Rc Pheresis 2 As3 Unit 0 271 [id number] Other: Voiding Method Toilet # Voids 2 - Labs CBC & Chem 7: 08/12/23 06:44 08/12/23 06:44 Labs: Abnormal Lab Results - Last 24 Hours (Table) 08/10/23 08/11/23 08/11/23 Range/Units 16:30 02:03 02:03 WBC (4.50-10.00) X 10*3/uL RBC (4.40-5.60) X 10*6/uL Hgb (13.0-17.0) g/dL Hct (39.6-50.0) % MCH (27.0-32.0) pg MCHC (32.0-37.0) g/dL RDW (11.5-14.5) % Plt Count (140-440) X 10*3/uL Eosinophils # (0.04-0.35) X 10*3/uL NRBC/100 WBC Diff (0.00-0.01) X 10*3/uL Chloride (96-109) mmol/L Carbon Dioxide (21.6-31.8) mmol/L Anion Gap (4.00-12.00) mmol/L BUN (9.0-27.0) mg/dL Creatinine (0.6-1.5) mg/dL Est GFR (CKD-EPI) (>=60) BUN/Creatinine Ratio (12.00-20.00) Ratio Glucose (70-110) mg/dL POC Glucose (mg/dL) (70-110) mg/dL Hemoglobin A1c 6.6 H (<=6.0) % Iron (65-175) UG/DL % Saturation (15.00-50.00) Ferritin (22.0-322.0) ng/mL Globulin (1.6-3.3) g/dL Albumin/Globulin Ratio (1.60-3.17) Ratio Vitamin B12 1726.0 H (200.0-944.0) pg/mL IgG (700.0-1600.0) mg/dL IgA (60.0-350.0) mg/dL Crossmatch See Detail 08/11/23 08/11/23 08/11/23 Range/Units 02:03 06:16 06:16 WBC 3.93 L (4.50-10.00) X 10*3/uL RBC 2.53 L (4.40-5.60) X 10*6/uL Hgb 6.5 A* (13.0-17.0) g/dL Hct 21.7 L (39.6-50.0) % MCH 25.7 L (27.0-32.0) pg MCHC 30.0 L (32.0-37.0) g/dL RDW 18.6 H (11.5-14.5) % Plt Count 125 L (140-440) X 10*3/uL Eosinophils # 0 L (0.04-0.35) X 10*3/uL NRBC/100 WBC Diff 0.02 H (0.00-0.01) X 10*3/uL Chloride 114 H (96-109) mmol/L Carbon Dioxide 10.9 L (21.6-31.8) mmol/L Anion Gap 18.10 H (4.00-12.00) mmol/L BUN 43.2 H (9.0-27.0) mg/dL Creatinine 1.8 H (0.6-1.5) mg/dL Est GFR (CKD-EPI) 39 L (>=60) BUN/Creatinine Ratio 24.00 H (12.00-20.00) Ratio Glucose 138 H (70-110) mg/dL POC Glucose (mg/dL) (70-110) mg/dL Hemoglobin A1c (<=6.0) % Iron 24 L (65-175) UG/DL % Saturation 8.16 L (15.00-50.00) Ferritin 437.0 H (22.0-322.0) ng/mL Globulin 3.4 H (1.6-3.3) g/dL Albumin/Globulin Ratio 1.12 L (1.60-3.17) Ratio Vitamin B12 (200.0-944.0) pg/mL IgG (700.0-1600.0) mg/dL IgA (60.0-350.0) mg/dL Crossmatch 08/11/23 08/11/23 08/11/23 Range/Units 12:00 15:06 20:40 WBC (4.50-10.00) X 10*3/uL RBC (4.40-5.60) X 10*6/uL Hgb (13.0-17.0) g/dL Hct (39.6-50.0) % MCH (27.0-32.0) pg MCHC (32.0-37.0) g/dL RDW (11.5-14.5) % Plt Count (140-440) X 10*3/uL Eosinophils # (0.04-0.35) X 10*3/uL NRBC/100 WBC Diff (0.00-0.01) X 10*3/uL Chloride (96-109) mmol/L Carbon Dioxide (21.6-31.8) mmol/L Anion Gap (4.00-12.00) mmol/L BUN (9.0-27.0) mg/dL Creatinine (0.6-1.5) mg/dL Est GFR (CKD-EPI) (>=60) BUN/Creatinine Ratio (12.00-20.00) Ratio Glucose (70-110) mg/dL POC Glucose (mg/dL) 146 H 128 H (70-110) mg/dL Hemoglobin A1c (<=6.0) % Iron (65-175) UG/DL % Saturation (15.00-50.00) Ferritin (22.0-322.0) ng/mL Globulin (1.6-3.3) g/dL Albumin/Globulin Ratio (1.60-3.17) Ratio Vitamin B12 (200.0-944.0) pg/mL IgG 1609.0 H (700.0-1600.0) mg/dL IgA 485.0 H (60.0-350.0) mg/dL Crossmatch 08/12/23 Range/Units 07:18 WBC (4.50-10.00) X 10*3/uL RBC (4.40-5.60) X 10*6/uL Hgb (13.0-17.0) g/dL Hct (39.6-50.0) % MCH (27.0-32.0) pg MCHC (32.0-37.0) g/dL RDW (11.5-14.5) % Plt Count (140-440) X 10*3/uL Eosinophils # (0.04-0.35) X 10*3/uL NRBC/100 WBC Diff (0.00-0.01) X 10*3/uL Chloride (96-109) mmol/L Carbon Dioxide (21.6-31.8) mmol/L Anion Gap (4.00-12.00) mmol/L BUN (9.0-27.0) mg/dL Creatinine (0.6-1.5) mg/dL Est GFR (CKD-EPI) (>=60) BUN/Creatinine Ratio (12.00-20.00) Ratio Glucose (70-110) mg/dL POC Glucose (mg/dL) 134 H (70-110) mg/dL Hemoglobin A1c (<=6.0) % Iron (65-175) UG/DL % Saturation (15.00-50.00) Ferritin (22.0-322.0) ng/mL Globulin (1.6-3.3) g/dL Albumin/Globulin Ratio (1.60-3.17) Ratio Vitamin B12 (200.0-944.0) pg/mL IgG (700.0-1600.0) mg/dL IgA (60.0-350.0) mg/dL Crossmatch
[2023-08-12] MEDS: POTASSIUM CHLORIDE ER 20 MEQ TAB.ER PO STA (13:49)
--- NOTE | 2023-08-12 14:52 | P.PN ---
Subjective Progress Note Date: 08/12/23 77-year-old male patient with known history of COPD and chronic smoker who quit smoking approximately a month ago. He is known to have extensive number of comorbid conditions including diabetes mellitus type 2, chronic kidney disease, hypertension, hyperlipidemia and coronary artery disease in addition to peripheral vascular disease. The patient is nonalcoholic. He presented to the hospital because of generalized weakness, abdominal pain, dysphagia and a was also having questionable black tarry stools. The patient was recently in the emergency department on 08/02/2023. He left AMA. He went back to see his primary care physician and he was directed to the emergency department. In the ED, the patient was diagnosed having acute pancreatitis. His lipase level was 3619. Denies having any previous history of alcoholism, gallbladder disease and denies having any previous episodes of pancreatitis. Note that his blood work showed normal LFTs, bilirubin was 0.5, alkaline phosphatase of 83 and the AST and ALT were both within normal limits. He had occult positive stool. Hemoglobin was at 7.2. White cell count was at 3.7 and a platelet count of 112 and the patient is not taking Any form of anticoagulation at this point in time. As part of further investigation, a CAT scan of the abdomen was done that showed no evidence of any acute pancreatitis. Gallbladder wall was thickened with some dilatation of the extra hepatic biliary system similar to prior evaluation. Overall CAT scan findings were unchanged compared to 06/04/2023. The patient was found to have no evidence of any aortic aneurysm. There was a left iliac external iliac stent graft and some dilatation of the infrarenal abdominal aortic structure measuring up to 2.4 cm in size. He had extensive vascular calcification. No evidence of any hydronephrosis. On a separate note, the patient is a smoker and he was undergoing serial low-dose CAT scan of the chest for lung cancer screening. The most recent low-dose CAT scan of the chest that was done on 04/10/2023 showed a cavitating right upper lobe lesion measuring around 2.4 cm in size. The patient also had another 4 mm right upper lobe pulmonary nodule that was unchanged and a 6 mm subpleural pulmonary nodule in the right upper lobe that was also unchanged. Based on this finding, there was a consideration of lung cancer although other fungal elements cannot be completely ruled out. Based on that, the patient was given a PET/CT on 06/09/2023 and the PET/CT showed some mild abnormal uptake in the right upper lobe cavitating lesion with an SUV of 3.69. There was also increased signal throughout the esophagus consistent with esophagitis. There was also some focal uptake lateral to the femoral neck this was probably outside the femoral neck osseous structure with an SUV of 4.25. Otherwise no other abnormal uptake involving the osseous structures. Based on this cavitating right upper lobe lesion, pulmonary consultation was requested. Note that the patient has no history of aspiration, no history of any tuberculosis. No hemoptysis. No recen t pneumonias. He has no respiratory distress at this point in time. He is a long-term smoker and he quit smoking proximately a month ago. He does have a remote history of bladder cancer that was diagnosed in 2014. The patient underwent resection of a bladder tumor On today's evaluation of 08/12/2023, the patient's resting comfortably in bed. No nausea or vomiting. No emesis.The patient is overweight oxygen. The blood work shows a glucose, 3.5 with a hemoglobin 7.9, platelet count is 131, BUN is at 31 with a creatinine of 1.6 and his sodium level is at 142. Note that the patient's renal function continues to improve as the patient had an acute attack of chronic kidney disease. As for the pancreatic enzymes, the lipase was downtrending down to 2323. Furthermore, ultrasound of the gallbladder was completed and the patient had suboptimal imaging due to bowel gas. Nevertheless, the patient is clinically stable. The GI team is considering doing an EGD on this patient tomorrow. No signs of any respiratory distress at this point in time. Objective - Vital Signs Vital signs: Vital Signs Temp 97.6 F 08/12/23 13:21 Pulse 67 08/12/23 13:21 Resp 16 08/12/23 13:21 BP 164/70 08/12/23 13:21 Pulse Ox 100 08/12/23 13:21 FiO2 Intake & Output 08/11/23 08/12/23 08/12/23 18:59 06:59 18:59 Intake Total 1200 271 Balance 1200 271 Intake: Intake, IV Titration 1200 Amount Sodium Chloride 0.9% 1, 1200 000 ml @ 100 mls/hr IV . Q10H ONE Rx#:[id number] Blood Product 0 271 Rc Pheresis 2 As3 Unit 0 271 [id number] Other: Voiding Method Toilet Toilet # Voids 2 - Exam GENERAL EXAM: Alert, 77-year-old white male, frail, comfortable in no apparent distress. The patient is calm comfortable on room air oxygen. HEAD: Normocephalic and atraumatic EYES: Normal reaction of pupils, equal size. Nonicteric sclera NOSE: Clear with pink turbinates. THROAT: No erythema or exudates. Dry mucous membranes NECK: No masses, no JVD. CHEST: No chest wall deformity. LUNGS: Equal air entry with no crackles, wheeze, rhonchi or dullness. On room air. No conversational dyspnea or accessory muscle use.. CVS: S1 and S2 normal with no audible murmur, regular rhythm. No extra heart sounds ABDOMEN: No hepatosplenomegaly, active bowel sounds, no guarding or rigidity. No abnormal periumbilical or flank bruising SPINE: No scoliosis or deformity SKIN: No rashes CENTRAL NERVOUS SYSTEM: No focal deficits, tone is normal in all 4 extremities. EXTREMITIES: There is no peripheral edema, clubbing, or cyanosis. Peripheral pulses are intact. 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 - Labs CBC & Chem 7: 08/12/23 06:44 08/12/23 06:44 Labs: Abnormal Lab Results - Last 24 Hours (Table) 08/10/23 08/11/23 08/11/23 Range/Units 16:30 02:03 02:03 WBC (4.50-10.00) X 10*3/uL RBC (4.40-5.60) X 10*6/uL Hgb (13.0-17.0) g/dL Hct (39.6-50.0) % MCH (27.0-32.0) pg MCHC (32.0-37.0) g/dL RDW (11.5-14.5) % Plt Count (140-440) X 10*3/uL Lymphocytes # (0.90-5.00) X 10*3/uL Eosinophils # (0.04-0.35) X 10*3/uL NRBC/100 WBC Diff (0.00-0.01) X 10*3/uL Potassium (3.5-5.5) mmol/L Chloride (96-109) mmol/L Carbon Dioxide (21.6-31.8) mmol/L BUN (9.0-27.0) mg/dL Creatinine (0.6-1.5) mg/dL Est GFR (CKD-EPI) (>=60) Glucose (70-110) mg/dL POC Glucose (mg/dL) (70-110) mg/dL Calcium (8.7-10.3) mg/dL Iron 24 L (65-175) UG/DL % Saturation 8.16 L (15.00-50.00) Ferritin 437.0 H (22.0-322.0) ng/mL Albumin (3.8-4.9) g/dL Globulin (1.6-3.3) g/dL Albumin/Globulin Ratio (1.60-3.17) Ratio Vitamin B12 1726.0 H (200.0-944.0) pg/mL RBC Folate (280 - 791) ng/mL IgG (700.0-1600.0) mg/dL IgA (60.0-350.0) mg/dL Crossmatch See Detail 08/11/23 08/11/23 08/11/23 Range/Units 15:06 15:06 20:40 WBC (4.50-10.00) X 10*3/uL RBC (4.40-5.60) X 10*6/uL Hgb (13.0-17.0) g/dL Hct (39.6-50.0) % MCH (27.0-32.0) pg MCHC (32.0-37.0) g/dL RDW (11.5-14.5) % Plt Count (140-440) X 10*3/uL Lymphocytes # (0.90-5.00) X 10*3/uL Eosinophils # (0.04-0.35) X 10*3/uL NRBC/100 WBC Diff (0.00-0.01) X 10*3/uL Potassium (3.5-5.5) mmol/L Chloride (96-109) mmol/L Carbon Dioxide (21.6-31.8) mmol/L BUN (9.0-27.0) mg/dL Creatinine (0.6-1.5) mg/dL Est GFR (CKD-EPI) (>=60) Glucose (70-110) mg/dL POC Glucose (mg/dL) 128 H (70-110) mg/dL Calcium (8.7-10.3) mg/dL Iron (65-175) UG/DL % Saturation (15.00-50.00) Ferritin (22.0-322.0) ng/mL Albumin (3.8-4.9) g/dL Globulin (1.6-3.3) g/dL Albumin/Globulin Ratio (1.60-3.17) Ratio Vitamin B12 (200.0-944.0) pg/mL RBC Folate 872 H (280 - 791) ng/mL IgG 1609.0 H (700.0-1600.0) mg/dL IgA 485.0 H (60.0-350.0) mg/dL Crossmatch 08/12/23 08/12/23 08/12/23 Range/Units 06:44 06:44 07:18 WBC 3.51 L (4.50-10.00) X 10*3/uL RBC 3.07 L (4.40-5.60) X 10*6/uL Hgb 7.9 L (13.0-17.0) g/dL Hct 26.4 L (39.6-50.0) % MCH 25.7 L (27.0-32.0) pg MCHC 29.9 L (32.0-37.0) g/dL RDW 18.6 H (11.5-14.5) % Plt Count 131 L (140-440) X 10*3/uL Lymphocytes # 0.78 L (0.90-5.00) X 10*3/uL Eosinophils # 0 L (0.04-0.35) X 10*3/uL NRBC/100 WBC Diff 0.02 H (0.00-0.01) X 10*3/uL Potassium 3.3 L (3.5-5.5) mmol/L Chloride 116 H (96-109) mmol/L Carbon Dioxide 14.1 L (21.6-31.8) mmol/L BUN 31.9 H (9.0-27.0) mg/dL Creatinine 1.6 H (0.6-1.5) mg/dL Est GFR (CKD-EPI) 45 L (>=60) Glucose 129 H (70-110) mg/dL POC Glucose (mg/dL) 134 H (70-110) mg/dL Calcium 8.4 L (8.7-10.3) mg/dL Iron (65-175) UG/DL % Saturation (15.00-50.00) Ferritin (22.0-322.0) ng/mL Albumin 3.7 L (3.8-4.9) g/dL Globulin 3.4 H (1.6-3.3) g/dL Albumin/Globulin Ratio 1.09 L (1.60-3.17) Ratio Vitamin B12 (200.0-944.0) pg/mL RBC Folate (280 - 791) ng/mL IgG (700.0-1600.0) mg/dL IgA (60.0-350.0) mg/dL Crossmatch 08/12/23 Range/Units 11:44 WBC (4.50-10.00) X 10*3/uL RBC (4.40-5.60) X 10*6/uL Hgb (13.0-17.0) g/dL Hct (39.6-50.0) % MCH (27.0-32.0) pg MCHC (32.0-37.0) g/dL RDW (11.5-14.5) % Plt Count (140-440) X 10*3/uL Lymphocytes # (0.90-5.00) X 10*3/uL Eosinophils # (0.04-0.35) X 10*3/uL NRBC/100 WBC Diff (0.00-0.01) X 10*3/uL Potassium (3.5-5.5) mmol/L Chloride (96-109) mmol/L Carbon Dioxide (21.6-31.8) mmol/L BUN (9.0-27.0) mg/dL Creatinine (0.6-1.5) mg/dL Est GFR (CKD-EPI) (>=60) Glucose (70-110) mg/dL POC Glucose (mg/dL) 163 H (70-110) mg/dL Calcium (8.7-10.3) mg/dL Iron (65-175) UG/DL % Saturation (15.00-50.00) Ferritin (22.0-322.0) ng/mL Albumin (3.8-4.9) g/dL Globulin (1.6-3.3) g/dL Albumin/Globulin Ratio (1.60-3.17) Ratio Vitamin B12 (200.0-944.0) pg/mL RBC Folate (280 - 791) ng/mL IgG (700.0-1600.0) mg/dL IgA (60.0-350.0) mg/dL Crossmatch Assessment and Plan Plan: Right upper lobe cavitating lesion measuring around 2.4 cm in size identified initially on low-dose CAT scan of the chest that was done on 04/10/2023 and subsequent PET/CT that was done on 06/04/2023 showed some mild metabolic activity in the right upper lobe cavitating lesion with an SUV of 3.6. 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 An infected bolus cannot be completely ruled out. Fungus ball cannot be completely ruled out. COPD with upper lobe predominance as the patient has long-term smoking history Acute pancreatitis. CAT scan of the abdomen showed no evidence of any pancreatic inflammation. There is some gallbladder wall thickening with dilatation of the extrahepatic biliary system similar to the prior evidence evaluation that was done on 06/04/2023. Otherwise, the gallbladder was unremarkable. LFTs abnormal. The patient does not have any significant abdominal pain at this point in time. Acute kidney injury, improving with fluid resuscitation and the patient remains on 100 cc of normal saline Coronary artery disease with previous PCI/stenting Diabetes mellitus type 2 Diabetic foot ulcers and previous history of osteomyelitis Peripheral vascular disease with previous stenting of the external iliac on the left Chronic stage IV kidney disease Non-anion gap metabolic acidosis likely secondary to renal failure Anemia of chronic disease Questionable GI bleed as the patient has occult positive blood in the stool Esophagitis as evident on the PET/CT with diffuse uptake involving the esophagus and the patient has acid reflux Weight loss Remote history of bladder cancer postresection back in 2014 Hypertension Hyperlipidemia Unintentional weight loss Plan Pancreatic enzymes are improving and the patient does not have any significant abdominal discomfort or pain. Ultrasound the gallbladder was suboptimal due to bowel gas May benefit from EGD and colonoscopy of concern is the evaluation of the esophagus to make sure there is no esophageal cancer and at the same time workup for possibility of GI bleed, this will be done tomorrow Regarding the right upper lobe pulmonary nodule, this is a cavitating lesion. Could be fungus ball. 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 The patient will need a robotic bronchoscopy and biopsy and lavage of the right upper lobe at the later stage. I may be able to do it during this current hospitalization or even on an outpatient basis Acute kidney injury is improving and the creatinine is declining IV fluids with normal sinus rate at 100 cc an hour Monitor lipase Will continue to follow
--- NOTE | 2023-08-12 16:01 | P.PN ---
Subjective Progress Note Date: 08/12/23 CHIEF COMPLAINT: Black stools HISTORY OF PRESENT ILLNESS: Patient has had no further bowel movements. No black stools. No abdominal pain. Denies any nausea or vomiting. Hemoglobin has gone up from 6.5-7.9 after 1 unit of blood. Vital stable PHYSICAL EXAM: VITAL SIGNS: Reviewed. GENERAL: Well-developed in no acute distress. HEENT: No sclera icterus. Extraocular movements grossly intact. Moist buccal mucosa. Head is atraumatic, normocephalic. ABDOMEN: Soft. Nondistended. Nontender. NEUROLOGIC: Alert and oriented. Cranial nerves II through XII grossly intact. ASSESSMENT: 1. GI bleed with melanotic stools 2. Increased uptake through the esophagus. Possible esophagitis on PET scan. Also recommended direct visualization to exclude esophageal neoplasm 3. Acute on chronic anemia 4. Gallbladder thickening with dilation of the extrahepatic biliary system noted on CT scan 5. Pancreatitis with elevated lipase 6. Lung mass. Followed by pulmonary service PLAN: -Patient scheduled for EGD tomorrow with Dr. Mohan -N.p.o. after midnight -Continue to monitor hemoglobin -Continue monitor for any signs or symptoms of bleeding -Continue IV Protonix -Continue IV fluids -Potassium being replaced Physician Cold Roll Catcher note has been reviewed by physician. Signing provider agrees with the documented findings, assessment, and plan of care. Objective - Vital Signs Vital signs: Vital Signs Temp 97.6 F 08/12/23 13:21 Pulse 67 08/12/23 13:21 Resp 16 08/12/23 13:21 BP 164/70 08/12/23 13:21 Pulse Ox 100 08/12/23 13:21 FiO2 Intake & Output 08/11/23 08/12/23 08/12/23 18:59 06:59 18:59 Intake Total 1200 271 Balance 1200 271 Intake: Intake, IV Titration 1200 Amount Sodium Chloride 0.9% 1, 1200 000 ml @ 100 mls/hr IV . Q10H ONE Rx#:[id number] Blood Product 0 271 Rc Pheresis 2 As3 Unit 0 271 [id number] Other: Voiding Method Toilet Toilet # Voids 2 - Labs CBC & Chem 7: 08/12/23 06:44 08/12/23 06:44 Labs: Abnormal Lab Results - Last 24 Hours (Table) 02/11/2608/11/23 08/11/23 Range/Units 16:30 02:03 02:03 WBC (4.50-10.00) X 10*3/uL RBC (4.40-5.60) X 10*6/uL Hgb (13.0-17.0) g/dL Hct (39.6-50.0) % MCH (27.0-32.0) pg MCHC (32.0-37.0) g/dL RDW (11.5-14.5) % Plt Count (140-440) X 10*3/uL Lymphocytes # (0.90-5.00) X 10*3/uL Eosinophils # (0.04-0.35) X 10*3/uL NRBC/100 WBC Diff (0.00-0.01) X 10*3/uL Potassium (3.5-5.5) mmol/L Chloride (96-109) mmol/L Carbon Dioxide (21.6-31.8) mmol/L BUN (9.0-27.0) mg/dL Creatinine (0.6-1.5) mg/dL Est GFR (CKD-EPI) (>=60) Glucose (70-110) mg/dL POC Glucose (mg/dL) (70-110) mg/dL Calcium (8.7-10.3) mg/dL Iron 24 L (65-175) UG/DL % Saturation 8.16 L (15.00-50.00) Ferritin 437.0 H (22.0-322.0) ng/mL Albumin (3.8-4.9) g/dL Globulin (1.6-3.3) g/dL Albumin/Globulin Ratio (1.60-3.17) Ratio Vitamin B12 1726.0 H (200.0-944.0) pg/mL RBC Folate (280 - 791) ng/mL IgG (700.0-1600.0) mg/dL IgA (60.0-350.0) mg/dL Crossmatch See Detail 08/11/23 08/11/23 08/11/23 Range/Units 15:06 15:06 20:40 WBC (4.50-10.00) X 10*3/uL RBC (4.40-5.60) X 10*6/uL Hgb (13.0-17.0) g/dL Hct (39.6-50.0) % MCH (27.0-32.0) pg MCHC (32.0-37.0) g/dL RDW (11.5-14.5) % Plt Count (140-440) X 10*3/uL Lymphocytes # (0.90-5.00) X 10*3/uL Eosinophils # (0.04-0.35) X 10*3/uL NRBC/100 WBC Diff (0.00-0.01) X 10*3/uL Potassium (3.5-5.5) mmol/L Chloride (96-109) mmol/L Carbon Dioxide (21.6-31.8) mmol/L BUN (9.0-27.0) mg/dL Creatinine (0.6-1.5) mg/dL Est GFR (CKD-EPI) (>=60) Glucose (70-110) mg/dL POC Glucose (mg/dL) 128 H (70-110) mg/dL Calcium (8.7-10.3) mg/dL Iron (65-175) UG/DL % Saturation (15.00-50.00) Ferritin (22.0-322.0) ng/mL Albumin (3.8-4.9) g/dL Globulin (1.6-3.3) g/dL Albumin/Globulin Ratio (1.60-3.17) Ratio Vitamin B12 (200.0-944.0) pg/mL RBC Folate 872 H (280 - 791) ng/mL IgG 1609.0 H (700.0-1600.0) mg/dL IgA 485.0 H (60.0-350.0) mg/dL Crossmatch 08/12/23 08/12/23 08/12/23 Range/Units 06:44 06:44 07:18 WBC 3.51 L (4.50-10.00) X 10*3/uL RBC 3.07 L (4.40-5.60) X 10*6/uL Hgb 7.9 L (13.0-17.0) g/dL Hct 26.4 L (39.6-50.0) % MCH 25.7 L (27.0-32.0) pg MCHC 29.9 L (32.0-37.0) g/dL RDW 18.6 H (11.5-14.5) % Plt Count 131 L (140-440) X 10*3/uL Lymphocytes # 0.78 L (0.90-5.00) X 10*3/uL Eosinophils # 0 L (0.04-0.35) X 10*3/uL NRBC/100 WBC Diff 0.02 H (0.00-0.01) X 10*3/uL Potassium 3.3 L (3.5-5.5) mmol/L Chloride 116 H (96-109) mmol/L Carbon Dioxide 14.1 L (21.6-31.8) mmol/L BUN 31.9 H (9.0-27.0) mg/dL Creatinine 1.6 H (0.6-1.5) mg/dL Est GFR (CKD-EPI) 45 L (>=60) Glucose 129 H (70-110) mg/dL POC Glucose (mg/dL) 134 H (70-110) mg/dL Calcium 8.4 L (8.7-10.3) mg/dL Iron (65-175) UG/DL % Saturation (15.00-50.00) Ferritin (22.0-322.0) ng/mL Albumin 3.7 L (3.8-4.9) g/dL Globulin 3.4 H (1.6-3.3) g/dL Albumin/Globulin Ratio 1.09 L (1.60-3.17) Ratio Vitamin B12 (200.0-944.0) pg/mL RBC Folate (280 - 791) ng/mL IgG (700.0-1600.0) mg/dL IgA (60.0-350.0) mg/dL Crossmatch 08/12/23 Range/Units 11:44 WBC (4.50-10.00) X 10*3/uL RBC (4.40-5.60) X 10*6/uL Hgb (13.0-17.0) g/dL Hct (39.6-50.0) % MCH (27.0-32.0) pg MCHC (32.0-37.0) g/dL RDW (11.5-14.5) % Plt Count (140-440) X 10*3/uL Lymphocytes # (0.90-5.00) X 10*3/uL Eosinophils # (0.04-0.35) X 10*3/uL NRBC/100 WBC Diff (0.00-0.01) X 10*3/uL Potassium (3.5-5.5) mmol/L Chloride (96-109) mmol/L Carbon Dioxide (21.6-31.8) mmol/L BUN (9.0-27.0) mg/dL Creatinine (0.6-1.5) mg/dL Est GFR (CKD-EPI) (>=60) Glucose (70-110) mg/dL POC Glucose (mg/dL) 163 H (70-110) mg/dL Calcium (8.7-10.3) mg/dL Iron (65-175) UG/DL % Saturation (15.00-50.00) Ferritin (22.0-322.0) ng/mL Albumin (3.8-4.9) g/dL Globulin (1.6-3.3) g/dL Albumin/Globulin Ratio (1.60-3.17) Ratio Vitamin B12 (200.0-944.0) pg/mL RBC Folate (280 - 791) ng/mL IgG (700.0-1600.0) mg/dL IgA (60.0-350.0) mg/dL Crossmatch
[2023-08-12 17:05] LABS: Glucose,Whole Blood 130 mg/dL (70-110)
[2023-08-12] MEDS: amLODIPine 5 MG TAB PO SCH (18:08)
[2023-08-12] MEDS: LOSARTAN-HCTZ 50-12.5 MG 1 EACH TAB PO SCH (18:08)
[2023-08-12 20:09] LABS: Glucose,Whole Blood 113 mg/dL (70-110)
[2023-08-13 06:36] LABS: Gamma Globulin 1.57 g/dL (0.70-1.50)
[2023-08-13 06:43] LABS: Anisocytosis Slight; HCT 27.6 % (39.0-53.0); HGB 8.4 gm/dL (13.0-17.5); Hypochromasia Marked; MCH 26.3 pg (25.0-35.0); MCHC 30.4 g/dL (31.0-37.0); MCV 86.4 fL (80.0-100.0); Mean Platelet Volume 10.9; Platelet Count 149 k/uL (150-450); RBC 3.19 m/uL (4.30-5.90); RDW 18.2 % (11.5-15.5); WBC 4.1 k/uL (3.8-10.6)
[2023-08-13 06:57] LABS: African American GFR (CKD) 52 (>60 ml/min/1.73 sqM); Anion Gap 13 mmol/L; Blood Urea Nitrogen 21 mg/dL (9-20); Calcium 8.7 mg/dL (8.4-10.2); Carbon Dioxide 10 mmol/L (22-30); Chloride 120 mmol/L (98-107); Glucose 158 mg/dL (74-99); Non-African American GFR(CKD) 45 (>60 ml/min/1.73 sqM); Potassium 3.2 mmol/L (3.5-5.1); Sodium 143 mmol/L (137-145)
[2023-08-13 07:24] LABS: Lipase 1934 U/L (23-300)
[2023-08-13 07:30] LABS: Glucose,Whole Blood 219 mg/dL (70-110)
--- NOTE | 2023-08-13 07:57 | PN ---
PROGRESS NOTE Junior Bird has a longstanding history of diabetes, bad COPD. He was noncompliant with his followup on his CAT scan and his PET scan. In for a biopsy as an outpatient. He came in with pancreatitis and worsening breathing. OBJECTIVE: VITAL SIGNS: Temp 97.6, blood pressure 164/70, O2 100% on room air, pulse 67, respiratory rate 16. CARDIOVASCULAR: S1, S2. LUNGS: Transmitted upper sounds. GI: Soft, nontender. HEMATOLOGY: Negative Homans. GENERAL: He is weak, fatigued, looks skinny. Dry skin turgor. Dry mucous membranes. Looks his staged age. ABDOMEN: No splenomegaly. NECK: Supple. No masses. HEENT: Normocephalic, atraumatic. EXTREMITIES: No cyanosis, clubbing, or edema. Hemoglobin 7.9, white count is 3.5, lymphocytes are low. Potassium 3.3, sodium 142, BUN is 31, creatinine 1.6, GFR is 45, glucose 160s. Cavitary lesion on CAT scan and COPD. He had a midline placed. get a bronchoscopy . He came in severely dehydrated. His kidney function is improving. downtrending. Clinically stable. GI team is considering doing EGD on this patient tomorrow. Vital signs reviewed. Hemoglobin 7.9, white count 3.51. IgG is 1609, IgA is 485. Carbon dioxide is over 14, potassium 3.3. COPD, quite severe; nicotine addiction; right upper lobe cavitary lesion. Hopefully, a bronchoscopy could be done while here. He had poor followup with the abnormal PET scan. Coronary artery disease, diabetes mellitus, diabetic foot ulcer, peripheral vascular disease, kidney disease stage 3-4, anemia of chronic disease, pancreatitis, esophagitis. He is supposed to get an EGD and then possibly a bronchoscopy as his pancreas improves. Hopefully, do a bronchoscopy while he is here. Prognosis guarded. MMODL / IJN: [id number] /
[2023-08-13] MEDS: IV FLUID CONTINUATION 1,000 ML IV ONE (08:23)
[2023-08-13] MEDS ORDERED: PROPOFOL 10 MG/ML 20 ML VIAL IV ONE (08:31)
--- NOTE | 2023-08-13 08:41 | P.OP ---
Date of Procedure: 08/13/23 Preoperative Diagnosis: Anemia Postoperative Diagnosis: Antral gastritis Mild esophagitis Procedure(s) Performed: EGD Anesthesia: MAC Surgeon: Franco Mohan Pathology: other (Antrum, esophagus) Condition: stable Disposition: PACU Description of Procedure: Patient was placed on the endoscopy table in the lateral position. He received IV sedation. The gas close placed oropharynx passed in the esophagus and the stomach. Scope then placed through the pylorus. The first and second portion of the duodenum appeared normal. Scope was then repacked the antrum this was mild inflamed. A biopsy was performed. The scope was then retroflexed and mediastinum appeared normal. The GE junction was at 40 cm. The distal esophagus appeared mildly inflamed. A biopsy performed. The proximal esophagus appeared normal. Scope withdrawn for the patient. There is no evidence of any active upper GI bleed. Patient is presumed to have anemia from possible gastritis.
[2023-08-13] MEDS: POTASSIUM CHLORIDE ER 20 MEQ TAB.ER PO STA (09:24)
[2023-08-13] MEDS: POTASSIUM CHLORIDE ER 20 MEQ TAB.ER PO SCH (09:26)
[2023-08-13 09:30] LABS: Free Kappa Lt Chain Qnt, Serum 12.55 mg/dL (0.33-1.94); Free Lambda Lt Chain Qnt, Seru 7.36 mg/dL (0.57-2.63)
[2023-08-13 11:57] LABS: Glucose,Whole Blood 164 mg/dL (70-110)
--- NOTE | 2023-08-13 15:28 | P.PN ---
Subjective Progress Note Date: 08/13/23 77-year-old male patient with known history of COPD and chronic smoker who quit smoking approximately a month ago. He is known to have extensive number of comorbid conditions including diabetes mellitus type 2, chronic kidney disease, hypertension, hyperlipidemia and coronary artery disease in addition to peripheral vascular disease. The patient is nonalcoholic. He presented to the hospital because of generalized weakness, abdominal pain, dysphagia and a was also having questionable black tarry stools. The patient was recently in the emergency department on 08/02/2023. He left AMA. He went back to see his primary care physician and he was directed to the emergency department. In the ED, the patient was diagnosed having acute pancreatitis. His lipase level was 3619. Denies having any previous history of alcoholism, gallbladder disease and denies having any previous episodes of pancreatitis. Note that his blood work showed normal LFTs, bilirubin was 0.5, alkaline phosphatase of 83 and the AST and ALT were both within normal limits. He had occult positive stool. Hemoglobin was at 7.2. White cell count was at 3.7 and a platelet count of 112 and the patient is not taking Any form of anticoagulation at this point in time. As part of further investigation, a CAT scan of the abdomen was done that showed no evidence of any acute pancreatitis. Gallbladder wall was thickened with some dilatation of the extra hepatic biliary system similar to prior evaluation. Overall CAT scan findings were unchanged compared to 06/04/2023. The patient was found to have no evidence of any aortic aneurysm. There was a left iliac external iliac stent graft and some dilatation of the infrarenal abdominal aortic structure measuring up to 2.4 cm in size. He had extensive vascular calcification. No evidence of any hydronephrosis. On a separate note, the patient is a smoker and he was undergoing serial low-dose CAT scan of the chest for lung cancer screening. The most recent low-dose CAT scan of the chest that was done on 04/10/2023 showed a cavitating right upper lobe lesion measuring around 2.4 cm in size. The patient also had another 4 mm right upper lobe pulmonary nodule that was unchanged and a 6 mm subpleural pulmonary nodule in the right upper lobe that was also unchanged. Based on this finding, there was a consideration of lung cancer although other fungal elements cannot be completely ruled out. Based on that, the patient was given a PET/CT on 06/09/2023 and the PET/CT showed some mild abnormal uptake in the right upper lobe cavitating lesion with an SUV of 3.69. There was also increased signal throughout the esophagus consistent with esophagitis. There was also some focal uptake lateral to the femoral neck this was probably outside the femoral neck osseous structure with an SUV of 4.25. Otherwise no other abnormal uptake involving the osseous structures. Based on this cavitating right upper lobe lesion, pulmonary consultation was requested. Note that the patient has no history of aspiration, no history of any tuberculosis. No hemoptysis. No recen t pneumonias. He has no respiratory distress at this point in time. He is a long-term smoker and he quit smoking proximately a month ago. He does have a remote history of bladder cancer that was diagnosed in 2014. The patient underwent resection of a bladder tumor On today's evaluation of 08/12/2023, the patient's resting comfortably in bed. No nausea or vomiting. No emesis.The patient is overweight oxygen. The blood work shows a glucose, 3.5 with a hemoglobin 7.9, platelet count is 131, BUN is at 31 with a creatinine of 1.6 and his sodium level is at 142. Note that the patient's renal function continues to improve as the patient had an acute attack of chronic kidney disease. As for the pancreatic enzymes, the lipase was downtrending down to 2323. Furthermore, ultrasound of the gallbladder was completed and the patient had suboptimal imaging due to bowel gas. Nevertheless, the patient is clinically stable. The GI team is considering doing an EGD on this patient tomorrow. No signs of any respiratory distress at this point in time. On today's evaluation of 08/13/2023, the patient has no specific complaints. No nausea or vomiting. The patient has improvement in lipase level which is down to 1490. Subsequently, the level came up to 1934. The patient underwent an EGD today and the patient was not found to have any significant abnormalities. In summary, the patient was found to have some antral gastritis. Otherwise the findings were essentially negative. The patient is currently on room air oxygen. No respiratory distress. Blood work shows BUN of 21 with a creatinine of 1.5 and the patient is recovering from his acute kidney injury. Potassium level is at 3.2. Serum bicarb is at 10. The white cell count of 4.1 with a hemoglobin of 8.4 and a platelet count of 149. The patient is currently on normal saline at rate of 100 cc an hour. This will be switched to bicarb infusion. As for the lung biopsy, this was not done today as the patient had an EGD and I am ultimately considering to do this on an outpatient basis. I do not think there is any urgency to do an inpatient lung biopsy in this patient with the ongoing medical problems and comorbidities. Objective - Vital Signs Vital signs: Vital Signs Temp 97.2 F L 08/13/23 12:06 Pulse 65 08/13/23 12:06 Resp 16 08/13/23 12:06 BP 154/66 08/13/23 12:06 Pulse Ox 100 08/13/23 12:06 FiO2 Intake & Output 08/12/23 08/13/23 08/13/23 18:59 06:59 18:59 Intake Total 100 1700 100 Balance 100 1700 100 Intake: IV 100 Intake, IV Titration 100 1200 Amount Sodium Chloride 0.9% 1, 1200 000 ml @ 100 mls/hr IV . Q10H HU[facility] Rx#:[id number] Sodium Ferric Gluconat- 100 Sucrose 125 mg In Sodium Chloride 0.9% 100 ml @ 100 mls/hr IVPB DAILY [facility] Rx#:[id number] Oral 500 Other: Voiding Method Toilet Toilet Toilet # Voids 3 - Exam GENERAL EXAM: Alert, 77-year-old white male, frail, comfortable in no apparent distress. The patient is calm comfortable on room air oxygen. HEAD: Normocephalic and atraumatic EYES: Normal reaction of pupils, equal size. Nonicteric sclera NOSE: Clear with pink turbinates. THROAT: No erythema or exudates. Dry mucous membranes NECK: No masses, no JVD. CHEST: No chest wall deformity. LUNGS: Equal air entry with no crackles, wheeze, rhonchi or dullness. On room air. No conversational dyspnea or accessory muscle use.. CVS: S1 and S2 normal with no audible murmur, regular rhythm. No extra heart sounds ABDOMEN: No hepatosplenomegaly, active bowel sounds, no guarding or rigidity. No abnormal periumbilical or flank bruising SPINE: No scoliosis or deformity SKIN: No rashes CENTRAL NERVOUS SYSTEM: No focal deficits, tone is normal in all 4 extremities. EXTREMITIES: There is no peripheral edema, clubbing, or cyanosis. Peripheral pulses are intact. 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 - Labs CBC & Chem 7: 08/13/23 06:20 08/13/23 06:20 Labs: Abnormal Lab Results - Last 24 Hours (Table) 08/11/23 08/12/23 08/12/23 Range/Units 15:06 17:03 18:27 RBC (4.30-5.90) m/uL Hgb (13.0-17.5) gm/dL Hct (39.0-53.0) % MCHC (31.0-37.0) g/dL RDW (11.5-15.5) % Plt Count (150-450) k/uL Potassium (3.5-5.1) mmol/L Chloride (98-107) mmol/L Carbon Dioxide (22-30) mmol/L BUN (9-20) mg/dL Creatinine (0.66-1.25) mg/dL Glucose (74-99) mg/dL POC Glucose (mg/dL) 130 H (70-110) mg/dL Gamma Globulins 1.57 H (0.70-1.50) g/dL Lipase 1490 H (23-300) U/L Free [place] LC, Quant 12.55 H (0.33-1.94) mg/dL Free Lambda LC, Quant 7.36 H (0.57-2.63) mg/dL 08/12/23 08/13/23 08/13/23 Range/Units 20:07 06:20 06:20 RBC 3.19 L (4.30-5.90) m/uL Hgb 8.4 L (13.0-17.5) gm/dL Hct 27.6 L (39.0-53.0) % MCHC 30.4 L (31.0-37.0) g/dL RDW 18.2 H (11.5-15.5) % Plt Count 149 L (150-450) k/uL Potassium 3.2 L (3.5-5.1) mmol/L Chloride 120 H (98-107) mmol/L Carbon Dioxide 10 L (22-30) mmol/L BUN 21 H (9-20) mg/dL Creatinine 1.50 H (0.66-1.25) mg/dL Glucose 158 H (74-99) mg/dL POC Glucose (mg/dL) 113 H (70-110) mg/dL Gamma Globulins (0.70-1.50) g/dL Lipase 1934 H (23-300) U/L Free [place] LC, Quant (0.33-1.94) mg/dL Free Lambda LC, Quant (0.57-2.63) mg/dL 08/13/23 08/13/23 Range/Units 07:28 11:56 RBC (4.30-5.90) m/uL Hgb (13.0-17.5) gm/dL Hct (39.0-53.0) % MCHC (31.0-37.0) g/dL RDW (11.5-15.5) % Plt Count (150-450) k/uL Potassium (3.5-5.1) mmol/L Chloride (98-107) mmol/L Carbon Dioxide (22-30) mmol/L BUN (9-20) mg/dL Creatinine (0.66-1.25) mg/dL Glucose (74-99) mg/dL POC Glucose (mg/dL) 219 H 164 H (70-110) mg/dL Gamma Globulins (0.70-1.50) g/dL Lipase (23-300) U/L Free [place] LC, Quant (0.33-1.94) mg/dL Free Lambda LC, Quant (0.57-2.63) mg/dL Assessment and Plan Plan: Right upper lobe cavitating lesion measuring around 2.4 cm in size identified initially on low-dose CAT scan of the chest that was done on 04/10/2023 and subsequent PET/CT that was done on 06/04/2023 showed some mild metabolic activity in the right upper lobe cavitating lesion with an SUV of 3.6. 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 An infected bolus cannot be completely ruled out. Fungus ball cannot be completely ruled out. COPD with upper lobe predominance as the patient has long-term smoking history Acute pancreatitis. CAT scan of the abdomen showed no evidence of any pancreatic inflammation. There is some gallbladder wall thickening with di latation of the extrahepatic biliary system similar to the prior evidence evaluation that was done on 06/04/2023. Otherwise, the gallbladder was unremarkable. LFTs abnormal. The patient does not have any significant abdominal pain at this point in time. Clinically stable and the lipase level has been fluctuating. After a drop down to 1490, the lipase level came up to 1934. General surgery is on the case. EGD showed some mild antral gastritis. Acute kidney injury, improving with fluid resuscitation and the patient remains on 100 cc of normal saline, creatinine continues to improve Non-anion gap metabolic acidosis Coronary artery disease with previous PCI/stenting Diabetes mellitus type 2 Diabetic foot ulcers and previous history of osteomyelitis Peripheral vascular disease with previous stenting of the external iliac on the left Chronic stage IV kidney disease Non-anion gap metabolic acidosis likely secondary to renal failure Anemia of chronic disease Questionable GI bleed as the patient has occult positive blood in the stool Esophagitis as evident on the PET/CT with diffuse uptake involving the esophagus and the patient has acid reflux Weight loss Remote history of bladder cancer postresection back in 2014 Hypertension Hyperlipidemia Unintentional weight loss Plan Put the patient on a bicarb infusion, as the patient has a component of anion gap metabolic acidosis. Will discontinue the saline infusion for now. Pancreatic enzymes are improving and the patient does not have any significant abdominal discomfort or pain. Please continue monitoring the elevation in the lipase and obtain daily lipase levels. Ultrasound the gallbladder was suboptimal due to bowel gas EGD showed antral gastritis otherwise no other acute abnormalities. Regarding the right upper lobe pulmonary nodule, this is a cavitating lesion. Could be fungus ball. 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 The patient will need a robotic bronchoscopy and biopsy and lavage of the right upper lobe at the later stage. I may be able to do it during this on an out patient basis Acute kidney injury is improving and the creatinine is declining Monitor lipase Will continue to follow
[2023-08-13 17:17] LABS: Glucose,Whole Blood 192 mg/dL (70-110)
[2023-08-13] MEDS: DEXTROSE 5% IN WATER 1,000 ML with SODIUM BICARB (1 MEQ/ML) 150 ML IV SCH (18:21)
--- NOTE | 2023-08-13 19:15 | P.PN ---
Subjective Progress Note Date: 08/13/23 No acute events. Patient reports he is feeling well. Denies blood in stool and melena. S/p EGD with no evidence of acute upper GI bleed. Gastritis noted. Hemoglobin stable at 8.4. Lipase remains elevated at 1934 but has shown improvement since admission. Objective - Vital Signs Vital signs: Vital Signs Temp 97.8 F 08/13/23 07:23 Pulse 75 08/13/23 07:23 Resp 16 08/13/23 07:23 BP 157/58 08/13/23 07:23 Pulse Ox 97 08/13/23 07:23 FiO2 Intake & Output 08/12/23 08/13/23 08/13/23 18:59 06:59 18:59 Intake Total 100 1700 100 Balance 100 1700 100 Intake: IV 100 Intake, IV Titration 100 1200 Amount Sodium Chloride 0.9% 1, 1200 000 ml @ 100 mls/hr IV . Q10H [facility] Rx#:[id number] Sodium Ferric Gluconat- 100 Sucrose 125 mg In Sodium Chloride 0.9% 100 ml @ 100 mls/hr IVPB DAILY [facility] Rx#:[id number] Oral 500 Other: Voiding Method Toilet Toilet Toilet # Voids 3 - Constitutional General appearance: Present: no acute distress - EENT Eyes: Present: anicteric sclerae, EOMI ENT: Present: hearing grossly normal - Respiratory Details: breathing even and unlabored - Cardiovascular Details: skin warm and dry - Gastrointestinal General gastrointestinal: Present: soft. Absent: tenderness - Integumentary Integumentary: Absent: cyanotic, jaundiced - Neurologic Neurologic: Present: CNII-XII intact - Musculoskeletal Musculoskeletal: Present: strength equal bilaterally - Labs CBC & Chem 7: 08/13/23 06:20 08/13/23 06:20 Labs: Abnormal Lab Results - Last 24 Hours (Table) 08/11/23 08/12/23 08/12/23 Range/Units 15:06 17:03 18:27 RBC (4.30-5.90) m/uL Hgb (13.0-17.5) gm/dL Hct (39.0-53.0) % MCHC (31.0-37.0) g/dL RDW (11.5-15.5) % Plt Count (150-450) k/uL Potassium (3.5-5.1) mmol/L Chloride (98-107) mmol/L Carbon Dioxide (22-30) mmol/L BUN (9-20) mg/dL Creatinine (0.66-1.25) mg/dL Glucose (74-99) mg/dL POC Glucose (mg/dL) 130 H (70-110) mg/dL Gamma Globulins 1.57 H (0.70-1.50) g/dL Lipase 1490 H (23-300) U/L Free [place] LC, Quant 12.55 H (0.33-1.94) mg/dL Free Lambda LC, Quant 7.36 H (0.57-2.63) mg/dL 08/12/23 08/13/23 08/13/23 Range/Units 20:07 06:20 06:20 RBC 3.19 L (4.30-5.90) m/uL Hgb 8.4 L (13.0-17.5) gm/dL Hct 27.6 L (39.0-53.0) % MCHC 30.4 L (31.0-37.0) g/dL RDW 18.2 H (11.5-15.5) % Plt Count 149 L (150-450) k/uL Potassium 3.2 L (3.5-5.1) mmol/L Chloride 120 H (98-107) mmol/L Carbon Dioxide 10 L (22-30) mmol/L BUN 21 H (9-20) mg/dL Creatinine 1.50 H (0.66-1.25) mg/dL Glucose 158 H (74-99) mg/dL POC Glucose (mg/dL) 113 H (70-110) mg/dL Gamma Globulins (0.70-1.50) g/dL Lipase 1934 H (23-300) U/L Free [place] LC, Quant (0.33-1.94) mg/dL Free Lambda LC, Quant (0.57-2.63) mg/dL 08/13/23 08/13/23 Range/Units 07:28 11:56 RBC (4.30-5.90) m/uL Hgb (13.0-17.5) gm/dL Hct (39.0-53.0) % MCHC (31.0-37.0) g/dL RDW (11.5-15.5) % Plt Count (150-450) k/uL Potassium (3.5-5.1) mmol/L Chloride (98-107) mmol/L Carbon Dioxide (22-30) mmol/L BUN (9-20) mg/dL Creatinine (0.66-1.25) mg/dL Glucose (74-99) mg/dL POC Glucose (mg/dL) 219 H 164 H (70-110) mg/dL Gamma Globulins (0.70-1.50) g/dL Lipase (23-300) U/L Free [place] LC, Quant (0.33-1.94) mg/dL Free Lambda LC, Quant (0.57-2.63) mg/dL Assessment and Plan (1) Pancytopenia Current Visit: Yes Status: Acute Priority: High Code(s): D61.818 - OTHER PANCYTOPENIA SNOMED Code(s): 738414950 (2) Pancreatitis Current Visit: Yes Status: Acute Priority: High Code(s): K85.90 - ACUTE PANCREATITIS WITHOUT NECROSIS OR INFECTION, UNSP SNOMED Code(s): 06992382 (3) Lesion of lung Current Visit: Yes Status: Acute Priority: Medium Code(s): R91.1 - SOLITARY PULMONARY NODULE SNOMED Code(s): 054612613 Plan: Pancytopenia: -Patient presented to emergency room with complains of progressing fatigue and generalized weakness over the last 3 weeks. He also reports intermittent upper abdominal discomfort and has noticed some black tarry stools. Patient was seen on consult for anemia in 11/2021, having to receive multiple blood transfusions. He was on ASA and plavix at that time. Myeloma workup during admission, revealed elevated K/L LCs, but normal ratio at 1.5, SPEP and immunofixation normal. Ferritin normal, iron 11, iron saturation was unable to be calculated. Anemia has been noted since 2017. He has never underwent endoscopic evaluation in the past. -Upon admission, CBC revealed normocytic, normochromic anemia, hemoglobin 7.2. WBC 3.7, platelets 112,000. Today hemoglobin noted at 6.5, 1 unit PRBCs have been ordered. Patient does have history of CKD, creatinine 2.3, GFR 27. Lipase found to be elevated at 3619. Bilirubin and LFTs normal. Stool occult posit reshma. CT abdomen without contrast revealed no definitive evidence for pancreatitis. Bladder wall thickening with dilation of the extra hepatic biliary system similar prior study. Liver and spleen unremarkable. Gallbladder US limited due to gas. Coarse echotexture of liver, with multiple right renal lesions likely representing renal cysts. -Surgery consulted. S/p EGD revealing no active bleed, with anemia possibly due to noted gastritis. Continues on PPI -Anemia workup consistent with anemia of inflammation. SPEP and immunofixation negative. K/L light chains elevated with ratio mildly elevated at 1.70, appears to be r/t hx CKD. RF and TREVOR negative -Pancytopenia likely reactive and r/t possible underlying chronic liver disease. Would recommend outpt followup with GI for further workup -Please transfuse for hgb less than 7 or if symptomatic Lung lesion: -Patient has also been being worked up outpt due to right upper lobe lesion. He underwent PET/CT on 06/04/23 which showed abnormal uptake within the cavitary lesion in the right upper lobe. Diffuse increased uptake through the esophagus, thought to be esophagitis. Asymmetric focal uptake within the right anterior vocal cord. Focal area of abnormal uptake superior to the right femoral neck within the soft tissue, uncertain etiology. Pulm following, and is planning for bronchoscopy with biopsy of RUL lesion -Reporting diminished appetite and 20 lb weight loss -Will await biopsy for further recommendations
[2023-08-14 07:17] LABS: Glucose,Whole Blood 136 mg/dL (70-110)
[2023-08-14 08:36] LABS: Basophils # (A) 0.01 X 10*3/uL (0.00-0.10); Basophils % (A) 0.3 %; Eosinophils # (A) 0 X 10*3/uL (0.04-0.35); Eosinophils % (A) 0 %; HCT 24.5 % (39.6-50.0); HGB 7.7 g/dL (13.0-17.0); Lymphocytes # (A) 1.06 X 10*3/uL (0.90-5.00); Lymphocytes % (A) 27.7 %; MCH 26.1 pg (27.0-32.0); MCHC 31.4 g/dL (32.0-37.0); MCV 83.1 FL (80.0-97.0); Mean Platelet Volume 11.5 FL (9.5-12.2); Monocytes % (A) 23.6 %; NRBC Per 100 WBC 0 X 10*3/uL (0.00-0.01); Neutrophils # (A) 1.82 X 10*3/uL (1.80-7.70); Neutrophils % (A) 47.6 %; Platelet Count 138 X 10*3/uL (140-440); RBC 2.95 X 10*6/uL (4.40-5.60); RDW 18.8 % (11.5-14.5); WBC 3.82 X 10*3/uL (4.50-10.00)
[2023-08-14 09:03] LABS: ALT 12 U/L (10-49); AST 18 U/L (14-35); Albumin 3.5 g/dL (3.8-4.9); Albumin/Globulin Ratio 1.17 Ratio (1.60-3.17); Alkaline Phosphatase 87 U/L (41-126); BUN/Creat Ratio 11.06 Ratio (12.00-20.00); Blood Urea Nitrogen 17.7 mg/dL (9.0-27.0); Calcium 8.5 mg/dL (8.7-10.3); Carbon Dioxide 14.7 mmol/L (21.6-31.8); Chloride 108 mmol/L (96-109); Glucose 151 mg/dL (70-110); Potassium 2.9 mmol/L (3.5-5.5); Sodium 136 mmol/L (135-145); Total Bilirubin 0.6 mg/dL (0.3-1.2); Total Protein 6.5 g/dL (6.2-8.2)
[2023-08-14 09:15] LABS: Lipase 691 U/L (14-60)
[2023-08-14] MEDS ORDERED: Potassium Replacement Protocol 1 EACH MISC MISCELLANE PRN (10:25)
[2023-08-14] MEDS: POTASSIUM CHLORIDE ER 20 MEQ TAB.ER PO SCH (10:38)
--- NOTE | 2023-08-14 11:32 | P.PN ---
Subjective Progress Note Date: 08/14/23 77-year-old male history of diabetes, hypertension, dyslipidemia, chronic kidney disease, gastroesophageal reflux disease, tobacco use and dependence. Patient states that he presented to the hospital because he does not feel well. He has abdominal pain. No nausea or vomiting. He states he also had some chest pain yesterday only. Chest pain is not worse with activity and not worse with deep breathing. He states he has a little shortness of breath. No dizziness no palpitations no syncopal episodes. He states he has some lower extremity edema. No cough no fever. No blood in his stool or urine. He denies history of CVA or seizures. Patient does admit to s claudication. Patient is a smoker of half a pack per day and quit 3 weeks ago. He denies any alcohol use and no caffeine use. He also states he has had some weight loss but has a good appetite. Patient had a PET scan done on 06/04/2023 which revealed abnormal uptake within the cavitary lesion right upper lobe. Diffuse increased uptake through the esophagus correlate for esophagitis. Asymmetric focal uptake within the right a nterior vocal cord. Focal area of abnormal uptake superior to the right femoral neck within the soft tissues of unclear etiology. Patient had presented to the emergency center on August 02 for generalized weakness with diagnosis of metabolic acidosis, hypocalcemia and acute kidney injury but patient signed out AGAINST MEDICAL ADVICE. 08/14. Dr. Bui took over care from Dr. Wilson. Patient laying comfortably in the bed. Complaining of generalized weakness and tiredness. Labs done this morning showed WBC 3.82, hemoglobin 7.7, platelet count 138, sodium 136, potassium 2.9. Potassium replacement ordered. REVIEW OF SYSTEMS: CONSTITUTIONAL: No fever, no malaise,. CARDIOVASCULAR: No chest pain, no palpitations, no syncope. PULMONARY: No shortness of breath, no cough, GASTROINTESTINAL: No diarrhea, no nausea, no vomiting, no abdominal pain. NEUROLOGICAL: No headaches, no weakness, PHYSICAL EXAMINATION: GENERAL: The patient is alert and oriented x3, not in any acute distress. Well developed, well nourished. HEENT: Pupils are round and equally reacting to light. EOMI. No scleral icterus. No conjunctival pallor. Normocephalic, atraumatic. No pharyngeal erythema. No thyromegaly. CARDIOVASCULAR: S1 and S2 present. No murmurs, rubs, or gallops. PULMONARY: Chest is clear to auscultation, no wheezing or crackles. ABDOMEN: Soft, nontender, nondistended, normoactive bowel sounds. No palpable organomegaly. MUSCULOSKELETAL: No joint swelling or deformity. EXTREMITIES: No cyanosis, clubbing, or pedal edema. NEUROLOGICAL: Gross neurological examination did not reveal any focal deficits. SKIN: No rashes. 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 Acute kidney injury Non-anion gap metabolic acidosis Coronary artery disease with previous PCI/stenting Diabetes mellitus type 2 Diabetic foot ulcers and previous history of osteomyelitis Peripheral vascular disease with previous stenting of the external iliac on the left Chronic stage IV kidney disease Non-anion gap metabolic acidosis likely secondary to renal failure Anemia of chronic disease Esophagitis Weight loss Remote history of bladder cancer postresection back in 2014 Hypertension Hyperlipidemia Unintentional weight loss Monitor vital signs Monitor CBC Monitor CMP Continue telemetry monitoring Encourage use of incentive spirometer Continue amlodipine, losartan. Continue IV Protonix 40 mg twice a day Potassium placement ordered Continue bicarb drip Surgery consulted. S/p EGD revealing no active bleed, with anemia possibly due to noted gastritis. Continues on PPI -Anemia workup consistent with anemia of inflammation. SPEP and immunofixation negative. K/L light chains elevated with ratio mildly elevated at 1.70, appears to be r/t hx CKD. RF and TREVOR negative Pulm following, and is planning for bronchoscopy with biopsy of RUL lesion Nephrology consulted for persistent acidosis Labs and medication were reviewed.. Continue same treatment. Continue with symptomatic treatment. Resume home medication. Monitor labs and vitals. DVT and GI prophylaxis. Further recommendations as per clinical course of the patient Dictation was produced using ulike dictation software. please excuse any grammatical, word or spelling errors. Objective - Vital Signs Vital signs: Vital Signs Temp 97.8 F 08/14/23 07:17 Pulse 65 08/14/23 07:17 Resp 16 08/14/23 07:17 BP 123/63 08/14/23 07:17 Pulse Ox 99 08/14/23 07:17 FiO2 Intake & Output 08/13/23 08/14/23 08/14/23 18:59 06:59 18:59 Intake Total 800 1700 Balance 800 1700 Intake: IV 100 Intake, IV Titration 700 1200 Amount Dextrose 5% in Water 1, 700 1200 000 ml @ 100 mls/hr IV . [id number] HUGH with Sodium Bicarb (1 Meq/ml) 150 ml Rx#:[id number] Oral 500 Other: Voiding Method Toilet Toilet Toilet # Voids 2 - Labs CBC & Chem 7: 08/14/23 05:54 08/14/23 05:54 Labs: Abnormal Lab Results - Last 24 Hours (Table) 08/13/23 08/13/23 08/14/23 Range/Units 11:56 17:15 05:54 WBC (4.50-10.00) X 10*3/uL RBC (4.40-5.60) X 10*6/uL Hgb (13.0-17.0) g/dL Hct (39.6-50.0) % MCH (27.0-32.0) pg MCHC (32.0-37.0) g/dL RDW (11.5-14.5) % Plt Count (140-440) X 10*3/uL Eosinophils # (0.04-0.35) X 10*3/uL Potassium 2.9 L (3.5-5.5) mmol/L Carbon Dioxide 14.7 L (21.6-31.8) mmol/L Anion Gap 13.30 H (4.00-12.00) mmol/L Creatinine 1.6 H (0.6-1.5) mg/dL Est GFR (CKD-EPI) 45 L (>=60) BUN/Creatinine Ratio 11.06 L (12.00-20.00) Ratio Glucose 151 H (70-110) mg/dL POC Glucose (mg/dL) 164 H 192 H (70-110) mg/dL Calcium 8.5 L (8.7-10.3) mg/dL Albumin 3.5 L (3.8-4.9) g/dL Albumin/Globulin Ratio 1.17 L (1.60-3.17) Ratio Lipase 691 H (14-60) U/L 08/14/23 08/14/23 Range/Units 05:54 07:16 WBC 3.82 L (4.50-10.00) X 10*3/uL RBC 2.95 L (4.40-5.60) X 10*6/uL Hgb 7.7 L (13.0-17.0) g/dL Hct 24.5 L (39.6-50.0) % MCH 26.1 L (27.0-32.0) pg MCHC 31.4 L (32.0-37.0) g/dL RDW 18.8 H (11.5-14.5) % Plt Count 138 L (140-440) X 10*3/uL Eosinophils # 0 L (0.04-0.35) X 10*3/uL Potassium (3.5-5.5) mmol/L Carbon Dioxide (21.6-31.8) mmol/L Anion Gap (4.00-12.00) mmol/L Creatinine (0.6-1.5) mg/dL Est GFR (CKD-EPI) (>=60) BUN/Creatinine Ratio (12.00-20.00) Ratio Glucose (70-110) mg/dL POC Glucose (mg/dL) 136 H (70-110) mg/dL Calcium (8.7-10.3) mg/dL Albumin (3.8-4.9) g/dL Albumin/Globulin Ratio (1.60-3.17) Ratio Lipase (14-60) U/L
[2023-08-14 12:24] LABS: Glucose,Whole Blood 196 mg/dL (70-110)
--- NOTE | 2023-08-14 13:54 | P.PN ---
Subjective Progress Note Date: 08/14/23 CHIEF COMPLAINT: Black stools HISTORY OF PRESENT ILLNESS: Patient lying in bed comfortably. No new compl aints. He is status post EGD that revealed antral gastritis and mild esophagitis. No evidence of active upper GI bleed. Afebrile. WBC 3.82 Hgb 7.7 platelets 138 sodium 136 potassium 3.3 creatinine 1.6 LFTs normal lipase down to 691 PHYSICAL EXAM: VITAL SIGNS: Reviewed. GENERAL: no acute distress. ABDOMEN: Soft. Nondistended. Nontender. NEUROLOGIC: Awake and alert ASSESSMENT: 1. GI bleed with melanotic stools status post EGD revealing antral gastritis and esophagitis 4. Acute on chronic anemia 3. Gallbladder thickening with dilation of the extrahepatic biliary system noted on CT scan 4. Pancreatitis. Lipase trending down. 5. Lung mass. Followed by pulmonary service PLAN: -Repeat abdominal ultrasound for further evaluation of gallbladder. On initial ultrasound gallbladder was not visualized due to bowel gas -Continue regular diet -Continue to monitor hemoglobin -Continue monitor for any signs or symptoms of bleeding -Continue IV Protonix -Follow-up on biopsy results from EGD Physician Multiple Sclerosis Nurse note has been reviewed by physician. Signing provider agrees with the documented findings, assessment, and plan of care. Objective - Vital Signs Vital signs: Vital Signs Temp 97.8 F 08/14/23 07:17 Pulse 65 08/14/23 07:17 Resp 16 08/14/23 07:17 BP 123/63 08/14/23 07:17 Pulse Ox 99 08/14/23 07:17 FiO2 Intake & Output 08/13/23 08/14/23 08/14/23 18:59 06:59 18:59 Intake Total 800 1700 Balance 800 1700 Intake: IV 100 Intake, IV Titration 700 1200 Amount Dextrose 5% in Water 1, 700 1200 000 ml @ 100 mls/hr IV . [id number] HUGH with Sodium Bicarb (1 Meq/ml) 150 ml Rx#:[id number] Oral 500 Other: Voiding Method Toilet Toilet Toilet # Voids 2 - Labs CBC & Chem 7: 08/14/23 05:54 08/14/23 13:09 Labs: Abnormal Lab Results - Last 24 Hours (Table) 08/13/23 08/13/23 08/14/23 Range/Units 11:56 17:15 05:54 WBC (4.50-10.00) X 10*3/uL RBC (4.40-5.60) X 10*6/uL Hgb (13.0-17.0) g/dL Hct (39.6-50.0) % MCH (27.0-32.0) pg MCHC (32.0-37.0) g/dL RDW (11.5-14.5) % Plt Count (140-440) X 10*3/uL Eosinophils # (0.04-0.35) X 10*3/uL Potassium 2.9 L (3.5-5.5) mmol/L Carbon Dioxide 14.7 L (21.6-31.8) mmol/L Anion Gap 13.30 H (4.00-12.00) mmol/L Creatinine 1.6 H (0.6-1.5) mg/dL Est GFR (CKD-EPI) 45 L (>=60) BUN/Creatinine Ratio 11.06 L (12.00-20.00) Ratio Glucose 151 H (70-110) mg/dL POC Glucose (mg/dL) 164 H 192 H (70-110) mg/dL Calcium 8.5 L (8.7-10.3) mg/dL Albumin 3.5 L (3.8-4.9) g/dL Albumin/Globulin Ratio 1.17 L (1.60-3.17) Ratio Lipase 691 H (14-60) U/L 08/14/23 08/14/23 Range/Units 05:54 07:16 WBC 3.82 L (4.50-10.00) X 10*3/uL RBC 2.95 L (4.40-5.60) X 10*6/uL Hgb 7.7 L (13.0-17.0) g/dL Hct 24.5 L (39.6-50.0) % MCH 26.1 L (27.0-32.0) pg MCHC 31.4 L (32.0-37.0) g/dL RDW 18.8 H (11.5-14.5) % Plt Count 138 L (140-440) X 10*3/uL Eosinophils # 0 L (0.04-0.35) X 10*3/uL Potassium (3.5-5.5) mmol/L Carbon Dioxide (21.6-31.8) mmol/L Anion Gap (4.00-12.00) mmol/L Creatinine (0.6-1.5) mg/dL Est GFR (CKD-EPI) (>=60) BUN/Creatinine Ratio (12.00-20.00) Ratio Glucose (70-110) mg/dL POC Glucose (mg/dL) 136 H (70-110) mg/dL Calcium (8.7-10.3) mg/dL Albumin (3.8-4.9) g/dL Albumin/Globulin Ratio (1.60-3.17) Ratio Lipase (14-60) U/L
--- NOTE | 2023-08-14 13:59 | US ---
EXAMINATION TYPE: US gallbladder DATE OF EXAM: 08/14/2023 COMPARISON: US & CT CLINICAL INDICATION: Male, 77 years old with history of Gallbladder wall thickening on CT; Abnnormal CT TECHNIQUE: Multiple sonographic images of the right upper quadrant are obtained. FINDINGS: EXAM MEASUREMENTS: Liver Length: 10.4 cm CBD: 0.7 cm Right Kidney: 9.5 x 5.0 x 4.6 cm FREELANCE COPYWRITER NOTES: Pancreas: wnl Liver: Visualized portions appeared wnl Gallbladder: Calcified TEDDY sign throughout GB, unable to obtain wall thickness measurement Evidence for sonographic Porras's sign: No CBD: wnl Right Kidney: Cystic lesion upper pole= 1.6 cm, no evidence of hydro IMPRESSION: The gallbladder is completely filled with gallstones. Common bile duct is mildly dilated.
[2023-08-14] MEDS: POTASSIUM CHLORIDE ER 20 MEQ TAB.ER PO STA (14:29)
--- NOTE | 2023-08-14 14:55 | P.PN ---
Subjective Progress Note Date: 08/14/23 77-year-old male patient with known history of COPD and chronic smoker who quit smoking approximately a month ago. He is known to have extensive number of comorbid conditions including diabetes mellitus type 2, chronic kidney disease, hypertension, hyperlipidemia and coronary artery disease in addition to peripheral vascular disease. The patient is nonalcoholic. He presented to the hospital because of generalized weakness, abdominal pain, dysphagia and a was also having questionable black tarry stools. The patient was recently in the emergency department on 08/02/2023. He left AMA. He went back to see his primary care physician and he was directed to the emergency department. In the ED, the patient was diagnosed having acute pancreatitis. His lipase level was 3619. Denies having any previous history of alcoholism, gallbladder disease and denies having any previous episodes of pancreatitis. Note that his blood work showed normal LFTs, bilirubin was 0.5, alkaline phosphatase of 83 and the AST and ALT were both within normal limits. He had occult positive stool. Hemoglobin was at 7.2. White cell count was at 3.7 and a platelet count of 112 and the patient is not taking Any form of anticoagulation at this point in time. As part of further investigation, a CAT scan of the abdomen was done that showed no evidence of any acute pancreatitis. Gallbladder wall was thickened with some dilatation of the extra hepatic biliary system similar to prior evaluation. Overall CAT scan findings were unchanged compared to 06/04/2023. The patient was found to have no evidence of any aortic aneurysm. There was a left iliac external iliac stent graft and some dilatation of the infrarenal abdominal aortic structure measuring up to 2.4 cm in size. He had extensive vascular calcification. No evidence of any hydronephrosis. On a separate note, the patient is a smoker and he was undergoing serial low-dose CAT scan of the chest for lung cancer screening. The most recent low-dose CAT scan of the chest that was done on 04/10/2023 showed a cavitating right upper lobe lesion measuring around 2.4 cm in size. The patient also had another 4 mm right upper lobe pulmonary nodule that was unchanged and a 6 mm subpleural pulmonary nodule in the right upper lobe that was also unchanged. Based on this finding, there was a consideration of lung cancer although other fungal elements cannot be completely ruled out. Based on that, the patient was given a PET/CT on 06/09/2023 and the PET/CT showed some mild abnormal uptake in the right upper lobe cavitating lesion with an SUV of 3.69. There was also increased signal throughout the esophagus consistent with esophagitis. There was also some focal uptake lateral to the femoral neck this was probably outside the femoral neck osseous structure with an SUV of 4.25. Otherwise no other abnormal uptake involving the osseous structures. Based on this cavitating right upper lobe lesion, pulmonary consultation was requested. Note that the patient has no history of aspiration, no history of any tuberculosis. No hemoptysis. No recen t pneumonias. He has no respiratory distress at this point in time. He is a long-term smoker and he quit smoking proximately a month ago. He does have a remote history of bladder cancer that was diagnosed in 2014. The patient underwent resection of a bladder tumor On today's evaluation of 08/12/2023, the patient's resting comfortably in bed. No nausea or vomiting. No emesis.The patient is overweight oxygen. The blood work shows a glucose, 3.5 with a hemoglobin 7.9, platelet count is 131, BUN is at 31 with a creatinine of 1.6 and his sodium level is at 142. Note that the patient's renal function continues to improve as the patient had an acute attack of chronic kidney disease. As for the pancreatic enzymes, the lipase was downtrending down to 2323. Furthermore, ultrasound of the gallbladder was completed and the patient had suboptimal imaging due to bowel gas. Nevertheless, the patient is clinically stable. The GI team is considering doing an EGD on this patient tomorrow. No signs of any respiratory distress at this point in time. On today's evaluation of 08/13/2023, the patient has no specific complaints. No nausea or vomiting. The patient has improvement in lipase level which is down to 1490. Subsequently, the level came up to 1934. The patient underwent an EGD today and the patient was not found to have any significant abnormalities. In summary, the patient was found to have some antral gastritis. Otherwise the findings were essentially negative. The patient is currently on room air oxygen. No respiratory distress. Blood work shows BUN of 21 with a creatinine of 1.5 and the patient is recovering from his acute kidney injury. Potassium level is at 3.2. Serum bicarb is at 10. The white cell count of 4.1 with a hemoglobin of 8.4 and a platelet count of 149. The patient is currently on normal saline at rate of 100 cc an hour. This will be switched to bicarb infusion. As for the lung biopsy, this was not done today as the patient had an EGD and I am ultimately considering to do this on an outpatient basis. I do not think there is any urgency to do an inpatient lung biopsy in this patient with the ongoing medical problems and comorbidities. On 08/14/2023, I am seeing the patient for a follow-up. The patient was supposed to undergo a robotic bronchoscopy of the right upper lobe. However due to scheduling issues, the procedure was canceled. In addition, the patient had a potassium level of 2.9 that was replaced. The patient has no specific complaints. Lipase level is down to 691. The patient otherwise, is awake and alert. The patient is taking a regular diet. Lipase level has improved. Hemodynamically stable on IV Protonix. A repeat ultrasound of the gallbladder was also done that showed a gallbladder that was completely filled with stones. Common bile duct was mildly dilated and general surgery is on the case at this point. The labs from today shows a WBC count of 3.8, hemoglobin of 7.7 and a platelet count of 134, sodium is 136 with a potassium level of 3.3, serum bicarb is at 14 and the BUN is at 17 with a creatinine of 1.6. The patient has chronic kidney disease. The patient is currently on a bicarb infusion at a rate of 100 cc an hour and the bicarb deficit is being corrected. Objective - Vital Signs Vital signs: Vital Signs Temp 98.2 F 08/14/23 13:13 Pulse 66 08/14/23 13:13 Resp 16 08/14/23 13:13 BP 141/66 08/14/23 13:13 Pulse Ox 100 08/14/23 13:13 FiO2 Intake & Output 08/13/23 08/14/23 08/14/23 18:59 06:59 18:59 Intake Total 800 1700 Balance 800 1700 Intake: IV 100 Intake, IV Titration 700 1200 Amount Dextrose 5% in Water 1, 700 1200 000 ml @ 100 mls/hr IV . [id number] HUGH with Sodium Bicarb (1 Meq/ml) 150 ml Rx#:[id number] Oral 500 Other: Voiding Method Toilet Toilet Toilet # Voids 2 - Exam GENERAL EXAM: Alert, 77-year-old white male, frail, comfortable in no apparent distress. The patient is calm comfortable on room air oxygen. HEAD: Normocephalic and atraumatic EYES: Normal reaction of pupils, equal size. Nonicteric sclera NOSE: Clear with pink turbinates. THROAT: No erythema or exudates. Dry mucous membranes NECK: No masses, no JVD. CHEST: No chest wall deformity. LUNGS: Equal air entry with no crackles, wheeze, rhonchi or dullness. On room air. No conversational dyspnea or accessory muscle use.. CVS: S1 and S2 normal with no audible murmur, regular rhythm. No extra heart sounds ABDOMEN: No hepatosplenomegaly, active bowel sounds, no guarding or rigidity. No abnormal periumbilical or flank bruising SPINE: No scoliosis or deformity SKIN: No rashes CENTRAL NERVOUS SYSTEM: No focal deficits, tone is normal in all 4 extremities. EXTREMITIES: There is no peripheral edema, clubbing, or cyanosis. Peripheral pulses are intact. 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 - Labs CBC & Chem 7: 08/14/23 05:54 08/14/23 13:09 Labs: Abnormal Lab Results - Last 24 Hours (Table) 08/13/23 08/14/23 08/14/23 Range/Units 17:15 05:54 05:54 WBC 3.82 L (4.50-10.00) X 10*3/uL RBC 2.95 L (4.40-5.60) X 10*6/uL Hgb 7.7 L (13.0-17.0) g/dL Hct 24.5 L (39.6-50.0) % MCH 26.1 L (27.0-32.0) pg MCHC 31.4 L (32.0-37.0) g/dL RDW 18.8 H (11.5-14.5) % Plt Count 138 L (140-440) X 10*3/uL Eosinophils # 0 L (0.04-0.35) X 10*3/uL Potassium 2.9 L (3.5-5.5) mmol/L Carbon Dioxide 14.7 L (21.6-31.8) mmol/L Anion Gap 13.30 H (4.00-12.00) mmol/L Creatinine 1.6 H (0.6-1.5) mg/dL Est GFR (CKD-EPI) 45 L (>=60) BUN/Creatinine Ratio 11.06 L (12.00-20.00) Ratio Glucose 151 H (70-110) mg/dL POC Glucose (mg/dL) 192 H (70-110) mg/dL Calcium 8.5 L (8.7-10.3) mg/dL Albumin 3.5 L (3.8-4.9) g/dL Albumin/Globulin Ratio 1.17 L (1.60-3.17) Ratio Lipase 691 H (14-60) U/L 08/14/23 08/14/23 08/14/23 Range/Units 07:16 12:22 13:09 WBC (4.50-10.00) X 10*3/uL RBC (4.40-5.60) X 10*6/uL Hgb (13.0-17.0) g/dL Hct (39.6-50.0) % MCH (27.0-32.0) pg MCHC (32.0-37.0) g/dL RDW (11.5-14.5) % Plt Count (140-440) X 10*3/uL Eosinophils # (0.04-0.35) X 10*3/uL Potassium 3.3 L (3.5-5.5) mmol/L Carbon Dioxide (21.6-31.8) mmol/L Anion Gap (4.00-12.00) mmol/L Creatinine (0.6-1.5) mg/dL Est GFR (CKD-EPI) (>=60) BUN/Creatinine Ratio (12.00-20.00) Ratio Glucose (70-110) mg/dL POC Glucose (mg/dL) 136 H 196 H (70-110) mg/dL Calcium (8.7-10.3) mg/dL Albumin (3.8-4.9) g/dL Albumin/Globulin Ratio (1.60-3.17) Ratio Lipase (14-60) U/L Assessment and Plan Plan: Right upper lobe cavitating lesion measuring around 2.4 cm in size identified initially on low-dose CAT scan of the chest that was done on 04/10/2023 and subsequent PET/CT that was done on 06/04/2023 showed some mild metabolic activity in the right upper lobe cavitating lesion with an SUV of 3.6. 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 An infected bolus cannot be completely ruled out. Fungus ball cannot be completely ruled out. COPD with upper lobe predominance as the patient has long-term smoking history Acute pancreatitis. CAT scan of the abdomen showed no evidence of any pancreatic inflammation. There is some gallbladder wall thickening with dila tation of the extrahepatic biliary system similar to the prior evidence evaluation that was done on 06/04/2023. Otherwise, the gallbladder was unremarkable. LFTs abnormal. The patient does not have any significant abdominal pain at this point in time. Clinically stable and the lipase level has been fluctuating. After a drop down to 1490, the lipase level came up to 1934. General surgery is on the case. EGD showed some mild antral gastritis. Acute kidney injury, improving with fluid resuscitation and the patient remains on 100 cc of normal saline, creatinine continues to improve Non-anion gap metabolic acidosis Coronary artery disease with previous PCI/stenting Diabetes mellitus type 2 Diabetic foot ulcers and previous history of osteomyelitis Peripheral vascular disease with previous stenting of the external iliac on the left Chronic stage IV kidney disease Non-anion gap metabolic acidosis likely secondary to renal failure Anemia of chronic disease Questionable GI bleed as the patient has occult positive blood in the stool Esophagitis as evident on the PET/CT with diffuse uptake involving the esophagus and the patient has acid reflux Weight loss Remote history of bladder cancer postresection back in 2014 Hypertension Hyperlipidemia Unintentional weight loss Plan Continue bicarb infusion as the patient's bicarbonate level is improving. The patient is currently on IV bicarb and oral bicarb replacement Put the patient on a bicarb infusion, as the patient has a component of anion gap metabolic acidosis. Replace the potassium level Pancreatic enzymes are improving and the patient does not have any significant abdominal discomfort or pain. The patient has had another ultrasound the gallbladder that showed multiple gallstones and some dilatation of the common bile duct. Otherwise, the lipase level is on the decline. EGD showed antral gastritis otherwise no other acute abnormalities. Regarding the right upper lobe pulmonary nodule, this is a cavitating lesion. Could be fungus ball. 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 The patient will need a robotic bronchoscopy and biopsy and lavage of the right upper lobe at the later stage. I may be able to do it during this on an outpatient basis. I was unable to schedule this patient for a bronchoscopy today due to complex with anesthesia. Acute kidney injury is improving and the creatinine is declining, creatinine stable for now Monitor lipase, improving Surgery to comment on the gallbladder findings Will continue to follow
[2023-08-14 17:34] LABS: Glucose,Whole Blood 202 mg/dL (70-110)
[2023-08-14] MEDS: SODIUM BICARBONATE TAB 650 MG TAB PO SCH (17:58)
[2023-08-14 20:36] LABS: Glucose,Whole Blood 221 mg/dL (70-110)
[2023-08-15 07:54] LABS: Glucose,Whole Blood 145 mg/dL (70-110)
--- NOTE | 2023-08-15 09:13 | P.CONS ---
History of Present Illness - Reason for Consult Consult date: 08/14/23 Right upper lobe cavitary lesion, infection Requesting physician: Kyle Bui - Chief Complaint Weakness and shortness of breath x few days - History of Present Illness Patient is a 77-year-old male with a past medical history significant for diabetes mellitus VT osteoarthritis history of bladder cancer patient presenting to the ER about 4 days ago for evaluation of generalized weakness patient mention has been feeling weak fatigued over the last 3 weeks patient denies having any headache or URI symptoms and denies having any fever or any chills did have some shortness of breath no significant cough or sputum production the patient was complaining of abdominal pain dull aching mild to moderate intensity without any radiation and did have some black stool but no nausea vomiting or urinary symptoms patient of presentation to the hospital was afebrile and no fever have recorded subsequently patient was not tachycardic hypotensive or hypoxic white count 3.82 BUN/creatinine has been mildly elevated liver enzymes are normal stool for occult blood was positive patient did have a chest x-ray no acute cardiopulmonary disease process COPD changes did have ab dominal CT no definite evidence of pancreatitis gallbladder wall thickening with dilatation of the extrahepatic biliary system similar to prior patient did have a EGD with evidence of antral gastritis gallbladder ultrasound mention gallbladder is completely full of gallstones and common bile duct is mildly dilated, patient apparently also have a right upper lobe cavitary lesion currently being worked up by pulmonary with concern for possible malignancy versus fungal infection and the patient was scheduled for a robotic bronchoscopy of the right upper lobe infectious was consulted concerning for possible infectious etiology of this lesion and further management Review of Systems Positive point and negatives has been mentioned in the HPI, complete review of systems was performed and all other systems are negative Past Medical History Past Medical History: Cancer, Diabetes Mellitus, Myocardial Infarction (VT), Osteoarthritis (OA), Renal Disease, Vascular Disorder Additional Past Medical History / Comment(s): VT x2. Hx bladder CA 2015. Neuropathy feet. PAD, pain & numbness in BLE. Last Myocardial Infarction Date:: 2002 History of Any Multi-Drug Resistant Organisms: None Reported Past Surgical History: Heart Catheterization With Stent, Orthopedic Surgery Additional Past Surgical History / Comment(s): Right femoral bypass, Rt knee surgery, Lt foot toe amputations. Cervical surgery, has "cagein neck." Bladder tumor exc. lt ptca 09/20/19 Past Anesthesia/Blood Transfusion Reactions: No Reported Reaction Date of Last Stent Placement:: 09/20/19 Past Psychological History: No Psychological Hx Reported Smoking Status: Current every day smoker Past Alcohol Use History: Rare Additional Past Alcohol Use History / Comment(s): Smoking since 1959, recently quit - Past Family History Mother Family Medical History: Cancer Medications and Allergies Home Medications Medication Instructions Recorded Confirmed Type HYDROcodone/APAP 7.5-325MG [[place] 1 tab PO TID 09/19/19 08/10/23 History 7.5-325] Sildenafil Citrate [Viagra] 100 mg PO DAILY PRN 11/05/21 08/10/23 History glipiZIDE [Glucotrol] 10 mg PO BID 11/05/21 08/10/23 History Atorvastatin [Lipitor] 40 mg PO DAILY 08/02/23 08/10/23 History Dapagliflozin Propanediol [Farxiga] 5 mg PO DAILY 08/02/23 08/10/23 History Ipratropium-Albuterol Nebulize 3 ml INHALATION RT-QID PRN 08/02/23 08/10/23 History [Duoneb 0.5 mg-3 mg/3 ml Soln] Omeprazole 40 mg PO BID 08/02/23 08/10/23 History Amoxic-Pot Clav 500-125 mg 1 tab PO Q12HR #20 tab 08/21/23 Rx [Augmentin 500-125 mg] Ciprofloxacin HCl [Cipro] 750 mg PO DAILY #10 tab 08/21/23 Rx Pantoprazole [Protonix] 40 mg PO DAILY 30 Days #30 tab 08/21/23 Rx amLODIPine [Norvasc] 5 mg PO DAILY #30 tab 08/21/23 Rx Allergies Allergy/AdvReac Type Severity Reaction Status Date / Time No Known Allergies Allergy Verified 08/10/23 16:05 Physical Exam Vitals: Vital Signs Temp Pulse Resp BP Pulse Ox 08/14/23 13:13 98.2 F 66 16 141/66 100 08/14/23 07:17 97.8 F 65 16 123/63 99 08/14/23 02:00 98.5 F 63 16 121/62 98 08/13/23 19:55 16 08/13/23 19:20 98.2 F 65 16 155/67 100 08/13/23 15:50 97.8 F 82 17 135/61 100 Intake and Output 08/13/23 08/14/23 08/14/23 22:59 06:59 14:59 Intake Total 700 1700 Balance 700 1700 Intake: Intake, IV Titration 700 1200 Amount Dextrose 5% in Water 1, 700 1200 000 ml @ 100 mls/hr IV . [id number] HUGH with Sodium Bicarb (1 Meq/ml) 150 ml Rx#:[id number] Oral 500 Other: Voiding Method Toilet Toilet # Voids 2 GENERAL DESCRIPTION: Elderly male lying in bed, no distress. No tachypnea or accessory muscle of respiration use. HEENT: Shows Pallor , no scleral icterus. Oral mucous membrane is dry. No pharyngeal erythema or thrush NECK: Trachea central, no thyromegaly. LUNGS: Unlabored breathing. Decreased intensity of breath sounds no wheeze or crackle. HEART: S1, S2, regular rate and rhythm. No loud murmur ABDOMEN: Soft, no tenderness , guarding or rigidity, no organomegaly EXTREMITIES: No edema of feet. SKIN: No rash, no masses palpable. NEUROLOGICAL: The patient is awake, alert, oriented x3, mood and affect normal. Results CBC & Chem 7: 08/20/23 11:08 08/21/23 05:41 Labs: Abnormal Lab Results - Last 24 Hours (Table) 08/13/23 08/14/23 08/14/23 Range/Units 17:15 05:54 05:54 WBC 3.82 L (4.50-10.00) X 10*3/uL RBC 2.95 L (4.40-5.60) X 10*6/uL Hgb 7.7 L (13.0-17.0) g/dL Hct 24.5 L (39.6-50.0) % MCH 26.1 L (27.0-32.0) pg MCHC 31.4 L (32.0-37.0) g/dL RDW 18.8 H (11.5-14.5) % Plt Count 138 L (140-440) X 10*3/uL Eosinophils # 0 L (0.04-0.35) X 10*3/uL Potassium 2.9 L (3.5-5.5) mmol/L Carbon Dioxide 14.7 L (21.6-31.8) mmol/L Anion Gap 13.30 H (4.00-12.00) mmol/L Creatinine 1.6 H (0.6-1.5) mg/dL Est GFR (CKD-EPI) 45 L (>=60) BUN/Creatinine Ratio 11.06 L (12.00-20.00) Ratio Glucose 151 H (70-110) mg/dL POC Glucose (mg/dL) 192 H (70-110) mg/dL Calcium 8.5 L (8.7-10.3) mg/dL Albumin 3.5 L (3.8-4.9) g/dL Albumin/Globulin Ratio 1.17 L (1.60-3.17) Ratio Lipase 691 H (14-60) U/L 08/14/23 08/14/23 Range/Units 07:16 12:22 WBC (4.50-10.00) X 10*3/uL RBC (4.40-5.60) X 10*6/uL Hgb (13.0-17.0) g/dL Hct (39.6-50.0) % MCH (27.0-32.0) pg MCHC (32.0-37.0) g/dL RDW (11.5-14.5) % Plt Count (140-440) X 10*3/uL Eosinophils # (0.04-0.35) X 10*3/uL Potassium (3.5-5.5) mmol/L Carbon Dioxide (21.6-31.8) mmol/L Anion Gap (4.00-12.00) mmol/L Creatinine (0.6-1.5) mg/dL Est GFR (CKD-EPI) (>=60) BUN/Creatinine Ratio (12.00-20.00) Ratio Glucose (70-110) mg/dL POC Glucose (mg/dL) 136 H 196 H (70-110) mg/dL Calcium (8.7-10.3) mg/dL Albumin (3.8-4.9) g/dL Albumin/Globulin Ratio (1.60-3.17) Ratio Lipase (14-60) U/L Assessment and Plan (1) Cavitary lesion of lung Current Visit: Yes Status: Acute Code(s): J98.4 - OTHER DISORDERS OF LUNG SNOMED Code(s): 911137240 Plan: 1patient with a right upper lobe cavitating lesion with question of possible malignancy versus infectious etiology, will be favoring mostly malignancy because of his significant history of smoking however infection not entirely exc luded 2-patient is currently not running any fever no elevated white count and does not look toxic 3-await bronchoscopy biopsy as well as culture scheduled for this afternoon We will follow on clinical condition and cultures to further adjust medication if needed Thank you for this consultation we will follow the patient along with you Dictation was produced using [employer] dictation software. please excuse any grammatical, word or spelling errors. Time with Patient: Greater than 30
[2023-08-15 11:25] LABS: Anisocytosis Slight; HCT 25.4 % (39.0-53.0); HGB 8.1 gm/dL (13.0-17.5); Hypochromasia Slight; MCH 26.9 pg (25.0-35.0); MCHC 31.8 g/dL (31.0-37.0); MCV 84.7 fL (80.0-100.0); Mean Platelet Volume 8.7; Platelet Count 123 k/uL (150-450); RDW 18.9 % (11.5-15.5); WBC 3.1 k/uL (3.8-10.6)
[2023-08-15 11:40] LABS: ALT 17 U/L (4-49); AST 25 U/L (17-59); African American GFR (CKD) 52 (>60 ml/min/1.73 sqM); Albumin 3.2 g/dL (3.5-5.0); Alkaline Phosphatase 86 U/L (38-126); Anion Gap 8 mmol/L; Blood Urea Nitrogen 17 mg/dL (9-20); Carbon Dioxide 22 mmol/L (22-30); Chloride 104 mmol/L (98-107); Globulin 3.2 g/dL; Glucose 202 mg/dL (74-99); Non-African American GFR(CKD) 45 (>60 ml/min/1.73 sqM); Potassium 3.5 mmol/L (3.5-5.1); Sodium 134 mmol/L (137-145); Total Bilirubin 0.5 mg/dL (0.2-1.3); Total Protein 6.4 g/dL (6.3-8.2)
--- NOTE | 2023-08-15 12:07 | P.PN ---
Subjective Progress Note Date: 08/15/23 77-year-old male patient with known history of COPD and chronic smoker who quit smoking approximately a month ago. He is known to have extensive number of comorbid conditions including diabetes mellitus type 2, chronic kidney disease, hypertension, hyperlipidemia and coronary artery disease in addition to peripheral vascular disease. The patient is nonalcoholic. He presented to the hospital because of generalized weakness, abdominal pain, dysphagia and a was also having questionable black tarry stools. The patient was recently in the emergency department on 08/02/2023. He left AMA. He went back to see his primary care physician and he was directed to the emergency department. In the ED, the patient was diagnosed having acute pancreatitis. His lipase level was 3619. Denies having any previous history of alcoholism, gallbladder disease and denies having any previous episodes of pancreatitis. Note that his blood work showed normal LFTs, bilirubin was 0.5, alkaline phosphatase of 83 and the AST and ALT were both within normal limits. He had occult positive stool. Hemoglobin was at 7.2. White cell count was at 3.7 and a platelet count of 112 and the patient is not taking Any form of anticoagulation at this point in time. As part of further investigation, a CAT scan of the abdomen was done that showed no evidence of any acute pancreatitis. Gallbladder wall was thickened with some dilatation of the extra hepatic biliary system similar to prior evaluation. Overall CAT scan findings were unchanged compared to 06/04/2023. The patient was found to have no evidence of any aortic aneurysm. There was a left iliac external iliac stent graft and some dilatation of the infrarenal abdominal aortic structure measuring up to 2.4 cm in size. He had extensive vascular calcification. No evidence of any hydronephrosis. On a separate note, the patient is a smoker and he was undergoing serial low-dose CAT scan of the chest for lung cancer screening. The most recent low-dose CAT scan of the chest that was done on 04/10/2023 showed a cavitating right upper lobe lesion measuring around 2.4 cm in size. The patient also had another 4 mm right upper lobe pulmonary nodule that was unchanged and a 6 mm subpleural pulmonary nodule in the right upper lobe that was also unchanged. Based on this finding, there was a consideration of lung cancer although other fungal elements cannot be completely ruled out. Based on that, the patient was given a PET/CT on 06/09/2023 and the PET/CT showed some mild abnormal uptake in the right upper lobe cavitating lesion with an SUV of 3.69. There was also increased signal throughout the esophagus consistent with esophagitis. There was also some focal uptake lateral to the femoral neck this was probably outside the femoral neck osseous structure with an SUV of 4.25. Otherwise no other abnormal uptake involving the osseous structures. Based on this cavitating right upper lobe lesion, pulmonary consultation was requested. Note that the patient has no history of aspiration, no history of any tuberculosis. No hemoptysis. No recen t pneumonias. He has no respiratory distress at this point in time. He is a long-term smoker and he quit smoking proximately a month ago. He does have a remote history of bladder cancer that was diagnosed in 2014. The patient underwent resection of a bladder tumor On today's evaluation of 08/12/2023, the patient's resting comfortably in bed. No nausea or vomiting. No emesis.The patient is overweight oxygen. The blood work shows a glucose, 3.5 with a hemoglobin 7.9, platelet count is 131, BUN is at 31 with a creatinine of 1.6 and his sodium level is at 142. Note that the patient's renal function continues to improve as the patient had an acute attack of chronic kidney disease. As for the pancreatic enzymes, the lipase was downtrending down to 2323. Furthermore, ultrasound of the gallbladder was completed and the patient had suboptimal imaging due to bowel gas. Nevertheless, the patient is clinically stable. The GI team is considering doing an EGD on this patient tomorrow. No signs of any respiratory distress at this point in time. On today's evaluation of 08/13/2023, the patient has no specific complaints. No nausea or vomiting. The patient has improvement in lipase level which is down to 1490. Subsequently, the level came up to 1934. The patient underwent an EGD today and the patient was not found to have any significant abnormalities. In summary, the patient was found to have some antral gastritis. Otherwise the findings were essentially negative. The patient is currently on room air oxygen. No respiratory distress. Blood work shows BUN of 21 with a creatinine of 1.5 and the patient is recovering from his acute kidney injury. Potassium level is at 3.2. Serum bicarb is at 10. The white cell count of 4.1 with a hemoglobin of 8.4 and a platelet count of 149. The patient is currently on normal saline at rate of 100 cc an hour. This will be switched to bicarb infusion. As for the lung biopsy, this was not done today as the patient had an EGD and I am ultimately considering to do this on an outpatient basis. I do not think there is any urgency to do an inpatient lung biopsy in this patient with the ongoing medical problems and comorbidities. On 08/14/2023, I am seeing the patient for a follow-up. The patient was supposed to undergo a robotic bronchoscopy of the right upper lobe. However due to scheduling issues, the procedure was canceled. In addition, the patient had a potassium level of 2.9 that was replaced. The patient has no specific complaints. Lipase level is down to 691. The patient otherwise, is awake and alert. The patient is taking a regular diet. Lipase level has improved. Hemodynamically stable on IV Protonix. A repeat ultrasound of the gallbladder was also done that showed a gallbladder that was completely filled with stones. Common bile duct was mildly dilated and general surgery is on the case at this point. The labs from today shows a WBC count of 3.8, hemoglobin of 7.7 and a platelet count of 134, sodium is 136 with a potassium level of 3.3, serum bicarb is at 14 and the BUN is at 17 with a creatinine of 1.6. The patient has chronic kidney disease. The patient is currently on a bicarb infusion at a rate of 100 cc an hour and the bicarb deficit is being corrected. On today's evaluation of 08/15/2023, the patient is being seen for a follow-up. The patient is doing well. No specific complaints. He is on a bicarb infusion and serum bicarb is up to 22, BUN is at 17 with a creatinine of 1.5 and there is also stable electrolytes with a sodium level of 134 and a potassium level of 3. 5. The white cell count at 3.1 with a hemoglobin of 8.1. Patient denies having any specific complaints. Unable to do the bronchoscopy due to scheduling problems with the operating room and this will be done on an outpatient basis. The patient's lipase level has been declining and the patient has regular diet at this point in time. Clinically and hemodynamically stable. Objective - Vital Signs Vital signs: Vital Signs Temp 98.2 F 08/15/23 07:25 Pulse 72 08/15/23 07:25 Resp 19 08/15/23 07:25 BP 131/62 08/15/23 07:25 Pulse Ox 100 08/15/23 07:25 FiO2 Intake & Output 08/14/23 08/15/23 08/15/23 18:59 06:59 18:59 Intake Total 580 1700 Output Total 600 Balance 580 1100 Intake: Intake, IV Titration 1200 Amount Dextrose 5% in Water 1, 1200 000 ml @ 100 mls/hr IV . [id number] HUGH with Sodium Bicarb (1 Meq/ml) 150 ml Rx#:[id number] Oral 580 500 Output: Urine 600 Other: Voiding Method Toilet Toilet Toilet Urinal # Voids 2 2 - Exam GENERAL EXAM: Alert, 77-year-old white male, frail, comfortable in no apparent distress. The patient is calm comfortable on room air oxygen. HEAD: Normocephalic and atraumatic EYES: Normal reaction of pupils, equal size. Nonicteric sclera NOSE: Clear with pink turbinates. THROAT: No erythema or exudates. Dry mucous membranes NECK: No masses, no JVD. CHEST: No chest wall deformity. LUNGS: Equal air entry with no crackles, wheeze, rhonchi or dullness. On room air. No conversational dyspnea or accessory muscle use.. CVS: S1 and S2 normal with no audible murmur, regular rhythm. No extra heart sounds ABDOMEN: No hepatosplenomegaly, active bowel sounds, no guarding or rigidity. No abnormal periumbilical or flank bruising SPINE: No scoliosis or deformity SKIN: No rashes CENTRAL NERVOUS SYSTEM: No focal deficits, tone is normal in all 4 extremities. EXTREMITIES: There is no peripheral edema, clubbing, or cyanosis. Peripheral pulses are intact. 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 - Labs CBC & Chem 7: 08/15/23 11:05 08/15/23 11:05 Labs: Abnormal Lab Results - Last 24 Hours (Table) 08/14/23 08/14/23 08/14/23 Range/Units 12:22 13:09 17:14 Potassium 3.3 L (3.5-5.1) mmol/L POC Glucose (mg/dL) 196 H 202 H (70-110) mg/dL 08/14/23 08/15/23 Range/Units 20:35 07:53 Potassium (3.5-5.1) mmol/L POC Glucose (mg/dL) 221 H 145 H (70-110) mg/dL Assessment and Plan Plan: Right upper lobe cavitating lesion measuring around 2.4 cm in size identified initially on low-dose CAT scan of the chest that was done on 04/10/2023 and subsequent PET/CT that was done on 06/04/2023 showed some mild metabolic activity in the right upper lobe cavitating lesion with an SUV of 3.6. 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 An infected bolus cannot be completely ruled out. Fungus ball cannot be completely ruled out. COPD with upper lobe predominance as the patient has long-term smoking history Acute pancreatitis. CAT scan of the abdomen showed no evidence of any pancreatic inflammation. There is some gallbladder wall thickening with dilatation of the extrahepatic biliary system similar to the prior evidence evaluation that was done on 06/04/2023. Otherwise, the gallbladder was unremarkable. LFTs abnormal. The patient does not have any significant abdominal pain at this point in time. Clinically stable and the lipase level has been fluctuating. After a drop down to 1490, the lipase level came up to 1934. General surgery is on the case. EGD showed some mild antral gastritis. Acute kidney injury, improving with fluid resuscitation and the patient remains on 100 cc of normal saline, creatinine continues to improve Non-anion gap metabolic acidosis Coronary artery disease with previous PCI/stenting Diabetes mellitus type 2 Diabetic foot ulcers and previous history of osteomyelitis Peripheral vascular disease with previous stenting of the external iliac on the left Chronic stage IV kidney disease Non-anion gap metabolic acidosis likely secondary to renal failure Anemia of chronic disease Questionable GI bleed as the patient has occult positive blood in the stool Esophagitis as evident on the PET/CT with diffuse uptake involving the esophagus and the patient has acid reflux Weight loss Remote history of bladder cancer postresection back in 2014 Hypertension Hyperlipidemia Unintentional weight loss Plan Stop the bicarb infusion as the patient serum bicarb is improved and normalized The patient is currently on IV bicarb and oral bicarb replacement Put the patient on a bicarb infusion, as the patient has a component of anion gap metabolic acidosis. Potassium level has been replaced Pancreatic enzymes are improving and the patient does not have any significant abdominal discomfort or pain. The patient has had another ultrasound the gallbladder that showed multiple gallstones and some dilatation of the common bile duct. Otherwise, the lipase level is on the decline. EGD showed antral gastritis otherwise no other acute abnormalities. Regarding the right upper lobe pulmonary nodule, this is a cavitating lesion. Could be fungus ball. 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 The patient will need a robotic bronchoscopy and biopsy and lavage of the right upper lobe at the later stage. I may be able to do it during this on an outpatient basis. I was unable to schedule this patient for a bronchoscopy today due to complex with anesthesia. Acute kidney injury is improving and the creatinine is declining, creatinine stable for now Monitor lipase, improving Surgery to comment on the gallbladder findings Will continue to follow
--- NOTE | 2023-08-15 12:21 | P.PN ---
Subjective Progress Note Date: 08/15/23 77-year-old male history of diabetes, hypertension, dyslipidemia, chronic kidney disease, gastroesophageal reflux disease, tobacco use and dependence. Patient states that he presented to the hospital because he does not feel well. He has abdominal pain. No nausea or vomiting. He states he also had some chest pain yesterday only. Chest pain is not worse with activity and not worse with deep breathing. He states he has a little shortness of breath. No dizziness no palpitations no syncopal episodes. He states he has some lower extremity edema. No cough no fever. No blood in his stool or urine. He denies history of CVA or seizures. Patient does admit to s claudication. Patient is a smoker of half a pack per day and quit 3 weeks ago. He denies any alcohol use and no caffeine use. He also states he has had some weight loss but has a good appetite. Patient had a PET scan done on 06/04/2023 which revealed abnormal uptake within the cavitary lesion right upper lobe. Diffuse increased uptake through the esophagus correlate for esophagitis. Asymmetric focal uptake within the right a nterior vocal cord. Focal area of abnormal uptake superior to the right femoral neck within the soft tissues of unclear etiology. Patient had presented to the emergency center on August 02 for generalized weakness with diagnosis of metabolic acidosis, hypocalcemia and acute kidney injury but patient signed out AGAINST MEDICAL ADVICE. 08/14. Dr. Bui took over care from Dr. Wilson. Patient laying comfortably in the bed. Complaining of generalized weakness and tiredness. Labs done this morning showed WBC 3.82, hemoglobin 7.7, platelet count 138, sodium 136, potassium 2.9. Potassium replacement ordered. 08/15. Patient seen and examined. Ultrasound abdomen done showed multiple gallstones, mild dilatation of the bile duct. Bronchoscopy was canceled because of scheduling issues. REVIEW OF SYSTEMS: CONSTITUTIONAL: No fever, no malaise,. CARDIOVASCULAR: No chest pain, no palpitations, no syncope. PULMONARY: No shortness of breath, no cough, GASTROINTESTINAL: No diarrhea, no nausea, no vomiting, no abdominal pain. NEUROLOGICAL: No headaches, no weakness, PHYSICAL EXAMINATION: GENERAL: The patient is alert and oriented x3, not in any acute distress. Well developed, well nourished. HEENT: Pupils are round and equally reacting to light. EOMI. No scleral icterus. No conjunctival pallor. Normocephalic, atraumatic. No pharyngeal erythema. No thyromegaly. CARDIOVASCULAR: S1 and S2 present. No murmurs, rubs, or gallops. PULMONARY: Chest is clear to auscultation, no wheezing or crackles. ABDOMEN: Soft, nontender, nondistended, normoactive bowel sounds. No palpable organomegaly. MUSCULOSKELETAL: No joint swelling or deformity. EXTREMITIES: No cyanosis, clubbing, or pedal edema. NEUROLOGICAL: Gross neurological examination did not reveal any focal deficits. SKIN: No rashes. 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 Acute kidney injury Non-anion gap metabolic acidosis Coronary artery disease with previous PCI/stenting Diabetes mellitus type 2 Diabetic foot ulcers and previous history of osteomyelitis Peripheral vascular disease with previous stenting of the external iliac on the left Chronic stage IV kidney disease Non-anion gap metabolic acidosis likely secondary to renal failure Anemia of chronic disease Esophagitis Weight loss Remote history of bladder cancer postresection back in 2014 Hypertension Hyperlipidemia Unintentional weight loss Monitor vital signs Monitor CBC Monitor CMP Continue telemetry monitoring Encourage use of incentive spirometer Continue amlodipine, losartan. Continue IV Protonix 40 mg twice a day Continue bicarb drip Surgery consulted. S/p EGD revealing no active bleed, with anemia possibly due to noted gastritis. Continues on PPI. Because of ABDOMINAL FINDING, will discuss with surgery regarding possible cholecystectomy Anemia workup consistent with anemia of inflammation. SPEP and immunofixation negative. K/L light chains elevated with ratio mildly elevated at 1.70, appears to be r/t hx CKD. RF and TREVOR negative Pulm following, and recommending bronchoscopy with biopsy of right upper lobe lesion Nephrology consulted for persistent acidosis ID recommending holding off on antibiotics for now Labs and medication were reviewed.. Continue same treatment. Continue with symptomatic treatment. Resume home medication. Monitor labs and vitals. DVT and GI prophylaxis. Further recommendations as per clinical course of the patient Dictation was produced using [employer] dictation software. please excuse any grammatical, word or spelling errors. Objective - Vital Signs Vital signs: Vital Signs Temp 98.2 F 08/15/23 07:25 Pulse 72 08/15/23 07:25 Resp 19 08/15/23 07:25 BP 131/62 08/15/23 07:25 Pulse Ox 100 08/15/23 07:25 FiO2 Intake & Output 08/14/23 08/15/23 08/15/23 18:59 06:59 18:59 Intake Total 580 1700 Output Total 600 Balance 580 1100 Intake: Intake, IV Titration 1200 Amount Dextrose 5% in Water 1, 1200 000 ml @ 100 mls/hr IV . [id number] HUGH with Sodium Bicarb (1 Meq/ml) 150 ml Rx#:[id number] Oral 580 500 Output: Urine 600 Other: Voiding Method Toilet Toilet Toilet Urinal # Voids 2 2 - Labs CBC & Chem 7: 08/15/23 11:05 08/15/23 11:05 Labs: Abnormal Lab Results - Last 24 Hours (Table) 08/14/23 08/14/23 08/14/23 Range/Units 12:22 13:09 17:14 Potassium 3.3 L (3.5-5.1) mmol/L POC Glucose (mg/dL) 196 H 202 H (70-110) mg/dL 08/14/23 08/15/23 Range/Units 20:35 07:53 Potassium (3.5-5.1) mmol/L POC Glucose (mg/dL) 221 H 145 H (70-110) mg/dL
[2023-08-15 12:26] LABS: Glucose,Whole Blood 253 mg/dL (70-110)
--- NOTE | 2023-08-15 12:26 | P.NPCON ---
History of Present Illness - Reason for Consult acute renal failure - History of Present Illness Patient is a 77-year-old male with history of chronic kidney disease NKF stage IIIB with baseline creatinine 1.7-1.8 mg/dL secondary to diabetic kidney disease., who was admitted to the hospital with complaints of increased weakness, shortness of breath. Patient was diagnosed with acute pancreatitis during this admission. Lipase level was 3619 on admission and decreased to 691 yesterday. He was also anemic with hemoglobin at 7.2 g/dL. Noted to have right upper lobe cavitating lesion highly suspicious for malignancy. Being considered for bronchoscopy with biopsy. Serum creatinine was 2.3 on initial admission and decreased to 1.5 today. Patient has been maintained on IV fluids. Urine output is not accurately charted. Blood pressure has not been low. Review of Systems As per HPI Past Medical History Past Medical History: Cancer, Diabetes Mellitus, Myocardial Infarction (IA), Osteoarthritis (OA), Renal Disease, Vascular Disorder Additional Past Medical History / Comment(s): [place] x2. Hx bladder CA 2014. Neuropathy feet. PAD, pain & numbness in BLE. Last Myocardial Infarction Date:: 2002 History of Any Multi-Drug Resistant Organisms: None Reported Past Surgical History: Heart Catheterization With Stent, Orthopedic Surgery Additional Past Surgical History / Comment(s): Right femoral bypass, Rt knee surgery, Lt foot toe amputations. Cervical surgery, has "cagein neck." Bladder tumor exc. lt ptca 09/20/19 Past Anesthesia/Blood Transfusion Reactions: No Reported Reaction Date of Last Stent Placement:: 09/20/19 Past Psychological History: No Psychological Hx Reported Smoking Status: Current every day smoker Past Alcohol Use History: Rare Additional Past Alcohol Use History / Comment(s): Smoking since 1959, recently quit - Past Family History Mother Family Medical History: Cancer Medications and Allergies Home Medications Medication Instructions Recorded Confirmed Type HYDROcodone/APAP 7.5-325MG [Toutle 1 tab PO TID 09/19/19 08/10/23 History 7.5-325] Sildenafil Citrate [Viagra] 100 mg PO DAILY PRN 11/05/21 08/10/23 History glipiZIDE [Glucotrol] 10 mg PO BID 11/05/21 08/10/23 History Atorvastatin [Lipitor] 40 mg PO DAILY 08/02/23 08/10/23 History Dapagliflozin Propanediol [Farxiga] 5 mg PO DAILY 08/02/23 08/10/23 History Ipratropium-Albuterol Nebulize 3 ml INHALATION RT-QID PRN 08/02/23 08/10/23 History [Duoneb 0.5 mg-3 mg/3 ml Soln] Losartan [Cozaar] 50 mg PO DAILY 08/02/23 08/10/23 History Omeprazole 40 mg PO BID 08/02/23 08/10/23 History Allergies Allergy/AdvReac Type Severity Reaction Status Date / Time No Known Allergies Allergy Verified 08/10/23 16:05 Physical Exam Vitals: Vital Signs Temp Pulse Resp BP Pulse Ox 08/15/23 07:25 98.2 F 72 19 131/62 100 08/15/23 02:00 98.6 F 78 16 152/73 98 08/14/23 20:00 16 08/14/23 19:59 98.0 F 70 16 145/81 95 08/14/23 19:20 97.8 F 69 16 115/60 100 08/14/23 15:45 98.2 F 68 16 135/63 100 08/14/23 13:13 98.2 F 66 16 141/66 100 Intake and Output 08/14/23 08/15/23 08/15/23 22:59 06:59 14:59 Intake Total 580 1700 Output Total 600 Balance 580 1100 Intake: Intake, IV Titration 1200 Amount Dextrose 5% in Water 1, 1200 000 ml @ 100 mls/hr IV . [id number] HUGH with Sodium Bicarb (1 Meq/ml) 150 ml Rx#:[id number] Oral 580 500 Output: Urine 600 Other: Voiding Method Toilet Toilet Urinal # Voids 2 2 1 Patient is awake, comfortable, no acute distress Examination of the heart S1 and S2 Examination of the lungs bilateral breath sounds are heard Abdomen is soft nontender Examination of lower extremities shows no evidence of edema [employer] exam grossly intact Results - Lab Results Most recent lab results Calcium 8.0 mg/dL (8.4-10.2) L 08/15/23 11:05 Magnesium 2.2 mg/dL (1.6-2.3) 08/10/23 16:12 08/15/23 11:05 08/15/23 11:05 Assessment and Plan Assessment: 1. Acute kidney injury, nonoliguric secondary to hypovolemia. Renal function improved with IV fluids. UA not done this admission. No obstruction noted on CT of the abdomen 2. Chronic kidney disease NKF stage IIIB secondary to diabetic kidney disease with baseline creatinine 1.7-1.8 mg/dL. 3. Acute pancreatitis, improving 4. Right upper lobe cavity 3 lesion suspicious for malignancy being followed by pulmonary 5. Non-gap metabolic acidosis status post IV bicarb Plan: Continue with oral sodium bicarb Encourage increased oral intake Continue off of IV fluids DC hydrochlorothiazide Replace potassium Repeat labs in a.m. Thank you for the consultation. We will continue to follow the patient with you during his hospitalization.
[2023-08-15] MEDS: POTASSIUM CHLORIDE ER 20 MEQ TAB.ER PO SCH (12:38)
--- NOTE | 2023-08-15 13:10 | P.PN ---
Subjective Progress Note Date: 08/15/23 Principal diagnosis: Right upper lobe cavitary lesion Patient is a 77-year-old male with a past medical history significant for diabetes mellitus [place] osteoarthritis history of bladder cancer patient presenting to the ER for evaluation generalized weakness abdominal pain patient did have a EGD with evidence of antral gastritis and gallbladder ultrasound mention gallbladder follow-up gallstone patient apparently also have right upper lobe cavitary lesion currently being worked up and was supposed to have a bronchoscopy that was canceled on 08/14/2023 On today's evaluation that is 08/15/2023, the patient denies any fever or any chills, patient is breathing comfortably on room air, the patient denies chest pain shortness of breath and no significant cough cough, patient denies abdominal pain, no nausea vomiting or diarrhea. White count is 3.1, creatinine is 1.51 no cultures Objective - Vital Signs Vital signs: Vital Signs Temp 98.2 F 08/15/23 07:25 Pulse 72 08/15/23 07:25 Resp 19 08/15/23 07:25 BP 131/62 08/15/23 07:25 Pulse Ox 100 08/15/23 07:25 FiO2 Intake & Output 08/14/23 08/15/23 08/15/23 18:59 06:59 18:59 Intake Total 580 1700 Output Total 600 Balance 580 1100 Intake: Intake, IV Titration 1200 Amount Dextrose 5% in Water 1, 1200 000 ml @ 100 mls/hr IV . [id number] HUGH with Sodium Bicarb (1 Meq/ml) 150 ml Rx#:[id number] Oral 580 500 Output: Urine 600 Other: Voiding Method Toilet Toilet Toilet Urinal # Voids 2 2 1 - Exam GENERAL DESCRIPTION: An elderly male lying in bed in no distress RESPIRATORY SYSTEM: Unlabored breathing , decreased breath sounds at bases HEART: S1 S2 regular rate and rhythm , ABDOMEN: Soft , no tenderness EXTREMITIES: No edema feet - Labs CBC & Chem 7: 08/15/23 11:05 08/15/23 11:05 Labs: Abnormal Lab Results - Last 24 Hours (Table) 08/14/23 08/14/23 08/14/23 Range/Units 13:09 17:14 20:35 WBC (3.8-10.6) k/uL RBC (4.30-5.90) m/uL Hgb (13.0-17.5) gm/dL Hct (39.0-53.0) % RDW (11.5-15.5) % Plt Count (150-450) k/uL Sodium (137-145) mmol/L Potassium 3.3 L (3.5-5.1) mmol/L Creatinine (0.66-1.25) mg/dL Glucose (74-99) mg/dL POC Glucose (mg/dL) 202 H 221 H (70-110) mg/dL Calcium (8.4-10.2) mg/dL Albumin (3.5-5.0) g/dL 08/15/23 08/15/23 08/15/23 Range/Units 07:53 11:05 11:05 WBC 3.1 L (3.8-10.6) k/uL RBC 3.00 L (4.30-5.90) m/uL Hgb 8.1 L (13.0-17.5) gm/dL Hct 25.4 L (39.0-53.0) % RDW 18.9 H (11.5-15.5) % Plt Count 123 L (150-450) k/uL Sodium 134 L (137-145) mmol/L Potassium (3.5-5.1) mmol/L Creatinine 1.51 H (0.66-1.25) mg/dL Glucose 202 H (74-99) mg/dL POC Glucose (mg/dL) 145 H (70-110) mg/dL Calcium 8.0 L (8.4-10.2) mg/dL Albumin 3.2 L (3.5-5.0) g/dL 08/15/23 Range/Units 12:25 WBC (3.8-10.6) k/uL RBC (4.30-5.90) m/uL Hgb (13.0-17.5) gm/dL Hct (39.0-53.0) % RDW (11.5-15.5) % Plt Count (150-450) k/uL Sodium (137-145) mmol/L Potassium (3.5-5.1) mmol/L Creatinine (0.66-1.25) mg/dL Glucose (74-99) mg/dL POC Glucose (mg/dL) 253 H (70-110) mg/dL Calcium (8.4-10.2) mg/dL Albumin (3.5-5.0) g/dL Assessment and Plan (1) Cavitary lesion of lung Current Visit: Yes Status: Acute Code(s): J98.4 - OTHER DISORDERS OF LUNG SNOMED Code(s): 354128909 (2) Leukopenia Current Visit: Yes Status: Acute Code(s): D72.819 - DECREASED WHITE BLOOD CELL COUNT, UNSPECIFIED SNOMED Code(s): 90819097 Plan: 1patient with a right upper lobe cavitating lesion with question of possible malignancy versus infectious etiology, will be favoring mostly malignancy because of his significant history of smoking however infection not entirely excluded 2-patient is currently not running any fever no elevated white count and does not look toxic 3-currently waiting for bronchoscopy biopsy as well as culture and will check inflammatory markers Dictation was produced using [employer] dictation software. please excuse any grammatical, word or spelling errors. Time with Patient: Less than 30
[2023-08-15 13:28] LABS: Metamyelocytes # (M) 0.03 k/uL (0); Metamyelocytes % 1 %; Monocytes # (M) 0.53 k/uL (0-1.0); Neutrophils # (M) 1.27 k/uL (1.3-7.7); Neutrophils % (M) 41 %; Nucleated Red Blood Cells 0 /100 WBC (0-0); Total Cells Counted 200
[2023-08-15 17:49] LABS: Glucose,Whole Blood 116 mg/dL (70-110)
[2023-08-15 19:45] LABS: Glucose,Whole Blood 137 mg/dL (70-110)
[2023-08-16 07:45] LABS: Glucose,Whole Blood 95 mg/dL (70-110)
[2023-08-16] MEDS: LOSARTAN 50 MG TAB PO SCH (08:44)
[2023-08-16] MEDS ORDERED: VANCOMYCIN IV PER PHARMACY 1 EACH MISC MISCELLANE PRN (09:21)
[2023-08-16 09:35] LABS: Basophils # (A) 0 X 10*3/uL (0.00-0.10); Basophils % (A) 0 %; Eosinophils # (A) 0 X 10*3/uL (0.04-0.35); Eosinophils % (A) 0 %; HCT 23.6 % (39.6-50.0); HGB 7.4 g/dL (13.0-17.0); Lymphocytes # (A) 1.51 X 10*3/uL (0.90-5.00); MCH 25.8 pg (27.0-32.0); MCHC 31.4 g/dL (32.0-37.0); MCV 82.2 FL (80.0-97.0); Mean Platelet Volume 10.6 FL (9.5-12.2); Monocytes # (A) 0.68 X 10*3/uL (0.20-1.00); Monocytes % (A) 19.4 %; NRBC Per 100 WBC 0 X 10*3/uL (0.00-0.01); Neutrophils # (A) 1.28 X 10*3/uL (1.80-7.70); Neutrophils % (A) 36.5 %; Platelet Count 140 X 10*3/uL (140-440); RBC 2.87 X 10*6/uL (4.40-5.60); RDW 19.4 % (11.5-14.5); WBC 3.51 X 10*3/uL (4.50-10.00)
[2023-08-16] MEDS: VANCOMYCIN 1,250 MG in SODIUM CHLORIDE 0.9% 250 ML IVPB SCH (09:59)
[2023-08-16 10:06] LABS: ALT 13 U/L (10-49); AST 21 U/L (14-35); Albumin 3.5 g/dL (3.8-4.9); Albumin/Globulin Ratio 1.25 Ratio (1.60-3.17); Alkaline Phosphatase 86 U/L (41-126); BUN/Creat Ratio 8.71 Ratio (12.00-20.00); Blood Urea Nitrogen 14.8 mg/dL (9.0-27.0); Calcium 8.7 mg/dL (8.7-10.3); Carbon Dioxide 24.9 mmol/L (21.6-31.8); Chloride 101 mmol/L (96-109); Globulin 2.8 g/dL (1.6-3.3); Glucose 83 mg/dL (70-110); Sodium 138 mmol/L (135-145); Total Bilirubin 0.5 mg/dL (0.3-1.2); Total Protein 6.3 g/dL (6.2-8.2)
--- NOTE | 2023-08-16 11:20 | P.PN ---
Subjective Progress Note Date: 08/16/23 77-year-old male history of diabetes, hypertension, dyslipidemia, chronic kidney disease, gastroesophageal reflux disease, tobacco use and dependence. Patient states that he presented to the hospital because he does not feel well. He has abdominal pain. No nausea or vomiting. He states he also had some chest pain yesterday only. Chest pain is not worse with activity and not worse with deep breathing. He states he has a little shortness of breath. No dizziness no palpitations no syncopal episodes. He states he has some lower extremity edema. No cough no fever. No blood in his stool or urine. He denies history of CVA or seizures. Patient does admit to s claudication. Patient is a smoker of half a pack per day and quit 3 weeks ago. He denies any alcohol use and no caffeine use. He also states he has had some weight loss but has a good appetite. Patient had a PET scan done on 06/04/2023 which revealed abnormal uptake within the cavitary lesion right upper lobe. Diffuse increased uptake through the esophagus correlate for esophagitis. Asymmetric focal uptake within the right a nterior vocal cord. Focal area of abnormal uptake superior to the right femoral neck within the soft tissues of unclear etiology. Patient had presented to the emergency center on August 02 for generalized weakness with diagnosis of metabolic acidosis, hypocalcemia and acute kidney injury but patient signed out AGAINST MEDICAL ADVICE. 08/14. Dr. Bui took over care from Dr. Wilson. Patient laying comfortably in the bed. Complaining of generalized weakness and tiredness. Labs done this morning showed WBC 3.82, hemoglobin 7.7, platelet count 138, sodium 136, potassium 2.9. Potassium replacement ordered. 08/15. Patient seen and examined. Ultrasound abdomen done showed multiple gallstones, mild dilatation of the bile duct. Bronchoscopy was canceled because of scheduling issues. 08/16. Patient seen and examined. Patient developed a sore in his left groin, foul-smelling discharge seen. Denies any fever or chills REVIEW OF SYSTEMS: CONSTITUTIONAL: No fever, no malaise,. CARDIOVASCULAR: No chest pain, no palpitations, no syncope. PULMONARY: No shortness of breath, no cough, GASTROINTESTINAL: No diarrhea, no nausea, no vomiting, no abdominal pain. NEUROLOGICAL: No headaches, no weakness, PHYSICAL EXAMINATION: GENERAL: The patient is alert and oriented x3, not in any acute distress. Well developed, well nourished. HEENT: Pupils are round and equally reacting to light. EOMI. No scleral icterus. No conjunctival pallor. Normocephalic, atraumatic. No pharyngeal erythema. No thyromegaly. CARDIOVASCULAR: S1 and S2 present. No murmurs, rubs, or gallops. PULMONARY: Chest is clear to auscultation, no wheezing or crackles. ABDOMEN: Soft, nontender, nondistended, normoactive bowel sounds. No palpable organomegaly. MUSCULOSKELETAL: No joint swelling or deformity. EXTREMITIES: No cyanosis, clubbing, or pedal edema. NEUROLOGICAL: Gross neurological examination did not reveal any focal deficits. 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 Acute kidney injury Non-anion gap metabolic acidosis Coronary artery disease with previous PCI/stenting Diabetes mellitus type 2 Diabetic foot ulcers and previous history of osteomyelitis Peripheral vascular disease with previous stenting of the external iliac on the left Chronic stage IV kidney disease Non-anion gap metabolic acidosis likely secondary to renal failure Anemia of chronic disease Esophagitis Weight loss Remote history of bladder cancer postresection back in 2014 Hypertension Hyperlipidemia Unintentional weight loss Monitor vital signs Monitor CBC Monitor CMP Continue telemetry monitoring Encourage use of incentive spirometer Continue amlodipine, losartan. Continue IV Protonix 40 mg twice a day Ordered wound care Start patient on pharmacy dose vancomycin Surgery consulted. S/p EGD revealing no active bleed, with anemia possibly due to noted gastritis. Continues on PPI. Because of ABDOMINAL FINDING, will discuss with surgery regarding possible cholecystectomy Anemia workup consistent with anemia of inflammation. SPEP and immunofixation negative. K/L light chains elevated with ratio mildly elevated at 1.70, appears to be r/t hx CKD. RF and TREVOR negative Pulm following, and recommending bronchoscopy with biopsy of right upper lobe lesion Nephrology following, recommended discontinuing HCTZ ID following Labs and medication were reviewed.. Continue same treatment. Continue with symptomatic treatment. Resume home medication. Monitor labs and vitals. DVT and GI prophylaxis. Further recommendations as per clinical course of the patie nt Dictation was produced using [employer] software. please excuse any grammatical, word or spelling errors. Objective - Vital Signs Vital signs: Vital Signs Temp 98.1 F 08/16/23 07:48 Pulse 68 08/16/23 07:48 Resp 18 08/16/23 07:48 BP 113/53 08/16/23 07:48 Pulse Ox 99 08/16/23 07:48 FiO2 Intake & Output 08/15/23 08/16/23 08/16/23 18:59 06:59 18:59 Intake Total 600 Balance 600 Intake: Oral 600 Other: Voiding Method Toilet Toilet Urinal Urinal # Voids 1 1 # Bowel Movements 3 - Labs CBC & Chem 7: 08/16/23 07:14 08/16/23 07:14 Labs: Abnormal Lab Results - Last 24 Hours (Table) 08/15/23 08/15/23 08/15/23 Range/Units 11:05 11:05 12:25 WBC 3.1 L (3.8-10.6) k/uL RBC 3.00 L (4.30-5.90) m/uL Hgb 8.1 L (13.0-17.5) gm/dL Hct 25.4 L (39.0-53.0) % RDW 18.9 H (11.5-15.5) % Plt Count 123 L (150-450) k/uL Neutrophils # (Manual) 1.27 L (1.3-7.7) k/uL Metamyelocytes # (Man) 0.03 H (0) k/uL Sodium 134 L (137-145) mmol/L Creatinine 1.51 H (0.66-1.25) mg/dL Glucose 202 H (74-99) mg/dL POC Glucose (mg/dL) 253 H (70-110) mg/dL Calcium 8.0 L (8.4-10.2) mg/dL Albumin 3.2 L (3.5-5.0) g/dL 08/15/23 08/15/23 Range/Units 17:48 19:44 WBC (3.8-10.6) k/uL RBC (4.30-5.90) m/uL Hgb (13.0-17.5) gm/dL Hct (39.0-53.0) % RDW (11.5-15.5) % Plt Count (150-450) k/uL Neutrophils # (Manual) (1.3-7.7) k/uL Metamyelocytes # (Man) (0) k/uL Sodium (137-145) mmol/L Creatinine (0.66-1.25) mg/dL Glucose (74-99) mg/dL POC Glucose (mg/dL) 116 H 137 H (70-110) mg/dL Calcium (8.4-10.2) mg/dL Albumin (3.5-5.0) g/dL
--- NOTE | 2023-08-16 11:40 | P.PN ---
Subjective Progress Note Date: 08/16/23 Patient has had recurring pancreatitis. He is known to have gallstones. On exam vital signs appear stable. Abdomen is soft. Patient be scheduled for laparoscopic cholecystectomy for recurring pancreatitis due to cholelithiasis. Objective - Vital Signs Vital signs: Vital Signs Temp 98.1 F 08/16/23 07:48 Pulse 68 08/16/23 07:48 Resp 18 08/16/23 07:48 BP 113/53 08/16/23 07:48 Pulse Ox 99 08/16/23 07:48 FiO2 Intake & Output 08/15/23 08/16/23 08/16/23 18:59 06:59 18:59 Intake Total 600 Balance 600 Intake: Oral 600 Other: Voiding Method Toilet Toilet Toilet Urinal Urinal Urinal # Voids 1 1 # Bowel Movements 3 - Labs CBC & Chem 7: 08/16/23 07:14 08/16/23 07:14 Labs: Abnormal Lab Results - Last 24 Hours (Table) 08/15/23 08/15/23 08/15/23 Range/Units 11:05 11:05 12:25 WBC 3.1 L (3.8-10.6) k/uL RBC 3.00 L (4.30-5.90) m/uL Hgb 8.1 L (13.0-17.5) gm/dL Hct 25.4 L (39.0-53.0) % MCH (27.0-32.0) pg MCHC (32.0-37.0) g/dL RDW 18.9 H (11.5-15.5) % Plt Count 123 L (150-450) k/uL Neutrophils # (1.80-7.70) X 10*3/uL Neutrophils # (Manual) 1.27 L (1.3-7.7) k/uL Eosinophils # (0.04-0.35) X 10*3/uL Metamyelocytes # (Man) 0.03 H (0) k/uL Sodium 134 L (137-145) mmol/L Anion Gap (4.00-12.00) mmol/L Creatinine 1.51 H (0.66-1.25) mg/dL Est GFR (CKD-EPI) (>=60) BUN/Creatinine Ratio (12.00-20.00) Ratio Glucose 202 H (74-99) mg/dL POC Glucose (mg/dL) 253 H (70-110) mg/dL Calcium 8.0 L (8.4-10.2) mg/dL C-Reactive Protein (0.00-0.80) mg/dL Albumin 3.2 L (3.5-5.0) g/dL Albumin/Globulin Ratio (1.60-3.17) Ratio Procalcitonin (0.02-0.09) ng/mL 08/15/23 08/15/23 08/16/23 Range/Units 17:48 19:44 07:14 WBC (3.8-10.6) k/uL RBC (4.30-5.90) m/uL Hgb (13.0-17.5) gm/dL Hct (39.0-53.0) % MCH (27.0-32.0) pg MCHC (32.0-37.0) g/dL RDW (11.5-15.5) % Plt Count (150-450) k/uL Neutrophils # (1.80-7.70) X 10*3/uL Neutrophils # (Manual) (1.3-7.7) k/uL Eosinophils # (0.04-0.35) X 10*3/uL Metamyelocytes # (Man) (0) k/uL Sodium (137-145) mmol/L Anion Gap (4.00-12.00) mmol/L Creatinine (0.66-1.25) mg/dL Est GFR (CKD-EPI) (>=60) BUN/Creatinine Ratio (12.00-20.00) Ratio Glucose (74-99) mg/dL POC Glucose (mg/dL) 116 H 137 H (70-110) mg/dL Calcium (8.4-10.2) mg/dL C-Reactive Protein (0.00-0.80) mg/dL Albumin (3.5-5.0) g/dL Albumin/Globulin Ratio (1.60-3.17) Ratio Procalcitonin 0.13 H (0.02-0.09) ng/mL 08/16/23 08/16/23 Range/Units 07:14 07:14 WBC 3.51 L (3.8-10.6) k/uL RBC 2.87 L (4.30-5.90) m/uL Hgb 7.4 L (13.0-17.5) gm/dL Hct 23.6 L (39.0-53.0) % MCH 25.8 L (27.0-32.0) pg MCHC 31.4 L (32.0-37.0) g/dL RDW 19.4 H (11.5-15.5) % Plt Count (150-450) k/uL Neutrophils # 1.28 L (1.80-7.70) X 10*3/uL Neutrophils # (Manual) (1.3-7.7) k/uL Eosinophils # 0 L (0.04-0.35) X 10*3/uL Metamyelocytes # (Man) (0) k/uL Sodium (137-145) mmol/L Anion Gap 12.10 H (4.00-12.00) mmol/L Creatinine 1.7 H (0.66-1.25) mg/dL Est GFR (CKD-EPI) 42 L (>=60) BUN/Creatinine Ratio 8.71 L (12.00-20.00) Ratio Glucose (74-99) mg/dL POC Glucose (mg/dL) (70-110) mg/dL Calcium (8.4-10.2) mg/dL C-Reactive Protein 1.20 H (0.00-0.80) mg/dL Albumin 3.5 L (3.5-5.0) g/dL Albumin/Globulin Ratio 1.25 L (1.60-3.17) Ratio Procalcitonin (0.02-0.09) ng/mL
--- NOTE | 2023-08-16 11:54 | P.PN ---
Subjective Patient is seen for follow-up for acute kidney injury with history of chronic kidney disease. Baseline creatinine around 1.5-1.7 mg/dL. Currently not on IV fluids or diuretics. Maintained on Cozaar. Renal function is stable. Patient will be scheduled for laparoscopic cholecystectomy for recurrent pancreatitis due to cholelithiasis. Objective - Vital Signs Vital signs: Vital Signs Temp 98.1 F 08/16/23 07:48 Pulse 68 08/16/23 07:48 Resp 18 08/16/23 07:48 BP 113/53 08/16/23 07:48 Pulse Ox 99 08/16/23 07:48 FiO2 Intake & Output 08/15/23 08/16/23 08/16/23 18:59 06:59 18:59 Intake Total 600 Balance 600 Intake: Oral 600 Other: Voiding Method Toilet Toilet Toilet Urinal Urinal Urinal # Voids 1 1 # Bowel Movements 3 - Exam Patient is awake, comfortable, no acute distress Examination of the heart S1 and S2 Examination of the lungs bilateral breath sounds are heard Abdomen is soft nontender Examination of lower extremities shows no evidence of edema DRY KILN [employer]ADER exam grossly intact - Labs CBC & Chem 7: 08/16/23 07:14 08/16/23 07:14 Labs: Abnormal Lab Results - Last 24 Hours (Table) 08/15/23 08/15/23 08/15/23 Range/Units 11:05 12:25 17:48 WBC 3.1 L (3.8-10.6) k/uL RBC 3.00 L (4.30-5.90) m/uL Hgb 8.1 L (13.0-17.5) gm/dL Hct 25.4 L (39.0-53.0) % MCH (27.0-32.0) pg MCHC (32.0-37.0) g/dL RDW 18.9 H (11.5-15.5) % Plt Count 123 L (150-450) k/uL Neutrophils # (1.80-7.70) X 10*3/uL Neutrophils # (Manual) 1.27 L (1.3-7.7) k/uL Eosinophils # (0.04-0.35) X 10*3/uL Metamyelocytes # (Man) 0.03 H (0) k/uL Anion Gap (4.00-12.00) mmol/L Creatinine (0.6-1.5) mg/dL Est GFR (CKD-EPI) (>=60) BUN/Creatinine Ratio (12.00-20.00) Ratio POC Glucose (mg/dL) 253 H 116 H (70-110) mg/dL C-Reactive Protein (0.00-0.80) mg/dL Albumin (3.8-4.9) g/dL Albumin/Globulin Ratio (1.60-3.17) Ratio Procalcitonin (0.02-0.09) ng/mL 08/15/23 08/16/23 08/16/23 Range/Units 19:44 07:14 07:14 WBC 3.51 L (3.8-10.6) k/uL RBC 2.87 L (4.30-5.90) m/uL Hgb 7.4 L (13.0-17.5) gm/dL Hct 23.6 L (39.0-53.0) % MCH 25.8 L (27.0-32.0) pg MCHC 31.4 L (32.0-37.0) g/dL RDW 19.4 H (11.5-15.5) % Plt Count (150-450) k/uL Neutrophils # 1.28 L (1.80-7.70) X 10*3/uL Neutrophils # (Manual) (1.3-7.7) k/uL Eosinophils # 0 L (0.04-0.35) X 10*3/uL Metamyelocytes # (Man) (0) k/uL Anion Gap (4.00-12.00) mmol/L Creatinine (0.6-1.5) mg/dL Est GFR (CKD-EPI) (>=60) BUN/Creatinine Ratio (12.00-20.00) Ratio POC Glucose (mg/dL) 137 H (70-110) mg/dL C-Reactive Protein (0.00-0.80) mg/dL Albumin (3.8-4.9) g/dL Albumin/Globulin Ratio (1.60-3.17) Ratio Procalcitonin 0.13 H (0.02-0.09) ng/mL 08/16/23 Range/Units 07:14 WBC (3.8-10.6) k/uL RBC (4.30-5.90) m/uL Hgb (13.0-17.5) gm/dL Hct (39.0-53.0) % MCH (27.0-32.0) pg MCHC (32.0-37.0) g/dL RDW (11.5-15.5) % Plt Count (150-450) k/uL Neutrophils # (1.80-7.70) X 10*3/uL Neutrophils # (Manual) (1.3-7.7) k/uL Eosinophils # (0.04-0.35) X 10*3/uL Metamyelocytes # (Man) (0) k/uL Anion Gap 12.10 H (4.00-12.00) mmol/L Creatinine 1.7 H (0.6-1.5) mg/dL Est GFR (CKD-EPI) 42 L (>=60) BUN/Creatinine Ratio 8.71 L (12.00-20.00) Ratio POC Glucose (mg/dL) (70-110) mg/dL C-Reactive Protein 1.20 H (0.00-0.80) mg/dL Albumin 3.5 L (3.8-4.9) g/dL Albumin/Globulin Ratio 1.25 L (1.60-3.17) Ratio Procalcitonin (0.02-0.09) ng/mL Assessment and Plan Assessment: 1. Acute kidney injury, nonoliguric secondary to hypovolemia. Renal function improved with IV fluids. UA not done this admission. No obstruction noted on CT of the abdomen 2. Chronic kidney disease NKF stage IIIB secondary to diabetic kidney disease with baseline creatinine 1.7-1.8 mg/dL. 3. Acute pancreatitis, improving 4. Right upper lobe cavity 3 lesion suspicious for malignancy being followed by pulmonary 5. Non-gap metabolic acidosis status post IV bicarb Plan: Continue with oral sodium bicarb Encourage increased oral intake Continue off of IV fluids Discontinued hydrochlorothiazide Repeat labs in a.m.
[2023-08-16 11:59] LABS: Glucose,Whole Blood 191 mg/dL (70-110)
--- NOTE | 2023-08-16 13:11 | P.PN ---
Subjective Progress Note Date: 08/16/23 Principal diagnosis: Right upper lobe cavitary lesion Patient is a 77-year-old male with a past medical history significant for diabetes mellitus PA osteoarthritis history of bladder cancer patient presenting to the ER for evaluation generalized weakness abdominal pain patient did have a EGD with evidence of antral gastritis and gallbladder ultrasound mention gallbladder follow-up gallstone patient apparently also have right upper lobe cavitary lesion currently being worked up and was supposed to have a bronchoscopy that was canceled on 08/14/2023 On today's evaluation that is 08/16/2023,the patient remains to be afebrile, patient is on room air not requiring supplemental oxygen and denies any shortness of breath no chest pain or cough.Patient denies having any nausea or vomiting, no abdominal pain and no diarrhea, patient was noticed to have a foul- smelling lesion to the left groin/scrotal area with the patient mention started yesterday. Patient did have white count of 3.51, creatinine is 1.7 Objective - Vital Signs Vital signs: Vital Signs Temp 98 F 08/16/23 12:51 Pulse 69 08/16/23 12:51 Resp 17 08/16/23 12:51 BP 120/66 08/16/23 12:51 Pulse Ox 100 08/16/23 12:51 FiO2 Intake & Output 08/15/23 08/16/23 08/16/23 18:59 06:59 18:59 Intake Total 600 5402 Balance 600 5402 Intake: Oral 600 5402 Other: Voiding Method Toilet Toilet Toilet Urinal Urinal Urinal # Voids 1 1 2 # Bowel Movements 3 - Exam GENERAL DESCRIPTION: An elderly male lying in bed in no distress RESPIRATORY SYSTEM: Unlabored breathing , decreased breath sounds at bases HEART: S1 S2 regular rate and rhythm , ABDOMEN: Soft , no tenderness EXTREMITIES: Left groin/scrotal area did have a foul-smelling wound and some surrounding redness - Labs CBC & Chem 7: 08/16/23 07:14 08/16/23 07:14 Labs: Abnormal Lab Results - Last 24 Hours (Table) 08/15/23 08/15/23 08/15/23 Range/Units 11:05 17:48 19:44 WBC (4.50-10.00) X 10*3/uL RBC (4.40-5.60) X 10*6/uL Hgb (13.0-17.0) g/dL Hct (39.6-50.0) % MCH (27.0-32.0) pg MCHC (32.0-37.0) g/dL RDW (11.5-14.5) % Neutrophils # (1.80-7.70) X 10*3/uL Neutrophils # (Manual) 1.27 L (1.3-7.7) k/uL Eosinophils # (0.04-0.35) X 10*3/uL Metamyelocytes # (Man) 0.03 H (0) k/uL Anion Gap (4.00-12.00) mmol/L Creatinine (0.6-1.5) mg/dL Est GFR (CKD-EPI) (>=60) BUN/Creatinine Ratio (12.00-20.00) Ratio POC Glucose (mg/dL) 116 H 137 H (70-110) mg/dL C-Reactive Protein (0.00-0.80) mg/dL Albumin (3.8-4.9) g/dL Albumin/Globulin Ratio (1.60-3.17) Ratio Procalcitonin (0.02-0.09) ng/mL 08/16/23 08/16/23 08/16/23 Range/Units 07:14 07:14 07:14 WBC 3.51 L (4.50-10.00) X 10*3/uL RBC 2.87 L (4.40-5.60) X 10*6/uL Hgb 7.4 L (13.0-17.0) g/dL Hct 23.6 L (39.6-50.0) % MCH 25.8 L (27.0-32.0) pg MCHC 31.4 L (32.0-37.0) g/dL RDW 19.4 H (11.5-14.5) % Neutrophils # 1.28 L (1.80-7.70) X 10*3/uL Neutrophils # (Manual) (1.3-7.7) k/uL Eosinophils # 0 L (0.04-0.35) X 10*3/uL Metamyelocytes # (Man) (0) k/uL Anion Gap 12.10 H (4.00-12.00) mmol/L Creatinine 1.7 H (0.6-1.5) mg/dL Est GFR (CKD-EPI) 42 L (>=60) BUN/Creatinine Ratio 8.71 L (12.00-20.00) Ratio POC Glucose (mg/dL) (70-110) mg/dL C-Reactive Protein 1.20 H (0.00-0.80) mg/dL Albumin 3.5 L (3.8-4.9) g/dL Albumin/Globulin Ratio 1.25 L (1.60-3.17) Ratio Procalcitonin 0.13 H (0.02-0.09) ng/mL 08/16/23 Range/Units 11:57 WBC (4.50-10.00) X 10*3/uL RBC (4.40-5.60) X 10*6/uL Hgb (13.0-17.0) g/dL Hct (39.6-50.0) % MCH (27.0-32.0) pg MCHC (32.0-37.0) g/dL RDW (11.5-14.5) % Neutrophils # (1.80-7.70) X 10*3/uL Neutrophils # (Manual) (1.3-7.7) k/uL Eosinophils # (0.04-0.35) X 10*3/uL Metamyelocytes # (Man) (0) k/uL Anion Gap (4.00-12.00) mmol/L Creatinine (0.6-1.5) mg/dL Est GFR (CKD-EPI) (>=60) BUN/Creatinine Ratio (12.00-20.00) Ratio POC Glucose (mg/dL) 191 H (70-110) mg/dL C-Reactive Protein (0.00-0.80) mg/dL Albumin (3.8-4.9) g/dL Albumin/Globulin Ratio (1.60-3.17) Ratio Procalcitonin (0.02-0.09) ng/mL Assessment and Plan (1) Cavitary lesion of lung Current Visit: Yes Status: Acute Code(s): J98.4 - OTHER DISORDERS OF LUNG SNOMED Code(s): 930681370 (2) Leukopenia Current Visit: Yes Status: Acute Code(s): D72.819 - DECREASED WHITE BLOOD CELL COUNT, UNSPECIFIED SNOMED Code(s): 92434432 (3) Abscess of left groin Current Visit: Yes Status: Acute Code(s): L02.214 - CUTANEOUS ABSCESS OF G THANIAN SNOMED Code(s): 12531187 Plan: 1patient with a right upper lobe cavitating lesion with question of possible malignancy versus infectious etiology, will be favoring mostly malignancy because of his significant history of smoking however infection not entirely excluded 2-patient noticed to have a foul-smelling wound/abscess to the left groin area ultrasound has been ordered surgery to reevaluate and possible drainage of the abscess we will add vancomycin and Unasyn while waiting for the culture to finalize and will monitor his kidney function closely Dictation was produced using [employer] dictation software. please excuse any grammatical, word or spelling errors. Time with Patient: Greater than 30
--- NOTE | 2023-08-16 13:45 | P.PN ---
Subjective Progress Note Date: 08/16/23 77-year-old male patient with known history of COPD and chronic smoker who quit smoking approximately a month ago. He is known to have extensive number of comorbid conditions including diabetes mellitus type 2, chronic kidney disease, hypertension, hyperlipidemia and coronary artery disease in addition to peripheral vascular disease. The patient is nonalcoholic. He presented to the hospital because of generalized weakness, abdominal pain, dysphagia and a was also having questionable black tarry stools. The patient was recently in the emergency department on 08/02/2023. He left AMA. He went back to see his primary care physician and he was directed to the emergency department. In the ED, the patient was diagnosed having acute pancreatitis. His lipase level was 3619. Denies having any previous history of alcoholism, gallbladder disease and denies having any previous episodes of pancreatitis. Note that his blood work showed normal LFTs, bilirubin was 0.5, alkaline phosphatase of 83 and the AST and ALT were both within normal limits. He had occult positive stool. Hemoglobin was at 7.2. White cell count was at 3.7 and a platelet count of 112 and the patient is not taking Any form of anticoagulation at this point in time. As part of further investigation, a CAT scan of the abdomen was done that showed no evidence of any acute pancreatitis. Gallbladder wall was thickened with some dilatation of the extra hepatic biliary system similar to prior evaluation. Overall CAT scan findings were unchanged compared to 06/04/2023. The patient was found to have no evidence of any aortic aneurysm. There was a left iliac external iliac stent graft and some dilatation of the infrarenal abdominal aortic structure measuring up to 2.4 cm in size. He had extensive vascular calcification. No evidence of any hydronephrosis. On a separate note, the patient is a smoker and he was undergoing serial low-dose CAT scan of the chest for lung cancer screening. The most recent low-dose CAT scan of the chest that was done on 04/10/2023 showed a cavitating right upper lobe lesion measuring around 2.4 cm in size. The patient also had another 4 mm right upper lobe pulmonary nodule that was unchanged and a 6 mm subpleural pulmonary nodule in the right upper lobe that was also unchanged. Based on this finding, there was a consideration of lung cancer although other fungal elements cannot be completely ruled out. Based on that, the patient was given a PET/CT on 06/09/2023 and the PET/CT showed some mild abnormal uptake in the right upper lobe cavitating lesion with an SUV of 3.69. There was also increased signal throughout the esophagus consistent with esophagitis. There was also some focal uptake lateral to the femoral neck this was probably outside the femoral neck osseous structure with an SUV of 4.25. Otherwise no other abnormal uptake involving the osseous structures. Based on this cavitating right upper lobe lesion, pulmonary consultation was requested. Note that the patient has no history of aspiration, no history of any tuberculosis. No hemoptysis. No recen t pneumonias. He has no respiratory distress at this point in time. He is a long-term smoker and he quit smoking proximately a month ago. He does have a remote history of bladder cancer that was diagnosed in 2014. The patient underwent resection of a bladder tumor On today's evaluation of 08/12/2023, the patient's resting comfortably in bed. No nausea or vomiting. No emesis.The patient is overweight oxygen. The blood work shows a glucose, 3.5 with a hemoglobin 7.9, platelet count is 131, BUN is at 31 with a creatinine of 1.6 and his sodium level is at 142. Note that the patient's renal function continues to improve as the patient had an acute attack of chronic kidney disease. As for the pancreatic enzymes, the lipase was downtrending down to 2323. Furthermore, ultrasound of the gallbladder was completed and the patient had suboptimal imaging due to bowel gas. Nevertheless, the patient is clinically stable. The GI team is considering doing an EGD on this patient tomorrow. No signs of any respiratory distress at this point in time. On today's evaluation of 08/13/2023, the patient has no specific complaints. No nausea or vomiting. The patient has improvement in lipase level which is down to 1490. Subsequently, the level came up to 1934. The patient underwent an EGD today and the patient was not found to have any significant abnormalities. In summary, the patient was found to have some antral gastritis. Otherwise the findings were essentially negative. The patient is currently on room air oxygen. No respiratory distress. Blood work shows BUN of 21 with a creatinine of 1.5 and the patient is recovering from his acute kidney injury. Potassium level is at 3.2. Serum bicarb is at 10. The white cell count of 4.1 with a hemoglobin of 8.4 and a platelet count of 149. The patient is currently on normal saline at rate of 100 cc an hour. This will be switched to bicarb infusion. As for the lung biopsy, this was not done today as the patient had an EGD and I am ultimately considering to do this on an outpatient basis. I do not think there is any urgency to do an inpatient lung biopsy in this patient with the ongoing medical problems and comorbidities. On 08/14/2023, I am seeing the patient for a follow-up. The patient was supposed to undergo a robotic bronchoscopy of the right upper lobe. However due to scheduling issues, the procedure was canceled. In addition, the patient had a potassium level of 2.9 that was replaced. The patient has no specific complaints. Lipase level is down to 691. The patient otherwise, is awake and alert. The patient is taking a regular diet. Lipase level has improved. Hemodynamically stable on IV Protonix. A repeat ultrasound of the gallbladder was also done that showed a gallbladder that was completely filled with stones. Common bile duct was mildly dilated and general surgery is on the case at this point. The labs from today shows a WBC count of 3.8, hemoglobin of 7.7 and a platelet count of 134, sodium is 136 with a potassium level of 3.3, serum bicarb is at 14 and the BUN is at 17 with a creatinine of 1.6. The patient has chronic kidney disease. The patient is currently on a bicarb infusion at a rate of 100 cc an hour and the bicarb deficit is being corrected. On today's evaluation of 08/15/2023, the patient is being seen for a follow-up. The patient is doing well. No specific complaints. He is on a bicarb infusion and serum bicarb is up to 22, BUN is at 17 with a creatinine of 1.5 and there is also stable electrolytes with a sodium level of 134 and a potassium level of 3. 5. The white cell count at 3.1 with a hemoglobin of 8.1. Patient denies having any specific complaints. Unable to do the bronchoscopy due to scheduling problems with the operating room and this will be done on an outpatient basis. The patient's lipase level has been declining and the patient has regular diet at this point in time. Clinically and hemodynamically stable. On 08/16/2023, the patient is being considered for cholecystectomy. He had extensive cholelithiasis and the patient is post acute pancreatitis. It was decided to proceed with a laparoscopic cholecystectomy on this patient this is will be done by general surgery tomorrow. The patient otherwise has no specific complaints. I was consulted to evaluate the patient right upper lobe pulmonary nodule. I was planning to do a bronchoscopy yet due to scheduling issues and ongoing issues with the gallbladder, this procedure was postponed to a later stage. The white cell count is at 3.5 with a hemoglobin of 7.4, sodium is at 138 with a BUN of 14 and a creatinine of 1.7 as the patient has chronic stage III kidney disease. Potassium levels of 4.0. LFTs remain normal. No nausea or emesis. No fever or chills. No other new complaints otherwise for now. Noted during this current hospitalization, the patient underwent an EGD that showed no acute abnormalities other than some antral gastritis. Ultrasound the gallbla dder was noted and is consistent with cholelithiasis. He does have a foul- smelling lesion in his left groin/scrotal area and is currently covered with antibiotics and infectious diseases following this issue. Ultrasound of the area was also ordered. Objective - Vital Signs Vital signs: Vital Signs Temp 98 F 08/16/23 12:51 Pulse 69 08/16/23 12:51 Resp 17 08/16/23 12:51 BP 120/66 08/16/23 12:51 Pulse Ox 100 08/16/23 12:51 FiO2 Intake & Output 08/15/23 08/16/23 08/16/23 18:59 06:59 18:59 Intake Total 600 5402 Balance 600 5402 Intake: Oral 600 5402 Other: Voiding Method Toilet Toilet Toilet Urinal Urinal Urinal # Voids 1 1 2 # Bowel Movements 3 - Exam GENERAL EXAM: Alert, 77-year-old white male, frail, comfortable in no apparent distress. The patient is calm comfortable on room air oxygen. HEAD: Normocephalic and atraumatic EYES: Normal reaction of pupils, equal size. Nonicteric sclera NOSE: Clear with pink turbinates. THROAT: No erythema or exudates. Dry mucous membranes NECK: No masses, no JVD. CHEST: No chest wall deformity. LUNGS: Equal air entry with no crackles, wheeze, rhonchi or dullness. On room air. No conversational dyspnea or accessory muscle use.. CVS: S1 and S2 normal with no audible murmur, regular rhythm. No extra heart sounds ABDOMEN: No hepatosplenomegaly, active bowel sounds, no guarding or rigidity. No abnormal periumbilical or flank bruising SPINE: No scoliosis or deformity SKIN: No rashes CENTRAL NERVOUS SYSTEM: No focal deficits, tone is normal in all 4 extremities. EXTREMITIES: There is no peripheral edema, clubbing, or cyanosis. Peripheral pulses are intact. 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 - Labs CBC & Chem 7: 08/16/23 07:14 08/16/23 07:14 Labs: Abnormal Lab Results - Last 24 Hours (Table) 08/15/23 08/15/23 08/16/23 Range/Units 17:48 19:44 07:14 WBC (4.50-10.00) X 10*3/uL RBC (4.40-5.60) X 10*6/uL Hgb (13.0-17.0) g/dL Hct (39.6-50.0) % MCH (27.0-32.0) pg MCHC (32.0-37.0) g/dL RDW (11.5-14.5) % Neutrophils # (1.80-7.70) X 10*3/uL Eosinophils # (0.04-0.35) X 10*3/uL Anion Gap (4.00-12.00) mmol/L Creatinine (0.6-1.5) mg/dL Est GFR (CKD-EPI) (>=60) BUN/Creatinine Ratio (12.00-20.00) Ratio POC Glucose (mg/dL) 116 H 137 H (70-110) mg/dL C-Reactive Protein (0.00-0.80) mg/dL Albumin (3.8-4.9) g/dL Albumin/Globulin Ratio (1.60-3.17) Ratio Procalcitonin 0.13 H (0.02-0.09) ng/mL 08/16/23 08/16/23 08/16/23 Range/Units 07:14 07:14 11:57 WBC 3.51 L (4.50-10.00) X 10*3/uL RBC 2.87 L (4.40-5.60) X 10*6/uL Hgb 7.4 L (13.0-17.0) g/dL Hct 23.6 L (39.6-50.0) % MCH 25.8 L (27.0-32.0) pg MCHC 31.4 L (32.0-37.0) g/dL RDW 19.4 H (11.5-14.5) % Neutrophils # 1.28 L (1.80-7.70) X 10*3/uL Eosinophils # 0 L (0.04-0.35) X 10*3/uL Anion Gap 12.10 H (4.00-12.00) mmol/L Creatinine 1.7 H (0.6-1.5) mg/dL Est GFR (CKD-EPI) 42 L (>=60) BUN/Creatinine Ratio 8.71 L (12.00-20.00) Ratio POC Glucose (mg/dL) 191 H (70-110) mg/dL C-Reactive Protein 1.20 H (0.00-0.80) mg/dL Albumin 3.5 L (3.8-4.9) g/dL Albumin/Globulin Ratio 1.25 L (1.60-3.17) Ratio Procalcitonin (0.02-0.09) ng/mL Assessment and Plan Plan: Right upper lobe cavitating lesion measuring around 2.4 cm in size identified initially on low-dose CAT scan of the chest that was done on 04/10/2023 and subsequent PET/CT that was done on 06/04/2023 showed some mild metabolic activity in the right upper lobe cavitating lesion with an SUV of 3.6. 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 An infected bolus cannot be completely ruled out. Fungus ball cannot be completely ruled o ut. COPD with upper lobe predominance as the patient has long-term smoking history Acute pancreatitis. CAT scan of the abdomen showed no evidence of any pancreatic inflammation. There is some gallbladder wall thickening with dilatation of the extrahepatic biliary system similar to the prior evidence evaluation that was done on 06/04/2023. Otherwise, the gallbladder was unremarkable. LFTs abnormal. The patient does not have any significant abdominal pain at this point in time. Clinically stable and the lipase level has been fluctuating. After a drop down to 1490, the lipase level came up to 1934. General surgery is on the case. EGD showed some mild antral gastritis. Acute kidney injury, improving with fluid resuscitation and the patient remains on 100 cc of normal saline, creatinine continues to improve Non-anion gap metabolic acidosis, recovered Groin/scrotal abscess, currently on recommendation Unasyn and vancomycin, ID is on the case, ultrasound is to follow Coronary artery disease with previous PCI/stenting Diabetes mellitus type 2 Diabetic foot ulcers and previous history of osteomyelitis Peripheral vascular disease with previous stenting of the external iliac on the left Chronic stage IV kidney disease Non-anion gap metabolic acidosis likely secondary to renal failure Anemia of chronic disease Questionable GI bleed as the patient has occult positive blood in the stool Esophagitis as evident on the PET/CT with diffuse uptake involving the esophagus and the patient has acid reflux Weight loss Remote history of bladder cancer postresection back in 2014 Hypertension Hyperlipidemia Unintentional weight loss Plan Patient is being considered for laparoscopic cholecystectomy to be done tomorrow Ultrasound of the scrotum Continue current antibiotic coverage Pancreatic enzymes are improving and the patient does not have any significant abdominal discomfort or pain. The patient has had another ultrasound the gallbladder that showed multiple gallstones and some dilatation of the common bile duct. Otherwise, the lipase level is on the decline. EGD showed antral gastritis otherwise no other acute abnormalities. Regarding the right upper lobe pulmonary nodule, this is a cavitating lesion. Could be fungus ball. 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 The patient will need a robotic bronchoscopy and biopsy and lavage of the right upper lobe at the later stage. I may be able to do it during this on an outpatient basis. I was unable to schedule this patient for a bronchoscopy today due to complex with anesthesia. Acute kidney injury is improving and the creatinine is declining, creatinine stable for now Monitor lipase, improving General surgery regarding gallbladder findings and a groin abscess
[2023-08-16] MEDS: AMPICILLIN-SULBACTAM 3 GM in SODIUM CHLORIDE 0.9% 100 ML IVPB SCH (13:55)
--- NOTE | 2023-08-16 14:02 | US ---
EXAMINATION TYPE: US scrotum with doppler. Grayscale and color Doppler Duplex imaging performed of t he scrotum. DATE OF EXAM: 08/16/2023 COMPARISON: NONE CLINICAL INDICATION: Male, 77 years old with history of Possible abscess; bloody, foul discharge stem juwan from left groin, assess testicle to ensure infection has not spread EXAM MEASUREMENTS: TESTICLES: Right Testicle: 3.4 x 2.8 x 1.8 cm Left Testicle: 3.6 x 3.2 x 2.3 cm EPIDIDYMIS HEAD: Right Epididymis: 0.9 cm Left Epididymis: 0.8 cm Doppler performed to assess for testicular vascularity; good bilateral color flow and waveforms are s een. There is no evidence of testicular torsion. Presence of hydroceles: no Presence of varicoceles: no IMPRESSION: Unremarkable scrotal ultrasound as described above.
--- NOTE | 2023-08-16 14:04 | US ---
EXAMINATION TYPE: US groin LT DATE OF EXAM: 08/16/2023 COMPARISON: NONE CLINICAL INDICATION: Male, 77 years old with history of Swelling; bloody, foul discharge from left gr oin wound, patient has had for a few weeks, painful TECHNIQUE: Soft tissue groin FINDINGS: Swollen edematous tissue, that is hypervascular, with complex area measuring 2.5 x 1.0 x 1 .7cm has some purulent appearance, probable abscess IMPRESSION: Left groin phlegmon with developing discrete walled off collection measuring approximate ly 1 cm in size consistent with a small developing abscess.
[2023-08-16 17:42] LABS: Glucose,Whole Blood 204 mg/dL (70-110)
[2023-08-17 06:54] LABS: ALT 15 U/L (4-49); AST 21 U/L (17-59); African American GFR (CKD) 41 (>60 ml/min/1.73 sqM); Albumin 3.2 g/dL (3.5-5.0); Alkaline Phosphatase 81 U/L (38-126); Anion Gap 9 mmol/L; Blood Urea Nitrogen 19 mg/dL (9-20); Calcium 8.5 mg/dL (8.4-10.2); Carbon Dioxide 24 mmol/L (22-30); Chloride 102 mmol/L (98-107); Globulin 3.2 g/dL; Glucose 126 mg/dL (74-99); Non-African American GFR(CKD) 36 (>60 ml/min/1.73 sqM); Potassium 4.5 mmol/L (3.5-5.1); Sodium 135 mmol/L (137-145); Total Bilirubin 0.5 mg/dL (0.2-1.3); Total Protein 6.4 g/dL (6.3-8.2)
[2023-08-17 07:42] LABS: Glucose,Whole Blood 143 mg/dL (70-110)
[2023-08-17 08:36] LABS: HCT 24.1 % (39.6-50.0); HGB 7.4 g/dL (13.0-17.0); MCHC 30.7 g/dL (32.0-37.0); MCV 84.6 FL (80.0-97.0); Mean Platelet Volume 11.6 FL (9.5-12.2); NRBC Per 100 WBC 0 X 10*3/uL (0.00-0.01); Platelet Count 152 X 10*3/uL (140-440); RBC 2.85 X 10*6/uL (4.40-5.60); RDW 19.5 % (11.5-14.5)
--- NOTE | 2023-08-17 08:56 | P.PN ---
Subjective Patient is seen in follow-up for acute kidney injury on chronic kidney disease. Renal function fairly stable. Has been eating. No pain. No vomiting or diarrhea. Vital signs are stable. General: No acute distress. HEENT: Head exam is unremarkable. LUNGS: No audible rhonchi or wheezes. HEART: Rate and Rhythm are regular. ABDOMEN: Nontender. EXTREMITITES: No edema. Objective - Vital Signs Vital signs: Vital Signs Temp 98.8 F 08/17/23 07:51 Pulse 78 08/17/23 07:51 Resp 16 08/17/23 07:51 BP 124/62 08/17/23 07:51 Pulse Ox 98 08/17/23 07:51 FiO2 Intake & Output 08/16/23 08/17/23 08/17/23 18:59 06:59 18:59 Intake Total 5402 Balance 5402 Intake: Oral 5402 Other: Voiding Method Toilet Toilet Urinal Urinal # Voids 3 3 - Labs CBC & Chem 7: 08/17/23 05:36 08/17/23 05:36 Labs: Abnormal Lab Results - Last 24 Hours (Table) 08/16/23 08/16/23 08/16/23 Range/Units 07:14 07:14 07:14 WBC 3.51 L (4.50-10.00) X 10*3/uL RBC 2.87 L (4.40-5.60) X 10*6/uL Hgb 7.4 L (13.0-17.0) g/dL Hct 23.6 L (39.6-50.0) % MCH 25.8 L (27.0-32.0) pg MCHC 31.4 L (32.0-37.0) g/dL RDW 19.4 H (11.5-14.5) % Neutrophils # 1.28 L (1.80-7.70) X 10*3/uL Eosinophils # 0 L (0.04-0.35) X 10*3/uL Sodium (137-145) mmol/L Anion Gap 12.10 H (4.00-12.00) mmol/L Creatinine 1.7 H (0.6-1.5) mg/dL Est GFR (CKD-EPI) 42 L (>=60) BUN/Creatinine Ratio 8.71 L (12.00-20.00) Ratio Glucose (74-99) mg/dL POC Glucose (mg/dL) (70-110) mg/dL C-Reactive Protein 1.20 H (0.00-0.80) mg/dL Albumin 3.5 L (3.8-4.9) g/dL Albumin/Globulin Ratio 1.25 L (1.60-3.17) Ratio Procalcitonin 0.13 H (0.02-0.09) ng/mL 08/16/23 08/16/23 08/17/23 Range/Units 11:57 17:40 05:36 WBC (4.50-10.00) X 10*3/uL RBC (4.40-5.60) X 10*6/uL Hgb (13.0-17.0) g/dL Hct (39.6-50.0) % MCH (27.0-32.0) pg MCHC (32.0-37.0) g/dL RDW (11.5-14.5) % Neutrophils # (1.80-7.70) X 10*3/uL Eosinophils # (0.04-0.35) X 10*3/uL Sodium 135 L (137-145) mmol/L Anion Gap (4.00-12.00) mmol/L Creatinine 1.82 H (0.6-1.5) mg/dL Est GFR (CKD-EPI) (>=60) BUN/Creatinine Ratio (12.00-20.00) Ratio Glucose 126 H (74-99) mg/dL POC Glucose (mg/dL) 191 H 204 H (70-110) mg/dL C-Reactive Protein (0.00-0.80) mg/dL Albumin 3.2 L (3.8-4.9) g/dL Albumin/Globulin Ratio (1.60-3.17) Ratio Procalcitonin (0.02-0.09) ng/mL 08/17/23 08/17/23 Range/Units 05:36 06:49 WBC 3.70 L (4.50-10.00) X 10*3/uL RBC 2.85 L (4.40-5.60) X 10*6/uL Hgb 7.4 L (13.0-17.0) g/dL Hct 24.1 L (39.6-50.0) % MCH 26.0 L (27.0-32.0) pg MCHC 30.7 L (32.0-37.0) g/dL RDW 19.5 H (11.5-14.5) % Neutrophils # (1.80-7.70) X 10*3/uL Eosinophils # (0.04-0.35) X 10*3/uL Sodium (137-145) mmol/L Anion Gap (4.00-12.00) mmol/L Creatinine (0.6-1.5) mg/dL Est GFR (CKD-EPI) (>=60) BUN/Creatinine Ratio (12.00-20.00) Ratio Glucose (74-99) mg/dL POC Glucose (mg/dL) 143 H (70-110) mg/dL C-Reactive Protein (0.00-0.80) mg/dL Albumin (3.8-4.9) g/dL Albumin/Globulin Ratio (1.60-3.17) Ratio Procalcitonin (0.02-0.09) ng/mL Microbiology - Last 24 Hours (Table) 08/16/23 09:25 Gram Stain - Preliminary Groin Assessment and Plan Plan: Assessment: 1. Acute kidney injury secondary to vasomotor nephropathy from hypovolemia. Improved with IV hydration. No hydronephrosis noted on CAT scan. No monoclonality noted on serum immunofixation. Creatinine was 2.3 on admission and fairly stable at 1.82 today. 2. Chronic kidney disease stage IIIb with baseline creatinine 1.7-1.8 secondary to diabetic kidney disease. 3. Hypertension with chronic kidney disease. Controlled. 4. Acute pancreatitis. Improving. Tolerating diet. EGD showed antral gastritis. 5. Right upper lobe cavitating lesion being followed by pulmonology. Concern for malignancy. 6. Anemia of chronic kidney disease. 7. Metabolic acidosis secondary to acute kidney injury and GI losses. On oral bicarb. Improved. Plan: Encouraged oral intake. Continue to hold diuretics. Check iron studies. Avoid nephrotoxins.
[2023-08-17 09:07] LABS: Basophils # (A) 0.01 X 10*3/uL (0.00-0.10); Basophils % (A) 0.3 %; Eosinophils # (A) 0.01 X 10*3/uL (0.04-0.35); Eosinophils % (A) 0.3 %; Lymphocytes # (A) 1.85 X 10*3/uL (0.90-5.00); Monocytes # (A) 0.83 X 10*3/uL (0.20-1.00); Monocytes % (A) 22.4 %; Neutrophils # (A) 0.96 X 10*3/uL (1.80-7.70); Neutrophils % (A) 25.9 %; RBC Morphology Normal (Normal)
[2023-08-17 11:21] LABS: % Iron Saturation 15.26 (15.00-50.00)
[2023-08-17 11:34] VITALS: BMI 20.9
--- NOTE | 2023-08-17 11:50 | P.PN ---
Subjective Progress Note Date: 08/17/23 Principal diagnosis: Right upper lobe cavitary lesion Patient is a 77-year-old male with a past medical history significant for diabetes mellitus [place] osteoarthritis history of bladder cancer patient presenting to the ER for evaluation generalized weakness abdominal pain patient did have a EGD with evidence of antral gastritis and gallbladder ultrasound mention gallbladder follow-up gallstone patient apparently also have right upper lobe cavitary lesion currently being worked up and was supposed to have a bronchoscopy that was canceled on 08/14/2023 On today's evaluation that is 08/17/2023, the patient continues to be afebrile, the patient is on room air and breathing comfortably, the Pt denies having any chest pain did have occasional cough, the patient denies having any abdominal pain no vomiting or any diarrhea has been reported by the nursing staff, mention left groin discomfort slightly decreased in intensity. Patient did have white count of 3.70, creatinine is 1.82 groin cultures growing gram-negative bacilli Objective - Vital Signs Vital signs: Vital Signs Temp 98.8 F 08/17/23 07:51 Pulse 78 08/17/23 07:51 Resp 16 08/17/23 07:51 BP 124/62 08/17/23 07:51 Pulse Ox 98 08/17/23 07:51 FiO2 Intake & Output 08/16/23 08/17/23 08/17/23 18:59 06:59 18:59 Intake Total 5402 Balance 5402 Weight 68.039 kg Intake: Oral 5402 Other: Voiding Method Toilet Toilet Toilet Urinal Urinal Urinal # Voids 3 3 - Exam GENERAL DESCRIPTION: An elderly male lying in bed in no distress RESPIRATORY SYSTEM: Unlabored breathing , decreased breath sounds at bases HEART: S1 S2 regular rate and rhythm , ABDOMEN: Soft , no tenderness EXTREMITIES: Left groin/scrotal area did have a foul-smelling wound and some surrounding redness - Labs CBC & Chem 7: 08/17/23 05:36 08/17/23 05:36 Labs: Abnormal Lab Results - Last 24 Hours (Table) 08/16/23 08/16/23 08/17/23 Range/Units 11:57 17:40 05:36 WBC (4.50-10.00) X 10*3/uL RBC (4.40-5.60) X 10*6/uL Hgb (13.0-17.0) g/dL Hct (39.6-50.0) % MCH (27.0-32.0) pg MCHC (32.0-37.0) g/dL RDW (11.5-14.5) % Neutrophils # (1.80-7.70) X 10*3/uL Eosinophils # (0.04-0.35) X 10*3/uL Sodium 135 L (137-145) mmol/L Creatinine 1.82 H (0.66-1.25) mg/dL Glucose 126 H (74-99) mg/dL POC Glucose (mg/dL) 191 H 204 H (70-110) mg/dL Iron (65-175) UG/DL Transferrin (204.0-354.0) mg/dL Albumin 3.2 L (3.5-5.0) g/dL 08/17/23 08/17/23 08/17/23 Range/Units 05:36 05:36 06:49 WBC 3.70 L (4.50-10.00) X 10*3/uL RBC 2.85 L (4.40-5.60) X 10*6/uL Hgb 7.4 L (13.0-17.0) g/dL Hct 24.1 L (39.6-50.0) % MCH 26.0 L (27.0-32.0) pg MCHC 30.7 L (32.0-37.0) g/dL RDW 19.5 H (11.5-14.5) % Neutrophils # 0.96 L (1.80-7.70) X 10*3/uL Eosinophils # 0.01 L (0.04-0.35) X 10*3/uL Sodium (137-145) mmol/L Creatinine (0.66-1.25) mg/dL Glucose (74-99) mg/dL POC Glucose (mg/dL) 143 H (70-110) mg/dL Iron 38 L (65-175) UG/DL Transferrin 178.0 L (204.0-354.0) mg/dL Albumin (3.5-5.0) g/dL Microbiology - Last 24 Hours (Table) 08/16/23 09:25 Gram Stain - Preliminary Groin Wound Culture - Preliminary Gram Neg Bacilli Assessment and Plan (1) Cavitary lesion of lung Current Visit: Yes Status: Acute Code(s): J98.4 - OTHER DISORDERS OF LUNG SNOMED Code(s): 886185567 (2) Leukopenia Current Visit: Yes Status: Acute Code(s): D72.819 - DECREASED WHITE BLOOD CELL COUNT, UNSPECIFIED SNOMED Code(s): 00323331 (3) Abscess of left groin Current Visit: Yes Status: Acute Code(s): L02.214 - CUTANEOUS ABSCESS OF GROIN SNOMED Code(s): 80900837 Plan: 1patient with a right upper lobe cavitating lesion with question of possible malignancy versus infectious etiology, will be favoring mostly malignancy because of his significant history of smoking however infection not entirely excluded, workup in progress 2-patient noticed to have a foul-smelling wound/abscess to the left groin area ultrasound suspicious for a small abscess will benefit from surgical drainage and deep culture initial culture growing gram-negative bacilli we will discont inue Unasyn and vancomycin and start the patient on Zosyn and monitor clinical course closely Dictation was produced using [employer] dictation software. please excuse any grammatical, word or spelling errors. Time with Patient: Less than 30
--- NOTE | 2023-08-17 11:53 | P.PN ---
Subjective Progress Note Date: 08/17/23 77-year-old male history of diabetes, hypertension, dyslipidemia, chronic kidney disease, gastroesophageal reflux disease, tobacco use and dependence. Patient states that he presented to the hospital because he does not feel well. He has abdominal pain. No nausea or vomiting. He states he also had some chest pain yesterday only. Chest pain is not worse with activity and not worse with deep breathing. He states he has a little shortness of breath. No dizziness no palpitations no syncopal episodes. He states he has some lower extremity edema. No cough no fever. No blood in his stool or urine. He denies history of CVA or seizures. Patient does admit to s claudication. Patient is a smoker of half a pack per day and quit 3 weeks ago. He denies any alcohol use and no caffeine use. He also states he has had some weight loss but has a good appetite. Patient had a PET scan done on 06/04/2023 which revealed abnormal uptake within the cavitary lesion right upper lobe. Diffuse increased uptake through the esophagus correlate for esophagitis. Asymmetric focal uptake within the right a nterior vocal cord. Focal area of abnormal uptake superior to the right femoral neck within the soft tissues of unclear etiology. Patient had presented to the emergency center on August 02 for generalized weakness with diagnosis of metabolic acidosis, hypocalcemia and acute kidney injury but patient signed out AGAINST MEDICAL ADVICE. 08/14. Dr. Bui took over care from Dr. Wilson. Patient laying comfortably in the bed. Complaining of generalized weakness and tiredness. Labs done this morning showed WBC 3.82, hemoglobin 7.7, platelet count 138, sodium 136, potassium 2.9. Potassium replacement ordered. 08/15. Patient seen and examined. Ultrasound abdomen done showed multiple gallstones, mild dilatation of the bile duct. Bronchoscopy was canceled because of scheduling issues. 08/16. Patient seen and examined. Patient developed a sore in his left groin, foul-smelling discharge seen. Denies any fever or chills 08/17. Patient seen and examined. Patient scheduled for laparoscopic cholecystectomy currently n.p.o. Lab work done this morning showed WBC 3.7, hemoglobin 7.4, platelet count 152, sodium 135, potassium 4.5, carbon Dastech 24 creatinine 1.82 REVIEW OF SYSTEMS: CONSTITUTIONAL: No fever, no malaise,. CARDIOVASCULAR: No chest pain, no palpitations, no syncope. PULMONARY: No shortness of breath, no cough, GASTROINTESTINAL: No diarrhea, no nausea, no vomiting, no abdominal pain. NEUROLOGICAL: No headaches, no weakness, PHYSICAL EXAMINATION: GENERAL: The patient is alert and oriented x3, not in any acute distress. Well developed, well nourished. HEENT: Pupils are round and equally reacting to light. EOMI. No scleral icterus. No conjunctival pallor. Normocephalic, atraumatic. No pharyngeal erythema. No thyromegaly. CARDIOVASCULAR: S1 and S2 present. No murmurs, rubs, or gallops. PULMONARY: Chest is clear to auscultation, no wheezing or crackles. ABDOMEN: Soft, nontender, nondistended, normoactive bowel sounds. No palpable organomegaly. MUSCULOSKELETAL: No joint swelling or deformity. EXTREMITIES: No cyanosis, clubbing, or pedal edema. NEUROLOGICAL: Gross neurological examination did not reveal any focal deficits. 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 Acute kidney injury Non-anion gap metabolic acidosis Coronary artery disease with previous PCI/stenting Diabetes mellitus type 2 Diabetic foot ulcers and previous history of osteomyelitis Peripheral vascular disease with previous stenting of the external iliac on the left Chronic stage IV kidney disease Non-anion gap metabolic acidosis likely secondary to renal failure Anemia of chronic disease Esophagitis Weight loss Remote history of bladder cancer postresection back in 2014 Hypertension Hyperlipidemia Unintentional weight loss Monitor vital signs Monitor CBC Monitor CMP Continue telemetry monitoring Encourage use of incentive spirometer Continue amlodipine, losartan. Continue IV Protonix 40 mg twice a day Continue wound care Ultrasound groin done showed left groin phlegmon with developing discrete walled off collection measuring approximately 1 cm in size consistent with small developing abscess Continue Unasyn and pharmacy dose vancomycin Surgery consulted. S/p EGD revealing no active bleed, with anemia possibly due to noted gastritis. Continues on PPI. Because of ABDOMINAL FINDING, will discuss with surgery regarding possible cholecystectomy Anemia workup consistent with anemia of inflammation. SPEP and immunofixation negative. K/L light chains elevated with ratio mildly elevated at 1.70, appears to be r/t hx CKD. RF and TREVOR negative Pulm following, and recommending bronchoscopy with biopsy of right upper lobe lesion Nephrology following, recommended discontinuing HCTZ ID following Labs and medication were reviewed.. Continue same treatment. Continue with symptomatic treatment. Resume home medication. Monitor labs and vitals. DVT and GI prophylaxis. Further recommendations as per clinical course of the patient Dictation was produced using [employer] dictation software. please excuse any grammatical, word or spelling errors. Objective - Vital Signs Vital signs: Vital Signs Temp 98.8 F 08/17/23 07:51 Pulse 78 08/17/23 07:51 Resp 16 08/17/23 07:51 BP 124/62 08/17/23 07:51 Pulse Ox 98 08/17/23 07:51 FiO2 Intake & Output 08/16/23 08/17/23 08/17/23 18:59 06:59 18:59 Intake Total 5402 Balance 5402 Intake: Oral 5402 Other: Voiding Method Toilet Toilet Urinal Urinal # Voids 3 3 - Labs CBC & Chem 7: 08/17/23 05:36 08/17/23 05:36 Labs: Abnormal Lab Results - Last 24 Hours (Table) 08/16/23 08/16/23 08/16/23 Range/Units 07:14 07:14 07:14 WBC 3.51 L (4.50-10.00) X 10*3/uL RBC 2.87 L (4.40-5.60) X 10*6/uL Hgb 7.4 L (13.0-17.0) g/dL Hct 23.6 L (39.6-50.0) % MCH 25.8 L (27.0-32.0) pg MCHC 31.4 L (32.0-37.0) g/dL RDW 19.4 H (11.5-14.5) % Neutrophils # 1.28 L (1.80-7.70) X 10*3/uL Eosinophils # 0 L (0.04-0.35) X 10*3/uL Sodium (137-145) mmol/L Anion Gap 12.10 H (4.00-12.00) mmol/L Creatinine 1.7 H (0.6-1.5) mg/dL Est GFR (CKD-EPI) 42 L (>=60) BUN/Creatinine Ratio 8.71 L (12.00-20.00) Ratio Glucose (74-99) mg/dL POC Glucose (mg/dL) (70-110) mg/dL C-Reactive Protein 1.20 H (0.00-0.80) mg/dL Albumin 3.5 L (3.8-4.9) g/dL Albumin/Globulin Ratio 1.25 L (1.60-3.17) Ratio Procalcitonin 0.13 H (0.02-0.09) ng/mL 08/16/23 08/16/23 08/17/23 Range/Units 11:57 17:40 05:36 WBC (4.50-10.00) X 10*3/uL RBC (4.40-5.60) X 10*6/uL Hgb (13.0-17.0) g/dL Hct (39.6-50.0) % MCH (27.0-32.0) pg MCHC (32.0-37.0) g/dL RDW (11.5-14.5) % Neutrophils # (1.80-7.70) X 10*3/uL Eosinophils # (0.04-0.35) X 10*3/uL Sodium 135 L (137-145) mmol/L Anion Gap (4.00-12.00) mmol/L Creatinine 1.82 H (0.6-1.5) mg/dL Est GFR (CKD-EPI) (>=60) BUN/Creatinine Ratio (12.00-20.00) Ratio Glucose 126 H (74-99) mg/dL POC Glucose (mg/dL) 191 H 204 H (70-110) mg/dL C-Reactive Protein (0.00-0.80) mg/dL Albumin 3.2 L (3.8-4.9) g/dL Albumin/Globulin Ratio (1.60-3.17) Ratio Procalcitonin (0.02-0.09) ng/mL 08/17/23 08/17/23 Range/Units 05:36 06:49 WBC 3.70 L (4.50-10.00) X 10*3/uL RBC 2.85 L (4.40-5.60) X 10*6/uL Hgb 7.4 L (13.0-17.0) g/dL Hct 24.1 L (39.6-50.0) % MCH 26.0 L (27.0-32.0) pg MCHC 30.7 L (32.0-37.0) g/dL RDW 19.5 H (11.5-14.5) % Neutrophils # 0.96 L (1.80-7.70) X 10*3/uL Eosinophils # 0.01 L (0.04-0.35) X 10*3/uL Sodium (137-145) mmol/L Anion Gap (4.00-12.00) mmol/L Creatinine (0.6-1.5) mg/dL Est GFR (CKD-EPI) (>=60) BUN/Creatinine Ratio (12.00-20.00) Ratio Glucose (74-99) mg/dL POC Glucose (mg/dL) 143 H (70-110) mg/dL C-Reactive Protein (0.00-0.80) mg/dL Albumin (3.8-4.9) g/dL Albumin/Globulin Ratio (1.60-3.17) Ratio Procalcitonin (0.02-0.09) ng/mL Microbiology - Last 24 Hours (Table) 08/16/23 09:25 Gram Stain - Preliminary Groin Wound Culture - Preliminary Gram Neg Bacilli
[2023-08-17 12:42] LABS: Glucose,Whole Blood 125 mg/dL (70-110)
--- NOTE | 2023-08-17 14:29 | P.PN ---
Subjective Progress Note Date: 08/17/23 CHIEF COMPLAINT: Black stools HISTORY OF PRESENT ILLNESS: Patient has a left groin abscess. It is draining purulent drainage. Patient also scheduled for laparoscopic cholecystectomy today. Currently denies any abdominal pain. He has had no further black stools. Afebrile. WBC 3.70 Hgb 7.4 platelets 152 sodium is 135 creatinine 1.82. Groin ultrasound shows a left groin phlegmon with developing discrete walled off collection measuring approximate 1 cm in size consistent with a small developing abscess. PHYSICAL EXAM: VITAL SIGNS: Reviewed. GENERAL: no acute distress. ABDOMEN: Soft. Nondistended. Nontender. Left groin was tenderness with palpation fluctuant area. Purulent drainage noted. NEUROLOGIC: Awake and alert ASSESSMENT: 1. Gallstone pancreatitis 2. GI bleed with melanotic stools status post EGD revealing antral gastritis and esophagitis 3. Left groin abscess 4. Acute on chronic anemia 5. Lung mass. Followed by pulmonary service PLAN: -Patient scheduled for laparoscopic cholecystectomy today for gallstone pancreatitis. He is also scheduled for incision and drainage of left groin abscess -Continue antibiotics -Continue IV Protonix Physician Packing Line Worker note has been reviewed by physician. Signing provider agrees with the documented findings, assessment, and plan of care. Objective - Vital Signs Vital signs: Vital Signs Temp 98.8 F 08/17/23 07:51 Pulse 78 08/17/23 07:51 Resp 16 08/17/23 07:51 BP 124/62 08/17/23 07:51 Pulse Ox 98 08/17/23 07:51 FiO2 Intake & Output 08/16/23 08/17/23 08/17/23 18:59 06:59 18:59 Intake Total 5402 Balance 5402 Weight 68.039 kg Intake: Oral 5402 Other: Voiding Method Toilet Toilet Toilet Urinal Urinal Urinal # Voids 3 3 - Labs CBC & Chem 7: 08/17/23 05:36 08/17/23 05:36 Labs: Abnormal Lab Results - Last 24 Hours (Table) 08/16/23 08/16/23 08/17/23 Range/Units 11:57 17:40 05:36 WBC (4.50-10.00) X 10*3/uL RBC (4.40-5.60) X 10*6/uL Hgb (13.0-17.0) g/dL Hct (39.6-50.0) % MCH (27.0-32.0) pg MCHC (32.0-37.0) g/dL RDW (11.5-14.5) % Neutrophils # (1.80-7.70) X 10*3/uL Eosinophils # (0.04-0.35) X 10*3/uL Sodium 135 L (137-145) mmol/L Creatinine 1.82 H (0.66-1.25) mg/dL Glucose 126 H (74-99) mg/dL POC Glucose (mg/dL) 191 H 204 H (70-110) mg/dL Iron (65-175) UG/DL Transferrin (204.0-354.0) mg/dL Albumin 3.2 L (3.5-5.0) g/dL 08/17/23 08/17/23 08/17/23 Range/Units 05:36 05:36 06:49 WBC 3.70 L (4.50-10.00) X 10*3/uL RBC 2.85 L (4.40-5.60) X 10*6/uL Hgb 7.4 L (13.0-17.0) g/dL Hct 24.1 L (39.6-50.0) % MCH 26.0 L (27.0-32.0) pg MCHC 30.7 L (32.0-37.0) g/dL RDW 19.5 H (11.5-14.5) % Neutrophils # 0.96 L (1.80-7.70) X 10*3/uL Eosinophils # 0.01 L (0.04-0.35) X 10*3/uL Sodium (137-145) mmol/L Creatinine (0.66-1.25) mg/dL Glucose (74-99) mg/dL POC Glucose (mg/dL) 143 H (70-110) mg/dL Iron 38 L (65-175) UG/DL Transferrin 178.0 L (204.0-354.0) mg/dL Albumin (3.5-5.0) g/dL Microbiology - Last 24 Hours (Table) 08/16/23 09:25 Gram Stain - Preliminary Groin Wound Culture - Preliminary Gram Neg Bacilli
[2023-08-17] MEDS: PIPERACILLIN-TAZOBACTAM 3.375 GM in SODIUM CHLORIDE 0.9% 100 ML IVPB SCH (15:37)
[2023-08-17 17:13] LABS: Glucose,Whole Blood 144 mg/dL (70-110)
[2023-08-17] MEDS: HEPARIN SODIUM,PORCINE 5,000 UNIT/ML 1 ML VIAL SQ ONE (17:20)
[2023-08-17] MEDS: DEXAMETHASONE SOD PHOSPHATE 4 MG/ML 1 ML VIAL IVP ONE (17:32)
[2023-08-17] MEDS: ONDANSETRON 4 MG/2 ML VIAL IVP ONE (17:36)
[2023-08-17] MEDS: IV FLUID CONTINUATION 50 ML IV ONE (17:37)
[2023-08-17] MEDS ORDERED: LIDOCAINE 1% INJ 10MG/ML (20 ML MDV) ONE (17:39)
[2023-08-17] MEDS ORDERED: MIDAZOLAM 2 MG/2 ML VIAL ONE (17:39)
[2023-08-17] MEDS ORDERED: ROCURONIUM 10 MG/ML (5 ML VIAL) IV ONE (17:39)
[2023-08-17] MEDS ORDERED: NEOSTIGMINE 1 MG/ML 10 ML VIAL ONE (17:39)
[2023-08-17] MEDS ORDERED: GLYCOPYRROLATE 0.2 MG/ML 2 ML VIAL ONE (17:39)
[2023-08-17] MEDS ORDERED: LABETALOL 5 MG/ML VIAL MDV ONE (17:39)
[2023-08-17] MEDS ORDERED: SUCCINYLCHOLINE CHLORIDE 200 MG/10 ML VIAL IV ONE (17:39)
[2023-08-17] MEDS ORDERED: fentaNYL (PF) 50 MCG/ML 2 ML AMP ONE (17:39)
[2023-08-17] MEDS ORDERED: ePHEDrine 50 MG/ML 1 ML VIAL ONE (17:39)
[2023-08-17] MEDS ORDERED: PROPOFOL 10 MG/ML 20 ML VIAL IV ONE (17:39)
[2023-08-17] MEDS: IV FLUID CONTINUATION 300 ML IV ONE (17:45)
[2023-08-17] MEDS: LACTATED RINGERS 1,000 ML IV ONE ×2 (18:02→18:14)
[2023-08-17] MEDS: LIDOCAINE 2%-EPI 1:100,000 20 ML VIAL SQ ONE (18:12)
[2023-08-17] MEDS ORDERED: ONDANSETRON 4 MG/2 ML VIAL IVP PRN (18:43)
--- NOTE | 2023-08-17 18:43 | P.OP ---
Date of Procedure: 08/17/23 Preoperative Diagnosis: Cholecystitis Cholelithiasis Left scrotal abscess Postoperative Diagnosis: Same Procedure(s) Performed: Laparoscopic cholecystectomy Incision and drainage of left scrotal abscess Anesthesia: ALBERT Surgeon: Franco Mohan Estimated Blood Loss (ml): 5 Pathology: other (Gallbladder, wound culture) Condition: stable Disposition: PACU Description of Procedure: The patient was placed on the operating table. The patient received a general endotracheal tube anesthesia. The patients abdomen was prepped and draped in the usual sterile fashion. Through an infraumbilical stab incision, the fascia of the anterior abdominal wall was grasped with a pair of Kochers and then the Veress needle was placed in the peritoneal cavity. Position of the Veress needle was confirmed with positive drop test. The abdomen was then insufflated. After adequate insufflation, the 10 mm trocar was placed in the peritoneal cavity. Following this the laparoscope was placed in the peritoneal cavity. The patient was placed in the head-up, right side up position and then a 5 mm trocar was placed in the right lateral and right subcostal position under direct visualization. A 8 mm trocar was placed in the epigastric position. The gallbladder was grasped in the fundus and infundibulum. Traction on the gallbladder was placed in the lateral and the cephalad positions. The triangle of Calot was visualized.. The cystic duct was bluntly dissected until the union of the cystic duct and common bile duct was seen. A critical view of safety was achieved. The cystic duct was then divided and sealed with the Harmonic scissors. A PDS Endoloop was then placed throughout the cystic duct stump. The cystic artery divided and sealed with the Harmonic scissors. The gallbladder was then removed from the liver bed using Harmonic scissors. The gallbladder was then extracted through the epigastric port site. Operative field was checked for any bleeding spots and Harmonic scissors was used to coagulate the liver bed. The abdomen was irrigated. The trocars were removed. The skin was closed using interrupted 3-0 Vicryl suture. Dermabond dressing were applied. Next, the patient's left scrotum was examined. There was evidence of a spon taneous draining fistula on the left scrotum near the groin. The area was incised. The cavity was found. A culture was performed. The wound was then packed with wet-to-dry Kerlix dressing. The patient tolerated the procedure well.
[2023-08-17] MEDS: HYDROmorphone 0.5 MG/0.5 ML SYRINGE IVP ONE ×2 (19:05→19:28)
[2023-08-17 20:19] LABS: Glucose,Whole Blood 217 mg/dL (70-110)
[2023-08-17] MEDS: HYDROmorphone 1 MG/ML 1 ML SYRINGE IVP PRN (21:17)
[2023-08-18 06:52] LABS: African American GFR (CKD) 41 (>60 ml/min/1.73 sqM); Anion Gap 8 mmol/L; Blood Urea Nitrogen 23 mg/dL (9-20); Calcium 8.5 mg/dL (8.4-10.2); Carbon Dioxide 24 mmol/L (22-30); Chloride 100 mmol/L (98-107); Glucose 335 mg/dL (74-99); Non-African American GFR(CKD) 36 (>60 ml/min/1.73 sqM); Potassium 5.7 mmol/L (3.5-5.1); Sodium 132 mmol/L (137-145)
[2023-08-18 07:17] LABS: Glucose,Whole Blood 383 mg/dL (70-110)
[2023-08-18] MEDS ORDERED: DEXTROSE 50% SYRINGE 50 ML IVP PRN ×2 (09:10)
[2023-08-18] MEDS: INSULIN ASPART (NovoLOG) 100 UNIT/ML VIAL SQ SCH (09:30)
[2023-08-18] MEDS: INSULIN DETEMIR (LEVEMIR) 100 UNIT/ML SYR SQ SCH (09:30)
--- NOTE | 2023-08-18 10:09 | P.PN ---
Subjective Patient is seen in follow-up for acute kidney injury on chronic kidney disease. Renal function fairly stable. Has been eating. Complains of abdominal discomfort. Underwent laparoscopic cholecystectomy and incision and drainage of left scrotal abscess on August 17, 2023. No vomiting or diarrhea. Vital signs are stable. General: No acute distress. HEENT: Head exam is unremarkable. LUNGS: No audible rhonchi or wheezes. HEART: Rate and Rhythm are regular. ABDOMEN: Nontender. EXTREMITITES: No edema. Objective - Vital Signs Vital signs: Vital Signs Temp 96.7 F L 08/18/23 08:00 Pulse 79 08/18/23 08:00 Resp 18 08/18/23 08:00 BP 147/62 08/18/23 08:00 Pulse Ox 100 08/18/23 08:00 FiO2 Intake & Output 08/17/23 08/18/23 08/18/23 18:59 06:59 18:59 Intake Total 900 100 Output Total 710 700 Balance 190 -600 Weight 68.039 kg Intake: IV 900 Oral 100 Output: Urine 700 700 Estimated Blood Loss 10 Other: Voiding Method Toilet Toilet Urinal Urinal # Voids 2 - Labs CBC & Chem 7: 08/17/23 05:36 08/18/23 06:09 Labs: Abnormal Lab Results - Last 24 Hours (Table) 08/17/23 08/17/23 08/17/23 Range/Units 05:36 12:40 17:12 Sodium (137-145) mmol/L Potassium (3.5-5.1) mmol/L BUN (9-20) mg/dL Creatinine (0.66-1.25) mg/dL Glucose (74-99) mg/dL POC Glucose (mg/dL) 125 H 144 H (70-110) mg/dL Iron 38 L (65-175) UG/DL Transferrin 178.0 L (204.0-354.0) mg/dL 08/17/23 08/18/23 08/18/23 Range/Units 20:15 06:09 07:15 Sodium 132 L (137-145) mmol/L Potassium 5.7 H (3.5-5.1) mmol/L BUN 23 H (9-20) mg/dL Creatinine 1.81 H (0.66-1.25) mg/dL Glucose 335 H (74-99) mg/dL POC Glucose (mg/dL) 217 H 383 H (70-110) mg/dL Iron (65-175) UG/DL Transferrin (204.0-354.0) mg/dL Microbiology - Last 24 Hours (Table) 08/17/23 18:32 Gram Stain - Preliminary Groin 08/16/23 11:35 Blood Culture - Preliminary Blood 08/16/23 09:25 Gram Stain - Preliminary Groin Wound Culture - Preliminary Gram Neg Bacilli Assessment and Plan Plan: Assessment: 1. Acute kidney injury secondary to vasomotor nephropathy from hypovolemia. Improved with IV hydration. No hydronephrosis noted on CAT scan. No monoclona lity noted on serum immunofixation. Creatinine was 2.3 on admission and fairly stable at 1.81 today. 2. Chronic kidney disease stage IIIb with baseline creatinine 1.7-1.8 secondary to diabetic kidney disease. 3. Hypertension with chronic kidney disease. Exacerbated by pain. 4. Acute pancreatitis. Improving. Tolerating diet. EGD showed antral gastritis. Status post laparoscopic cholecystectomy on August 17, 2023. 5. Right upper lobe cavitating lesion being followed by pulmonology. Concern for malignancy. 6. Anemia of chronic kidney disease. 7. Metabolic acidosis secondary to acute kidney injury and GI losses. On oral bicarb. Improved. 8. Status post incision and drainage of left scrotal abscess August 17, 2023. 9. Hyperkalemia secondary to hyperglycemia and Cozaar. Plan: Encouraged oral intake. Stop Cozaar. Lokelma 10 g once today. Repeat potassium level this afternoon. Blood sugar control. Add IV iron. Avoid nephrotoxins. Increase dose of amlodipine to 5 mg twice daily. Hold for systolic blood pressure less than 120.
[2023-08-18] MEDS: ENOXAPARIN 40 MG/0.4 ML SYRINGE SQ SCH (10:30)
[2023-08-18] MEDS: amLODIPine 5 MG TAB PO SCH (10:33)
[2023-08-18] MEDS: SODIUM ZIRCONIUM CYCLOSILICATE 10 GM PACKET PO ONE (11:06)
[2023-08-18] MEDS: SODIUM FERRIC GLUCONAT-SUCROSE 125 MG in SODIUM CHLORIDE 0.9% 100 ML IVPB SCH (11:07)
[2023-08-18 11:43] LABS: Glucose,Whole Blood 316 mg/dL (70-110)
--- NOTE | 2023-08-18 11:58 | P.PN ---
Subjective Progress Note Date: 08/18/23 77-year-old male history of diabetes, hypertension, dyslipidemia, chronic kidney disease, gastroesophageal reflux disease, tobacco use and dependence. Patient states that he presented to the hospital because he does not feel well. He has abdominal pain. No nausea or vomiting. He states he also had some chest pain yesterday only. Chest pain is not worse with activity and not worse with deep breathing. He states he has a little shortness of breath. No dizziness no palpitations no syncopal episodes. He states he has some lower extremity edema. No cough no fever. No blood in his stool or urine. He denies history of CVA or seizures. Patient does admit to s claudication. Patient is a smoker of half a pack per day and quit 3 weeks ago. He denies any alcohol use and no caffeine use. He also states he has had some weight loss but has a good appetite. Patient had a PET scan done on 06/04/2023 which revealed abnormal uptake within the cavitary lesion right upper lobe. Diffuse increased uptake through the esophagus correlate for esophagitis. Asymmetric focal uptake within the right a nterior vocal cord. Focal area of abnormal uptake superior to the right femoral neck within the soft tissues of unclear etiology. Patient had presented to the emergency center on August 02 for generalized weakness with diagnosis of metabolic acidosis, hypocalcemia and acute kidney injury but patient signed out AGAINST MEDICAL ADVICE. 08/14. Dr. Bui took over care from Dr. iWlson. Patient laying comfortably in the bed. Complaining of generalized weakness and tiredness. Labs done this morning showed WBC 3.82, hemoglobin 7.7, platelet count 138, sodium 136, potassium 2.9. Potassium replacement ordered. 08/15. Patient seen and examined. Ultrasound abdomen done showed multiple gallstones, mild dilatation of the bile duct. Bronchoscopy was canceled because of scheduling issues. 08/16. Patient seen and examined. Patient developed a sore in his left groin, foul-smelling discharge seen. Denies any fever or chills 08/17. Patient seen and examined. Patient scheduled for laparoscopic cholecystectomy currently n.p.o. Lab work done this morning showed WBC 3.7, hemoglobin 7.4, platelet count 152, sodium 135, potassium 4.5, carbon Dastech 24 creatinine 1.82 08/18. Patient seen and examined. Patient underwent Laparoscopic cholecystectomy and Incision and drainage of left scrotal abscess. Blood sugars are elevated, started on Lantus. Potassium was 5.7, hyperkalemia protocol initiated. Losartan was discontinued. Patient started on on Venofer REVIEW OF SYSTEMS: CONSTITUTIONAL: No fever, no malaise,. CARDIOVASCULAR: No chest pain, no palpitations, no syncope. PULMONARY: No shortness of breath, no cough, GASTROINTESTINAL: No diarrhea, no nausea, no vomiting, no abdominal pain. NEUROLOGICAL: No headaches, no weakness, PHYSICAL EXAMINATION: GENERAL: The patient is alert and oriented x3, not in any acute distress. Well developed, well nourished. HEENT: Pupils are round and equally reacting to light. EOMI. No scleral icterus. No conjunctival pallor. Normocephalic, atraumatic. No pharyngeal erythema. No thyromegaly. CARDIOVASCULAR: S1 and S2 present. No murmurs, rubs, or gallops. PULMONARY: Chest is clear to auscultation, no wheezing or crackles. ABDOMEN: Soft, nontender, laparoscopic surgical incisions seen MUSCULOSKELETAL: No joint swelling or deformity. EXTREMITIES: No cyanosis, clubbing, or pedal edema. NEUROLOGICAL: Gross neurological examination did not reveal any focal deficits. 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 Acute kidney injury Non-anion gap metabolic acidosis Coronary artery disease with previous PCI/stenting Diabetes mellitus type 2 Diabetic foot ulcers and previous history of osteomyelitis Peripheral vascular disease with previous stenting of the external iliac on the left Chronic stage IV kidney disease Non-anion gap metabolic acidosis likely secondary to renal failure Anemia of chronic disease Esophagitis Weight loss Remote history of bladder cancer postresection back in 2014 Hypertension Hyperlipidemia Unintentional weight loss Monitor vital signs Monitor CBC Monitor CMP Continue telemetry monitoring Encourage use of incentive spirometer Continue amlodipine, losartan. Continue IV Protonix 40 mg twice a day Continue wound care Monitor blood sugar levels, continue current insulin regimen, started Lantus Ultrasound groin done showed left groin phlegmon with developing discrete walled off collection measuring approximately 1 cm in size consistent with small developing abscess, s/pIncision and drainage of left scrotal abscess on 08/17 Surgery consulted. S/p EGD revealing no active bleed, with anemia possibly due to noted gastritis. Continues on PPI. S/p Laparoscopic cholecystectomy on 08/17 Anemia workup consistent with anemia of inflammation. SPEP and immunofixation negative. K/L light chains elevated with ratio mildly elevated at 1.70, appears to be r/t hx CKD. RF and TREVOR negative Pulm following, and recommending bronchoscopy with biopsy of right upper lobe lesion, most likely outpatient Nephrology following, recommended discontinuing HCTZ, losartan discontinued ID following, antibiotics changed to IV Zosyn Labs and medication were reviewed.. Continue same treatment. Continue with symptomatic treatment. Resume home medication. Monitor labs and vitals. DVT and GI prophylaxis. Further recommendations as per clinical course of the patient Dictation was produced using [employer] dictation software. please excuse any grammatical, word or spelling errors. Objective - Vital Signs Vital signs: Vital Signs Temp 96.7 F L 08/18/23 08:00 Pulse 79 08/18/23 08:00 Resp 18 08/18/23 08:00 BP 147/62 08/18/23 08:00 Pulse Ox 100 08/18/23 08:00 FiO2 Intake & Output 08/17/23 08/18/23 08/18/23 18:59 06:59 18:59 Intake Total 900 100 Output Total 710 700 Balance 190 -600 Weight 68.039 kg Intake: IV 900 Oral 100 Output: Urine 700 700 Estimated Blood Loss 10 Other: Voiding Method Toilet Toilet Urinal Urinal # Voids 2 - Labs CBC & Chem 7: 08/17/23 05:36 08/18/23 06:09 Labs: Abnormal Lab Results - Last 24 Hours (Table) 08/17/23 08/17/23 08/17/23 Range/Units 05:36 12:40 17:12 Sodium (137-145) mmol/L Potassium (3.5-5.1) mmol/L BUN (9-20) mg/dL Creatinine (0.66-1.25) mg/dL Glucose (74-99) mg/dL POC Glucose (mg/dL) 125 H 144 H (70-110) mg/dL Iron 38 L (65-175) UG/DL Transferrin 178.0 L (204.0-354.0) mg/dL 08/17/23 08/18/23 08/18/23 Range/Units 20:15 06:09 07:15 Sodium 132 L (137-145) mmol/L Potassium 5.7 H (3.5-5.1) mmol/L BUN 23 H (9-20) mg/dL Creatinine 1.81 H (0.66-1.25) mg/dL Glucose 335 H (74-99) mg/dL POC Glucose (mg/dL) 217 H 383 H (70-110) mg/dL Iron (65-175) UG/DL Transferrin (204.0-354.0) mg/dL Microbiology - Last 24 Hours (Table) 08/17/23 18:32 Gram Stain - Preliminary Groin 08/16/23 11:35 Blood Culture - Preliminary Blood 08/16/23 09:25 Gram Stain - Preliminary Groin Wound Culture - Preliminary Gram Neg Bacilli
--- NOTE | 2023-08-18 12:53 | P.PN ---
Subjective Progress Note Date: 08/18/23 Principal diagnosis: Right upper lobe cavitary lesion Patient is a 77-year-old male with a past medical history significant for diabetes mellitus [place] osteoarthritis history of bladder cancer patient presenting to the ER for evaluation generalized weakness abdominal pain patient did have a EGD with evidence of antral gastritis and gallbladder ultrasound mention gallbladder follow-up gallstone patient apparently also have right upper lobe cavitary lesion currently being worked up and was supposed to have a bronchoscopy that was canceled on 08/14/2023 Patient is status post laparoscopic ostectomy and I&D of the left scrotal/groin area abscess. On today's evaluation that is 08/18/2023, Patient is afebrile , patient is currently on room air and denies having any shortness of breath, the patient denies any chest pain, occasional cough r cough, the patient denies any nausea vomiting has been complaints of abdominal pain and pain to the left groin has decreased in intensity. Patient did have a creatinine of 1.81 CBC pending from today Levaquin showing gram-negative bacilli blood cultures pending Objective - Vital Signs Vital signs: Vital Signs Temp 97.6 F 08/18/23 12:04 Pulse 64 08/18/23 12:04 Resp 16 08/18/23 12:04 BP 122/52 08/18/23 12:04 Pulse Ox 99 08/18/23 12:04 FiO2 Intake & Output 08/17/23 08/18/23 08/18/23 18:59 06:59 18:59 Intake Total 900 100 Output Total 710 700 Balance 190 -600 Weight 68.039 kg Intake: IV 900 Oral 100 Output: Urine 700 700 Estimated Blood Loss 10 Other: Voiding Method Toilet Toilet Toilet Urinal Urinal Urinal # Voids 2 - Exam GENERAL DESCRIPTION: An elderly male lying in bed in no distress RESPIRATORY SYSTEM: Unlabored breathing , decreased breath sounds at bases HEART: S1 S2 regular rate and rhythm , ABDOMEN: Soft , no tenderness EXTREMITIES: Left groin swelling redness decreased minimal drainage on the dressing - Labs CBC & Chem 7: 08/17/23 05:36 08/18/23 06:09 Labs: Abnormal Lab Results - Last 24 Hours (Table) 08/17/23 08/17/23 08/18/23 Range/Units 17:12 20:15 06:09 Sodium 132 L (137-145) mmol/L Potassium 5.7 H (3.5-5.1) mmol/L BUN 23 H (9-20) mg/dL Creatinine 1.81 H (0.66-1.25) mg/dL Glucose 335 H (74-99) mg/dL POC Glucose (mg/dL) 144 H 217 H (70-110) mg/dL 08/18/23 08/18/23 Range/Units 07:15 11:41 Sodium (137-145) mmol/L Potassium (3.5-5.1) mmol/L BUN (9-20) mg/dL Creatinine (0.66-1.25) mg/dL Glucose (74-99) mg/dL POC Glucose (mg/dL) 383 H 316 H (70-110) mg/dL Microbiology - Last 24 Hours (Table) 08/17/23 18:32 Gram Stain - Preliminary Groin 08/16/23 11:35 Blood Culture - Preliminary Blood 08/16/23 09:25 Gram Stain - Preliminary Groin Wound Culture - Preliminary Gram Neg Bacilli Assessment and Plan (1) Cavitary lesion of lung Current Visit: Yes Status: Acute Code(s): J98.4 - OTHER DISORDERS OF LUNG SNOMED Code(s): 816591680 (2) Leukopenia Current Visit: Yes Status: Acute Code(s): D72.819 - DECREASED WHITE BLOOD CELL COUNT, UNSPECIFIED SNOMED Code(s): 51878283 (3) Abscess of left groin Current Visit: Yes Status: Acute Code(s): L02.214 - CUTANEOUS ABSCESS OF GROIN SNOMED Code(s): 37264156 Plan: 1patient with a right upper lobe cavitating lesion with question of possible malignancy versus infectious etiology, will be favoring mostly malignancy bec ause of his significant history of smoking however infection not entirely excluded, workup in progress 2-patient did have a left groin/scrotal area abscess s/p surgical drainage initial culture growing gram-negative bacilli patient is covered with Zosyn will adjust antibiotic further on the basis of culture Dictation was produced using [employer] software. please excuse any grammatical, word or spelling errors. Time with Patient: Less than 30
--- NOTE | 2023-08-18 13:07 | P.PN ---
Subjective Progress Note Date: 08/18/23 CHIEF COMPLAINT: Anemia HISTORY OF PRESENT ILLNESS: Patient postop day #1 status post laparoscopic cholecystectomy and incision and drainage of left scrotal abscess. Patient reports his pain is controlled. Denies any nausea or vomiting. He is tolerating diet. Afebrile. PHYSICAL EXAM: VITAL SIGNS: Reviewed. GENERAL: no acute distress. ABDOMEN: Soft. Nondistended. Incision sites clean dry and intact. Left scrotal abscess with packing in place. Area is softer and less tender. NEUROLOGIC: Awake and alert ASSESSMENT: 1. Cholecystitis, cholelithiasis and gallstone pancreatitis status post laparoscopic cholecystectomy 2. Left scrotal abscess status post incision and drainage 3. GI bleed with melanotic stools status post EGD revealing antral gastritis and esophagitis 4. Acute on chronic anemia 5. Lung mass. Followed by pulmonary service PLAN: -Continue local wound care to left scrotal abscess. Wound care per ID service -Continue antibiotics -Continue IV Protonix -Continue renal diet -Hyperkalemia management per nephrology Physician Remedial Project Manager note has been reviewed by physician. Signing provider agrees with the documented findings, assessment, and plan of care. Objective - Vital Signs Vital signs: Vital Signs Temp 97.6 F 08/18/23 12:04 Pulse 64 08/18/23 12:04 Resp 16 08/18/23 12:04 BP 122/52 08/18/23 12:04 Pulse Ox 99 08/18/23 12:04 FiO2 Intake & Output 08/17/23 08/18/23 08/18/23 18:59 06:59 18:59 Intake Total 900 100 Output Total 710 700 Balance 190 -600 Weight 68.039 kg Intake: IV 900 Oral 100 Output: Urine 700 700 Estimated Blood Loss 10 Other: Voiding Method Toilet Toilet Toilet Urinal Urinal Urinal # Voids 2 - Labs CBC & Chem 7: 08/17/23 05:36 08/18/23 06:09 Labs: Abnormal Lab Results - Last 24 Hours (Table) 08/17/23 08/17/23 08/18/23 Range/Units 17:12 20:15 06:09 Sodium 132 L (137-145) mmol/L Potassium 5.7 H (3.5-5.1) mmol/L BUN 23 H (9-20) mg/dL Creatinine 1.81 H (0.66-1.25) mg/dL Glucose 335 H (74-99) mg/dL POC Glucose (mg/dL) 144 H 217 H (70-110) mg/dL 08/18/23 08/18/23 Range/Units 07:15 11:41 Sodium (137-145) mmol/L Potassium (3.5-5.1) mmol/L BUN (9-20) mg/dL Creatinine (0.66-1.25) mg/dL Glucose (74-99) mg/dL POC Glucose (mg/dL) 383 H 316 H (70-110) mg/dL Microbiology - Last 24 Hours (Table) 08/17/23 18:32 Gram Stain - Preliminary Groin 08/16/23 11:35 Blood Culture - Preliminary Blood 08/16/23 09:25 Gram Stain - Preliminary Groin Wound Culture - Preliminary Gram Neg Bacilli
--- NOTE | 2023-08-18 16:51 | P.PN ---
Subjective Progress Note Date: 08/18/23 Principal diagnosis: lung mass In f/u today pt is post op lap choley and I&D of left groin abscess. He is doing ok, denies fever, N,V, new cough, chest pain, his abd is sensitive, he has passed flatus and stool. No unusual swelling in the legs. He is up to restroom. Objective - Vital Signs Vital signs: Vital Signs Temp 97.6 F 08/18/23 12:04 Pulse 64 08/18/23 12:04 Resp 16 08/18/23 12:04 BP 122/52 08/18/23 12:04 Pulse Ox 99 08/18/23 12:04 FiO2 Intake & Output 08/17/23 08/18/23 08/18/23 18:59 06:59 18:59 Intake Total 900 100 Output Total 710 700 Balance 190 -600 Weight 68.039 kg Intake: IV 900 Oral 100 Output: Urine 700 700 Estimated Blood Loss 10 Other: Voiding Method Toilet Toilet Toilet Urinal Urinal Urinal # Voids 2 - Constitutional General appearance: Present: average body habitus, cooperative, no acute distress - EENT Eyes: Present: anicteric sclerae, EOMI ENT: Present: hearing grossly normal - Respiratory Details: resp even and unlabored - Cardiovascular Details: skin warm and dry to touch - Peripheral edema leg Peripheral Edema: bilateral: None - Gastrointestinal General gastrointestinal: Present: soft - Integumentary Integumentary: Present: normal - Neurologic Neurologic: Present: CNII-XII intact - Musculoskeletal Musculoskeletal: Present: strength equal bilaterally - Psychiatric Psychiatric: Present: A&O x's 3, appropriate affect, intact judgment & insight - Labs CBC & Chem 7: 08/17/23 05:36 08/18/23 06:09 Labs: Abnormal Lab Results - Last 24 Hours (Table) 08/17/23 08/17/23 08/18/23 Range/Units 17:12 20:15 06:09 Sodium 132 L (137-145) mmol/L Potassium 5.7 H (3.5-5.1) mmol/L BUN 23 H (9-20) mg/dL Creatinine 1.81 H (0.66-1.25) mg/dL Glucose 335 H (74-99) mg/dL POC Glucose (mg/dL) 144 H 217 H (70-110) mg/dL 08/18/23 08/18/23 Range/Units 07:15 11:41 Sodium (137-145) mmol/L Potassium (3.5-5.1) mmol/L BUN (9-20) mg/dL Creatinine (0.66-1.25) mg/dL Glucose (74-99) mg/dL POC Glucose (mg/dL) 383 H 316 H (70-110) mg/dL Microbiology - Last 24 Hours (Table) 08/17/23 18:32 Gram Stain - Preliminary Groin 08/16/23 11:35 Blood Culture - Preliminary Blood Assessment and Plan (1) Abscess of left groin Current Visit: Yes Status: Acute Code(s): L02.214 - CUTANEOUS ABSCESS OF GROIN SNOMED Code(s): 75584558 (2) Lesion of lung Current Visit: Yes Status: Acute Priority: Medium Code(s): R91.1 - SOLITARY PULMONARY NODULE SNOMED Code(s): 483795184 (3) Pancytopenia Current Visit: Yes Status: Acute Priority: High Code(s): D61.818 - OTHER PANCYTOPENIA SNOMED Code(s): 928975447 Plan: Pancytopenia -Infection can be an underlying cause. He just had I&D of left groin abscess, on abx -S/P EGD revealing no active bleed, positive for gastritis. Continues on PPI. R ecommend complete GI work up outpt -SPEP and immunofixation negative. K/L light chains elevated with ratio mildly elevated at 1.70, likely 2/2 CKD. -No significant iron deficiency, no need for supplement at this time -Pancytopenia may also be reactive to multiple acute medical conditions and chronic conditions CKD, liver disease. -Plt have recovered, WNL today. WBC improving. Hgb stable. No transfusions needed today. Pt is ok for DVT prophylaxis. Cont to monitor CBC Lung lesion -He underwent PET/CT on 06/04/23 which showed abnormal uptake within the cavitary lesion in the right upper lobe. Asymmetric focal uptake within the right anterior vocal cord. Focal area of abnormal uptake superior to the right femoral neck within the soft tissue, uncertain etiology. -Pulm following, planning for bronchoscopy with biopsy of RUL lesion once pt stable-multiple med issues -Await biopsy results for further recommendations
[2023-08-18 16:56] LABS: Glucose,Whole Blood 199 mg/dL (70-110)
[2023-08-18 20:28] LABS: Glucose,Whole Blood 270 mg/dL (70-110)
[2023-08-18] MEDS: PIPERACILLIN-TAZOBACTAM 3.375 GM in SODIUM CHLORIDE 0.9% 100 ML IVPB SCH (20:42)
[2023-08-19 07:34] LABS: Glucose,Whole Blood 242 mg/dL (70-110)
--- NOTE | 2023-08-19 11:18 | P.PN ---
Subjective Patient is seen in follow-up for acute kidney injury on chronic kidney disease. Renal function fairly stable. Has been eating. Underwent laparoscopic cholecystectomy and incision and drainage of left scrotal abscess on August 17, 2023. No vomiting or diarrhea. No active complaints. Vital signs are stable. General: No acute distress. HEENT: Head exam is unremarkable. LUNGS: No audible rhonchi or wheezes. HEART: Rate and Rhythm are regular. ABDOMEN: Nontender. EXTREMITITES: No edema. Objective - Vital Signs Vital signs: Vital Signs Temp 98.3 F 08/19/23 07:55 Pulse 66 08/19/23 07:55 Resp 16 08/19/23 07:55 BP 107/55 08/19/23 07:55 Pulse Ox 96 08/19/23 07:55 FiO2 Intake & Output 08/18/23 08/19/23 08/19/23 18:59 06:59 18:59 Output Total 550 Balance -550 Output: Urine 550 Other: Voiding Method Toilet Toilet Urinal Urinal # Voids 3 - Labs CBC & Chem 7: 08/17/23 05:36 08/18/23 15:17 Labs: Abnormal Lab Results - Last 24 Hours (Table) 08/18/23 08/18/23 08/18/23 Range/Units 06:09 11:41 16:53 POC Glucose (mg/dL) 316 H 199 H (70-110) mg/dL Hemoglobin A1c 6.2 H (<=6.0) % 08/18/23 08/19/23 Range/Units 20:22 07:32 POC Glucose (mg/dL) 270 H 242 H (70-110) mg/dL Hemoglobin A1c (<=6.0) % Microbiology - Last 24 Hours (Table) 08/16/23 09:25 Gram Stain - Final Groin Wound Culture - Final Citrobacter braakii 08/16/23 11:35 Blood Culture - Preliminary Blood 08/17/23 18:32 Gram Stain - Preliminary Groin Assessment and Plan Plan: Assessment: 1. Acute kidney injury secondary to vasomotor nephropathy from hypovolemia. Improved with IV hydration. No hydronephrosis noted on CAT scan. No monoclonality noted on serum immunofixation. Creatinine was 2.3 on admission and fairly stable at 1.81 yesterday. 2. Chronic kidney disease stage IIIb with baseline creatinine 1.7-1.8 secondary to diabetic kidney disease. 3. Hypertension with chronic kidney disease. Exacerbated by pain. 4. Acute pancreatitis. Improving. Tolerating diet. EGD showed antral gastritis. Status post laparoscopic cholecystectomy on August 17, 2023. 5. Right upper lobe cavitating lesion being followed by pulmonology. Concern for malignancy. 6. Anemia of chronic kidney disease. 7. Metabolic acidosis secondary to acute kidney injury and GI losses. On oral bicarb. Improved. 8. Status post incision and drainage of left scrotal abscess August 17, 2023. 9. Hyperkalemia secondary to hyperglycemia, potassium supplementation and Cozaar. Improved. Plan: Encouraged oral intake. Off Cozaar and potassium supplementation. Blood sugar control. Maintain IV iron. Avoid nephrotoxins. Decrease dose of amlodipine back to 5 mg once daily as blood pressure is on the lower side now. Hold for systolic blood pressure less than 120. Follow-up outpatient 1 week postdischarge.
--- NOTE | 2023-08-19 11:49 | P.PN ---
Subjective Progress Note Date: 08/19/23 Principal diagnosis: Right upper lobe cavitary lesion Patient is a 77-year-old male with a past medical history significant for diabetes mellitus [place] osteoarthritis history of bladder cancer patient presenting to the ER for evaluation generalized weakness abdominal pain patient did have a EGD with evidence of antral gastritis and gallbladder ultrasound mention gallbladder follow-up gallstone patient apparently also have right upper lobe cavitary lesion currently being worked up and was supposed to have a bronchoscopy that was canceled on 08/14/2023 Patient is status post laparoscopic ostectomy and I&D of the left scrotal/groin area abscess. On today's evaluation that is 08/19/2023,the patient denies any fever or any chills, patient is breathing comfortably on room air, the patient denies chest pain shortness of breath and no significant cough, patient denies abdominal pain, no nausea vomiting or diarrhea. Pain to the left scrotal wound area has slightly decreased in intensity. No new labs obtained today wound culture finalized with the Citrobacter Objective - Vital Signs Vital signs: Vital Signs Temp 98.3 F 08/19/23 07:55 Pulse 66 08/19/23 07:55 Resp 16 08/19/23 07:55 BP 107/55 08/19/23 07:55 Pulse Ox 96 08/19/23 07:55 FiO2 Intake & Output 08/18/23 08/19/23 08/19/23 18:59 06:59 18:59 Output Total 550 Balance -550 Output: Urine 550 Other: Voiding Method Toilet Toilet Urinal Urinal # Voids 3 - Exam GENERAL DESCRIPTION: An elderly male lying in bed in no distress RESPIRATORY SYSTEM: Unlabored breathing , decreased breath sounds at bases HEART: S1 S2 regular rate and rhythm , ABDOMEN: Soft , no tenderness EXTREMITIES: Left scrotal area did have a deep wound - Labs CBC & Chem 7: 08/17/23 05:36 08/18/23 15:17 Labs: Abnormal Lab Results - Last 24 Hours (Table) 08/18/23 08/18/23 08/18/23 Range/Units 06:09 16:53 20:22 POC Glucose (mg/dL) 199 H 270 H (70-110) mg/dL Hemoglobin A1c 6.2 H (<=6.0) % 08/19/23 Range/Units 07:32 POC Glucose (mg/dL) 242 H (70-110) mg/dL Hemoglobin A1c (<=6.0) % Microbiology - Last 24 Hours (Table) 08/16/23 09:25 Gram Stain - Final Groin Wound Culture - Final Citrobacter braakii 08/16/23 11:35 Blood Culture - Preliminary Blood 08/17/23 18:32 Gram Stain - Preliminary Groin Assessment and Plan (1) Cavitary lesion of lung Current Visit: Yes Status: Acute Code(s): J98.4 - OTHER DISORDERS OF LUNG SNOMED Code(s): 186672915 (2) Leukopenia Current Visit: Yes Status: Acute Code(s): D72.819 - DECREASED WHITE BLOOD CELL COUNT, UNSPECIFIED SNOMED Code(s): 09260779 (3) Abscess of left groin Current Visit: Yes Status: Acute Code(s): L02.214 - CUTANEOUS ABSCESS OF GROIN SNOMED Code(s): 27693032 (4) Scrotal abscess Current Visit: Yes Status: Acute Code(s): N49.2 - INFLAMMATORY DISORDERS OF SCROTUM SNOMED Code(s): 02604060 Plan: 1patient with a right upper lobe cavitating lesion with question of possible malignancy versus infectious etiology, will be favoring mostly malignancy because of his significant history of smoking however infection not entirely excluded, workup in progress 2-patient did have a left groin/scrotal area abscess s/p surgical drainage cultures are currently growing Citrobacter patient is covered with Zosyn to continue while inpatient keeping in mind and deep wound will benefit from possible wound VAC if it can be applied otherwise continue with the wet-to-dry dressing changes daily Dictation was produced using [employer] dictation software. please excuse any grammatical, word or spelling errors. Time with Patient: Less than 30
[2023-08-19 12:16] LABS: Glucose,Whole Blood 94 mg/dL (70-110)
--- NOTE | 2023-08-19 13:30 | P.PN ---
Subjective Progress Note Date: 08/19/23 77-year-old male history of diabetes, hypertension, dyslipidemia, chronic kidney disease, gastroesophageal reflux disease, tobacco use and dependence. Patient states that he presented to the hospital because he does not feel well. He has abdominal pain. No nausea or vomiting. He states he also had some chest pain yesterday only. Chest pain is not worse with activity and not worse with deep breathing. He states he has a little shortness of breath. No dizziness no palpitations no syncopal episodes. He states he has some lower extremity edema. No cough no fever. No blood in his stool or urine. He denies history of CVA or seizures. Patient does admit to s claudication. Patient is a smoker of half a pack per day and quit 3 weeks ago. He denies any alcohol use and no caffeine use. He also states he has had some weight loss but has a good appetite. Patient had a PET scan done on 06/04/2023 which revealed abnormal uptake within the cavitary lesion right upper lobe. Diffuse increased uptake through the esophagus correlate for esophagitis. Asymmetric focal uptake within the right a nterior vocal cord. Focal area of abnormal uptake superior to the right femoral neck within the soft tissues of unclear etiology. Patient had presented to the emergency center on August 02 for generalized weakness with diagnosis of metabolic acidosis, hypocalcemia and acute kidney injury but patient signed out AGAINST MEDICAL ADVICE. 08/14. Dr. Bui took over care from Dr. Wilson. Patient laying comfortably in the bed. Complaining of generalized weakness and tiredness. Labs done this morning showed WBC 3.82, hemoglobin 7.7, platelet count 138, sodium 136, potassium 2.9. Potassium replacement ordered. 08/15. Patient seen and examined. Ultrasound abdomen done showed multiple gallstones, mild dilatation of the bile duct. Bronchoscopy was canceled because of scheduling issues. 08/16. Patient seen and examined. Patient developed a sore in his left groin, foul-smelling discharge seen. Denies any fever or chills 08/17. Patient seen and examined. Patient scheduled for laparoscopic cholecystectomy currently n.p.o. Lab work done this morning showed WBC 3.7, hemoglobin 7.4, platelet count 152, sodium 135, potassium 4.5, carbon Dastech 24 creatinine 1.82 08/18. Patient seen and examined. Patient underwent Laparoscopic cholecystectomy and Incision and drainage of left scrotal abscess. Blood sugars are elevated, started on Lantus. Potassium was 5.7, hyperkalemia protocol initiated. Losartan was discontinued. Patient started on on Venofer 08/19. Patient seen and examined. Stated he got dizzy while getting out of the bed today. Currently feeling much better. Tolerating diet REVIEW OF SYSTEMS: CONSTITUTIONAL: No fever, no malaise,. CARDIOVASCULAR: No chest pain, no palpitations, no syncope. PULMONARY: No shortness of breath, no cough, GASTROINTESTINAL: No diarrhea, no nausea, no vomiting, no abdominal pain. NEUROLOGICAL: No headaches, no weakness, PHYSICAL EXAMINATION: GENERAL: The patient is alert and oriented x3, not in any acute distress. Well developed, well nourished. HEENT: Pupils are round and equally reacting to light. EOMI. No scleral icterus. No conjunctival pallor. Normocephalic, atraumatic. No pharyngeal erythema. No thyromegaly. CARDIOVASCULAR: S1 and S2 present. No murmurs, rubs, or gallops. PULMONARY: Chest is clear to auscultation, no wheezing or crackles. ABDOMEN: Soft, nontender, laparoscopic surgical incisions seen MUSCULOSKELETAL: No joint swelling or deformity. EXTREMITIES: No cyanosis, clubbing, or pedal edema. NEUROLOGICAL: Gross neurological examination did not reveal any focal deficits. 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 Acute kidney injury Non-anion gap metabolic acidosis Coronary artery disease with previous PCI/stenting Diabetes mellitus type 2 Diabetic foot ulcers and previous history of osteomyelitis Peripheral vascular disease with previous stenting of the external iliac on the left Chronic stage IV kidney disease Non-anion gap metabolic acidosis likely secondary to renal failure Anemia of chronic disease Esophagitis Weight loss Remote history of bladder cancer postresection back in 2014 Hypertension Hyperlipidemia Unintentional weight loss Monitor vital signs Monitor CBC Monitor CMP Continue telemetry monitoring Encourage use of incentive spirometer Continue amlodipine, losartan. Continue IV Protonix 40 mg twice a day Continue wound care Follow-up and wound cultures Monitor blood sugar levels, continue current insulin regimen, started Lantus Ultrasound groin done showed left groin phlegmon with developing discrete walled off collection measuring approximately 1 cm in size consistent with small developing abscess, s/pIncision and drainage of left scrotal abscess on 08/17 Surgery consulted. S/p EGD revealing no active bleed, with anemia possibly due to noted gastritis. Continues on PPI. S/p Laparoscopic cholecystectomy on 08/17 Anemia workup consistent with anemia of inflammation. SPEP and immunofixation ne gative. K/L light chains elevated with ratio mildly elevated at 1.70, appears to be r/t hx CKD. RF and TREVOR negative Pulm following, and recommending bronchoscopy with biopsy of right upper lobe lesion, most likely outpatient Nephrology following, recommended discontinuing HCTZ, losartan discontinued ID following, currently on IV Zosyn Labs and medication were reviewed.. Continue same treatment. Continue with symptomatic treatment. Resume home medication. Monitor labs and vitals. DVT and GI prophylaxis. Further recommendations as per clinical course of the patient Dictation was produced using [employer] dictation software. please excuse any grammatical, word or spelling errors. Objective - Vital Signs Vital signs: Vital Signs Temp 98.3 F 08/19/23 07:55 Pulse 66 08/19/23 07:55 Resp 16 08/19/23 07:55 BP 107/55 08/19/23 07:55 Pulse Ox 96 08/19/23 07:55 FiO2 Intake & Output 08/18/23 08/19/23 08/19/23 18:59 06:59 18:59 Output Total 550 Balance -550 Output: Urine 550 Other: Voiding Method Toilet Toilet Urinal Urinal # Voids 3 - Labs CBC & Chem 7: 08/17/23 05:36 08/18/23 15:17 Labs: Abnormal Lab Results - Last 24 Hours (Table) 08/18/23 08/18/23 08/18/23 Range/Units 06:09 11:41 16:53 POC Glucose (mg/dL) 316 H 199 H (70-110) mg/dL Hemoglobin A1c 6.2 H (<=6.0) % 08/18/23 08/19/23 Range/Units 20:22 07:32 POC Glucose (mg/dL) 270 H 242 H (70-110) mg/dL Hemoglobin A1c (<=6.0) % Microbiology - Last 24 Hours (Table) 08/16/23 09:25 Gram Stain - Final Groin Wound Culture - Final Citrobacter braakii 08/16/23 11:35 Blood Culture - Preliminary Blood 08/17/23 18:32 Gram Stain - Preliminary Groin
--- NOTE | 2023-08-19 16:01 | P.PN ---
Subjective Progress Note Date: 08/19/23 CHIEF COMPLAINT: Anemia HISTORY OF PRESENT ILLNESS: Patient postop day #2 status post laparoscopic cholecystectomy and incision and drainage of left scrotal abscess. Patient reports his pain is controlled. Denies any nausea or vomiting. He is tolerating diet. Afebrile. Packing was changed from the groin yesterday. PHYSICAL EXAM: VITAL SIGNS: Reviewed. GENERAL: no acute distress. ABDOMEN: Soft. Nondistended. Incision sites clean dry and intact. Left scrotal abscess with packing in place. Area is softer and less tender. NEUROLOGIC: Awake and alert ASSESSMENT: 1. Cholecystitis, cholelithiasis and gallstone pancreatitis status post laparoscopic cholecystectomy 2. Left scrotal abscess status post incision and drainage 3. GI bleed with melanotic stools status post EGD revealing antral gastritis and esophagitis 4. Acute on chronic anemia 5. Lung mass. Followed by pulmonary service PLAN: -Wound care per ID service. Possible wound VAC placement -Continue antibiotics -Continue Protonix -Continue renal diet -Encourage patient to increase activity level Physician Ase Master Mechanic note has been reviewed by physician. Signing provider agrees with the documented findings, assessment, and plan of care. Objective - Vital Signs Vital signs: Vital Signs Temp 98.3 F 08/19/23 07:55 Pulse 66 08/19/23 07:55 Resp 16 08/19/23 07:55 BP 107/55 08/19/23 07:55 Pulse Ox 96 08/19/23 07:55 FiO2 Intake & Output 08/18/23 08/19/23 08/19/23 18:59 06:59 18:59 Output Total 550 Balance -550 Output: Urine 550 Other: Voiding Method Toilet Toilet Urinal Urinal # Voids 3 - Labs CBC & Chem 7: 08/17/23 05:36 08/18/23 15:17 Labs: Abnormal Lab Results - Last 24 Hours (Table) 08/18/23 08/18/23 08/18/23 Range/Units 06:09 16:53 20:22 POC Glucose (mg/dL) 199 H 270 H (70-110) mg/dL Hemoglobin A1c 6.2 H (<=6.0) % 08/19/23 Range/Units 07:32 POC Glucose (mg/dL) 242 H (70-110) mg/dL Hemoglobin A1c (<=6.0) % Microbiology - Last 24 Hours (Table) 08/16/23 09:25 Gram Stain - Final Groin Wound Culture - Final Citrobacter braakii 08/16/23 11:35 Blood Culture - Preliminary Blood 08/17/23 18:32 Gram Stain - Preliminary Groin
[2023-08-19 17:13] LABS: Glucose,Whole Blood 240 mg/dL (70-110)
[2023-08-19 20:18] LABS: Glucose,Whole Blood 228 mg/dL (70-110)
[2023-08-20 07:23] LABS: Glucose,Whole Blood 57 mg/dL (70-110)
[2023-08-20 07:43] LABS: Glucose,Whole Blood 68 mg/dL (70-110)
[2023-08-20 08:02] LABS: Glucose,Whole Blood 103 mg/dL (70-110)
[2023-08-20 08:43] LABS: Basophils # (A) 0.01 X 10*3/uL (0.00-0.10); Basophils % (A) 0.2 %; Eosinophils # (A) 0.01 X 10*3/uL (0.04-0.35); Eosinophils % (A) 0.2 %; HCT 21.7 % (39.6-50.0); HGB 6.7 g/dL (13.0-17.0); Lymphocytes # (A) 2.76 X 10*3/uL (0.90-5.00); Lymphocytes % (A) 50.7 %; MCH 26.5 pg (27.0-32.0); MCHC 30.9 g/dL (32.0-37.0); MCV 85.8 FL (80.0-97.0); Mean Platelet Volume 11.9 FL (9.5-12.2); Monocytes # (A) 1.34 X 10*3/uL (0.20-1.00); Monocytes % (A) 24.6 %; NRBC Per 100 WBC 0 X 10*3/uL (0.00-0.01); Neutrophils # (A) 1.28 X 10*3/uL (1.80-7.70); Neutrophils % (A) 23.6 %; Platelet Count 131 X 10*3/uL (140-440); RBC 2.53 X 10*6/uL (4.40-5.60); RDW 19.9 % (11.5-14.5); WBC 5.44 X 10*3/uL (4.50-10.00)
[2023-08-20] MEDS: amLODIPine 5 MG TAB PO SCH (09:00)
[2023-08-20 09:20] LABS: ALT 10 U/L (10-49); AST 14 U/L (14-35); Albumin 3.2 g/dL (3.8-4.9); Albumin/Globulin Ratio 1.28 Ratio (1.60-3.17); Alkaline Phosphatase 59 U/L (41-126); Blood Urea Nitrogen 22.6 mg/dL (9.0-27.0); Calcium 8.4 mg/dL (8.7-10.3); Carbon Dioxide 27.8 mmol/L (21.6-31.8); Chloride 98 mmol/L (96-109); Globulin 2.5 g/dL (1.6-3.3); Glucose 49 mg/dL (70-110); Potassium 4.4 mmol/L (3.5-5.5); Sodium 135 mmol/L (135-145); Total Bilirubin 0.3 mg/dL (0.3-1.2); Total Protein 5.7 g/dL (6.2-8.2)
[2023-08-20 11:30] LABS: Anisocytosis Slight; HCT 23.5 % (39.0-53.0); HGB 7.2 gm/dL (13.0-17.5); Hypochromasia Marked; MCH 27.1 pg (25.0-35.0); MCHC 30.7 g/dL (31.0-37.0); MCV 88.5 fL (80.0-100.0); Mean Platelet Volume 10.6; Platelet Count 142 k/uL (150-450); RBC 2.66 m/uL (4.30-5.90); RDW 18.7 % (11.5-15.5); WBC 4.3 k/uL (3.8-10.6)
--- NOTE | 2023-08-20 11:38 | P.PN ---
Subjective Patient is seen in follow-up for acute kidney injury on chronic kidney disease. Renal function fairly stable as of yesterday. Has been eating. Underwent laparoscopic cholecystectomy and incision and drainage of left scrotal abscess on August 17, 2023. No vomiting or diarrhea. No active complaints. Vital signs are stable. General: No acute distress. HEENT: Head exam is unremarkable. LUNGS: No audible rhonchi or wheezes. HEART: Rate and Rhythm are regular. ABDOMEN: Nontender. EXTREMITITES: No edema. Objective - Vital Signs Vital signs: Vital Signs Temp 98.1 F 08/20/23 07:48 Pulse 73 08/20/23 07:48 Resp 16 08/20/23 07:48 BP 122/64 08/20/23 07:48 Pulse Ox 99 08/20/23 07:48 FiO2 Intake & Output 08/19/23 08/20/23 08/20/23 18:59 06:59 18:59 Weight 68.039 kg Other: Voiding Method Toilet Urinal # Voids 2 3 - Labs CBC & Chem 7: 08/20/23 11:08 08/20/23 06:05 Labs: Abnormal Lab Results - Last 24 Hours (Table) 08/19/23 08/19/23 08/20/23 Range/Units 17:10 20:16 06:05 RBC 2.53 L (4.40-5.60) X 10*6/uL Hgb 6.7 A* (13.0-17.0) g/dL Hct 21.7 L (39.6-50.0) % MCH 26.5 L (27.0-32.0) pg MCHC 30.9 L (32.0-37.0) g/dL RDW 19.9 H (11.5-14.5) % Plt Count 131 L (140-440) X 10*3/uL Neutrophils # 1.28 L (1.80-7.70) X 10*3/uL Monocytes # 1.34 H (0.20-1.00) X 10*3/uL Eosinophils # 0.01 L (0.04-0.35) X 10*3/uL Creatinine (0.6-1.5) mg/dL Est GFR (CKD-EPI) (>=60) BUN/Creatinine Ratio (12.00-20.00) Ratio Glucose (70-110) mg/dL POC Glucose (mg/dL) 240 H 228 H (70-110) mg/dL Calcium (8.7-10.3) mg/dL Total Protein (6.2-8.2) g/dL Albumin (3.8-4.9) g/dL Albumin/Globulin Ratio (1.60-3.17) Ratio 08/20/23 08/20/23 08/20/23 Range/Units 06:05 07:15 07:39 RBC (4.40-5.60) X 10*6/uL Hgb (13.0-17.0) g/dL Hct (39.6-50.0) % MCH (27.0-32.0) pg MCHC (32.0-37.0) g/dL RDW (11.5-14.5) % Plt Count (140-440) X 10*3/uL Neutrophils # (1.80-7.70) X 10*3/uL Monocytes # (0.20-1.00) X 10*3/uL Eosinophils # (0.04-0.35) X 10*3/uL Creatinine 2.0 H (0.6-1.5) mg/dL Est GFR (CKD-EPI) 34 L (>=60) BUN/Creatinine Ratio 11.30 L (12.00-20.00) Ratio Glucose 49 A* (70-110) mg/dL POC Glucose (mg/dL) 57 L 68 L (70-110) mg/dL Calcium 8.4 L (8.7-10.3) mg/dL Total Protein 5.7 L (6.2-8.2) g/dL Albumin 3.2 L (3.8-4.9) g/dL Albumin/Globulin Ratio 1.28 L (1.60-3.17) Ratio 08/20/23 Range/Units 11:08 RBC 2.66 L (4.40-5.60) X 10*6/uL Hgb 7.2 L (13.0-17.0) g/dL Hct 23.5 L (39.6-50.0) % MCH (27.0-32.0) pg MCHC 30.7 L (32.0-37.0) g/dL RDW 18.7 H (11.5-14.5) % Plt Count 142 L (140-440) X 10*3/uL Neutrophils # (1.80-7.70) X 10*3/uL Monocytes # (0.20-1.00) X 10*3/uL Eosinophils # (0.04-0.35) X 10*3/uL Creatinine (0.6-1.5) mg/dL Est GFR (CKD-EPI) (>=60) BUN/Creatinine Ratio (12.00-20.00) Ratio Glucose (70-110) mg/dL POC Glucose (mg/dL) (70-110) mg/dL Calcium (8.7-10.3) mg/dL Total Protein (6.2-8.2) g/dL Albumin (3.8-4.9) g/dL Albumin/Globulin Ratio (1.60-3.17) Ratio Microbiology - Last 24 Hours (Table) 08/16/23 11:35 Blood Culture - Preliminary Blood 08/17/23 18:32 Gram Stain - Preliminary Groin Wound Culture - Preliminary 08/17/23 18:32 Anaerobic Culture - Preliminary Groin 08/16/23 09:25 Anaerobic Culture - Final Groin Anaerobic Gm Negative Bacilli Anaerobic Gm Negative Bacilli#2 08/16/23 09:25 Gram Stain - Final Groin Wound Culture - Final Citrobacter braakii Assessment and Plan Plan: Assessment: 1. Acute kidney injury secondary to vasomotor nephropathy from hypovolemia. Improved with IV hydration. No hydronephrosis noted on CAT scan. No monoclonality noted on serum immunofixation. Creatinine was 2.3 on admission and fairly stable at 2.0 yesterday. 2. Chronic kidney disease stage IIIb with baseline creatinine 1.7-1.8 secondary to diabetic kidney disease. 3. Hypertension with chronic kidney disease. Exacerbated by pain. Currently controlled. 4. Acute pancreatitis. Improving. Tolerating diet. EGD showed antral gastritis. Status post laparoscopic cholecystectomy on August 17, 2023. 5. Right upper lobe cavitating lesion being followed by pulmonology. Concern for malignancy. 6. Anemia of chronic kidney disease. Iron deficiency noted. 7. Metabolic acidosis secondary to acute kidney injury and GI losses. On oral bicarb. Improved. 8. Status post incision and drainage of left scrotal abscess August 17, 2023. 9. Hyperkalemia secondary to hyperglycemia, potassium supplementation and Cozaar. Improved. Plan: Encouraged oral intake. Off Cozaar and potassium supplementation. Blood sugar control. Maintain IV iron. Add Aranesp. Avoid nephrotoxins. Hold amlodipine for systolic blood pressure less than 120. Follow-up outpatient 1 week postdischarge.
--- NOTE | 2023-08-20 11:58 | P.PN ---
Subjective Progress Note Date: 08/20/23 Principal diagnosis: Right upper lobe cavitary lesion Patient is a 77-year-old male with a past medical history significant for diabetes mellitus [place] osteoarthritis history of bladder cancer patient presenting to the ER for evaluation generalized weakness abdominal pain patient did have a EGD with evidence of antral gastritis and gallbladder ultrasound mention gallbladder follow-up gallstone patient apparently also have right upper lobe cavitary lesion currently being worked up and was supposed to have a bronchoscopy that was canceled on 08/14/2023 Patient is status post laparoscopic ostectomy and I&D of the left scrotal/groin area abscess. On today's evaluation that is 08/20/2023,the patient remains to be afebrile, patient is on room air not requiring supplemental oxygen and denies any shortness of breath no chest pain or cough.Patient denies having any nausea or vomiting, no abdominal pain and no diarrhea has been reported pain to the left groin and scrotal area has decreased in intensity. Patient white count is 4.3 creatinine is 2.0, local culture growing anaerobes and Citrobacter Objective - Vital Signs Vital signs: Vital Signs Temp 98.1 F 08/20/23 07:48 Pulse 73 08/20/23 07:48 Resp 16 08/20/23 07:48 BP 122/64 08/20/23 07:48 Pulse Ox 99 08/20/23 07:48 FiO2 Intake & Output 08/19/23 08/20/23 08/20/23 18:59 06:59 18:59 Weight 68.039 kg Other: Voiding Method Toilet Urinal # Voids 2 3 - Exam GENERAL DESCRIPTION: An elderly male lying in bed in no distress RESPIRATORY SYSTEM: Unlabored breathing , decreased breath sounds at bases HEART: S1 S2 regular rate and rhythm , ABDOMEN: Soft , no tenderness EXTREMITIES: Left scrotal area did have a deep wound - Labs CBC & Chem 7: 08/20/23 11:08 08/20/23 06:05 Labs: Abnormal Lab Results - Last 24 Hours (Table) 08/19/23 08/19/23 08/20/23 Range/Units 17:10 20:16 06:05 RBC 2.53 L (4.40-5.60) X 10*6/uL Hgb 6.7 A* (13.0-17.0) g/dL Hct 21.7 L (39.6-50.0) % MCH 26.5 L (27.0-32.0) pg MCHC 30.9 L (32.0-37.0) g/dL RDW 19.9 H (11.5-14.5) % Plt Count 131 L (140-440) X 10*3/uL Neutrophils # 1.28 L (1.80-7.70) X 10*3/uL Monocytes # 1.34 H (0.20-1.00) X 10*3/uL Eosinophils # 0.01 L (0.04-0.35) X 10*3/uL Creatinine (0.6-1.5) mg/dL Est GFR (CKD-EPI) (>=60) BUN/Creatinine Ratio (12.00-20.00) Ratio Glucose (70-110) mg/dL POC Glucose (mg/dL) 240 H 228 H (70-110) mg/dL Calcium (8.7-10.3) mg/dL Total Protein (6.2-8.2) g/dL Albumin (3.8-4.9) g/dL Albumin/Globulin Ratio (1.60-3.17) Ratio 08/20/23 08/20/23 08/20/23 Range/Units 06:05 07:15 07:39 RBC (4.40-5.60) X 10*6/uL Hgb (13.0-17.0) g/dL Hct (39.6-50.0) % MCH (27.0-32.0) pg MCHC (32.0-37.0) g/dL RDW (11.5-14.5) % Plt Count (140-440) X 10*3/uL Neutrophils # (1.80-7.70) X 10*3/uL Monocytes # (0.20-1.00) X 10*3/uL Eosinophils # (0.04-0.35) X 10*3/uL Creatinine 2.0 H (0.6-1.5) mg/dL Est GFR (CKD-EPI) 34 L (>=60) BUN/Creatinine Ratio 11.30 L (12.00-20.00) Ratio Glucose 49 A* (70-110) mg/dL POC Glucose (mg/dL) 57 L 68 L (70-110) mg/dL Calcium 8.4 L (8.7-10.3) mg/dL Total Protein 5.7 L (6.2-8.2) g/dL Albumin 3.2 L (3.8-4.9) g/dL Albumin/Globulin Ratio 1.28 L (1.60-3.17) Ratio 08/20/23 Range/Units 11:08 RBC 2.66 L (4.40-5.60) X 10*6/uL Hgb 7.2 L (13.0-17.0) g/dL Hct 23.5 L (39.6-50.0) % MCH (27.0-32.0) pg MCHC 30.7 L (32.0-37.0) g/dL RDW 18.7 H (11.5-14.5) % Plt Count 142 L (140-440) X 10*3/uL Neutrophils # (1.80-7.70) X 10*3/uL Monocytes # (0.20-1.00) X 10*3/uL Eosinophils # (0.04-0.35) X 10*3/uL Creatinine (0.6-1.5) mg/dL Est GFR (CKD-EPI) (>=60) BUN/Creatinine Ratio (12.00-20.00) Ratio Glucose (70-110) mg/dL POC Glucose (mg/dL) (70-110) mg/dL Calcium (8.7-10.3) mg/dL Total Protein (6.2-8.2) g/dL Albumin (3.8-4.9) g/dL Albumin/Globulin Ratio (1.60-3.17) Ratio Microbiology - Last 24 Hours (Table) 08/16/23 11:35 Blood Culture - Preliminary Blood 08/17/23 18:32 Gram Stain - Preliminary Groin Wound Culture - Preliminary 08/17/23 18:32 Anaerobic Culture - Preliminary Groin 08/16/23 09:25 Anaerobic Culture - Final Groin Anaerobic Gm Negative Bacilli Anaerobic Gm Negative Bacilli#2 08/16/23 09:25 Gram Stain - Final Groin Wound Culture - Final Citrobacter braakii Assessment and Plan (1) Cavitary lesion of lung Current Visit: Yes Status: Acute Code(s): J98.4 - OTHER DISORDERS OF LUNG SNOMED Code(s): 153088432 (2) Leukopenia Current Visit: Yes Status: Acute Code(s): D72.819 - DECREASED WHITE BLOOD CELL COUNT, UNSPECIFIED SNOMED Code(s): 30116412 (3) Abscess of left groin Current Visit: Yes Status: Acute Code(s): L02.214 - CUTANEOUS ABSCESS OF GROIN SNOMED Code(s): 06430195 (4) Scrotal abscess Current Visit: Yes Status: Acute Code(s): N49.2 - INFLAMMATORY DISORDERS OF SCROTUM SNOMED Code(s): 65961738 Plan: 1patient with a right upper lobe cavitating lesion with question of possible malignancy versus infectious etiology, will be favoring mostly malignancy because of his significant history of smoking however infection not entirely excluded, workup in progress 2-patient did have a left groin/scrotal area abscess s/p surgical drainage cultures are currently growing Citrobacter and anaerobes patient is covered with Zosyn to continue while inpatient, with a plan to finish therapy with oral Cipro and Flagyl when stable for discharge noticed to have slight worsening of his creatinine to be monitored closely nephrology already on the case Dictation was produced using [employer] dictation software. please excuse any grammatical, word or spelling errors. Time with Patient: Less than 30
[2023-08-20 12:01] LABS: Glucose,Whole Blood 253 mg/dL (70-110)
--- NOTE | 2023-08-20 12:29 | P.PN ---
Subjective Progress Note Date: 08/20/23 77-year-old male history of diabetes, hypertension, dyslipidemia, chronic kidney disease, gastroesophageal reflux disease, tobacco use and dependence. Patient states that he presented to the hospital because he does not feel well. He has abdominal pain. No nausea or vomiting. He states he also had some chest pain yesterday only. Chest pain is not worse with activity and not worse with deep breathing. He states he has a little shortness of breath. No dizziness no palpitations no syncopal episodes. He states he has some lower extremity edema. No cough no fever. No blood in his stool or urine. He denies history of CVA or seizures. Patient does admit to s claudication. Patient is a smoker of half a pack per day and quit 3 weeks ago. He denies any alcohol use and no caffeine use. He also states he has had some weight loss but has a good appetite. Patient had a PET scan done on 06/04/2023 which revealed abnormal uptake within the cavitary lesion right upper lobe. Diffuse increased uptake through the esophagus correlate for esophagitis. Asymmetric focal uptake within the right a nterior vocal cord. Focal area of abnormal uptake superior to the right femoral neck within the soft tissues of unclear etiology. Patient had presented to the emergency center on August 02 for generalized weakness with diagnosis of metabolic acidosis, hypocalcemia and acute kidney injury but patient signed out AGAINST MEDICAL ADVICE. 08/14. Dr. Bui took over care from Dr. Wilson. Patient laying comfortably in the bed. Complaining of generalized weakness and tiredness. Labs done this morning showed WBC 3.82, hemoglobin 7.7, platelet count 138, sodium 136, potassium 2.9. Potassium replacement ordered. 08/15. Patient seen and examined. Ultrasound abdomen done showed multiple gallstones, mild dilatation of the bile duct. Bronchoscopy was canceled because of scheduling issues. 08/16. Patient seen and examined. Patient developed a sore in his left groin, foul-smelling discharge seen. Denies any fever or chills 08/17. Patient seen and examined. Patient scheduled for laparoscopic cholecystectomy currently n.p.o. Lab work done this morning showed WBC 3.7, hemoglobin 7.4, platelet count 152, sodium 135, potassium 4.5, carbon Dastech 24 creatinine 1.82 08/18. Patient seen and examined. Patient underwent Laparoscopic cholecystectomy and Incision and drainage of left scrotal abscess. Blood sugars are elevated, started on Lantus. Potassium was 5.7, hyperkalemia protocol initiated. Losartan was discontinued. Patient started on on Venofer 08/19. Patient seen and examined. Stated he got dizzy while getting out of the bed today. Currently feeling much better. Tolerating diet 08/20. Patient seen and examined. Denies any lightheadedness or dizziness. Initial blood work this morning showed hemoglobin of 6.7, repeat was 7.2. No evidence of any bleeding. BUN this morning was 22.6, creatinine 2 REVIEW OF SYSTEMS: CONSTITUTIONAL: No fever, no malaise,. CARDIOVASCULAR: No chest pain, no palpitations, no syncope. PULMONARY: No shortness of breath, no cough, GASTROINTESTINAL: No diarrhea, no nausea, no vomiting, no abdominal pain. NEUROLOGICAL: No headaches, no weakness, PHYSICAL EXAMINATION: GENERAL: The patient is alert and oriented x3, not in any acute distress. Well developed, well nourished. HEENT: Pupils are round and equally reacting to light. EOMI. No scleral icterus. No conjunctival pallor. Normocephalic, atraumatic. No pharyngeal erythema. No thyromegaly. CARDIOVASCULAR: S1 and S2 present. No murmurs, rubs, or gallops. PULMONARY: Chest is clear to auscultation, no wheezing or crackles. ABDOMEN: Soft, nontender, laparoscopic surgical incisions seen MUSCULOSKELETAL: No joint swelling or deformity. EXTREMITIES: No cyanosis, clubbing, or pedal edema. NEUROLOGICAL: Gross neurological examination did not reveal any focal deficits. 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 Acute kidney injury Non-anion gap metabolic acidosis Coronary artery disease with previous PCI/stenting Diabetes mellitus type 2 Diabetic foot ulcers and previous history of osteomyelitis Peripheral vascular disease with previous stenting of the external iliac on the left Chronic stage IV kidney disease Non-anion gap metabolic acidosis likely secondary to renal failure Anemia of chronic disease Esophagitis Weight loss Remote history of bladder cancer postresection back in 2014 Hypertension Hyperlipidemia Unintentional weight loss Monitor vital signs Monitor CBC Monitor CMP Continue telemetry monitoring Encourage use of incentive spirometer Continue amlodipine, losartan. Continue IV Protonix 40 mg twice a day Continue wound care Follow-up and wound cultures Monitor blood sugar levels, continue current insulin regimen, started Lantus Ultrasound groin done showed left groin phlegmon with developing discrete walled off collection measuring approximately 1 cm in size consistent with small developing abscess, s/pIncision and drainage of left scrotal abscess on 08/17 Surgery consulted. S/p EGD revealing no active bleed, with anemia possibly due to noted gastritis. Continues on PPI. S/p Laparoscopic cholecystectomy on 08/17 Anemia workup consistent with anemia of inflammation. SPEP and immunofixation negative. K/L light chains elevated with ratio mildly elevated at 1.70, appears to be r/t hx CKD. RF and TREVOR negative Pulm following, and recommending bronchoscopy with biopsy of right upper lobe lesion, most likely outpatient Nephrology following, recommended discontinuing HCTZ, losartan discontinued ID following, continue IV Zosyn Labs and medication were reviewed.. Continue same treatment. Continue with symptomatic treatment. Resume home medication. Monitor labs and vitals. DVT and GI prophylaxis. Further recommendations as per clinical course of the patient Dictation was produced using [employer] dictation software. please excuse any grammatical, word or spelling errors. Objective - Vital Signs Vital signs: Vital Signs Temp 98.1 F 08/20/23 07:48 Pulse 73 08/20/23 07:48 Resp 16 08/20/23 07:48 BP 122/64 08/20/23 07:48 Pulse Ox 99 08/20/23 07:48 FiO2 Intake & Output 08/19/23 08/20/23 08/20/23 18:59 06:59 18:59 Weight 68.039 kg Other: Voiding Method Toilet Urinal # Voids 2 3 - Labs CBC & Chem 7: 08/20/23 11:08 08/20/23 06:05 Labs: Abnormal Lab Results - Last 24 Hours (Table) 08/19/23 08/19/23 08/20/23 Range/Units 17:10 20:16 06:05 RBC 2.53 L (4.40-5.60) X 10*6/uL Hgb 6.7 A* (13.0-17.0) g/dL Hct 21.7 L (39.6-50.0) % MCH 26.5 L (27.0-32.0) pg MCHC 30.9 L (32.0-37.0) g/dL RDW 19.9 H (11.5-14.5) % Plt Count 131 L (140-440) X 10*3/uL Neutrophils # 1.28 L (1.80-7.70) X 10*3/uL Monocytes # 1.34 H (0.20-1.00) X 10*3/uL Eosinophils # 0.01 L (0.04-0.35) X 10*3/uL Creatinine (0.6-1.5) mg/dL Est GFR (CKD-EPI) (>=60) BUN/Creatinine Ratio (12.00-20.00) Ratio Glucose (70-110) mg/dL POC Glucose (mg/dL) 240 H 228 H (70-110) mg/dL Calcium (8.7-10.3) mg/dL Total Protein (6.2-8.2) g/dL Albumin (3.8-4.9) g/dL Albumin/Globulin Ratio (1.60-3.17) Ratio 08/20/23 08/20/23 08/20/23 Range/Units 06:05 07:15 07:39 RBC (4.40-5.60) X 10*6/uL Hgb (13.0-17.0) g/dL Hct (39.6-50.0) % MCH (27.0-32.0) pg MCHC (32.0-37.0) g/dL RDW (11.5-14.5) % Plt Count (140-440) X 10*3/uL Neutrophils # (1.80-7.70) X 10*3/uL Monocytes # (0.20-1.00) X 10*3/uL Eosinophils # (0.04-0.35) X 10*3/uL Creatinine 2.0 H (0.6-1.5) mg/dL Est GFR (CKD-EPI) 34 L (>=60) BUN/Creatinine Ratio 11.30 L (12.00-20.00) Ratio Glucose 49 A* (70-110) mg/dL POC Glucose (mg/dL) 57 L 68 L (70-110) mg/dL Calcium 8.4 L (8.7-10.3) mg/dL Total Protein 5.7 L (6.2-8.2) g/dL Albumin 3.2 L (3.8-4.9) g/dL Albumin/Globulin Ratio 1.28 L (1.60-3.17) Ratio 08/20/23 08/20/23 Range/Units 11:08 11:58 RBC 2.66 L (4.40-5.60) X 10*6/uL Hgb 7.2 L (13.0-17.0) g/dL Hct 23.5 L (39.6-50.0) % MCH (27.0-32.0) pg MCHC 30.7 L (32.0-37.0) g/dL RDW 18.7 H (11.5-14.5) % Plt Count 142 L (140-440) X 10*3/uL Neutrophils # (1.80-7.70) X 10*3/uL Monocytes # (0.20-1.00) X 10*3/uL Eosinophils # (0.04-0.35) X 10*3/uL Creatinine (0.6-1.5) mg/dL Est GFR (CKD-EPI) (>=60) BUN/Creatinine Ratio (12.00-20.00) Ratio Glucose (70-110) mg/dL POC Glucose (mg/dL) 253 H (70-110) mg/dL Calcium (8.7-10.3) mg/dL Total Protein (6.2-8.2) g/dL Albumin (3.8-4.9) g/dL Albumin/Globulin Ratio (1.60-3.17) Ratio Microbiology - Last 24 Hours (Table) 08/16/23 11:35 Blood Culture - Preliminary Blood 08/17/23 18:32 Gram Stain - Preliminary Groin Wound Culture - Preliminary 08/17/23 18:32 Anaerobic Culture - Preliminary Groin 08/16/23 09:25 Anaerobic Culture - Final Groin Anaerobic Gm Negative Bacilli Anaerobic Gm Negative Bacilli#2 08/16/23 09:25 Gram Stain - Final Groin Wound Culture - Final Citrobacter braakii
[2023-08-20] MEDS: DARBEPOETIN ALFA 40 MCG/0.4 ML SYRINGE SQ SCH (12:59)
--- NOTE | 2023-08-20 16:03 | P.PN ---
Subjective Progress Note Date: 08/20/23 CHIEF COMPLAINT: Anemia HISTORY OF PRESENT ILLNESS: Patient postop day #3 status post laparoscopic cholecystectomy and incision and drainage of left scrotal abscess. Patient reports his pain is controlled. Denies any nausea or vomiting. He is tolerating diet. Afebrile. Packing was changed from the groin yesterday. Patient wants to be discharged home. He is refusing the wound VAC as recommended per ID service. PHYSICAL EXAM: VITAL SIGNS: Reviewed. GENERAL: no acute distress. ABDOMEN: Soft. Nondistended. Incision sites clean dry and intact. Left scrotal abscess with packing in place. Area is softer and less tender. NEUROLOGIC: Awake and alert ASSESSMENT: 1. Cholecystitis, cholelithiasis and gallstone pancreatitis status post laparoscopic cholecystectomy 2. Left scrotal abscess status post incision and drainage 3. GI bleed with melanotic stools. Resolved. status post EGD revealing antral gastritis and esophagitis 4. Acute on chronic anemia 5. Lung mass. Followed by pulmonary service PLAN: -Wound care per infectious disease -Antibiotics per ID service -Continue Protonix -Patient can be discharged from surgical standpoint when medically cleared Physician Drawing Supervisor note has been reviewed by physician. Signing provider agrees with the documented findings, assessment, and plan of care. Objective - Vital Signs Vital signs: Vital Signs Temp 98.4 F 08/20/23 13:06 Pulse 82 08/20/23 13:06 Resp 17 08/20/23 13:06 BP 119/50 08/20/23 13:06 Pulse Ox 100 08/20/23 13:06 FiO2 Intake & Output 08/19/23 08/20/23 08/20/23 18:59 06:59 18:59 Weight 68.039 kg Other: Voiding Method Toilet Urinal # Voids 2 3 - Labs CBC & Chem 7: 08/20/23 11:08 08/20/23 06:05 Labs: Abnormal Lab Results - Last 24 Hours (Table) 08/19/23 08/19/23 08/20/23 Range/Units 17:10 20:16 06:05 RBC 2.53 L (4.40-5.60) X 10*6/uL Hgb 6.7 A* (13.0-17.0) g/dL Hct 21.7 L (39.6-50.0) % MCH 26.5 L (27.0-32.0) pg MCHC 30.9 L (32.0-37.0) g/dL RDW 19.9 H (11.5-14.5) % Plt Count 131 L (140-440) X 10*3/uL Neutrophils # 1.28 L (1.80-7.70) X 10*3/uL Monocytes # 1.34 H (0.20-1.00) X 10*3/uL Eosinophils # 0.01 L (0.04-0.35) X 10*3/uL Creatinine (0.6-1.5) mg/dL Est GFR (CKD-EPI) (>=60) BUN/Creatinine Ratio (12.00-20.00) Ratio Glucose (70-110) mg/dL POC Glucose (mg/dL) 240 H 228 H (70-110) mg/dL Calcium (8.7-10.3) mg/dL Total Protein (6.2-8.2) g/dL Albumin (3.8-4.9) g/dL Albumin/Globulin Ratio (1.60-3.17) Ratio 08/20/23 08/20/23 08/20/23 Range/Units 06:05 07:15 07:39 RBC (4.40-5.60) X 10*6/uL Hgb (13.0-17.0) g/dL Hct (39.6-50.0) % MCH (27.0-32.0) pg MCHC (32.0-37.0) g/dL RDW (11.5-14.5) % Plt Count (140-440) X 10*3/uL Neutrophils # (1.80-7.70) X 10*3/uL Monocytes # (0.20-1.00) X 10*3/uL Eosinophils # (0.04-0.35) X 10*3/uL Creatinine 2.0 H (0.6-1.5) mg/dL Est GFR (CKD-EPI) 34 L (>=60) BUN/Creatinine Ratio 11.30 L (12.00-20.00) Ratio Glucose 49 A* (70-110) mg/dL POC Glucose (mg/dL) 57 L 68 L (70-110) mg/dL Calcium 8.4 L (8.7-10.3) mg/dL Total Protein 5.7 L (6.2-8.2) g/dL Albumin 3.2 L (3.8-4.9) g/dL Albumin/Globulin Ratio 1.28 L (1.60-3.17) Ratio 08/20/23 08/20/23 Range/Units 11:08 11:58 RBC 2.66 L (4.40-5.60) X 10*6/uL Hgb 7.2 L (13.0-17.0) g/dL Hct 23.5 L (39.6-50.0) % MCH (27.0-32.0) pg MCHC 30.7 L (32.0-37.0) g/dL RDW 18.7 H (11.5-14.5) % Plt Count 142 L (140-440) X 10*3/uL Neutrophils # (1.80-7.70) X 10*3/uL Monocytes # (0.20-1.00) X 10*3/uL Eosinophils # (0.04-0.35) X 10*3/uL Creatinine (0.6-1.5) mg/dL Est GFR (CKD-EPI) (>=60) BUN/Creatinine Ratio (12.00-20.00) Ratio Glucose (70-110) mg/dL POC Glucose (mg/dL) 253 H (70-110) mg/dL Calcium (8.7-10.3) mg/dL Total Protein (6.2-8.2) g/dL Albumin (3.8-4.9) g/dL Albumin/Globulin Ratio (1.60-3.17) Ratio Microbiology - Last 24 Hours (Table) 08/16/23 11:35 Blood Culture - Preliminary Blood 08/17/23 18:32 Gram Stain - Preliminary Groin Wound Culture - Preliminary 08/17/23 18:32 Anaerobic Culture - Preliminary Groin 08/16/23 09:25 Anaerobic Culture - Final Groin Anaerobic Gm Negative Bacilli Anaerobic Gm Negative Bacilli#2
[2023-08-20 17:17] LABS: Glucose,Whole Blood 150 mg/dL (70-110)
[2023-08-20 20:33] LABS: Glucose,Whole Blood 201 mg/dL (70-110)
[2023-08-21 04:08] LABS: Histoplasma Abs by ID Not Detected (Not Detected); Histoplasma Abs by Mycelia, CF <1:8 (<1:8)
[2023-08-21 07:23] LABS: Glucose,Whole Blood 100 mg/dL (70-110)
[2023-08-21 08:30] LABS: Magnesium 1.4 mg/dL (1.5-2.4)
[2023-08-21 08:38] LABS: Blood Urea Nitrogen 27.5 mg/dL (9.0-27.0); Carbon Dioxide 28.1 mmol/L (21.6-31.8); Chloride 98 mmol/L (96-109); Glucose 134 mg/dL (70-110); Potassium 4.8 mmol/L (3.5-5.5); Sodium 133 mmol/L (135-145)
[2023-08-21 12:18] LABS: Glucose,Whole Blood 225 mg/dL (70-110)
--- NOTE | 2023-08-21 12:48 | P.PN ---
Subjective Patient is seen in follow-up for acute kidney injury on chronic kidney disease. Renal function slightly worse with creatinine 2.2 today. Has been eating. Underwent laparoscopic cholecystectomy and incision and drainage of left scrotal abscess on August 17, 2023. No vomiting or diarrhea. No active complaints. Vital signs are stable. General: No acute distress. HEENT: Head exam is unremarkable. LUNGS: No audible rhonchi or wheezes. HEART: Rate and Rhythm are regular. ABDOMEN: Nontender. EXTREMITITES: No edema. Objective - Vital Signs Vital signs: Vital Signs Temp 98.3 F 08/21/23 07:45 Pulse 71 08/21/23 07:45 Resp 16 08/21/23 07:45 BP 129/65 08/21/23 07:45 Pulse Ox 99 08/21/23 07:45 FiO2 Intake & Output 08/20/23 08/21/23 08/21/23 18:59 06:59 18:59 Intake Total 1160 940 Output Total 1000 900 Balance 160 40 Weight 68.039 kg Intake: Intake, IV Titration 200 Amount Piperacillin-Tazobactam 3 200 .375 gm In Sodium Chloride 0.9% 100 ml @ 25 mls/hr IVPB Q8H [facility] Rx#: [id number] Oral 1160 740 Output: Urine 1000 900 Other: Voiding Method Toilet Urinal # Voids 2 - Labs CBC & Chem 7: 08/20/23 11:08 08/21/23 05:41 Labs: Abnormal Lab Results - Last 24 Hours (Table) 08/16/23 08/20/23 08/20/23 Range/Units 07:14 17:15 20:31 Sodium (135-145) mmol/L BUN (9.0-27.0) mg/dL Creatinine (0.6-1.5) mg/dL Est GFR (CKD-EPI) (>=60) Glucose (70-110) mg/dL POC Glucose (mg/dL) 150 H 201 H (70-110) mg/dL Calcium (8.7-10.3) mg/dL Magnesium (1.5-2.4) mg/dL Histoplasma Yeast Ab CF 1:8 H (<1:8) 08/21/23 08/21/23 Range/Units 05:41 12:13 Sodium 133 L (135-145) mmol/L BUN 27.5 H (9.0-27.0) mg/dL Creatinine 2.2 H (0.6-1.5) mg/dL Est GFR (CKD-EPI) 30 L (>=60) Glucose 134 H (70-110) mg/dL POC Glucose (mg/dL) 225 H (70-110) mg/dL Calcium 8.0 L (8.7-10.3) mg/dL Magnesium 1.4 L (1.5-2.4) mg/dL Histoplasma Yeast Ab CF (<1:8) Microbiology - Last 24 Hours (Table) 08/17/23 18:32 Gram Stain - Final Groin Wound Culture - Final Staphylococcus lugdunenisis Assessment and Plan Plan: Assessment: 1. Acute kidney injury secondary to vasomotor nephropathy from hypovolemia. Improved with IV hydration. No hydronephrosis noted on CAT scan. No monocl onality noted on serum immunofixation. Creatinine was 2.3 on admission and 2.2 today. 2. Chronic kidney disease stage IIIb with baseline creatinine 1.7-1.8 secondary to diabetic kidney disease. 3. Hypertension with chronic kidney disease. Exacerbated by pain. Currently controlled. 4. Acute pancreatitis. Improving. Tolerating diet. EGD showed antral gastritis. Status post laparoscopic cholecystectomy on August 17, 2023. 5. Right upper lobe cavitating lesion being followed by pulmonology. Concern for malignancy. 6. Anemia of chronic kidney disease. Iron deficiency noted. Status post IV iron. On Aranesp. 7. Metabolic acidosis secondary to acute kidney injury and GI losses. On oral bicarb. Improved. 8. Status post incision and drainage of left scrotal abscess August 17, 2023. 9. Hyperkalemia secondary to hyperglycemia, potassium supplementation and Cozaar. Improved. 10. Hypomagnesemia from poor intake. Plan: Encouraged oral intake. Off Cozaar and potassium supplementation. Blood sugar control. Avoid nephrotoxins. Stop oral bicarb. 2 g IV magnesium sulfate today. Hold amlodipine for systolic blood pressure less than 120. Follow-up outpatient 1 week postdischarge. Repeat BMP and magnesium level 2 to 3 days postdischarge.
--- NOTE | 2023-08-21 12:49 | P.DS ---
Providers Date of admission: 08/10/23 18:22 Expected date of discharge: 08/21/23 Attending physician: James Wilson Consults: 08/10/23 18:22 Consult Physician Routine Consulting Provider: Christiane Mooney Consult Reason/Comments: lung mass Do you want consulting provider notified?: Yes 08/10/23 23:17 Consult Physician Routine Consulting Provider: Jason Mello Consult Reason/Comments: anemia Do you want consulting provider notified?: Yes 08/10/23 23:18 Consult Physician Routine Consulting Provider: Franco Mohan Consult Reason/Comments: gi bleed Do you want consulting provider notified?: Yes 08/10/23 23:28 Consult Physician Routine Consulting Provider: Dank Rosales Consult Reason/Comments: abnormal ekg Do you want consulting provider notified?: Yes 08/14/23 10:33 Consult Physician Routine Consulting Provider: Nohemy Bower Consult Reason/Comments: Right upper lobe cavitary lesion, infection possible Do you want consulting provider notified?: Yes 08/14/23 10:37 Consult Physician Routine Consulting Provider: Doc Rodríguez Consult Reason/Comments: MARGY, metabolic acidosis Do you want consulting provider notified?: Yes Primary care physician: James Wilson [facility] Course: Discharge diagnoses; Right upper lobe cavitating lesions Findings are suspicious for non-small cell lung cancer squamous cell type Left groin abscess Pancytopenia COPD with upper lobe predominance as the patient has long-term smoking history Acute pancreatitis. Acute kidney injury Non-anion gap metabolic acidosis Coronary artery disease with previous PCI/stenting Diabetes mellitus type 2 Diabetic foot ulcers and previous history of osteomyelitis Peripheral vascular disease with previous stenting of the external iliac on the left Chronic stage IV kidney disease Non-anion gap metabolic acidosis likely secondary to renal failure Anemia of chronic disease Esophagitis Weight loss Remote history of bladder cancer postresection back in 2014 Hypertension Hyperlipidemia Unintentional weight loss Hospital course; 77-year-old male history of diabetes, hypertension, dyslipidemia, chronic kidney disease, gastroesophageal reflux disease, tobacco use and dependence. Patient states that he presented to the hospital because he does not feel well. He has abdominal pain. No nausea or vomiting. He states he also had some chest pain yesterday only. Chest pain is not worse with activity and not worse with deep breathing. He states he has a little shortness of breath. No dizziness no palpitations no syncopal episodes. He states he has some lower extremity edema. No cough no fever. No blood in his stool or urine. He denies history of CVA or seizures. Patient does admit to s claudication. Patient is a smoker of half a pack per day and quit 3 weeks ago. He denies any alcohol use and no caffeine use. He also states he has had some weight loss but has a good appetite. Patient had a PET scan done on 06/04/2023 which revealed abnormal uptake within the cavitary lesion right upper lobe. Diffuse increased uptake through the esophagus correlate for esophagitis. Asymmetric focal uptake within the right anterior vocal cord. Focal area of abnormal uptake superior to the right femoral neck within the soft tissues of unclear etiology. Patient had presented to the emergency center on August 02 for generalized weakness with diagnosis of metabolic acidosis, hypocalcemia and acute kidney injury but patient signed out AGAINST MEDICAL ADVICE. 08/14. Dr. Bui took over care from Dr. Wilson. Patient laying comfortably in the bed. Complaining of generalized weakness and tiredness. Labs done this morning showed WBC 3.82, hemoglobin 7.7, platelet count 138, sodium 136, potassium 2.9. Potassium replacement ordered. 08/15. Patient seen and examined. Ultrasound abdomen done showed multiple gallstones, mild dilatation of the bile duct. Bronchoscopy was canceled because of scheduling issues. 08/16. Patient seen and examined. Patient developed a sore in his left groin, foul-smelling discharge seen. Denies any fever or chills 08/17. Patient seen and examined. Patient scheduled for laparoscopic cholecystectomy currently n.p.o. Lab work done this morning showed WBC 3.7, hemoglobin 7.4, platelet count 152, sodium 135, potassium 4.5, carbon Dastech 24 creatinine 1.82 08/18. Patient seen and examined. Patient underwent Laparoscopic ch olecystectomy and Incision and drainage of left scrotal abscess. Blood sugars are elevated, started on Lantus. Potassium was 5.7, hyperkalemia protocol initiated. Losartan was discontinued. Patient started on on Venofer 08/19. Patient seen and examined. Stated he got dizzy while getting out of the bed today. Currently feeling much better. Tolerating diet 08/20. Patient seen and examined. Denies any lightheadedness or dizziness. Initial blood work this morning showed hemoglobin of 6.7, repeat was 7.2. No evidence of any bleeding. BUN this morning was 22.6, creatinine 2 2/16. Patient seen and examined. ID recommends starting patient on oral Cipro and Augmentin for 10 days. Outpatient follow-up with ID. Nephrology also cleared the patient for discharge PHYSICAL EXAMINATION: GENERAL: The patient is alert and oriented x3, not in any acute distress. Well developed, well nourished. HEENT: Pupils are round and equally reacting to light. EOMI. No scleral icterus. No conjunctival pallor. Normocephalic, atraumatic. No pharyngeal erythema. No thyromegaly. CARDIOVASCULAR: S1 and S2 present. No murmurs, rubs, or gallops. PULMONARY: Chest is clear to auscultation, no wheezing or crackles. ABDOMEN: Soft, nontender, laparoscopic surgical incisions seen MUSCULOSKELETAL: No joint swelling or deformity. EXTREMITIES: No cyanosis, clubbing, or pedal edema. NEUROLOGICAL: Gross neurological examination did not reveal any focal deficits. SKIN: Left groin dressing seen Dictation was produced using [employer] dictation software. please excuse any grammatical, word or spelling errors. Patient Condition at Discharge: Good Plan - Discharge Summary New Discharge Prescriptions: New Amoxic-Pot Clav 500-125 mg [Augmentin 500-125 mg] 1 tab PO Q12HR #20 tab Ciprofloxacin HCl [Cipro] 750 mg PO DAILY #10 tab amLODIPine [Norvasc] 5 mg PO DAILY #30 tab Pantoprazole [Protonix] 40 mg PO DAILY 30 Days #30 tab Continue HYDROcodone/APAP 7.5-325MG [[place] 7.5-325] 1 tab PO TID Atorvastatin [Lipitor] 40 mg PO DAILY Dapagliflozin Propanediol [Farxiga] 5 mg PO DAILY Ipratropium-Albuterol Nebulize [Duoneb 0.5 mg-3 mg/3 ml Soln] 3 ml INHALATION RT-QID PRN PRN Reason: Shortness Of Breath Omeprazole 40 mg PO BID glipiZIDE [Glucotrol] 10 mg PO BID Sildenafil Citrate [Viagra] 100 mg PO DAILY PRN PRN Reason: E.D. Discontinued Losartan [Cozaar] 50 mg PO DAILY Discharge Medication List HYDROcodone/APAP 7.5-325MG [[place] 7.5-325] 1 tab PO TID 09/19/19 [History] Sildenafil Citrate [Viagra] 100 mg PO DAILY PRN 11/05/21 [History] glipiZIDE [Glucotrol] 10 mg PO BID 11/05/21 [History] Atorvastatin [Lipitor] 40 mg PO DAILY 08/02/23 [History] Dapagliflozin Propanediol [Farxiga] 5 mg PO DAILY 08/02/23 [History] Ipratropium-Albuterol Nebulize [Duoneb 0.5 mg-3 mg/3 ml Soln] 3 ml INHALATION RT-QID PRN 08/02/23 [History] Omeprazole 40 mg PO BID 08/02/23 [History] Amoxic-Pot Clav 500-125 mg [Augmentin 500-125 mg] 1 tab PO Q12HR #20 tab 08/21/23 [Rx] Ciprofloxacin HCl [Cipro] 750 mg PO DAILY #10 tab 08/21/23 [Rx] Pantoprazole [Protonix] 40 mg PO DAILY 30 Days #30 tab 08/21/23 [Rx] amLODIPine [Norvasc] 5 mg PO DAILY #30 tab 08/21/23 [Rx] Follow up Appointment(s)/Referral(s): James Wilson MD [Primary Care Provider] - 1-2 days
[2023-08-21] MEDS ORDERED: MAGNESIUM SULFATE-D5W PMX 1 GM in DEXTROSE/WATER 1 100ML.BAG IVPB SCH (13:00)
--- NOTE | 2023-08-21 13:06 | P.PN ---
Subjective Progress Note Date: 08/21/23 CHIEF COMPLAINT: Anemia HISTORY OF PRESENT ILLNESS: Patient postop day #4 status post laparoscopic cholecystectomy and incision and drainage of left scrotal abscess. Patient reports his pain is controlled. Denies any nausea or vomiting. He is tolerating diet. Afebrile. He is refusing the wound VAC as recommended per ID service. PHYSICAL EXAM: VITAL SIGNS: Reviewed. GENERAL: no acute distress. ABDOMEN: Soft. Nondistended. Incision sites clean dry and intact. Left scrotal abscess with packing in place. Area is softer and less tender. NEUROLOGIC: Awake and alert ASSESSMENT: 1. Cholecystitis, cholelithiasis and gallstone pancreatitis status post laparoscopic cholecystectomy 2. Left scrotal abscess status post incision and drainage 3. GI bleed with melanotic stools. Resolved. status post EGD revealing antral gastritis and esophagitis 4. Acute on chronic anemia 5. Lung mass. Followed by pulmonary service PLAN: -Wound care per infectious disease -Antibiotics per ID service -Continue Protonix -Patient can be discharged from surgical standpoint when medically cleared Physician Archaeologist note has been reviewed by physician. Signing provider agrees with the documented findings, assessment, and plan of care. Objective - Vital Signs Vital signs: Vital Signs Temp 98.3 F 08/21/23 07:45 Pulse 71 08/21/23 07:45 Resp 16 08/21/23 07:45 BP 129/65 08/21/23 07:45 Pulse Ox 99 08/21/23 07:45 FiO2 Intake & Output 08/20/23 08/21/23 08/21/23 18:59 06:59 18:59 Intake Total 1160 940 Output Total 1000 900 Balance 160 40 Weight 68.039 kg Intake: Intake, IV Titration 200 Amount Piperacillin-Tazobactam 3 200 .375 gm In Sodium Chloride 0.9% 100 ml @ 25 mls/hr IVPB Q8H COUNTS INCLUDE 234 BEDS AT THE [facility] Rx#: [id number] Oral 1160 740 Output: Urine 1000 900 Other: Voiding Method Toilet Urinal # Voids 2 - Labs CBC & Chem 7: 08/20/23 11:08 08/21/23 05:41 Labs: Abnormal Lab Results - Last 24 Hours (Table) 08/16/23 08/20/23 08/20/23 Range/Units 07:14 17:15 20:31 Sodium (135-145) mmol/L BUN (9.0-27.0) mg/dL Creatinine (0.6-1.5) mg/dL Est GFR (CKD-EPI) (>=60) Glucose (70-110) mg/dL POC Glucose (mg/dL) 150 H 201 H (70-110) mg/dL Calcium (8.7-10.3) mg/dL Magnesium (1.5-2.4) mg/dL Histoplasma Yeast Ab CF 1:8 H (<1:8) 08/21/23 08/21/23 Range/Units 05:41 12:13 Sodium 133 L (135-145) mmol/L BUN 27.5 H (9.0-27.0) mg/dL Creatinine 2.2 H (0.6-1.5) mg/dL Est GFR (CKD-EPI) 30 L (>=60) Glucose 134 H (70-110) mg/dL POC Glucose (mg/dL) 225 H (70-110) mg/dL Calcium 8.0 L (8.7-10.3) mg/dL Magnesium 1.4 L (1.5-2.4) mg/dL Histoplasma Yeast Ab CF (<1:8) Microbiology - Last 24 Hours (Table) 08/17/23 18:32 Gram Stain - Final Groin Wound Culture - Final Staphylococcus lugdunenisis
--- NOTE | 2023-08-21 13:19 | P.PN ---
Subjective Progress Note Date: 08/21/23 Principal diagnosis: Right upper lobe cavitary lesion Patient is a 77-year-old male with a past medical history significant for diabetes mellitus HI osteoarthritis history of bladder cancer patient presenting to the ER for evaluation generalized weakness abdominal pain patient did have a EGD with evidence of antral gastritis and gallbladder ultrasound mention gallbladder follow-up gallstone patient apparently also have right upper lobe cavitary lesion currently being worked up and was supposed to have a bronchoscopy that was canceled on 08/14/2023 Patient is status post laparoscopic ostectomy and I&D of the left scrotal/groin area abscess. On today's evaluation that is 08/21/2023, the patient continues to be afebrile, the patient is on room air and breathing comfortably, the Pt denies having any chest pain or cough, the patient denies having any abdominal pain no vomiting or any diarrhea has been reported by the nursing staff, denies pain to the left groin and scrotal area. Patient did have a creatinine 2.2 blood cultures now growing Staphylococcus lugdunenisis with a previous culture positive for Citrobacter and anaerobes Objective - Vital Signs Vital signs: Vital Signs Temp 98.3 F 08/21/23 07:45 Pulse 71 08/21/23 07:45 Resp 16 08/21/23 07:45 BP 129/65 08/21/23 07:45 Pulse Ox 99 08/21/23 07:45 FiO2 Intake & Output 08/20/23 08/21/23 08/21/23 18:59 06:59 18:59 Intake Total 1160 940 Output Total 1000 900 Balance 160 40 Weight 68.039 kg Intake: Intake, IV Titration 200 Amount Piperacillin-Tazobactam 3 200 .375 gm In Sodium Chloride 0.9% 100 ml @ 25 mls/hr IVPB Q8H [facility] Rx#: [id number] Oral 1160 740 Output: Urine 1000 900 Other: Voiding Method Toilet Urinal # Voids 2 - Exam GENERAL DESCRIPTION: An elderly male lying in bed in no distress RESPIRATORY SYSTEM: Unlabored breathing , decreased breath sounds at bases HEART: S1 S2 regular rate and rhythm , ABDOMEN: Soft , no tenderness EXTREMITIES: Left scrotal area did have a deep wound - Labs CBC & Chem 7: 08/20/23 11:08 08/21/23 05:41 Labs: Abnormal Lab Results - Last 24 Hours (Table) 08/16/23 08/20/23 08/20/23 Range/Units 07:14 11:08 11:58 RBC 2.66 L (4.30-5.90) m/uL Hgb 7.2 L (13.0-17.5) gm/dL Hct 23.5 L (39.0-53.0) % MCHC 30.7 L (31.0-37.0) g/dL RDW 18.7 H (11.5-15.5) % Plt Count 142 L (150-450) k/uL Sodium (135-145) mmol/L BUN (9.0-27.0) mg/dL Creatinine (0.6-1.5) mg/dL Est GFR (CKD-EPI) (>=60) Glucose (70-110) mg/dL POC Glucose (mg/dL) 253 H (70-110) mg/dL Calcium (8.7-10.3) mg/dL Magnesium (1.5-2.4) mg/dL Histoplasma Yeast Ab CF 1:8 H (<1:8) 08/20/23 08/20/23 08/21/23 Range/Units 17:15 20:31 05:41 RBC (4.30-5.90) m/uL Hgb (13.0-17.5) gm/dL Hct (39.0-53.0) % MCHC (31.0-37.0) g/dL RDW (11.5-15.5) % Plt Count (150-450) k/uL Sodium 133 L (135-145) mmol/L BUN 27.5 H (9.0-27.0) mg/dL Creatinine 2.2 H (0.6-1.5) mg/dL Est GFR (CKD-EPI) 30 L (>=60) Glucose 134 H (70-110) mg/dL POC Glucose (mg/dL) 150 H 201 H (70-110) mg/dL Calcium 8.0 L (8.7-10.3) mg/dL Magnesium 1.4 L (1.5-2.4) mg/dL Histoplasma Yeast Ab CF (<1:8) Microbiology - Last 24 Hours (Table) 08/17/23 18:32 Gram Stain - Final Groin Wound Culture - Final Staphylococcus lugdunenisis Assessment and Plan (1) Cavitary lesion of lung Current Visit: Yes Status: Acute Code(s): J98.4 - OTHER DISORDERS OF LUNG SNOMED Code(s): 327339515 (2) Leukopenia Current Visit: Yes Status: Acute Code(s): D72.819 - DECREASED WHITE BLOOD CELL COUNT, UNSPECIFIED SNOMED Code(s): 89128250 (3) Abscess of left groin Current Visit: Yes Status: Acute Code(s): L02.214 - CUTANEOUS ABSCESS OF GROIN SNOMED Code(s): 49253942 (4) Scrotal abscess Current Visit: Yes Status: Acute Code(s): N49.2 - INFLAMMATORY DISORDERS OF SCROTUM SNOMED Code(s): 76953261 Plan: 1patient with a right upper lobe cavitating lesion with question of possible malignancy versus infectious etiology, will be favoring mostly malignancy because of his significant history of smoking however infection not entirely excluded, workup in progress 2-patient did have a left groin/scrotal area abscess s/p surgical drainage cultures are currently growing Citrobacter and anaerobes and repeat culture growing oxacillin sensitive Staphylococcus lugdunenisis, patient wants to go home prescription for oral Cipro and Augmentin has been sent to the pharmacy for 10 days dose has been confirmed with the pharmacist because of his kidney function Dictation was produced using [employer] software. please excuse any grammatical, word or spelling errors. Time with Patient: Less than 30
[2023-08-21 13:33] VITALS: BP 113/49; PULSE 72; RESP 18; TEMP 97.5
[2023-08-21] MEDS: MAGNESIUM OXIDE 400 MG TAB PO STA (13:56)
[2023-08-22] MEDS ORDERED: ENOXAPARIN 30 MG/0.3 ML SYRINGE SQ SCH (09:00)
--- NOTE | 2023-08-24 20:15 | CDI ---
Documentation Clarification Form Date: 08/24/2023 08:07:48 PM From: Sandra Escalante Phone: Admit Date: 08/10/2023 06:22:00 PM Patient Name: Junior Bird Visit Number: [id number] Discharge Date: 08/21/2023 02:52:00 PM ATTENTION: The Clinical Documentation Specialists (CDI) and [facility] Coding Staff appreciate your assistance in clarifying documentation. Please respond to the clarification below the line at the bottom and electronically sign. The CDI & [facility] Coding staff will review the response and follow-up if needed. Please note: Queries are made part of the Legal Health Record. If you have any questions, please contact the author of this message via ITS. Dr. Kyle Bui The final diagnosis of the pathology report states Mildchronic gastritis. Coding guidelines do not allow coding professionals to code based on pathology results; therefore, clarification is requested. History/risk factors: 77yo M, suspicious fornon-small cell lung cancersquamouscell type, Lt groin abscess, Pancytopenia, COPD, gallstone pancreatitis, MARGY on CKD, CAD w stents DMII w PVD/ulcers, anemia, Esophagitis, Weight loss, Hx bladder Cx, HTN, HLD, anemia, unintentionalweight loss Clinical Indicators: EGDrevealingno activebleed, withanemiapossibly due to notedantralgastritis. Treatment: Continues on PPI Please clarify if you agree with the pathology report diagnosis of Mildantral chronic gastritis: [ x ] Yes [ ] No [ ] Other (please specify) [ ] Unable to determine (Template Last Revised: September 2020) MTDD
--- NOTE | 2023-08-24 20:28 | CDI ---
Documentation Clarification Form Date: 08/24/2023 08:16:00 PM From: Sandra Escalante Phone: Admit Date: 08/10/2023 06:22:00 PM Patient Name: Junior Bird Visit Number: [id number] Discharge Date: 08/21/2023 02:52:00 PM ATTENTION: The Clinical Documentation Specialists (CDI) and [facility] Coding Staff appreciate your assistance in clarifying documentation. Please respond to the clarification below the line at the bottom and electronically sign. The CDI & [facility] Coding staff will review the response and follow-up if needed. Please note: Queries are made part of the Legal Health Record. If you have any questions, please contact the author of this message via ITS. Dr. Kyle Bui There is documentation of cachexia per H&P, poor nutrition and unintentional weight loss per Consult 08/11. Additional clarification is requested. History/Risk Factors: 77yo M, RUL non-small cell/ squamous??, Lt groin abscess, Pancytopenia, COPD, gallstone pancreatitis, MARGY on CKD, CAD w stents DMII w PVD/ulcers, anemia, Esophagitis, Weight loss, Hx bladder Cx, HTN, HLD, anemia Clinical Indicators: Current BMI: 20.9 Recent unintentionalweight loss, approximately 20 pounds over the last 2 weeks He is thin,cachectic, looks older than the stated age Treatment: Pancytopenialikelyreactive and worseninganemiar/ttoGI bleedandpoor nutrition. Orderanemiaandpancytopeniaworkup Is there an additional diagnosis that is clinically appropriate for this patient? [ ] Mild Protein-Calorie Malnutrition [ x] Moderate Protein-Calorie Malnutrition [ ] Underweight [ ] No additional diagnosis/Not clinically significant [ ] Other condition, please specify [ ] Unable to Determine (Template Last Revised: January 2023) MTDD
--- NOTE | 2023-08-24 20:39 | CDI ---
Documentation Clarification Form Date: 08/24/2023 08:29:00 PM From: Sandra Escalante Phone: Admit Date: 08/10/2023 06:22:00 PM Patient Name: Junior Bird Visit Number: [id number] Discharge Date: 08/21/2023 02:52:00 PM ATTENTION: The Clinical Documentation Specialists (CDI) and [facility] Coding Staff appreciate your assistance in clarifying documentation. Please respond to the clarification below the line at the bottom and electronically sign. The CDI & [facility] Coding staff will review the response and follow-up if needed. Please note: Queries are made part of the Legal Health Record. If you have any questions, please contact the author of this message via ITS. Dr. Kyle Bui Normocytic,normochromic anemia is documented per Consult 08/11 and Progress Notes. Additional specificity regarding of anemia is requested. History/Risk Factors: 77yo M, RUL non-small cell/ squamous??, Lt groin abscess, Pancytopenia, COPD, gallstone pancreatitis, MARGY on CKD, CAD w stents DMII w PVD/ulcers, anemia, Esophagitis, Weight loss, Hx bladder Cx, HTN, HLD, anemia, cachexia Clinical indicators: Hgb: 08/10 7.7 08/11 7.5 08/12 6.5 08/13 8.4 08/15 8.1 Hct: 08/10 24.6 08/11 22.9 08/12 21.7 08/13 27.6 08/15 25.4 Treatment: 1u PRBC 08/11 Please clarify all the type(s) and acuity of anemia(s): [ ] Acute blood loss anemia [ x] Acute on chronic blood loss anemia [ ] Iron deficiency anemia [ ] Anemia due to malignancy [ ] Nutritional anemia [ ] Unable to determine [ ] Other, please specify (Template Last Revised: August 2020) MTDD
--- NOTE | 2023-08-24 20:56 | CDI ---
Documentation Clarification Form Date: 08/24/2023 08:40:00 PM From: Sandra Escalante Phone: Admit Date: 08/10/2023 06:22:00 PM Patient Name: Junior Bird Visit Number: [id number] Discharge Date: 08/21/2023 02:52:00 PM ATTENTION: The Clinical Documentation Specialists (CDI) and [facility] Coding Staff appreciate your assistance in clarifying documentation. Please respond to the clarification below the line at the bottom and electronically sign. The CDI & [facility] Coding staff will review the response and follow-up if needed. Please note: Queries are made part of the Legal Health Record. If you have any questions, please contact the author of this message via ITS. Dr. Vianey Yarbrough Differing stages of CKD is documented: Chronic kidney diseaseNKF stage IIIB Nephrology Consult Chronic kidney disease stage IV Progress Notes 08/11 Additional clarification regarding the stage of CKD is requested. History/Risk Factors: 77yo M, pancreatitis, met acidosis, ATN on CKD, wt loss, HTN, HLD, CAD w stenting, DMII w PVD, GERD, gastritis w bleeding, Hx smoker Baseline creatinine 1.7-1.8 mg/dL Clinical Indicators: AfAm: 08/10 31 08/13 52 08/18 41 NonAfAm: 08/10 27 08/13 45 08/18 36 BUN: 08/10 48 08/11 43.2 08/12 31.9 08/14 17-17.7 08/21 12.5 Cr: 08/10 2.3 08/11 1.8 08/13 1.5 08/14 1.81 08/21 2.2 Treatment: Improved with IV hydration. Nohydronephrosisnoted onCAT scan. No monoclonality noted on serum immunofixation. Please clarify the stage of the CKD, if known: [ x] CKD Stage 3b [ ] CKD Stage 4 [ ] Other, please specify [ ] Unable to determine Reference: National [employer] Stage 1 eGFR = 90 and kidney damage for =3 months Stage 2 eGFR 60-89 and kidney damage for =3 months Stage 3a eGFR 45-59 and kidney damage for =3 months Stage 3b eGFR 30-44 and kidney damage for =3 months Stage 4 eGFR 15-29 r and kidney damage for =3 months Stage 5 eGFR <15 and kidney damage for =3 months (Template last revised: July 2023) MTDD
== END 2023-08-21 14:52 | disposition home health service (06) | DRG 356 ==
LOC: EC 15:30 → 4SSUR 18:22 → 5NMEDONC 18:36
PROVIDERS: ADMIT Family Medicine; ATTEND Family Medicine
PROC: 30233N1 Transfusion of Nonautologous Red Blood Cells into Peripheral Vein, Percutaneous Approach (ICD-10-PCS; 2023-08-11)
PROC: 05HA33Z Insertion of Infusion Device into Left Brachial Vein, Percutaneous Approach (ICD-10-PCS; 2023-08-11)
PROC: 0DB38ZX Excision of Lower Esophagus, Via Natural or Artificial Opening Endoscopic, Diagnostic (ICD-10-PCS; 2023-08-13)
PROC: 0DB78ZX Excision of Stomach, Pylorus, Via Natural or Artificial Opening Endoscopic, Diagnostic (ICD-10-PCS; 2023-08-13)
PROC: 0FT44ZZ Resection of Gallbladder, Percutaneous Endoscopic Approach (ICD-10-PCS; principal; 2023-08-17 17:34)
PROC: 0V950ZZ Drainage of Scrotum, Open Approach (ICD-10-PCS; 2023-08-17 17:34)
DX: K29.51 Unspecified chronic gastritis with bleeding (principal); K85.10 Biliary acute pancreatitis without necrosis or infection; N17.0 Acute kidney failure with tubular necrosis; D61.818 Other pancytopenia; C34.11 Malignant neoplasm of upper lobe, right bronchus or lung; E44.0 Moderate protein-calorie malnutrition; E87.20 Acidosis, unspecified; D62 Acute posthemorrhagic anemia; L02.214 Cutaneous abscess of groin; K80.10 Calculus of gallbladder with chronic cholecystitis without obstruction; D69.6 Thrombocytopenia, unspecified; L97.509 Non-pressure chronic ulcer of other part of unspecified foot with unspecified severity; E11.51 Type 2 diabetes mellitus with diabetic peripheral angiopathy without gangrene; E11.42 Type 2 diabetes mellitus with diabetic polyneuropathy; E11.22 Type 2 diabetes mellitus with diabetic chronic kidney disease; E11.621 Type 2 diabetes mellitus with foot ulcer; E11.65 Type 2 diabetes mellitus with hyperglycemia; J44.9 Chronic obstructive pulmonary disease, unspecified; N18.32 Chronic kidney disease, stage 3b; Z89.432 Acquired absence of left foot; Z66 Do not resuscitate; E88.A Wasting disease (syndrome) due to underlying condition; D63.1 Anemia in chronic kidney disease; E83.51 Hypocalcemia; E86.1 Hypovolemia; Z95.820 Peripheral vascular angioplasty status with implants and grafts; I12.9 Hypertensive chronic kidney disease with stage 1 through stage 4 chronic kidney disease, or unspecified chronic kidney disease; I25.10 Atherosclerotic heart disease of native coronary artery without angina pectoris; K21.00 Gastro-esophageal reflux disease with esophagitis, without bleeding; N49.2 Inflammatory disorders of scrotum; D64.89 Other specified anemias; M19.90 Unspecified osteoarthritis, unspecified site; B95.7 Other staphylococcus as the cause of diseases classified elsewhere; E78.5 Hyperlipidemia, unspecified; E83.42 Hypomagnesemia; E87.5 Hyperkalemia; T46.5X5A Adverse effect of other antihypertensive drugs, initial encounter; E87.6 Hypokalemia; N28.1 Cyst of kidney, acquired; R60.0 Localized edema; R13.10 Dysphagia, unspecified; Z91.198 Patient's noncompliance with other medical treatment and regimen for other reason; Z68.20 Body mass index [BMI] 20.0-20.9, adult; Z87.891 Personal history of nicotine dependence; Z79.84 Long term (current) use of oral hypoglycemic drugs; Z80.9 Family history of malignant neoplasm, unspecified; Z85.51 Personal history of malignant neoplasm of bladder; Z79.891 Long term (current) use of opiate analgesic; I25.2 Old myocardial infarction; Z95.5 Presence of coronary angioplasty implant and graft; Z86.19 Personal history of other infectious and parasitic diseases; Z87.39 Personal history of other diseases of the musculoskeletal system and connective tissue; Z79.899 Other long term (current) drug therapy
CPT/HCPCS: 36410; 36415; 43239; 71046; 74150; 76705; 76870; 76937; 80048; 80053; 82272; 82525; 82607; 82728; 82747; 82784; 83036; 83540; 83550; 83605; 83690; 83735; 83883; 83921; 84132; 84145; 84165; 84443; 84484; 85025; 85027; 85610; 85730; 86038; 86140; 86334; 86431; 86606; 86698; 86850; 86900; 86901; 86920; 87040; 87070; 87075; 87077; 87186; 87205; 87305; 88304; 88305; 93005; 93306; 93975; 96360; 96361; 99285

== ENCOUNTER → 2023-09-30 | Outpatient (CLI) | payer MEDICARE ==
--- NOTE | 2023-10-01 08:41 | CT ---
EXAMINATION TYPE: CT chest wo con CT DLP: 183.1 mGycm, Automated exposure control for dose reduction was used. DATE OF EXAM: 09/30/2023 3:28 PM COMPARISON: Chest radiograph from same day. Multiple CTs of the chest with most recent on . CLINICAL INDICATION:Male, 77 years old with history of R91.1 LUNG NODULE; PHH, Lung nodule. TECHNIQUE: Multiple axial images were obtained through the chest. Sagittal and coronal reformats were created for review. Contrast used: mL of (None if empty) Oral contrast used: (None if empty) FINDINGS: LUNGS/ PLEURA: Mild to moderate centrilobular emphysematous changes in the lung apices. Cavitary righ t lung nodule has contained within a ball. Aspergilloma is favored, but other yeast infection, tuber culosis, other mycobacterial and other bacterial etiologies could be involved. Malignancy is felt les s likely HEART: Size within normal limits. MEDIASTINUM: No gross evidence of adenopathy. VASCULATURE: No aortic aneurysm. MUSCULOSKELETAL: No acute osseous abnormalities SOFT TISSUES/LYMPH NODES: Unremarkable. LOWER NECK: No significant findings. UPPER ABDOMEN: No significant findings. IMPRESSION: Cavitary right lung nodule has contained within it a ball. Aspergilloma is favored, but other yeast infection, tuberculosis, other mycobacterial and other bacterial etiologies could be involved. Malign phil is felt less likely
== END | disposition home or self-care (01) ==
LOC: RADCTMAIN 14:58
PROVIDERS: ATTEND Internal Medicine
DX: R91.1 Solitary pulmonary nodule (principal)
CPT/HCPCS: 71250

== ENCOUNTER → 2024-02-01 | Outpatient (CLI) | payer MEDICARE ==
[2024-02-01 12:42] LABS: African American GFR (CKD) 36 (>60 ml/min/1.73 sqM); Blood Urea Nitrogen 30 mg/dL (9-20); Non-African American GFR(CKD) 31 (>60 ml/min/1.73 sqM)
--- NOTE | 2024-02-07 21:02 | CT ---
EXAMINATION TYPE: CT chest wo con DATE OF EXAM: 02/01/2024 COMPARISON: 09/30/2023, 04/10/2023, 08/29/2021 HISTORY: 78-year-old male R91.1 solitary LUNG NODULE TECHNIQUE: Contiguous axial scanning of the chest without IV contrast. Coronal/sagittal reconstructio ns performed. CT DLP: 182.8mGycm. Automatic exposure control utilized for a dose reduction. FINDINGS: Heart is normal size with small, 8 mm thick anterior pericardial effusion. Mild three-vessel coronary artery calcifications are present. Aorta shows conventional arch vessel branching anatomy. Lower descending thoracic aorta is ectatic at 2.8 cm. No thoracic lymphadenopathy by CT size criteria. Moderate emphysematous change with biapical pleural-parenchymal scarring. A couple 5 mm and smaller p ulmonary nodules are unchanged. A 5 mm lateral right upper lung pulmonary nodule, axial image 11 is s table for only the last 4 months. Not clearly seen prior to that. Cavitary lesion posterior right upper lobe measures 1.7 cm versus 1.9 cm on 09/30/2023 and 2.3 cm on 1 . New from 08/29/2021. Internal soft tissue nodularity is redemonstrated. Hazy dependent atelectasis noted. Visualized upper abdomen shows cholecystectomy clips and moderate stool. Bones: Partially visualized ACDF hardware. Mild degenerative disc disease thoracic spine. IMPRESSION: 1. COPD with moderate emphysema. 2. The cavitary lesion with internal nodular soft tissue in the posterior right upper lobe currently measures 1.7 cm vs 1.9 cm on 09/30/2023 and 2.3 cm on 04/10/2023. Consider sequela of fungal/mycobacte rial infection with mycetoma. Ongoing follow-up to ensure continued involution and exclude neoplasm. 3. A 5 mm lateral right upper lobe pulmonary nodule, axial image 11 is stable for only 4 months. Atte ntion on follow-up.
== END | disposition home or self-care (01) ==
LOC: RADCTMAIN 12:08
PROVIDERS: ATTEND Internal Medicine
DX: J43.9 Emphysema, unspecified (principal); J44.9 Chronic obstructive pulmonary disease, unspecified; R91.1 Solitary pulmonary nodule
CPT/HCPCS: 36415; 71250; 82565; 84520

== ENCOUNTER → 2024-09-12 | Outpatient (CLI) | payer MEDICARE ==
--- NOTE | 2024-09-12 12:54 | XR ---
EXAMINATION TYPE: XR foot complete LT DATE OF EXAM: 09/12/2024 12:12 PM COMPARISON: 11/22/2021. CLINICAL INDICATION: Male, 78 years old with history of M79.672 Pain left foot; PHH, pain TECHNIQUE: XR foot complete LT examined in the AP, oblique, and lateral projections. FINDINGS: Postsurgical changes in the feet no evidence for osseous erosion. No evidence septations ga s. There is soft tissue swelling over the dorsal aspect of C5. No evidence for fracture or subluxatio n. History ossicle present near the navicular bone. IMPRESSION: Post surgical changes without evidence for osseous erosion or subcutaneous gas. [facility], , 09/12/2024 12:51 PM
== END | disposition home or self-care (01) ==
LOC: RADXRMAIN 12:02
PROVIDERS: ATTEND Family Medicine
DX: M79.672 Pain in left foot (principal); Z98.890 Other specified postprocedural states